=== PATIENT | female | born 1950 | race Caucasian/White ===

== ENCOUNTER 2020-02-18 12:01 | Outpatient (REF) | payer MEDICARE, MEDICAID, SELFPAY | END 2020-02-18 12:02 | disposition home or self-care (01) | LOC: HO.LAB 12:01 | PROVIDERS: PCP Family Medicine; Visit Provider Internal Medicine | DX: Z20.828 Contact with and (suspected) exposure to other viral communicable diseases (principal) | CPT/HCPCS: C9803; U0003 ==

== ENCOUNTER 2020-09-09 12:08 | Outpatient (REF) | payer OTHER, MEDICARE, MEDICAID, SELFPAY ==
--- NOTE | ~2020-09-09 | MM_ITS ---
EXAMINATION: MM SCREENING DIGITAL BREAST TOMOSYNTHESIS, LEFT CLINICAL INFORMATION: Screening. Asymptomatic. Status post right mastectomy. COMPARISON: Mammography: September 06, 2019 and studies dating back to August 23, 2011 TECHNIQUE: Digital breast tomosynthesis is performed in both the craniocaudal and mediolateral oblique views along with computer-aided detection (CAD). Synthesized 2D images are generated from the tomosynthesis. FINDINGS: The breasts are heterogeneously dense, which may obscure small masses (ACR BI-RADS breast composition Category c). There are no significant masses, abnormal calcifications, or other abnormalities. MM/MM tomosynthesis screening LT IMPRESSION: There are no significant changes from prior study. ASSESSMENT: BI-RADS 1: Negative RECOMMENDATION: Routine annual mammography screening. This patient's information was entered into a reminder system with a target due date for their next mammogram.
== END 2020-09-09 12:09 | disposition home or self-care (01) ==
LOC: HO.MAMMO 12:08
PROVIDERS: PCP Family Medicine; Visit Provider Family Medicine
DX: Z12.31 Encounter for screening mammogram for malignant neoplasm of breast (principal)
CPT/HCPCS: 77063; 77067

== ENCOUNTER 2021-09-11 09:21 | Outpatient (REF) | payer OTHER, SELFPAY ==
--- NOTE | ~2021-09-11 | MM_ITS ---
EXAMINATION: MM SCREENING DIGITAL BREAST TOMOSYNTHESIS, LEFT CLINICAL INFORMATION: Screening. Asymptomatic. Right breast cancer status post mastectomy, 2013. COMPARISON: Mammography: 09/09/2020, 09/06/2019, 09/04/2019, 08/29/2018 TECHNIQUE: Digital breast tomosynthesis is performed in both the craniocaudal and mediolateral oblique views along with computer-aided detection (CAD). Synthesized 2D images are generated from the tomosynthesis. FINDINGS: There are scattered areas of fibroglandular density (ACR BI-RADS breast composition Category b). There are no significant masses, abnormal calcifications, or other abnormalities. Parenchymal pattern is similar to prior studies. There is no developing density or architectural abnormality. The axilla and skin contours are unremarkable. No significant changes. MM/MM tomosynthesis screening LT IMPRESSION: There are no significant changes from prior study. ASSESSMENT: BI-RADS 1: Negative RECOMMENDATION: Routine annual mammography screening. This patient's information was entered into a reminder system with a target due date for their next mammogram.
== END 2021-09-11 09:22 | disposition home or self-care (01) ==
LOC: HO.MAMMO 09:21
PROVIDERS: Visit Provider Family Medicine
DX: Z12.31 Encounter for screening mammogram for malignant neoplasm of breast (principal)
CPT/HCPCS: 77063; 77067

== ENCOUNTER → 2022-05-05 07:54 | Outpatient (BNVA) | payer OTHER, SELFPAY | PROVIDERS: PCP Family Medicine; Visit Provider Internal Medicine | DX: E04.2 Nontoxic multinodular goiter (principal) | CPT/HCPCS: 99202 ==

== ENCOUNTER 2022-05-05 09:14 | Outpatient (REF) | payer OTHER, SELFPAY ==
[2022-05-05 11:08] LABS: Free T4 (Free Thyroxine) 1.05 ng/dL (0.71-1.85); Thyroid Stimulating Hormone 1.68 uIU/mL (0.32-4.0)
== END 2022-05-05 09:15 | disposition home or self-care (01) ==
LOC: HO.10HDL 09:14
PROVIDERS: Visit Provider Internal Medicine
DX: E04.2 Nontoxic multinodular goiter (principal)
CPT/HCPCS: 36415; 84439; 84443

== ENCOUNTER 2022-09-17 14:38 | Outpatient (REF) | payer OTHER, SELFPAY ==
--- NOTE | ~2022-09-17 | MM_ITS ---
EXAMINATION: MM SCREENING DIGITAL BREAST TOMOSYNTHESIS, LEFT CLINICAL INFORMATION: Screening. Asymptomatic. The patient has a history of right mastectomy. COMPARISON: Mammography: This study is compared with prior exams dating back to 2019. TECHNIQUE: Digital breast tomosynthesis is performed in both the craniocaudal and mediolateral oblique views along with computer-aided detection (CAD). Synthesized 2D images are generated from the tomosynthesis. FINDINGS: There are scattered areas of fibroglandular density (ACR BI-RADS breast composition Category b). There are no significant masses, abnormal calcifications, or other abnormalities. MM/MM tomosynthesis screening LT IMPRESSION: No mammographic evidence of malignancy. ASSESSMENT: BI-RADS BI-RADS 1 - Negative RECOMMENDATION: Routine annual mammography screening. 1 year F/U This examination should not preclude the clinical evaluation of a suspicious palpable abnormality. This patient's information was entered into a reminder system with a target due date for their next mammogram.
== END 2022-09-17 14:39 | disposition home or self-care (01) ==
LOC: HO.MAMMO 14:38
PROVIDERS: PCP Family Medicine; Visit Provider Family Medicine
DX: Z12.31 Encounter for screening mammogram for malignant neoplasm of breast (principal)
CPT/HCPCS: 77063; 77067

== ENCOUNTER → 2022-09-17 14:45 | Outpatient (BNV) | payer OTHER, SELFPAY | PROVIDERS: PCP Family Medicine; Visit Provider Radiology Diagnostic Radiology | DX: Z12.31 Encounter for screening mammogram for malignant neoplasm of breast (principal) | CPT/HCPCS: 77063; 77067 ==

== ENCOUNTER 2022-09-23 10:46 | Outpatient (REF) | payer OTHER, SELFPAY ==
--- NOTE | 2022-09-23 11:07 | P.BOP_ITS ---
Brief Operative Note Date of Service: 09/23/22 Pre-op diagnosis: Multinodular Thyroid Procedure: EXAMINATION: US THYROID CLINICAL INFORMATION: Multinodular Thyroid COMPARISON: Prior TECHNIQUE: Linear transducer casiano-scale and color Doppler examination with attention to the region of the thyroid. FINDINGS: SIZE: Measurements of the thyroid lobes and nodules are given in sagittal, anteroposterior and transverse dimensions respectively. Right Thyroid Lobe: 2.1 x 4.7 x 2.4 cm, volume 12.1 mL. Parenchyma: The gland echotexture is heterogenous. Left Thyroid Lobe: 1.2 x 4.2 x 1.5 cm, volume 3.9 mL. Parenchyma: The gland echotexture is heterogenous. RIGHT THYROID LOBE: There no nodules, only pseudonodules. LEFT THYROID LOBE: There is 1 nodule. 1. There is a 0.7 x 0.9 x 0.7 cm predominantly solid hypoechoic nodule. There are no microcalcifications and smooth margins. NODES: No lymphadenopathy is seen in the tissue surrounding the thyroid gland. Surgeon: Whitney Samson, DO Was an [employer] used for this Procedure?: No Estimated blood loss (mL): 0
== END 2022-09-23 10:47 | disposition home or self-care (01) ==
LOC: HO.US 10:46
PROVIDERS: PCP Family Medicine; Visit Provider Internal Medicine
DX: E04.2 Nontoxic multinodular goiter (principal)
CPT/HCPCS: 76536

== ENCOUNTER → 2022-09-23 10:46 | Outpatient (BNV) | payer OTHER, SELFPAY | PROVIDERS: PCP Family Medicine; Visit Provider Internal Medicine | DX: E04.2 Nontoxic multinodular goiter (principal) | CPT/HCPCS: 76536 ==

== ENCOUNTER 2022-10-07 13:13 | Outpatient (AMB) | payer MEDICARE, MEDICAID, SELFPAY ==
--- NOTE | 2022-10-07 14:16 | MHC.OFFVIS ---
Intake Intake Visit Reasons: FNA results/needs 40 mins. Allergies acetaminophen [From PERCOCET] Allergy (Unknown, Verified 10/07/22 14:16) N/V atorvastatin [From LIPITOR] Allergy (Unknown, Verified 10/07/22 14:16) MUSCLE WEAKNESS lovastatin Allergy (Unknown, Verified 10/07/22 14:16) Unknown oxycodone [From PERCOCET] Allergy (Unknown, Verified 10/07/22 14:16) N/V CATARINA Inhibitors [CATARINA INHIBITORS] Adverse Reaction (Intermediate, Verified 10/07/22 14:16) COUGH Medication List - Last Reconciled 10/07/22 by Whitney Samson, DO acetaminophen 325 mg PO QID PRN albuterol sulfate 90 mcg/actuation 2 puffs inhalation Q6H PRN cholecalciferol (vitamin D3) 50 mcg PO DAILY losartan 25 mg PO DAILY melatonin 3 mg PO BEDTIME PRN metoprolol succinate ER 25 mg PO ONCE omeprazole 20 mg PO DAILY rosuvastatin 20 mg PO DAILY warfarin 5 mg PO DAILY HPI HPI Comments History of Present Illness Details 71 YO Female with a complex medical history including hypercoagulability (Factor V Leiden and Lupus Anticoagulant) with prior PE on lifelong AC with Coumadin who is seen in consultation at the request of her PCP for a multindoular thyroid. She had a CT of the chest in 2021 which revealed a multinodular thyroid. This was completed at the [facility]. She subsequently had an US of the thyroid which revealed a 2.1 cm RLP thyroid nodule and she was referred to Endocrinology. I repeated her US myself 09/23/2022 and she was found to have a 0.9 cm nodule, not meeting indication for FNA biopsy. She denies any compressive symptoms currently. She reports fatigue, weight gain and hair loss. She reports TSH has always been WNL. She denies any personal history of head or neck irradiation. She does have a history of breast cancer, but did not receive radiotherapy for this. She is a and spent time in both [place] and [place] and reports having significant pesticide exposure as well as agent orange. She denies any family history of thyroid cancer. She does have a history of breast cancer and underwent a mastectomy. She reports being treated for 3 years with letrozole. She was on Fosamax for Osteoporosis but stopped this of her own accord. She is not interested in evaluation or treatment of her Osteoporosis at this time. Labs: Laboratory Tests 05/05/22 09:21 TSH 1.68 Free T4 1.05 PFSH Medical History CKD (chronic kidney disease) Factor V Leiden History of breast cancer History of venous thromboembolism Lupus anticoagulant disorder Multinodular thyroid Surgical History Hx of right mastectomy Family History Father Heart failure Mother No problems noted. Social History Alcohol intake: former Patient Tobacco Use Status: Current everyday Tobacco user Tobacco use type: Cigarette Cigarettes Per Day: 2 service: Yes ([employer] [id number]) Assessment & Plan Assessment & Plan (1) Multinodular thyroid: Code(s): E04.2 - Nontoxic multinodular goiter Plan: Patient with a solitary thyroid nodule. This did not meet indication for FNA biopsy on her last US due to size, subcentimeter. Plan for now is for her to continue following with her PCP for further management. I do recommend her PCP repeat a thyroid US yearly to assess for any concerning growth or changes in this nodule. If concerning growth or changes are noted, or the nodule grows to over 1 cm in size, she can be referred back to Endocrinology at that time. All questions answered. She is in agreement with this plan of care. I spent 20 minutes in reviewing the record, seeing the patient and documenting in the medical record, including 5 minutes on the phone with the Patient. Telehealth Telehealth Location of provider rendering services: practice address Location of patient: address on file Patient Identification confirmed using: Name, : Yes Telehealth method: voice only Patient verbally consented to treatment: Yes Patient verbally consented to billing insurance company: Yes Patient informed of any privacy concerns related to visit: Yes Coding Level of Care Code Tele Est Pt Level 2 (11405) Diagnoses Multinodular thyroid E04.2
== END 2022-10-07 14:48 | disposition home or self-care (01) ==
PROVIDERS: PCP Family Medicine; Visit Provider Internal Medicine
DX: E04.2 Nontoxic multinodular goiter (principal)
CPT/HCPCS: 99212

== ENCOUNTER → 2022-10-07 13:13 | Outpatient (BNVA) | payer OTHER, SELFPAY | PROVIDERS: Visit Provider Internal Medicine ==

== ENCOUNTER 2023-09-26 10:31 | Outpatient (REF) | payer OTHER, SELFPAY ==
--- NOTE | ~2023-09-26 | MM_ITS ---
EXAMINATION: MM SCREENING DIGITAL BREAST TOMOSYNTHESIS, LEFT CLINICAL INFORMATION: Screening. Asymptomatic. Status post right mastectomy. COMPARISON: Mammography: This study is compared with prior exams dating back to TECHNIQUE: Digital breast tomosynthesis is performed in both the craniocaudal and mediolateral oblique views along with computer-aided detection (CAD). Synthesized 2D images are generated from the tomosynthesis. FINDINGS: There are scattered areas of fibroglandular density (ACR BI-RADS breast composition Category b). There are no significant masses, abnormal calcifications, or other abnormalities. MM/MM tomosynthesis screening LT IMPRESSION: No mammographic evidence of malignancy. ASSESSMENT: BI-RADS BI-RADS 1 - Negative RECOMMENDATION: Routine annual mammography screening. 1 year F/U This examination should not preclude the clinical evaluation of a suspicious palpable abnormality. This patient's information was entered into a reminder system with a target due date for their next mammogram.
== END 2023-09-26 10:32 | disposition home or self-care (01) ==
LOC: HO.MAMMO 10:31
PROVIDERS: PCP Internal Medicine; Referring Provider Internal Medicine; Visit Provider Internal Medicine
DX: Z12.31 Encounter for screening mammogram for malignant neoplasm of breast (principal)
CPT/HCPCS: 77063; 77067

== ENCOUNTER → 2023-09-26 10:45 | Outpatient (BNV) | payer OTHER, SELFPAY | PROVIDERS: PCP Internal Medicine; Visit Provider Radiology Diagnostic Radiology | DX: Z12.31 Encounter for screening mammogram for malignant neoplasm of breast (principal) | CPT/HCPCS: 77063; 77067 ==

== ENCOUNTER 2023-10-07 18:47 | Inpatient (IN) | payer OTHER, SELFPAY ==
[2023-10-07] VITALS (7 sets, daily range): BP systolic 101–149; BP diastolic 42–71; PULSE 79–86; RESP 14–24; TEMP 36.3–37.2; O2SAT 92–100; BMI 34.3
--- NOTE | 2023-10-07 | ECG_ITS ---
Test Reason : chest pain Blood Pressure : / mmHG Vent. Rate : 085 BPM Atrial Rate : 085 BPM P-R Int : 142 ms QRS Dur : 090 ms QT Int : 426 ms P-R-T Axes : 022 028 223 degrees QTc Int : 506 ms Normal sinus rhythm Marked ST abnormality, possible inferior subendocardial injury Marked ST abnormality, possible anterolateral subendocardial injury Prolonged QT Abnormal ECG When compared with ECG of 07-OCT-2023 18:57, ST now depressed in Inferior leads ST more depressed Anterolateral leads T wave inversion now evident in Inferior leads T wave inversion now evident in Anterior leads Referred By: Kanchan Barrow Electronically Signed By:Ta Ray
--- NOTE | 2023-10-07 | ECG_ITS ---
Test Reason : CHEST PAIN Blood Pressure : / mmHG Vent. Rate : 081 BPM Atrial Rate : 081 BPM P-R Int : 144 ms QRS Dur : 088 ms QT Int : 414 ms P-R-T Axes : 026 031 016 degrees QTc Int : 480 ms Normal sinus rhythm Left ventricular hypertrophy Lateral ST depressions-consider ischemia Abnormal ECG When compared with ECG of 20-AUG-2016 14:39, ST now depressed in Lateral leads T wave inversion now evident in Lateral leads Referred By: Generic ED Physician Electronically Signed By:Ta Ray
--- NOTE | ~2023-10-07 | XR_ITS ---
EXAMINATION: XR CHEST CLINICAL INFORMATION: Chest pain. COMPARISON: Chest radiographs dated 07/20/2010. TECHNIQUE: Frontal view of the chest was obtained. FINDINGS: The heart, great vessels, pulmonary vasculature and mediastinum are normal. There is moderate elevation of the right hemidiaphragm. No infiltrate, effusion or pneumothorax is seen. There is no acute osseous abnormality. Multiple monitor leads overlap the chest. XR/XR chest 1V IMPRESSION: 1. No focal infiltrate or congestive heart failure is seen. 2. There is moderate elevation of the right hemidiaphragm.
--- NOTE | ~2023-10-07 | CT_ITS ---
EXAMINATION: CT ABDOMEN AND PELVIS WITH CONTRAST GI BLEED CLINICAL INFORMATION: GI bleed COMPARISON: None TECHNIQUE: Initial noncontrast imaging of the abdomen/pelvis. Multidetector volumetric images were obtained from the superior aspect of the liver through the pubic symphysis following administration 80 mL of Omnipaque 350 intravenous contrast in arterial and delayed phases. Sagittal and coronal reformatted images were obtained on the technologist's workstation. This CT examination was performed using dose optimization techniques as appropriate, variously including the following: *Automated exposure control *Adjustment of mA and/or kV according to patient size (this includes techniques or standardized protocols for targeted exams where dose is matched to indication/reason for exam; i.e. extremities or head) *Use of iterative reconstruction technique DLP: 2037 mGy-cm FINDINGS: LUNG BASES: Included lung bases are well-aerated. Coronary artery calcifications are present. Aortic valve calcifications are present, a finding which may indicate aortic stenosis. LIVER, GALLBLADDER, AND BILIARY TREE: The liver is normal in size, shape, and attenuation. No focal hepatic lesion or biliary ductal dilatation is present. The gallbladder is unremarkable with no evidence of radiopaque gallstones, gallbladder wall thickening, or obvious pericholecystic inflammatory changes. PANCREAS: Unremarkable. SPLEEN: Unremarkable. ADRENAL GLANDS: Unremarkable. KIDNEYS AND URETERS: No hydronephrosis or obstructing calculus bilaterally. Postcontrast nephrograms are symmetric. A few small hypoattenuating bilateral renal foci favor cysts; no follow-up recommended. BLADDER: Unremarkable. GASTROINTESTINAL TRACT: On arterial phase postcontrast imaging there is a small focus of hyperattenuation within the small bowel of the left abdomen on image 141/[id number] which was not definitely present on precontrast imaging, raising concern for a small focus of active gastrointestinal hemorrhage. This is not clearly seen on delayed postcontrast imaging. Colonic diverticulosis is noted. No evidence of bowel obstruction or significant wall thickening. The appendix is unremarkable. No free fluid or free air is seen. ABDOMINAL WALL: No significant hernia is appreciated. LYMPH NODES: Normal. VASCULAR: There is atherosclerotic calcification along the aorta. No evidence of aortic aneurysm. There appear to be separate origins of the common hepatic, left gastric, and splenic arteries off the aorta. The superior and inferior mesenteric arteries appear patent. Bilateral renal arteries are patent with proximal calcifications likely resulting in moderate stenosis on the left and at least mild stenosis on the right. PELVIC VISCERA: Unremarkable. OSSEOUS STRUCTURES: Unremarkable. CT/CT gi bleed abd pel wo/w IVcon IMPRESSION: 1. Small focus of hyperattenuation within the small bowel of the left abdomen on arterial phase imaging, not definitely present on precontrast imaging, raising concern for a small focus of active gastrointestinal hemorrhage. 2. Colonic diverticulosis. 3. Aortic valve calcifications, a finding which may indicate aortic stenosis. 4. Coronary artery calcifications. Correlation with cardiac risk factors is recommended. This critical result was discussed with Dr. Ponce on 10/08/2023 1:04 AM, and it was ascertained that the content and urgency of the report was understood at the time of direct communication.
--- NOTE | 2023-10-07 19:26 | ED_ITS ---
HPI - Chest Pain General Chief Complaint: Chest Pain Stated Complaint: chest pain, weakness, hx PE, 324mg aspirin given Time Seen by Provider: 10/07/23 19:11 Source: patient and family ( grandson) Mode of arrival: ambulatory Limitations: no limitations History of Present Illness ED Provider: Dr. Sonja Ponce HPI narrative: patient comes to the emergency room complaining of ongoing chest pain for 27 hours. Patient states that for the last 27 hours, she has had some GERD like sensation and chest pain across the chest. Patient states that she has history of aortic stenosis. However, over the last 24 hours, she has noticed that she has significant shortness of breath with minimal exertion which is new for her. The pain is constant, nonradiating. Patient denies any recent illnesses. Patient states that today her grandson visited her, noticed that she was a bit pale and given her symptoms, They called 911 and brought her to emergency room. Patient received aspirin 324 mg prior to arrival. Patient states that she takes Coumadin for factor 5 Leiden deficiency and history of pulmonary embolism in 2010. Related Data Home Medications ?Medication ?Instructions ?Recorded ?Confirmed acetaminophen 325 mg capsule 325 mg PO QID PRN Pain 04/28/22 10/07/23 albuterol sulfate 90 mcg/actuation 2 puff inhalation Q6H PRN 04/28/22 10/07/23 aerosol inhaler SOB/Wheezing losartan 25 mg tablet 25 mg PO DAILY 04/28/22 10/07/23 melatonin 3 mg capsule 3 mg PO BEDTIME PRN Sleep 04/28/22 10/07/23 metoprolol succinate 25 mg 25 mg PO ONCE 04/28/22 10/07/23 tablet,extended release 24 hr omeprazole 20 mg capsule,delayed 20 mg PO DAILY 04/28/22 10/07/23 release rosuvastatin 20 mg tablet 20 mg PO DAILY 04/28/22 10/07/23 warfarin 5 mg tablet 5 mg PO DAILY 04/28/22 10/07/23 cholecalciferol (vitamin D3) 50 50 mcg PO DAILY 05/05/22 10/07/23 mcg (2,000 unit) capsule azithromycin 250 mg tablet 250 mg PO DIRECTED 10/07/23 10/07/23 Allergies Allergy/AdvReac Type Severity Reaction Status Date / Time acetaminophen [From PERCOCET] Allergy Unknown N/V Verified 10/07/23 19:08 atorvastatin [From LIPITOR] Allergy Unknown MUSCLE Verified 10/07/23 19:08 WEAKNESS lovastatin Allergy Unknown Unknown Verified 10/07/23 19:08 oxycodone [From PERCOCET] Allergy Unknown N/V Verified 10/07/23 19:08 CATARINA Inhibitors AdvReac Intermediate COUGH Verified 10/07/23 19:08 [CATARINA INHIBITORS] Review of Systems 2 Review of Systems: Constitutional : No Weight loss, No Fever, No Chills, No Night Sweats, Complaining of fatigue and generalized malaise ENT/Mouth : No Hearing loss, No Ear Pain, No Nasal Congestion, No Sinus Pain, No Hoarseness, No sore throat, No Rhinorrhea, No Swallowing Difficulty Eyes: No Eye Pain, No Swelling, No Redness, No Foreign Body, No Discharge, No Vision Changes Cardiovascular : complaining of ongoing chest pain and GERDfor approx 27 hours Respiratory : No Cough, No Sputum, No Wheezing, No Smoke Exposure, No Dyspnea Gastrointestinal : No Nausea, No Vomiting, No Diarrhea, No Constipation, No abdominal Pain, No Hematochezia, No Melena Genitourinary : no irregular bleeding, No Dysuria, No Urinary Frequency, No Hematuria, No Urinary Incontinence, No Urgency, No Flank Pain, No Urinary Flow Changes, No Hesitancy Musculoskeletal : No joint pain, No Myalgias, No Joint Swelling Skin : No Skin Lesions, No rash Neuro : No Weakness, No Numbness, No Paresthesias, No Loss of Consciousness, No Dizziness, No Headache Psych : No Anxiety/Panic, No Depression, No SI/HI/AH/VH, No Social Issues, Heme/Lymph: No Bruising, No Bleeding,No Lymphadenopathy Endocrine : No Polyuria, No Polydipsia, No Temperature Intolerance [facility] Past Medical History Medical History CKD (chronic kidney disease) History of breast cancer History of venous thromboembolism Lupus anticoagulant disorder Factor V Leiden Multinodular thyroid Surgical History Hx of right mastectomy Family History Family History Father Heart failure Mother No problems noted. Social History Social History Alcohol intake: former Patient Tobacco Use Status: Current everyday Tobacco user Tobacco use type: Cigarette Cigarettes Per Day: 2 Smoked in Last 30 Days: Yes Use of substances other than those prescribed or required for medical reasons: No Advance Directives: No Advance Directives Information Provided: No Do you have a plan to hurt others: No Plan service: Yes ([employer] [id number]) Physical Exam 2 Vital Signs: Vital Signs: Last Vital Signs Temp 97.4 F 10/07/23 21:53 Pulse 85 10/07/23 21:53 Resp 14 10/07/23 21:53 BP 119/48 L 10/07/23 21:53 Pulse Ox 100 10/07/23 21:53 O2 Del Method Room Air 10/07/23 20:00 BMI result Body Mass Index 34.3 Const: Other: Appearance: Alert. Oriented X3. No acute distress. Eyes: Pupils equal, round and reactive to light. ENT: Pharynx normal. Neck: Normal inspection. Neck supple. No lymph nodes noted. No crepitus CVS: S1-S2, +3 systolic murmur in left sternal border Respiratory: No respiratory distress. Breath sounds normal. No Wheezing. No rales Abdomen: Soft and nontender. No rigidity. No distention. Skin: Skin warm and dry. patient's seems pale Extremities: No lower extremity edema. No Lacerations. No Rash Neuro: Oriented X 3. No motor deficit. No sensory deficit. Moving all extremities. No slurred speech. CN 2 through 12 grossly intact Psych: calm, cooperative, normal affect Medications Administered Discontinued Medications Generic Name Dose Route Start Last Admin Trade Name Jjq PRN Reason Stop Dose Admin Iohexol 80 ml 10/07/23 21:35 10/07/23 21:38 Iohexol 350 Mg/Ml 100 Ml Infus..Btl IV 10/07/23 21:36 80 ml ONCE ONE Administration Medical Decision Making Medical Decision Making MDM Narrative: - my interpretation of EKG: Normal sinus rhythm, heart rate 81, ST segment depression in lead 1 lead 2 AVF V4 V5 V6 approximately 2 mm depression. - comparing patient's EKG to 2017 which is the last EKG that we have on file, these are all new changes - Given patient's new symptoms of ongoing chest pain for 27 hours, exertion intolerance with shortness of breath new onset since yesterday, GERD like sensation, patient likely having an NSTEMI. - All of patient's labs pending - at 19:35, lab called to inform us that the patient's hemoglobin is 6.1, hematocrit 17.2 - this is likely the source of patient's EKG changes. - patient admits that over the last 2 days she has been having black stool. Patient is on Coumadin for factor 5 Leiden deficiency and history of PE - I discussed with the patient that I recommend a blood transfusion given her symptoms and labs. Patient agreeable. I discussed with the patient the risks versus benefits of a blood transfusion, patient agreeable to proceed with the transfusion. - My interpretation of labs: White blood cell count 12.2, likely reactive leukocytosis, hemoglobin 6.1, hematocrit 17.2, platelets 253. INR 4.9, elevated. Stool occult blood positive, BNP 348 - my interpretation of chest x-ray, no pulmonary edema. Cardiomegaly. - I discussed with the patient that she likely has new onset CHF. Patient will likely need a cardiology consult and echocardiogram in the morning. - Also, patient is anemic, likely secondary to slow GI bleed from Coumadin. - CT scan of the abdomen pending. At this time, active GI bleed not suspected. Patient has dark / black stool, no fresh red blood per rectum. Vitals stable. - Patient receiving blood. Tolerating well the transfusion, starting to feel better. - Patient will receive Lasix in between transfusions - I discussed the patient with Dr. Barrow, patient being admitted - CT scan to rule out pulmonary embolism was considered. However patient is not tachycardic, no oxygen desaturation. Patient is hyper therapeutic on Coumadin - CT scan for GI bleed of the abdomen and pelvis pending, hospitalist team will follow results - Patient has already been admitted - while patient still boarding in the ED, patient's nurse informed me at 03/26/2052 that the patient was complaining of worsening chest pain, patient had diaphoresis. - A stat EKG was ordered, shows worsening diffuse ST segment depressions in all leads. Patient was giving IV morphine, patient's blood pressure 119/48, heart rate 85, oxygen saturation 99% on room air. - I discussed the 1st and 2nd EKGs with Dr. Ray: this ST changes ischemic secondary to anemia. Patient needs that blood which is ready to be transfused. - At this time, no need for transfusion. Patient needs blood. - patient's prophylactically placed on pads, crash cart at bedside PRN - Differential Diagnosis Differential Diagnoses: The differential diagnosis associated with the presentation includes ( PE, CHF, ACS, NSTEMI, anemia, GI bleed) Admission/Observation Consideration of admission/observation: Escalation of care including admission/observation considered Consult Healthcare Provider Management of the patient was discussed with: Hospitalist Lab Data MDM Lab Attestation statement: I reviewed the patient's lab results. 10/07/23 19:25 10/07/23 19:25 Labs: Lab Results 10/07/23 10/07/23 10/07/23 Range/Units 19:25 19:43 20:10 WBC 12.5 H (4.8-10.8) X10*3/uL RBC 1.75 L (4.20-5.50) X10*6/uL Hgb 6.1 L* (12.0-16.0) g/dl Hct 17.2 L* (37.0-47.0) % MCV 98.3 H (80.0-98.0) fL MCH 34.9 H (27.0-33.0) pg MCHC 35.5 H (31.0-35.0) g/dl RDW 13.0 (11.0-16.0) % Plt Count 253 (160-400) X10*3/uL MPV 9.6 (9.4-12.3) fL Immature Gran % (Auto) 1.0 H (0.0-0.4) % Neut % (Auto) 53.6 (45-73) % Lymph % (Auto) 34.0 (20-40) % Henderson % (Auto) 7.8 (2-11) % Eos % (Auto) 2.6 (0-4) % Baso % (Auto) 1.0 (0-2) % Lymph # (Auto) 4.2 (1.2-4.9) X10*3/uL Henderson # (Auto) 1.0 (0.1-1.2) X10*3/uL Eos # (Auto) 0.3 (0.0-0.4) X10*3/uL Baso # (Auto) 0.1 (0.0-0.2) X10*3/uL Abs Immat Gran (auto) 0.13 H (0.00-0.03) X10*3/uL Absolute Neuts (auto) 6.7 (2.0-8.3) x10*3/uL Absolute Nucleated RBC 0.060 H (0.0-0.012) X10*3/uL Nucleated RBC % (auto) 0.5 H (0.0-0.2) /100WBC PT 60.0 H (11.1-13.3) SEC INR 4.9 H (0.9-1.1) Sodium 140 (135-145) mmol/L Potassium 4.1 (3.3-5.1) mmol/L Chloride 109 H (96-108) mmol/L Carbon Dioxide 22 (22-29) mmol/L Anion Gap 13 (12-20) BUN 48 H (9-16) mg/dL Creatinine 1.07 (0.5-1.4) mg/dL Estim Creat Clear Calc 52.5 Estimated GFR 51 Random Glucose 131 H (60-115) mg/dL Calcium 8.5 (8.4-10.2) mg/dL Total Bilirubin 0.2 (0.0-1.0) mg/dL Direct Bilirubin < 0.2 (0.0-0.5) mg/dL AST 13 (5-31) U/L ALT 10 (0-31) U/L Alkaline Phosphatase 34 L (39-117) U/L Troponin I High Sens 7.7 (<3.5-17.0) ng/L B-Natriuretic Peptide 348 H (<100) pg/mL Total Protein 5.5 L (6.5-8.0) g/dL Albumin 3.3 L (3.5-5.0) g/dL Stool Occult Blood POSITIVE (NEGATIVE) COVID-19 (JAMIE) Negative (Negative) COVID-19 Clin Com See Note Blood Type A Positive Antibody Screen NEGATIVE Crossmatch See Detail Independent Interpretation I performed an independent interpretation of an: EKG and Plain X-Ray Radiology Impression Discussion of test interpretation with radiology: I have reviewed the radiologist's reading. Radiologist Impression: The heart, great vessels, pulmonary vasculature and mediastinum are normal. There is moderate elevation of the right hemidiaphragm. No infiltrate, effusion or pneumothorax is seen. There is no acute osseous abnormality. Multiple monitor leads overlap the chest. XR/XR chest 1V IMPRESSION: 1. No focal infiltrate or congestive heart failure is seen. 2. There is moderate elevation of the right hemidiaphragm. Critical Care Time Critical Care Time Critical Care Time: Yes Total Critical Care Time: 75 Attestation: I have personally provided critical care time. Time includes review of lab data, radiology results, discussion with consultants, and monitoring for potential decompensation. Intervention performed as documented. Discharge Plan Discharge Clinical Impression: Anemia, GI bleed, Supratherapeutic INR, Acute electrocardiogram changes Patient Disposition: Admitted As Inpatient
[2023-10-07 19:31] LABS: Basophils Absolute Auto 0.1 X10*3/uL (0.0-0.2); Eosinophils Absolute Auto 0.3 X10*3/uL (0.0-0.4); Eosinophils Percent Auto 2.6 % (0-4); Imm Gran Abs Auto 0.13 X10*3/uL (0.00-0.03); Lymphocytes Absolute Auto 4.2 X10*3/uL (1.2-4.9); MANUAL DIFF FLAG NO; Mean Corpuscular HGB Conc 35.5 g/dl (31.0-35.0); Mean Corpuscular Hemoglobin 34.9 pg (27.0-33.0); Mean Corpuscular Volume 98.3 fL (80.0-98.0); Mean Platelet Volume 9.6 fL (9.4-12.3); Monocytes Percent Auto 7.8 % (2-11); NRBC Pct Auto 0.5 /100WBC (0.0-0.2); Neutrophils Absolute Auto 6.7 x10*3/uL (2.0-8.3); Neutrophils Percent Auto 53.6 % (45-73); Platelet Count 253 X10*3/uL (160-400); Red Blood Count 1.75 X10*6/uL (4.20-5.50); White Blood Count 12.5 X10*3/uL (4.8-10.8)
[2023-10-07 19:36] LABS: Hematocrit 17.2 % (37.0-47.0); Hemoglobin 6.1 g/dl (12.0-16.0)
[2023-10-07 19:46] LABS: Alanine Aminotransferase 10 U/L (0-31); Albumin Level 3.3 g/dL (3.5-5.0); Alkaline Phosphatase 34 U/L (39-117); Anion Gap 13 (12-20); Aspartate Amino Transferase 13 U/L (5-31); Bilirubin Direct < 0.2 mg/dL (0.0-0.5); Bilirubin Total 0.2 mg/dL (0.0-1.0); Blood Urea Nitrogen 48 mg/dL (9-16); Calcium 8.5 mg/dL (8.4-10.2); Carbon Dioxide 22 mmol/L (22-29); Chloride 109 mmol/L (96-108); Creatinine Clr Calc Pharmacy 52.5; Estimated Glomerular Filt Rate 51; Glucose Random 131 mg/dL (60-115); Potassium 4.1 mmol/L (3.3-5.1); Sodium 140 mmol/L (135-145); Total Protein 5.5 g/dL (6.5-8.0)
[2023-10-07 19:49] LABS: INTERNATIONAL NORM RATIO 4.9 (0.9-1.1)
[2023-10-07 19:52] LABS: B Type Natriuretic Peptide 348 pg/mL (<100)
[2023-10-07 19:52] LABS: OBS Int Ctl Valid YES; OBS1 POSITIVE (NEGATIVE)
[2023-10-07 19:53] LABS: Troponin-I High Sensitivity 7.7 ng/L (<3.5-17.0)
[2023-10-07 20:32] LABS: COVID-19 Test Negative (Negative); IDNOW Serial# 58CA691E
--- NOTE | 2023-10-07 20:44 | PM.IMHP ---
History of Present Illness Date of Service: 10/07/23 Attending physician on admission: Cassie Barrow Chief Complaint: Chest pain, weakness Pt is a 73-year-old female with a PMH significant for?hx of PE, factor 5 leiden on Coumadin, lupus anticoagulant syndrome, HTN, HLD, aortic stenosis, CKD3, hx of breast cancer s/p right mastectomy 2013, COPD, and GERD who presents to the ED with?shortness a breath, weakness, and chest pain x4 days. Patient has chronic shortness of breath, though significantly worsened during the past 4 days especially with going upstairs. Patient also has been experiencing severe heartburn symptoms of substernal burning and knawing sensation. Patient states she has long had GERD, but has been ?really bad? the past 3-4 days. Also has been experiencing chest tightness and squeezing that begins on the left side and radiates like a band across her chest. Also reports experiencing lightheaded and dizziness, and also noticed dark black stools both 2 days ago and again today. Denies NSAID use. States INR has been steady and therapeutic for the past year. Currently still smokes a few cigarettes a day but is trying to quit. Denies fever, chills. No nausea, vomiting, abdominal pain. Denies diarrhea. In the ED pt was tachypneic up to 24, with soft BP as low as 121/44. Labs were significant for leukocytosis of 12.5, H&H 6.1/17.2, Pt 60.0, INR 4.9, alk-phos 34, BNP 348, protein 5.5, albumin 3.3. CXR showed no focal infiltrate or congestive heart failure, but showed moderate elevation of right hemidiaphragm. EKG demonstrated normal sinus rhythm with minor ST depressions in lateral leads. Pt was transfused 2 units PRBCs in the ED. Pt will be admitted to the hospital for treatment and further evaluation of symptomatic acute blood loss anemia likely secondary to UGIB. Review of Systems Review of Systems: Shortness a breath, VILLARREAL Severe heartburn Left-sided chest tightness/squeezing Melena Lightheadedness, dizziness, fatigue No fever, chills, nausea, vomiting, abdominal pain PMFSH Medical History CKD (chronic kidney disease) History of breast cancer History of venous thromboembolism Lupus anticoagulant disorder Factor V Leiden Multinodular thyroid Family History Father Heart failure Mother No problems noted. Surgical History Hx of right mastectomy Social History Alcohol intake: former Patient Tobacco Use Status: Current everyday Tobacco user Tobacco use type: Cigarette Cigarettes Per Day: 2 Smoked in Last 30 Days: Yes Use of substances other than those prescribed or required for medical reasons: No Advance Directives: No Advance Directives Information Provided: No Do you have a plan to hurt others: No Plan service: Yes ([employer] [id number]) Meds Allergies Allergy/AdvReac Type Severity Reaction Status Date / Time acetaminophen [From PERCOCET] Allergy Unknown N/V Verified 10/07/23 19:08 atorvastatin [From LIPITOR] Allergy Unknown MUSCLE Verified 10/07/23 19:08 WEAKNESS lovastatin Allergy Unknown Unknown Verified 10/07/23 19:08 oxycodone [From PERCOCET] Allergy Unknown N/V Verified 10/07/23 19:08 CATARINA Inhibitors AdvReac Intermediate COUGH Verified 10/07/23 19:08 [CATARINA INHIBITORS] Active Medications: Current Medications Acetaminophen (Acetaminophen 325 Mg Tablet) 650 mg PO Q6H PRN PRN Reason: Pain, Mild (Pain Scale 1-3), fever or headache Calcium Carbonate (Calcium Carbonate 750 Mg Tab.Chew) 750 mg PO Q4H PRN PRN Reason: Heartburn Magnesium Hydroxide (Milk Of Magnesia 30 Ml Oral.Susp) 30 ml PO DAILY PRN PRN Reason: Constipation Melatonin (Melatonin 3 Mg Tablet) 6 mg PO BEDTIME PRN PRN Reason: Insomnia Ondansetron HCl (Ondansetron Hcl 4 Mg/2 Ml Vial) 4 mg IVPUSH Q8H PRN PRN Reason: Nausea and Vomiting Pantoprazole Sodium (Pantoprazole Sodium 40 Mg/10 Ml Vial) 40 mg IVPUSH BID@0630,1630 [facility] Sodium Chloride (0.9 % Sodium Chloride Flush 3 Ml Syringe) 3 ml IVFLUSH QSHIFT [facility] Home Medications ?Medication ?Instructions ?Recorded ?Confirmed ?Last Taken ?Type acetaminophen 325 mg capsule 325 mg PO QID PRN Pain 04/28/22 10/07/23 Unknown History albuterol sulfate 90 mcg/actuation 2 puff inhalation Q6H PRN 04/28/22 10/07/23 Unknown History aerosol inhaler SOB/Wheezing losartan 25 mg tablet 25 mg PO DAILY 04/28/22 10/07/23 10/06/23 History melatonin 3 mg capsule 3 mg PO BEDTIME PRN Sleep 04/28/22 10/07/23 Unknown History metoprolol succinate 25 mg 25 mg PO ONCE 04/28/22 10/07/23 10/06/23 History tablet,extended release 24 hr omeprazole 20 mg capsule,delayed 20 mg PO DAILY 04/28/22 10/07/23 10/06/23 History release rosuvastatin 20 mg tablet 20 mg PO DAILY 04/28/22 10/07/23 10/06/23 History warfarin 5 mg tablet 5 mg PO DAILY 04/28/22 10/07/23 10/06/23 History cholecalciferol (vitamin D3) 50 50 mcg PO DAILY 05/05/22 10/07/23 10/06/23 History mcg (2,000 unit) capsule azithromycin 250 mg tablet 250 mg PO DIRECTED 10/07/23 10/07/23 10/06/23 History Physical Exam Vital Signs and Narrative: Vital Signs: Last Vital Signs Temp 99.0 F 10/07/23 20:00 Pulse 79 10/07/23 20:00 Resp 24 H 10/07/23 20:00 BP 121/44 L 10/07/23 20:00 Pulse Ox 97 10/07/23 20:00 O2 Del Method Room Air 10/07/23 20:00 BMI result Body Mass Index 34.3 Constitutional: Alert, in no acute distress. Mental Status: Oriented to person, place and time. Eyes: Pupils are equal, round, and reactive to light. Ear, Nose, and Throat: Oropharynx clear, mucous membranes moist. Ears and nose without deformities. Trachea midline. Respiratory: Clear to auscultation bilaterally. No wheezing, rales, or rhonchi. Cardiovascular: S1, S2 regular. 3/6 systolic heart murmur best heard at right sternal border. Gastrointestinal: Abdomen soft, non-tender, non-distended. Normal bowel sounds. Neurologic: Cranial nerves II-XII are grossly intact bilaterally. No focal neurological deficits. Moves all extremities spontaneously. Skin: Warm, dry. Extremities: No edema. Psychiatric: Normal mood and affect. Results Labs 10/07/23 19:25 10/07/23 19:25 Labs: Laboratory Results - last 24 hr 10/07/23 10/07/23 10/07/23 19:25 19:43 20:10 MCV 98.3 H MCH 34.9 H MCHC 35.5 H RDW 13.0 Plt Count 253 MPV 9.6 Immature Gran % (Auto) 1.0 H Neut % (Auto) 53.6 Lymph % (Auto) 34.0 [place] % (Auto) 7.8 Eos % (Auto) 2.6 Baso % (Auto) 1.0 Lymph # (Auto) 4.2 [place] # (Auto) 1.0 Eos # (Auto) 0.3 Baso # (Auto) 0.1 Abs Immat Gran (auto) 0.13 H Absolute Neuts (auto) 6.7 Absolute Nucleated RBC 0.060 H Nucleated RBC % (auto) 0.5 H PT 60.0 H INR 4.9 H Anion Gap 13 Estim Creat Clear Calc 52.5 Estimated GFR 51 Random Glucose 131 H Calcium 8.5 Total Bilirubin 0.2 Direct Bilirubin < 0.2 AST 13 ALT 10 Alkaline Phosphatase 34 L Troponin I High Sens 7.7 B-Natriuretic Peptide 348 H Total Protein 5.5 L Albumin 3.3 L Stool Occult Blood POSITIVE COVID-19 (JAMIE) Negative COVID-19 Clin Com See Note Crossmatch See Detail Assessment and Plan (1) Supratherapeutic INR: Status: Acute (2) Acute blood loss anemia: Status: Acute Plan Pt is a 73-year-old female with a PMH significant for?hx of PE, factor 5 leiden on Coumadin, lupus anticoagulant syndrome, HTN, HLD, aortic stenosis, CKD3, hx of breast cancer s/p right mastectomy 2013, COPD, and GERD who presents to the ED with?shortness a breath, weakness, and chest pain x4 days. Pt will be admitted to the hospital for treatment and further evaluation of symptomatic acute blood loss anemia likely secondary to UGIB. Symptomatic acute blood loss anemia Pt with lightheadedness, dizziness, SOB, chest pain, black stools, fatigue H&H 6.1/17.2, stool positive for occult blood Pt on Coumadin with supratherapeutic INR of 4.9 Vincent NSAID use Patient transfused 2 units of PRBCs in the ED Protonix IV b.i.d. NPO after midnight in anticipation of possible EGD in the morning GI consult Check GI bleed CT Follow CBC Chest pain Patient with 2 types of chest pain: Substernal burning and gnawing; and left-sided tightness and squeezing Likely secondary to acute blood loss anemia Initial troponin 7.7 Will trend troponins Monitor on telemetry Leukocytosis WBC 12.2, likely from hemoconcentration No indication of active infection at this time or use of antibiotics Does not meet SIRS criteria Supratherapeutic INR INR 4.9 at time of presentation Patient reports stable therapeutic INR for at least the past year Hold warfarin Repeat INR COPD Not in acute exacerbation Continue home inhalers HTN BP soft Hold antihypertensives for now Resume as warranted HLD Continue statin Full Code Attending:?Dr. Barrow DVT Prophylaxis: SCDs due to acute blood loss anemia Med Rec Pending Pt will require a hospitalization of at least two nights for treatment further evaluation of?symptomatic acute blood loss anemia likely secondary to upper GI bleed. Patient will require hospitalization for blood transfusion, close monitoring of H&H with additional transfusions as necessary, and specialist consultation with GI with likely EGD. Quality Stroke Does the patient have a stroke diagnosis?: No VTE Prior VTE?: No VTE Risk Level:: Medical - moderate - high VTE Device Contraindication: N/A - Device Ordered VTE Drug Contraindication: Treatment Not Indicated
--- NOTE | 2023-10-07 21:13 | PC.NURSE ---
unable to get 2nd IV line, consent for blood signed and on chart
--- NOTE | 2023-10-07 21:17 | PC.NURSE ---
per Melody DO, ok for pt to drink, until midnight
[2023-10-07] MEDS: iohexoL 350 MG/ML 100 ML INFUS..BTL 80 ML IV (21:38)
--- NOTE | 2023-10-07 21:55 | PHA.MEDREC ---
Addendum entered by Shantanu Campos [facility] 10/07/23 22:02: med rec double checked by [facility] Original Note: Pharmacy Consult ? Medication Reconciliation Pharmacy has completed the medication reconciliation. Confirmed medications with patient and patients son at bedside. Patient son states that she started a Z-evan yesterday for 5 dsys and she did not take it today
[2023-10-07] MEDS: Morphine Sulfate 2 MG/ML CARTRIDGE IVPUSH (22:03)
[2023-10-07] MEDS: Pantoprazole Sodium 40 MG/10 ML VIAL IVPUSH (22:06)
--- NOTE | 2023-10-07 22:17 | PC.NURSE ---
1st unit of PRBC infusing at this time,, Pt medicated at for chest pain, pt is very pale and diaphotic,
[2023-10-07] MEDS: HYDROmorphone HCl 0.5 MG/0.5 ML SYRINGE IVPUSH (22:30)
[2023-10-07] MEDS: Prochlorperazine Edisylate 10 MG/2 ML VIAL IVPUSH (22:30)
[2023-10-07 22:51] LABS: Troponin-I High Sensitivity 9.5 ng/L (<3.5-17.0)
--- NOTE | 2023-10-07 23:44 | PC.NURSE ---
pt is looking better, and feela better at this time,
[2023-10-08] VITALS (16 sets, daily range): BP systolic 112–172; BP diastolic 46–87; PULSE 74–85; RESP 14–20; TEMP 36.1–37.1; O2SAT 96–100; BMI 34.3
--- NOTE | 2023-10-08 | ECG_ITS ---
Test Reason : reassess ECG changes Blood Pressure : / mmHG Vent. Rate : 079 BPM Atrial Rate : 079 BPM P-R Int : 144 ms QRS Dur : 084 ms QT Int : 426 ms P-R-T Axes : -06 016 001 degrees QTc Int : 488 ms Normal sinus rhythm Nonspecific ST and T wave abnormality Prolonged QT Abnormal ECG When compared to the previous EKG of Diffuse ST depressions improved Referred By: Ta Ray Electronically Signed By:Ta Ray
[2023-10-08] MEDS: Furosemide 20 MG/2 ML VIAL IVPUSH (01:09)
[2023-10-08] MEDS: 0.9 % Sodium Chloride Flush 3 ML SYRINGE IVFLUSH ×2 (01:10→16:01)
[2023-10-08] MEDS: Magnesium Hydrox/Alum Hydrox 30 ML ORAL.SUSP PO (02:06)
--- NOTE | 2023-10-08 06:07 | PC.NURSE ---
pt from home, with c/o of chest pain for several days, got worse in the last day. 20 in LAC, and pt is a hard stick, unable to obtain 2nd IV. Can't use right arm, R/T mastectomy in 2010. H&H was 6.1/17.2, pt received 2 units of PRBCs. PT/INR 60/14.9 pt is on coumadin. Pt had c/o of chest pain 10/10 around 2230, pt was very pale, diaphoretic. 2nd EKG and trop was done, with small amount of changes, Pt was given 0.5mg dilaudid IV at this time, and the pain went away. 1st unit of PRBCs started at 2312, and pt started to feel better, and color came back. A&OX3, resp with ease, RA sat was 98-99, pt was placed on O2/2L/NC, during the episode, and untl blood was infused. Pt is NPO, she should be having an EGD, this am. Stool was positive for blood. VSS. Resp with ease.
[2023-10-08] MEDS: Pantoprazole Sodium 40 MG/10 ML VIAL IVPUSH ×2 (06:40→16:00)
--- NOTE | 2023-10-08 07:40 | HO.PM.IMPN ---
Subjective Subjective Date of Service: 10/08/23 Interval History: Seen in follow-up for upper GI bleed, symptomatic anemia Interval history: Transfuse 2 units in the ED last night, appropriate rise in H/H but still remains borderline. Reports chest tightness but no retrosternal chest pressure. No dyspnea, palpitations, lightheadedness. No further bowel movements to did vomit x1 without any blood Review of Systems Review of Systems: Yes all other systems are reviewed and are negative Physical Exam Vital Signs: Vital Signs: Last Vital Signs Temp 98.0 F 10/08/23 05:51 Pulse 81 10/08/23 07:25 Resp 17 10/08/23 07:25 BP 140/58 H 10/08/23 07:25 Pulse Ox 97 10/08/23 07:25 O2 Del Method Room Air 10/08/23 07:25 O2 Flow Rate 2 10/08/23 05:51 BMI result Body Mass Index 34.3 Constitutional - Awake and Alert, No apparent distress Eyes - PERRLA, EOMI Cardiovascular - S1S2, RRR, IV/ systolic ejection murmur, No edema Respiratory - Normal lung expansion, Normal respiratory effort, No respiratory distress, CTA bilaterally Gastrointestinal - NT / ND; +BS; No rebound or guarding Extremities - no calf tenderness bilaterally, no swelling Skin - Warm/Dry Neurological - Alert & oriented x3 Psychological - Appropriate affect Objective Data Active Medications Acetaminophen (Acetaminophen 325 Mg Tablet) 650 mg PO Q6H PRN PRN Reason: Pain, Mild (Pain Scale 1-3), fever or headache Albuterol Sulfate (Albuterol Sulfate 90 Mcg 8 Gm Inhaler) 2 puff INHALE Q6H PRN PRN Reason: SOB/Wheezing Calcium Carbonate (Calcium Carbonate 750 Mg Tab.Chew) 750 mg PO Q4H PRN PRN Reason: Heartburn Magnesium Hydroxide (Milk Of Magnesia 30 Ml Oral.Susp) 30 ml PO DAILY PRN PRN Reason: Constipation Melatonin (Melatonin 3 Mg Tablet) 6 mg PO BEDTIME PRN PRN Reason: Insomnia Ondansetron HCl (Ondansetron Hcl 4 Mg/2 Ml Vial) 4 mg IVPUSH Q8H PRN PRN Reason: Nausea and Vomiting Pantoprazole Sodium (Pantoprazole Sodium 40 Mg/10 Ml Vial) 40 mg IVPUSH BID@0630,1630 [facility] Last Admin: 10/08/23 06:40 Dose: 40 mg Documented By: ANNA Sodium Chloride (0.9 % Sodium Chloride Flush 3 Ml Syringe) 3 ml IVFLUSH QSHIFT [facility] Last Admin: 10/08/23 01:10 Dose: 3 ml Documented By: ANNA Vitamin D (Cholecalciferol (Vitamin D3) 25 Mcg Tablet) 50 mcg PO DAILY [facility] Labs 10/08/23 08:17 10/08/23 08:17 Labs: Laboratory Results - last 24 hr 10/07/23 10/07/23 10/07/23 19:25 19:43 20:10 MCV 98.3 H MCH 34.9 H MCHC 35.5 H RDW 13.0 Plt Count 253 MPV 9.6 Immature Gran % (Auto) 1.0 H Neut % (Auto) 53.6 Lymph % (Auto) 34.0 [place] % (Auto) 7.8 Eos % (Auto) 2.6 Baso % (Auto) 1.0 Lymph # (Auto) 4.2 [place] # (Auto) 1.0 Eos # (Auto) 0.3 Baso # (Auto) 0.1 Abs Immat Gran (auto) 0.13 H Absolute Neuts (auto) 6.7 Absolute Nucleated RBC 0.060 H Nucleated RBC % (auto) 0.5 H Hold Purple Top PT 60.0 H INR 4.9 H Hold Blue Top Anion Gap 13 Estim Creat Clear Calc 52.5 Estimated GFR 51 Random Glucose 131 H Calcium 8.5 Total Bilirubin 0.2 Direct Bilirubin < 0.2 AST 13 ALT 10 Alkaline Phosphatase 34 L Troponin I High Sens 7.7 B-Natriuretic Peptide 348 H Total Protein 5.5 L Albumin 3.3 L Hold Yellow Top Stool Occult Blood POSITIVE COVID-19 (JAMIE) Negative COVID-19 Clin Com See Note Blood Type A Positive Antibody Screen NEGATIVE Crossmatch See Detail 10/07/23 22:23 MCV MCH MCHC RDW Plt Count MPV Immature Gran % (Auto) Neut % (Auto) Lymph % (Auto) [place] % (Auto) Eos % (Auto) Baso % (Auto) Lymph # (Auto) [place] # (Auto) Eos # (Auto) Baso # (Auto) Abs Immat Gran (auto) Absolute Neuts (auto) Absolute Nucleated RBC Nucleated RBC % (auto) Hold Purple Top SEE NOTE PT INR Hold Blue Top SEE NOTE Anion Gap Estim Creat Clear Calc Estimated GFR Random Glucose Calcium Total Bilirubin Direct Bilirubin AST ALT Alkaline Phosphatase Troponin I High Sens 9.5 B-Natriuretic Peptide Total Protein Albumin Hold Yellow Top See Note Stool Occult Blood COVID-19 (JAMIE) COVID-19 Clin Com Blood Type Antibody Screen Crossmatch Assessment and Plan (1) Acute blood loss anemia: Status: Acute (2) NSTEMI (non-ST elevated myocardial infarction): Status: Acute (3) Supratherapeutic INR: Status: Acute (4) GI bleed: Status: Acute Plan Pt is a 73-year-old female with a PMH significant for?hx of PE, factor 5 leiden on Coumadin, lupus anticoagulant syndrome, HTN, HLD, aortic stenosis, CKD3, hx of breast cancer s/p right mastectomy 2013, COPD, and GERD who presents to the ED with?shortness a breath, weakness, and chest pain x4 days. Pt will be admitted to the hospital for treatment and further evaluation of symptomatic acute blood loss anemia likely secondary to UGIB. Symptomatic acute blood loss anemia Pt with lightheadedness, dizziness, SOB, chest pain, black stools, fatigue CT abdomen/pelvis with contrast shows small focus of hypoattenuation within the small bowel of the left abdomen on arterial phase imaging raising concern for small focus of active GI hemorrhage. There are also aortic valve calcifications, coronary artery calcifications, colonic diverticulosis H&H 6.1/17.2. Tranfused 2 units 8/2. H/H this am 7.9/22.7%. Transfuse addl 1 unit per GI stool positive for occult blood INR 4.9 --> 4.4. Reverse with 10mg vitamin K per GI Protonix IV b.i.d. GI input appreciated Check GI bleed CT Repeat H/HF 17:00. Follow CBC Chest pain Likely secondary to acute blood loss anemia Trop --> 9.5 --> 472.8. Trend until peak INitial EKG with diffuse ST depressions. Chest pain improved, repeat EKG now Echo ordered (also has loud systolic ejection murmur) Cardiology consult Monitor on telemetry Leukocytosis WBC 12.2, likely from hemoconcentration/reactive No indication of active infection at this time or use of antibiotics Does not meet SIRS criteria Supratherapeutic INR INR 4.9--> 4.4 10mg vit k as above Hold warfarin follow inr Factor V Leiden Hold coumadin in setting of acute gi bleed COPD Not in acute exacerbation Continue home inhalers HTN BP soft Hold antihypertensives for now Resume as warranted HLD Continue statin Full Code DVT Prophylaxis: SCDs due to acute blood loss anemia Ongoing inpt stay due to acute active GI bleed requiring serial monitoring of blood counts, transfusion, expert consulation, and EGD pending cardiology evaluation given demand ischemia which will require ongoing cardiac monitoring Quality Stroke Does the patient have a stroke diagnosis?: No VTE Prior VTE?: No VTE Risk Level:: Medical - moderate - high VTE Device Contraindication: N/A - Device Ordered VTE Drug Contraindication: Treatment Not Indicated
[2023-10-08 08:29] LABS: MANUAL DIFF FLAG NO
[2023-10-08 08:33] LABS: Basophils Absolute Auto 0.1 X10*3/uL (0.0-0.2); Basophils Percent Auto 0.9 % (0-2); Eosinophils Absolute Auto 0.2 X10*3/uL (0.0-0.4); Eosinophils Percent Auto 1.7 % (0-4); Hematocrit 22.7 % (37.0-47.0); Hemoglobin 7.9 g/dl (12.0-16.0); Imm Gran Abs Auto 0.14 X10*3/uL (0.00-0.03); Imm Gran Pct Auto 1.2 % (0.0-0.4); Lymphocytes Absolute Auto 3.8 X10*3/uL (1.2-4.9); Lymphocytes Percent Auto 31.7 % (20-40); Mean Corpuscular HGB Conc 34.8 g/dl (31.0-35.0); Mean Corpuscular Hemoglobin 32.6 pg (27.0-33.0); Mean Corpuscular Volume 93.8 fL (80.0-98.0); Mean Platelet Volume 8.9 fL (9.4-12.3); Monocytes Absolute Auto 1.1 X10*3/uL (0.1-1.2); Monocytes Percent Auto 9.3 % (2-11); NRBC Pct Auto 0.4 /100WBC (0.0-0.2); Neutrophils Absolute Auto 6.5 x10*3/uL (2.0-8.3); Neutrophils Percent Auto 55.2 % (45-73); Platelet Count 198 X10*3/uL (160-400); Red Blood Count 2.42 X10*6/uL (4.20-5.50); Red Cell Distribution Width 14.8 % (11.0-16.0); White Blood Count 11.8 X10*3/uL (4.8-10.8)
[2023-10-08 08:39] LABS: INTERNATIONAL NORM RATIO 4.4 (0.9-1.1); Prothrombin Time 53.2 SEC (11.1-13.3)
[2023-10-08 08:47] LABS: Anion Gap 12 (12-20); Blood Urea Nitrogen 43 mg/dL (9-16); Calcium 8.2 mg/dL (8.4-10.2); Carbon Dioxide 23 mmol/L (22-29); Chloride 109 mmol/L (96-108); Creatinine Clr Calc Pharmacy 59.2; Estimated Glomerular Filt Rate 58; Glucose Random 109 mg/dL (60-115); Potassium 3.9 mmol/L (3.3-5.1); Sodium 140 mmol/L (135-145)
[2023-10-08 09:00] LABS: Troponin-I High Sensitivity 472.8 ng/L (<3.5-17.0)
--- NOTE | 2023-10-08 09:06 | PC.NURSE ---
HI Kaur notified of critical Troponin of 472.8.
[2023-10-08] MEDS: Cholecalciferol (Vitamin D3) 25 MCG TABLET 50 MCG PO (09:58)
[2023-10-08] MEDS: Phytonadione (Vit K1) Oral 10 MG/ML AMPUL PO (09:58)
--- NOTE | 2023-10-08 10:00 | PM.EVENT ---
Event Note Date of Service: 10/08/23 Event Note: GI consult dictated GI blood loss, likely upper due to elevated inr CT suggestive of SB source. Rec: reverse coumadin with vit k, (can use iv heparin or lovenox if necessary) transfuse to appropriate level given cardiac issues. cardiology evaluation plan for egd, in next 24-48 hours if ok with cardiology and inr is acceptable. Time Spent With Patient Time: Total time managing care of this patient today ____ minutes.
--- NOTE | 2023-10-08 11:00 | PM.CNCAR ---
History of Present Illness History of Present Illness Date of Service: 10/08/23 Chief complaint: Chest pain, anemia Narrative: 73-year-old female presenting with left-sided chest discomfort and black tarry stool. She was noticed to be significantly anemic with hemoglobin of 6. ECG showed diffuse ST depressions pointing to her diffuse ischemia. She was noticed to have hemoglobin of 6 and was transfused. She ruled in for mild NSTEMI. She has known history of aortic stenosis and was following at [facility] and was told that she has severe but apparently was not symptomatic before. Discussing with the patient and her grandson she has been getting some fatigue, shortness of breath and left-sided pressure-like feeling off and on for some time. Difficult to say that these symptoms are due to valve or anemia as she is noticed to be significantly anemic on admission. She has been transfused and hemoglobin is 7.9 and ECG changes have significantly improved at this point. She is still getting mild pressure-like feeling on the left side. Denying any other symptoms currently. Did not have any recent syncopal episodes. [facility] Past Medical History Medical History CKD (chronic kidney disease) History of breast cancer History of venous thromboembolism Lupus anticoagulant disorder Factor V Leiden Multinodular thyroid Family History Family History Father Heart failure Mother No problems noted. Surgical History Surgical History Hx of right mastectomy Social History Social History Alcohol intake: former Patient Tobacco Use Status: Current everyday Tobacco user Tobacco use type: Cigarette Cigarettes Per Day: 2 service: Yes ([employer] [id number]) Meds Allergies Allergy/AdvReac Type Severity Reaction Status Date / Time acetaminophen [From PERCOCET] Allergy Unknown N/V Verified 10/07/23 19:08 atorvastatin [From LIPITOR] Allergy Unknown MUSCLE Verified 10/07/23 19:08 WEAKNESS lovastatin Allergy Unknown Unknown Verified 10/07/23 19:08 oxycodone [From PERCOCET] Allergy Unknown N/V Verified 10/07/23 19:08 CATARINA Inhibitors AdvReac Intermediate COUGH Verified 08/02/24 19:08 [CTAARINA INHIBITORS] Active Medications: Current Medications Acetaminophen (Acetaminophen 325 Mg Tablet) 650 mg PO Q6H PRN PRN Reason: Pain, Mild (Pain Scale 1-3), fever or headache Albuterol Sulfate (Albuterol Sulfate 90 Mcg 8 Gm Inhaler) 2 puff INHALE Q6H PRN PRN Reason: SOB/Wheezing Calcium Carbonate (Calcium Carbonate 750 Mg Tab.Chew) 750 mg PO Q4H PRN PRN Reason: Heartburn Magnesium Hydroxide (Milk Of Magnesia 30 Ml Oral.Susp) 30 ml PO DAILY PRN PRN Reason: Constipation Melatonin (Melatonin 3 Mg Tablet) 6 mg PO BEDTIME PRN PRN Reason: Insomnia Metoprolol Succinate (Metoprolol Succinate Er 25 Mg Tab.Er.24h) 25 mg PO ONCE [facility]; Protocol Ondansetron HCl (Ondansetron Hcl 4 Mg/2 Ml Vial) 4 mg IVPUSH Q8H PRN PRN Reason: Nausea and Vomiting Pantoprazole Sodium (Pantoprazole Sodium 40 Mg/10 Ml Vial) 40 mg IVPUSH BID@0630,1630 [facility] Last Admin: 10/08/23 06:40 Dose: 40 mg Sodium Chloride (0.9 % Sodium Chloride Flush 3 Ml Syringe) 3 ml IVFLUSH QSHIFT [facility] Last Admin: 10/08/23 08:29 Dose: Not Given Vitamin D (Cholecalciferol (Vitamin D3) 25 Mcg Tablet) 50 mcg PO DAILY [facility] Last Admin: 10/08/23 09:58 Dose: 50 mcg Home Medications ?Medication ?Instructions ?Recorded ?Confirmed ?Last Taken ?Type acetaminophen 325 mg capsule 325 mg PO QID PRN Pain 04/28/22 10/07/23 Unknown History albuterol sulfate 90 mcg/actuation 2 puff inhalation Q6H PRN 04/28/22 10/07/23 Unknown History aerosol inhaler SOB/Wheezing losartan 25 mg tablet 25 mg PO DAILY 04/28/22 10/07/23 10/06/23 History melatonin 3 mg capsule 3 mg PO BEDTIME PRN Sleep 04/28/22 10/07/23 Unknown History metoprolol succinate 25 mg 25 mg PO ONCE 04/28/22 10/07/23 10/06/23 History tablet,extended release 24 hr omeprazole 20 mg capsule,delayed 20 mg PO DAILY 04/28/22 10/07/23 10/06/23 History release rosuvastatin 20 mg tablet 20 mg PO DAILY 04/28/22 10/07/23 10/06/23 History warfarin 5 mg tablet 5 mg PO DAILY 04/28/22 10/07/23 10/06/23 History cholecalciferol (vitamin D3) 50 50 mcg PO DAILY 05/05/22 10/07/23 10/06/23 History mcg (2,000 unit) capsule azithromycin 250 mg tablet 250 mg PO DIRECTED 10/07/23 10/07/23 10/06/23 History Physical Exam Vital Signs: Vital Signs: Last Vital Signs Temp 97.4 F 10/08/23 10:19 Pulse 78 10/08/23 10:19 Resp 18 10/08/23 10:19 BP 131/60 10/08/23 10:19 Pulse Ox 98 10/08/23 10:19 O2 Del Method Room Air 10/08/23 10:19 O2 Flow Rate 2 10/08/23 05:51 BMI result Body Mass Index 34.3 GENERAL APPEARANCE: in no acute distress, pleasant. NECK: no carotid bruit, no jugular venous distention. SKIN: no suspicious lesions, warm and dry. HEART: Ejection systolic murmur aortic area with absent 2nd heart sound, regular rate and rhythm. LUNGS: Left basilar crackles. ABDOMEN: soft, nontender. EXTREMITIES: no edema. PERIPHERAL PULSES: equal. NEUROLOGIC: No gross deficits, AAO X 3 Objective Labs and Meds 10/08/23 08:17 10/08/23 08:17 Lab results: Laboratory Results - last 24 hr 10/07/23 10/07/23 10/07/23 19:25 19:43 20:10 WBC 12.5 H RBC 1.75 L Hgb 6.1 L* Hct 17.2 L* MCV 98.3 H MCH 34.9 H MCHC 35.5 H RDW 13.0 Plt Count 253 MPV 9.6 Immature Gran % (Auto) 1.0 H Neut % (Auto) 53.6 Lymph % (Auto) 34.0 Hamilton % (Auto) 7.8 Eos % (Auto) 2.6 Baso % (Auto) 1.0 Lymph # (Auto) 4.2 Hamilton # (Auto) 1.0 Eos # (Auto) 0.3 Baso # (Auto) 0.1 Abs Immat Gran (auto) 0.13 H Absolute Neuts (auto) 6.7 Absolute Nucleated RBC 0.060 H Nucleated RBC % (auto) 0.5 H Hold Purple Top PT 60.0 H INR 4.9 H Hold Blue Top Sodium 140 Potassium 4.1 Chloride 109 H Carbon Dioxide 22 Anion Gap 13 BUN 48 H Creatinine 1.07 Estim Creat Clear Calc 52.5 Estimated GFR 51 Random Glucose 131 H Calcium 8.5 Total Bilirubin 0.2 Direct Bilirubin < 0.2 AST 13 ALT 10 Alkaline Phosphatase 34 L Troponin I High Sens 7.7 B-Natriuretic Peptide 348 H Total Protein 5.5 L Albumin 3.3 L Hold Yellow Top Stool Occult Blood POSITIVE COVID-19 (JAMIE) Negative COVID-19 [employer] ([facility]) Com See Note Blood Type A Positive Antibody Screen NEGATIVE Crossmatch See Detail 10/07/23 10/08/23 22:23 08:17 WBC 11.8 H RBC 2.42 L D Hgb 7.9 L D Hct 22.7 L D MCV 93.8 MCH 32.6 MCHC 34.8 RDW 14.8 Plt Count 198 MPV 8.9 L Immature Gran % (Auto) 1.2 H Neut % (Auto) 55.2 Lymph % (Auto) 31.7 Hamilton % (Auto) 9.3 Eos % (Auto) 1.7 Baso % (Auto) 0.9 Lymph # (Auto) 3.8 Hamilton # (Auto) 1.1 Eos # (Auto) 0.2 Baso # (Auto) 0.1 Abs Immat Gran (auto) 0.14 H Absolute Neuts (auto) 6.5 Absolute Nucleated RBC 0.050 H Nucleated RBC % (auto) 0.4 H Hold Purple Top SEE NOTE PT 53.2 H INR 4.4 H Hold Blue Top SEE NOTE Sodium 140 Potassium 3.9 Chloride 109 H Carbon Dioxide 23 Anion Gap 12 BUN 43 H Creatinine 0.95 Estim Creat Clear Calc 59.2 Estimated GFR 58 Random Glucose 109 Calcium 8.2 L Total Bilirubin Direct Bilirubin AST ALT Alkaline Phosphatase Troponin I High Sens 9.5 472.8 H* D B-Natriuretic Peptide Total Protein Albumin Hold Yellow Top See Note Stool Occult Blood COVID-19 (JAMIE) COVID-19 [employer] ([facility]) Com Blood Type Antibody Screen Crossmatch Imaging Radiologist's impression: Impressions Chest X-Ray 10/07/23 19:40 IMPRESSION: 1. No focal infiltrate or congestive heart failure is seen. 2. There is moderate elevation of the right hemidiaphragm. Abdomen/Pelvis CT 10/07/23 22:02 IMPRESSION: 1. Small focus of hyperattenuation within the small bowel of the left abdomen on arterial phase imaging, not definitely present on precontrast imaging, raising concern for a small focus of active gastrointestinal hemorrhage. 2. Colonic diverticulosis. 3. Aortic valve calcifications, a finding which may indicate aortic stenosis. 4. Coronary artery calcifications. Correlation with cardiac risk factors is recommended. This critical result was discussed with Dr. Ponce on 10/08/2023 1:04 AM, and it was ascertained that the content and urgency of the report was understood at the time of direct communication. Assessment and Plan (1) NSTEMI (non-ST elevated myocardial infarction): Status: Acute (2) Acute blood loss anemia: Status: Acute (3) Acute electrocardiogram changes: Status: Acute (4) Supratherapeutic INR: Status: Acute (5) Aortic stenosis: Status: Acute Plan Very pleasant 73-year-old lady with factor 5 Leiden for which he has been on Coumadin who recently received antibiotics and had supratherapeutic INR coming in with black tarry stool and left-sided pressure-like feeling. She has been found to be significantly anemic due to blood loss. She has been transfused. She will get 1 more unit of blood. She should get at least 20 of Lasix with the unit of blood. Coumadin is on hold. She will need endoscopy. She has moderate to high-risk for any procedures currently but she will need endoscopy to have clarity about the situation because she has genetic predisposition for thromboembolism due to factor 5 Leiden mutation. Aortic stenosis sound severe by auscultation. Currently she is anemic so gradient maybe high due to that. She should be transfused then once hemoglobin is stable at 9 or higher then echocardiography should be performed. We will probably do it early next week. She will need further workup for aortic stenosis once more stable. Currently we need to stabilize her from blood loss and anemia and then reassess cardiovascular issues. Aortic stenosis also predisposes to bleeding issues by an acquired Von Willebrand's disease. Thank you for allowing me to participate in the care of your patient. Please feel free to contact me if you have any questions. Procedures Date of Service Date of Service: 10/08/23
--- NOTE | 2023-10-08 11:13 | CONS_ITS ---
DATE OF SERVICE: 10/08/2023 REFERRING PROVIDER: HI Jolly. REASON FOR CONSULTATION: GI bleeding. 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 She has a history of pulmonary embolism with factor 5 Leiden deficiency and is on chronic anticoagulation with Coumadin. Several days ago, she developed shortness of breath and was seen for bronchitis and given a Z-Cuong. Following this, she had a few black stools and her shortness of breath worsened. Her black stools were formed and nondiarrheal. She denies taking Pepto-Bismol or iron. She had no nausea or vomiting until she came to the ER where she vomited 1 time, non-bloody material. In the emergency room, she was evaluated with laboratory studies which documented a hematocrit of 17. INR was markedly supratherapeutic at 4.9 and EKG was obtained which showed changes, consistent with ischemia. Laboratory studies have also documented elevation of her serum troponin, which was initially 7.7 and is up to 472. She does have a history of coronary artery calcification, but reports cardiac echo was normal previously. She has not been taking NSAIDs and does not drink alcohol. She does still smoke. She has no prior history of peptic ulcer disease. She has had some reflux and at home had been on omeprazole, which she uses on a p.r.n. basis. She has no history of dysphagia, hematemesis, or melena prior to her recent black stools. PAST MEDICAL HISTORY: 1. Chronic kidney disease. 2. Breast cancer with right mastectomy. 3. Pulmonary embolism. 4. Factor 5 Leiden deficiency with history of lupus anticoagulant. 5. Multinodular thyroid. 6. Elevated cholesterol. 7. Osteoporosis. 8. Hypertension. 9. Solitary pulmonary nodule. CURRENT MEDICATIONS: Her current medication list is reviewed in the chart. ALLERGIES: MULTIPLE MEDICATION ALLERGIES ARE REVIEWED. FAMILY HISTORY: She reports this is negative for GI malignancy. SOCIAL HISTORY: There is no current substance abuse. She does use tobacco. REVIEW OF SYSTEMS: SKIN: No pruritus. HEENT: Negative. CARDIOPULMONARY: No shortness of breath or chest pain currently. GASTROINTESTINAL: As above. GENITOURINARY: Negative. NEUROPSYCHIATRIC: Negative. PHYSICAL EXAMINATION: GENERAL: Shows a pleasant female, lying comfortably in bed. VITAL SIGNS: Reviewed in electronic medical record and are stable. SKIN: Anicteric, but slightly pale. HEENT: Shows no scleral icterus. NECK: Without lymphadenopathy or thyromegaly. LUNGS: Clear. HEART: Shows a regular rate and rhythm with a systolic murmur approximately 2 to 3/6. ABDOMEN: Bowel sounds are present. No organomegaly is noted. EXTREMITIES: Without edema. LABORATORY DATA AND IMAGING STUDIES: Including her CT scan reviewed. IMPRESSION: Gastrointestinal blood loss. Her gastrointestinal blood loss appears to be from an upper source, likely due to over anticoagulation with her markedly elevated INR. I recommend this be corrected if necessary. She can be treated with IV heparin or Lovenox short-term while she is stabilized. Her CAT scan is suggestive of a possible small bowel source and this is another reason why she needs her INR reversed. I agree with transfusing her, given her recent cardiac symptoms and ST depressions. She should undergo an endoscopy when she is stable and has been seen from a cardiac standpoint for further evaluation and I discussed this with her, but I would recommend reversing her INR transfusing and obtaining Cardiology consultation. The endoscopy can be arranged in the next 24-48 hours. In the meantime, she can have a cardiac diet as she does not appear to have active ongoing GI bleeding as evidence by lack of any persistent melena. I would continue a proton pump inhibitor high dose for the time being. She is aware of risks and benefits of endoscopy and agrees to proceed. Thank you for asking me to see her. I will follow her in the hospital with you. MD MELINA Lin/HERO / [phone]
--- NOTE | 2023-10-08 16:24 | MHC.CM.PN ---
PT REPORTS SHE LIVES WITH HER GRANDSON AND IS INDEPENDENT WITH CARE SHE HAS NO DME AND NO SERVICES IN THE HOME SHE DOES NOT HAVE A HCP, BUT REPORTS SHE IS DOING ONE [facility] AL[facility] [place] IMM DELIVERED DCP: HOME NO SERVICES GRANDSON TO TRANSPORT
[2023-10-08 16:39] LABS: Hematocrit 24.4 % (37.0-47.0); Hemoglobin 8.6 g/dl (12.0-16.0)
[2023-10-08] MEDS: Acetaminophen 325 MG TABLET 650 MG PO (22:03)
[2023-10-08] MEDS: Melatonin 3 MG TABLET 6 MG PO (22:04)
[2023-10-09] VITALS (16 sets, daily range): BP systolic 111–152; BP diastolic 53–81; PULSE 75–112; RESP 16–20; TEMP 36–36.7; O2SAT 96–99
[2023-10-09] MEDS: Pantoprazole Sodium 40 MG/10 ML VIAL IVPUSH ×2 (06:12→15:41)
[2023-10-09 07:16] LABS: MANUAL DIFF FLAG NO
[2023-10-09 07:24] LABS: Basophils Absolute Auto 0.1 X10*3/uL (0.0-0.2); Basophils Percent Auto 1.1 % (0-2); Eosinophils Absolute Auto 0.2 X10*3/uL (0.0-0.4); Eosinophils Percent Auto 2.1 % (0-4); Hemoglobin 7.3 g/dl (12.0-16.0); Imm Gran Abs Auto 0.24 X10*3/uL (0.00-0.03); Imm Gran Pct Auto 2.4 % (0.0-0.4); Lymphocytes Absolute Auto 2.7 X10*3/uL (1.2-4.9); Lymphocytes Percent Auto 27.3 % (20-40); Mean Corpuscular HGB Conc 35.4 g/dl (31.0-35.0); Mean Corpuscular Hemoglobin 32.3 pg (27.0-33.0); Mean Corpuscular Volume 91.2 fL (80.0-98.0); Mean Platelet Volume 9.5 fL (9.4-12.3); Monocytes Percent Auto 10.2 % (2-11); NRBC Pct Auto 0.5 /100WBC (0.0-0.2); Neutrophils Absolute Auto 5.7 x10*3/uL (2.0-8.3); Neutrophils Percent Auto 56.9 % (45-73); Platelet Count 207 X10*3/uL (160-400); Red Blood Count 2.26 X10*6/uL (4.20-5.50); Red Cell Distribution Width 16.8 % (11.0-16.0)
--- NOTE | 2023-10-09 07:26 | P.PNIM_ITS ---
Subjective Subjective Date of Service: 10/09/23 Interval History: Seen in follow-up for upper GI bleed, symptomatic anemia Interval history: Reports episode of melena x1 yesterday, but no further episodes. Reporting positional lightheadedness and nausea. No palpitations or chest pain. H/H drop 8.6/24.4% post transfusion yesterday to 7.3/20.6% this am. Tolerating diet Review of Systems Review of Systems: Yes all other systems are reviewed and are negative Physical Exam 2 Vital Signs: Vital Signs: Last Vital Signs Temp 96.8 F 10/09/23 03:18 Pulse 93 10/09/23 03:18 Resp 18 10/09/23 03:18 BP 133/62 10/09/23 03:18 Pulse Ox 99 10/09/23 03:18 O2 Del Method Room Air 10/09/23 03:18 O2 Flow Rate 2 10/08/23 05:51 BMI result Body Mass Index 34.3 Constitutional - Awake and Alert, No apparent distress Eyes - PERRLA, EOMI Cardiovascular - S1S2, RRR, V/ systolic murmur, No edema Respiratory - Normal lung expansion, Normal respiratory effort, No respiratory distress, CTA bilaterally Gastrointestinal - NT / ND; +BS; No rebound or guarding s Extremities - no calf tenderness bilaterally, no swelling Skin - Warm/Dry Neurological - Alert & oriented x3 Psychological - Appropriate affect Objective Data Active Medications Acetaminophen (Acetaminophen 325 Mg Tablet) 650 mg PO Q6H PRN PRN Reason: Pain, Mild (Pain Scale 1-3), fever or headache Last Admin: 10/08/23 22:03 Dose: 650 mg Documented By: TERESA Albuterol Sulfate (Albuterol Sulfate 90 Mcg 8 Gm Inhaler) 2 puff INHALE Q6H PRN PRN Reason: SOB/Wheezing Calcium Carbonate (Calcium Carbonate 750 Mg Tab.Chew) 750 mg PO Q4H PRN PRN Reason: Heartburn Magnesium Hydroxide (Milk Of Magnesia 30 Ml Oral.Susp) 30 ml PO DAILY PRN PRN Reason: Constipation Melatonin (Melatonin 3 Mg Tablet) 6 mg PO BEDTIME PRN PRN Reason: Insomnia Last Admin: 10/08/23 22:04 Dose: 6 mg Documented By: TERESA Metoprolol Succinate (Metoprolol Succinate Er 25 Mg Tab.Er.24h) 25 mg PO ONCE [facility]; Protocol Ondansetron HCl (Ondansetron Hcl 4 Mg/2 Ml Vial) 4 mg IVPUSH Q8H PRN PRN Reason: Nausea and Vomiting Pantoprazole Sodium (Pantoprazole Sodium 40 Mg/10 Ml Vial) 40 mg IVPUSH BID@0630,1630 [facility] Last Admin: 10/09/23 06:12 Dose: 40 mg Documented By: TERESA Sodium Chloride (0.9 % Sodium Chloride Flush 3 Ml Syringe) 3 ml IVFLUSH QSHIFT [facility] Last Admin: 10/09/23 00:12 Dose: Not Given Documented By: TERESA Non-Admin Reason: Previously Administered Vitamin D (Cholecalciferol (Vitamin D3) 25 Mcg Tablet) 50 mcg PO DAILY [facility] Last Admin: 10/08/23 09:58 Dose: 50 mcg Documented By: AMENA Labs 10/09/23 06:54 10/09/23 06:54 Labs: Laboratory Results - last 24 hr 10/07/23 10/08/23 10/08/23 20:10 08:17 16:18 MCV 93.8 MCH 32.6 MCHC 34.8 RDW 14.8 Plt Count 198 MPV 8.9 L Immature Gran % (Auto) 1.2 H Neut % (Auto) 55.2 Lymph % (Auto) 31.7 Bowie % (Auto) 9.3 Eos % (Auto) 1.7 Baso % (Auto) 0.9 Lymph # (Auto) 3.8 [place]ie # (Auto) 1.1 Eos # (Auto) 0.2 Baso # (Auto) 0.1 Abs Immat Gran (auto) 0.14 H Absolute Neuts (auto) 6.5 Absolute Nucleated RBC 0.050 H Nucleated RBC % (auto) 0.4 H PT 53.2 H INR 4.4 H Anion Gap 12 Estim Creat Clear Calc 59.2 Estimated GFR 58 Random Glucose 109 Calcium 8.2 L Troponin I High Sens 472.8 H* D 439.0 H* Blood Type A Positive Antibody Screen NEGATIVE Crossmatch See Detail Assessment and Plan (1) Acute blood loss anemia: Status: Acute (2) NSTEMI (non-ST elevated myocardial infarction): Status: Acute (3) Supratherapeutic INR: Status: Acute (4) GI bleed: Status: Acute Plan Pt is a 73-year-old female with a PMH significant for?hx of PE, factor 5 leiden on Coumadin, lupus anticoagulant syndrome, HTN, HLD, aortic stenosis, CKD3, hx of breast cancer s/p right mastectomy 2013, COPD, and GERD who presents to the ED with?shortness a breath, weakness, and chest pain x4 days. Pt will be admitted to the hospital for treatment and further evaluation of symptomatic acute blood loss anemia likely secondary to UGIB. Symptomatic acute blood loss anemia Pt with lightheadedness, dizziness, SOB, chest pain, black stools, fatigue CT abdomen/pelvis with contrast shows small focus of hypoattenuation within the small bowel of the left abdomen on arterial phase imaging raising concern for small focus of active GI hemorrhage. There are also aortic valve calcifications, coronary artery calcifications, colonic diverticulosis stool positive for occult blood H&H 6.1/17.2 on arival. Tranfused 2 units /. Addl 1 unit 10/07 H/H improved to 8.6/24.4% yesterday evening. H/H this am 7.3/20.6% Transfuse 2 addl units 10/08. Keep hgb >9.0 per cardiology INR 4.9 --> 4.4. Reverse with 10mg vitamin K per GI. INR 1.3 10/08 Protonix IV b.i.d. GI input appreciated Plan for EGD 10/09. NPO after midnight Repeat H/H 20:00. Follow CBC Orthostatic hypotension due to anemia, GI bleed Tranfuse as above, repeat orthostatic VS am Chest pain Likely secondary to acute blood loss anemia Trop --> 9.5 --> 472.8--> [address] with diffuse ST depressions Echo ordered (also has loud systolic ejection murmur)- to be completed once h/h stable per cardiology Cardiology consult Monitor on telemetry Systolic ejection murmur likely severe . Reorder echo once Hgb stable >9.0 per cardiology Leukocytosis WBC 12.2, likely from hemoconcentration/reactive No indication of active infection at this time or use of antibiotics Does not meet SIRS criteria Supratherapeutic INR INR 4.9--> 4.4-->1.3 following 10mg vitamin K 8/3 Hold warfarin follow inr Factor V Leiden Hold coumadin in setting of acute gi bleed COPD Not in acute exacerbation Continue home inhalers HTN BP soft Hold antihypertensives for now Resume as warranted HLD Continue statin Full Code DVT Prophylaxis: SCDs due to acute blood loss anemia Ongoing inpt stay due to acute active GI bleed requiring serial monitoring of blood counts, transfusions, expert consulation, and EGD pending cardiology evaluation given demand ischemia which will require ongoing cardiac monitoring Quality Stroke Does the patient have a stroke diagnosis?: No VTE Prior VTE?: No VTE Risk Level:: Medical - moderate - high VTE Device Contraindication: N/A - Device Ordered VTE Drug Contraindication: Treatment Not Indicated
[2023-10-09 07:27] LABS: INTERNATIONAL NORM RATIO 1.3 (0.9-1.1); Prothrombin Time 16.1 SEC (11.1-13.3)
[2023-10-09 07:35] LABS: Anion Gap 10 (12-20); Blood Urea Nitrogen 43 mg/dL (9-16); Calcium 8.3 mg/dL (8.4-10.2); Carbon Dioxide 22 mmol/L (22-29); Chloride 110 mmol/L (96-108); Creatinine Clr Calc Pharmacy 56.3; Estimated Glomerular Filt Rate 55; Glucose Random 106 mg/dL (60-115); Potassium 3.6 mmol/L (3.3-5.1); Sodium 138 mmol/L (135-145)
[2023-10-09] MEDS: Cholecalciferol (Vitamin D3) 25 MCG TABLET 50 MCG PO (07:58)
[2023-10-09] MEDS: 0.9 % Sodium Chloride Flush 3 ML SYRINGE IVFLUSH ×2 (07:58→14:35)
[2023-10-09 08:06] LABS: Hematocrit 20.6 % (37.0-47.0)
[2023-10-09] MEDS: Furosemide 20 MG/2 ML VIAL IVPUSH (10:05)
--- NOTE | 2023-10-09 11:53 | P.PNGI_ITS ---
Subjective Subjective Date of Service: 10/09/23 Interval History: no bleeding overnight tolerating diet Critical Care Time (minutes): 0 Physical Exam 2 Vital Signs: Vital Signs: Last Vital Signs Temp 98.0 F 10/09/23 10:14 Pulse 112 H 10/09/23 10:26 Resp 16 10/09/23 10:14 BP 130/70 10/09/23 10:26 Pulse Ox 99 10/09/23 07:40 O2 Del Method Room Air 10/09/23 07:40 O2 Flow Rate 2 10/08/23 05:51 BMI result Body Mass Index 34.3 GI: Other: abdomen is soft and nontender Objective Data Labs 10/09/23 06:54 10/09/23 06:54 Labs: Procedures Date of Service Date of Service: 10/09/23 Progress Note: A&P Assessment and plan (1) Acute blood loss anemia: Status: Acute Assessment and Plan: anemia being corrected with transfusion, on PRBC #4, to get hgb ~ 9 as recommended by cardiology. INR better after vit K. EGD 10/09; she understands risks and benefits and agrees to proceed. continue ppi Time Spent With Patient Time: Total time managing care of this patient today ____ minutes. Quality Stroke Does the patient have a stroke diagnosis?: No VTE Prior VTE?: No VTE Risk Level:: Medical - moderate - high VTE Device Contraindication: N/A - Device Ordered VTE Drug Contraindication: Treatment Not Indicated
--- NOTE | 2023-10-09 12:14 | PM.PNCARD ---
Subjective Subjective Date of Service: 10/09/23 Interval history: Seen examined at bedside. Complaining of feeling tired. Repeat hemoglobin today was 7.3. She is getting 2 units of blood. Physical Exam Vital Signs: Last Vital Signs Temp 97.0 F 10/09/23 12:07 Pulse 90 10/09/23 12:07 Resp 20 10/09/23 12:07 BP 135/63 10/09/23 12:07 Pulse Ox 98 10/09/23 11:54 O2 Del Method Room Air 10/09/23 11:54 O2 Flow Rate 2 10/08/23 05:51 BMI result Body Mass Index 34.3 GENERAL APPEARANCE: in no acute distress, pleasant. NECK: no carotid bruit, no jugular venous distention. SKIN: no suspicious lesions, warm and dry. HEART: Ejection systolic murmur aortic area with absent 2nd heart sound, regular rate and rhythm. LUNGS: Clear to auscultation. ABDOMEN: soft, nontender. EXTREMITIES: no edema. PERIPHERAL PULSES: equal. NEUROLOGIC: No gross deficits, AAO X 3 Objective Labs and Meds 10/09/23 06:54 10/09/23 06:54 Lab results: Laboratory Results - last 24 hr 10/07/23 10/08/23 10/09/23 20:10 16:18 06:54 WBC 10.0 RBC 2.26 L Hgb 8.6 L 7.3 L Hct 24.4 L 20.6 L* MCV 91.2 MCH 32.3 MCHC 35.4 H RDW 16.8 H Plt Count 207 MPV 9.5 Immature Gran % (Auto) 2.4 H Neut % (Auto) 56.9 Lymph % (Auto) 27.3 [place] % (Auto) 10.2 Eos % (Auto) 2.1 Baso % (Auto) 1.1 Lymph # (Auto) 2.7 [place] # (Auto) 1.0 Eos # (Auto) 0.2 Baso # (Auto) 0.1 Abs Immat Gran (auto) 0.24 H Absolute Neuts (auto) 5.7 Absolute Nucleated RBC 0.050 H Nucleated RBC % (auto) 0.5 H PT 16.1 H D INR 1.3 H D Sodium 138 Potassium 3.6 Chloride 110 H Carbon Dioxide 22 Anion Gap 10 L BUN 43 H Creatinine 1.00 Estim Creat Clear Calc 56.3 Estimated GFR 55 Random Glucose 106 Calcium 8.3 L Troponin I High Sens 439.0 H* Blood Type A Positive Antibody Screen NEGATIVE Crossmatch See Detail Progress Note: A&P Assessment and plan (1) Aortic stenosis: Status: Acute (2) NSTEMI (non-ST elevated myocardial infarction): Status: Acute (3) Acute blood loss anemia: Status: Acute Plan Pleasant 73 year female presenting with left-sided pressure-like feeling and dynamic EKG changes in the setting of significant anemia with hemoglobin of 6. She was transfused 2 units of blood with appropriate rise but again dropped hemoglobin to 7.3 today. She had 1 black stool yesterday. Was slightly tachycardic today which is improving after blood transfusion. No fresh blood or active bleeding noticed so far. Resume her home dose of metoprolol succinate 25 mg daily. Transfuse to a hemoglobin of 9. She is intermediate to high-risk for perioperative complications but will require endoscopy because she has factor 5 Leiden mutation and we need to have clarity about anticoagulation use. By exam she has severe aortic valve stenosis. We will get echocardiography done on her in the next day or 2 as he stabilizes from anemia viewpoint. Further workup for will be done as outpatient as she stabilizes. Thank you for allowing me to participate in the care of your patient. Please feel free to contact me if you have any questions. Time Spent With Patient Time: Total time managing care of this patient today ____ minutes. Progress Note: Quality Stroke Does the patient have a stroke diagnosis?: No Procedures Date of Service Date of Service: 10/09/23
[2023-10-09] MEDS: Metoprolol Succinate ER 25 MG TAB.ER.24H PO (13:01)
[2023-10-09 17:38] LABS: Hematocrit 27.4 % (37.0-47.0); Hemoglobin 9.7 g/dl (12.0-16.0); Mean Corpuscular HGB Conc 35.4 g/dl (31.0-35.0); Mean Corpuscular Hemoglobin 31.5 pg (27.0-33.0); Mean Platelet Volume 9.6 fL (9.4-12.3); NRBC Pct Auto 0.7 /100WBC (0.0-0.2); Platelet Count 201 X10*3/uL (160-400); Red Blood Count 3.08 X10*6/uL (4.20-5.50); Red Cell Distribution Width 15.6 % (11.0-16.0); White Blood Count 12.6 X10*3/uL (4.8-10.8)
[2023-10-09 20:24] LABS: Hematocrit 26.1 % (37.0-47.0); Hemoglobin 9.6 g/dl (12.0-16.0)
[2023-10-09] MEDS: Melatonin 3 MG TABLET 6 MG PO (21:59)
[2023-10-09] MEDS: Acetaminophen 325 MG TABLET 650 MG PO (21:59)
[2023-10-10] VITALS (13 sets, daily range): BP systolic 114–151; BP diastolic 53–77; PULSE 72–80; RESP 16–20; TEMP 36–36.9; O2SAT 94–99
[2023-10-10] MEDS: Pantoprazole Sodium 40 MG/10 ML VIAL IVPUSH ×2 (06:17→18:11)
[2023-10-10 06:43] LABS: Prothrombin Time 12.4 SEC (11.1-13.3)
[2023-10-10 06:55] LABS: Basophils Absolute Auto 0.1 X10*3/uL (0.0-0.2); Basophils Percent Auto 1.1 % (0-2); Eosinophils Absolute Auto 0.2 X10*3/uL (0.0-0.4); Eosinophils Percent Auto 2.4 % (0-4); Hematocrit 26.5 % (37.0-47.0); Hemoglobin 9.6 g/dl (12.0-16.0); Imm Gran Abs Auto 0.16 X10*3/uL (0.00-0.03); Imm Gran Pct Auto 1.8 % (0.0-0.4); Lymphocytes Absolute Auto 2.4 X10*3/uL (1.2-4.9); Lymphocytes Percent Auto 27.2 % (20-40); MANUAL DIFF FLAG NO; Mean Corpuscular HGB Conc 36.2 g/dl (31.0-35.0); Mean Corpuscular Volume 88.3 fL (80.0-98.0); Mean Platelet Volume 9.1 fL (9.4-12.3); Monocytes Absolute Auto 0.9 X10*3/uL (0.1-1.2); Monocytes Percent Auto 9.9 % (2-11); NRBC Pct Auto 0.6 /100WBC (0.0-0.2); Neutrophils Percent Auto 57.6 % (45-73); Platelet Count 211 X10*3/uL (160-400); Red Cell Distribution Width 16.2 % (11.0-16.0); White Blood Count 8.7 X10*3/uL (4.8-10.8)
--- NOTE | 2023-10-10 07:00 | CA_ITS ---
Transthoracic Echocardiogram Patient (Last, First, Middle): Chelsie Wang T Gender: Female Date of : 1950 Age: 73 Procedure Date: 10/10/2023 Procedure Type: Transthoracic Echocardiogram Location: [facility] [place] Height: 162.56 cm Weight: 90.27 kg BSA: 1.95 m2 Heart Rate: 78 bpm BP: 133 / 63 mmHg Tenant Relations Coordinator: SB Referring MD: Prerna DO Digital Librarian: Pavel Freeman MD Symptoms: Aortic stenosis, elevated trops Study Quality: Adequate w contrast ECG Rhythm: Sinus Conclusions: - 1. Severe aortic stenosis with mean gradient of 49 mm Hg 2. Hyperdynamic LV EF with mild LVH with grade 2 diastolic dysfunction 3. Moderately dilated left atrium 4. Mild mitral regurgitation 5. Normal RV systolic pressure 6. No gross pericardial effusion Findings Procedure Information Contrast agent, definity, is being given per protocol without apparent complications. Left Ventricle Normal left ventricular cavity size. There is mildly increased left ventricular wall thickness. The left ventricular systolic function is hyperdynamic. The visually estimated ejection fraction is >70%. Spectral Doppler is indicative of a pseudonormal filling pattern. E/E prime ratio is >15, consistent with elevated filling pressures. Evidence suggests grade II (moderate) diastolic dysfunction. Right Ventricle Normal right ventricular cavity size and systolic function. Atria The left atrium is moderately dilated. There is no evidence of interatrial shunt. The right atrium is likely dilated. Aortic Valve There is moderate calcification of the aortic valve. There is severe aortic valve stenosis. The peak aortic gradient is 98 mmHg.The mean gradient is 59 mmHg. The aortic valve area is 0.80 cm2. There is mild aortic valve regurgitation. Mitral Valve There is moderate anterior and posterior mitral leaflet thickening. There is mild mitral annular calcification. There is mild mitral valve regurgitation. There is no mitral valve stenosis. Pulmonic Valve The pulmonic valve is likely normal. There is trace to mild pulmonic valve regurgitation. Tricuspid Valve Normal tricuspid valve structure. There is mild tricuspid valve regurgitation. The right ventricular systolic pressure is normal. The right ventricular systolic pressure is 32 mmHg. Normal right atrial pressure. There is no evidence of pulmonary hypertension. Great Vessels All visible segments of the aorta are normal in size. The pulmonary artery was not well visualized. Venous The inferior vena cava is normal in size and collapses greater than 50% with inspiration. Pericardium/Pleural There is no evidence of pericardial effusion. Measurements 2D Linear Measurements IVSd: 1.39 0.6-0.9/0.6-1.0 cm LVIDd: 4.31 3.9-5.3/4.2-5.9 cm LVIDd Index: 2.21 2.4-3.2/2.2-3.1 cm/m2 LVIDs: 2.52 2.0-3.6 cm LVPWd: 1.23 0.7-1.1 cm LA Diam: 4.70 2.7-3.8/3.0-4.0 cm LAIDs Index: 2.41 1.5-2.3 cm/m2 LV Mass: 262.86 67-162/88-224 g LV Mass Index: 134.80 43-95/49-115 g/m2 LVOT Diam: 2.10 3.0+(-)1.3 cm Mitral Valve MV VTI: 0.39 MV Pk [place]: 1.94 MV Mn [place]: 1.00 MV Pk Grad: 15.00 MV Mn Grad: 5.00 MV Pk E: 1.51 MV PK A: 0.85 MV Decel Time: 151.00 E/A: 1.80 E'Lateral: 6.53 E'Medial: 4.46 E/E' Med: 33.90 E/E' Lat: 23.10 PHT: 44.00 MVA PHT: 5.00 MVA Continuity: 2.40 Decel [place]: 10.02 Aortic Valve AoV Pk [place]: 4.95 AoV Mn [place]: 3.63 AoV VTI: 1.17 AoV Pk Grad: 98.00 Aov Mn Grad: 59.00 SMITA Cont.VTI: 0.80 AI Pk [place]: 3.93 AI VTI: 1.29 AI [place]: 3.24 LVOT LVOT Pk [place]: 1.14 LVOT Mn [place]: 0.85 LVOT VTI: 0.27 LVOT Pk Grad: 5.00 LVOT Mn Grad: 3.00 LVOT Diam: 2.10 LVOT Area: 3.46 Diastolic Function MV Pk E: 1.51 MV Pk A: 0.85 E/A: 1.80 E'Medial: 4.46 E/E' Med: 33.90 E' Laterial: 6.53 E/E' Lat: 23.10 Right Ventricle TAPSE (mm): 23.50 TVS' [place]: 10.90 Tricuspid Valve TR Pk [place]: 2.67 TR Pk Grad: 29.00 RA Press: 3.00 RVSP: 32.00 Great Vessels Aorta Sinus of Valsalva: 3.00 2.0-3.5 cm Ao Asc: 3.20 2.1-3.4 cm Pulmonary Valve PV Pk [place]: 0.96 Peak PV Grad: 4.00 Updated in Other Vendor System with Status of Final Pavel Freeman MD electronically signed on 10/10/2023 11:02:22 AM with status of Final
[2023-10-10 07:09] LABS: Anion Gap 8 (12-20); Blood Urea Nitrogen 32 mg/dL (9-16); Calcium 8.2 mg/dL (8.4-10.2); Carbon Dioxide 26 mmol/L (22-29); Chloride 109 mmol/L (96-108); Creatinine Clr Calc Pharmacy 61.1; Estimated Glomerular Filt Rate > 60; Glucose Random 102 mg/dL (60-115); Potassium 3.1 mmol/L (3.3-5.1); Sodium 140 mmol/L (135-145)
--- NOTE | 2023-10-10 07:36 | P.PNIM_ITS ---
Subjective Subjective Date of Service: 10/10/23 Physical Exam 2 Vital Signs: Vital Signs: Last Vital Signs Temp 97.0 F 10/10/23 07:30 Pulse 76 10/10/23 07:30 Resp 18 10/10/23 07:30 BP 133/63 10/10/23 07:30 Pulse Ox 97 10/10/23 07:30 O2 Del Method Room Air 10/10/23 07:30 O2 Flow Rate 2 10/08/23 05:51 BMI result Body Mass Index 34.3 Objective Data Active Medications Acetaminophen (Acetaminophen 325 Mg Tablet) 650 mg PO Q6H PRN PRN Reason: Pain, Mild (Pain Scale 1-3), fever or headache Last Admin: 10/09/23 21:59 Dose: 650 mg Documented By: SYLVESTER Albuterol Sulfate (Albuterol Sulfate 90 Mcg 8 Gm Inhaler) 2 puff INHALE Q6H PRN PRN Reason: SOB/Wheezing Calcium Carbonate (Calcium Carbonate 750 Mg Tab.Chew) 750 mg PO Q4H PRN PRN Reason: Heartburn Magnesium Hydroxide (Milk Of Magnesia 30 Ml Oral.Susp) 30 ml PO DAILY PRN PRN Reason: Constipation Melatonin (Melatonin 3 Mg Tablet) 6 mg PO BEDTIME PRN PRN Reason: Insomnia Last Admin: 10/09/23 21:59 Dose: 6 mg Documented By: SYLVESTER Metoprolol Succinate (Metoprolol Succinate Er 25 Mg Tab.Er.24h) 25 mg PO ONCE [facility]; Protocol Metoprolol Succinate (Metoprolol Succinate Er 25 Mg Tab.Er.24h) 25 mg PO DAILY [facility]; Protocol Last Admin: 10/09/23 13:01 Dose: 25 mg Documented By: ENEDINA Ondansetron HCl (Ondansetron Hcl 4 Mg/2 Ml Vial) 4 mg IVPUSH Q8H PRN PRN Reason: Nausea and Vomiting Pantoprazole Sodium (Pantoprazole Sodium 40 Mg/10 Ml Vial) 40 mg IVPUSH BID@0630,1630 [facility] Last Admin: 10/10/23 06:17 Dose: 40 mg Documented By: SYLVESTER Sodium Chloride (0.9 % Sodium Chloride Flush 3 Ml Syringe) 3 ml IVFLUSH QSHIFT [facility] Last Admin: 10/10/23 00:00 Dose: Not Given Documented By: SYLVESTER Non-Admin Reason: Patient Asleep Vitamin D (Cholecalciferol (Vitamin D3) 25 Mcg Tablet) 50 mcg PO DAILY VAL Last Admin: 10/09/23 07:58 Dose: 50 mcg Documented By: ENEDINA Labs 10/10/23 06:18 10/10/23 06:18 Labs: Laboratory Results - last 24 hr 10/07/23 10/09/23 10/09/23 20:10 06:54 16:56 MCV 91.2 89.0 MCH 32.3 31.5 MCHC 35.4 H 35.4 H RDW 16.8 H 15.6 Plt Count 207 201 MPV 9.5 9.6 Immature Gran % (Auto) 2.4 H Neut % (Auto) 56.9 Lymph % (Auto) 27.3 [place] % (Auto) 10.2 Eos % (Auto) 2.1 Baso % (Auto) 1.1 Lymph # (Auto) 2.7 [place] # (Auto) 1.0 Eos # (Auto) 0.2 Baso # (Auto) 0.1 Abs Immat Gran (auto) 0.24 H Absolute Neuts (auto) 5.7 Absolute Nucleated RBC 0.050 H 0.090 H Nucleated RBC % (auto) 0.5 H 0.7 H PT INR Anion Gap Estim Creat Clear Calc Estimated GFR Random Glucose Calcium Blood Type A Positive Antibody Screen NEGATIVE Crossmatch See Detail 10/10/23 10/10/23 10/10/23 06:18 06:18 06:18 MCV Cancelled 88.3 MCH Cancelled 32.0 MCHC Cancelled RDW Plt Count MPV Immature Gran % (Auto) Neut % (Auto) Lymph % (Auto) [place] % (Auto) Eos % (Auto) Baso % (Auto) Lymph # (Auto) [place] # (Auto) Eos # (Auto) Baso # (Auto) Abs Immat Gran (auto) Absolute Neuts (auto) Absolute Nucleated RBC Nucleated RBC % (auto) PT INR Anion Gap Estim Creat Clear Calc Estimated GFR Random Glucose Calcium Blood Type Antibody Screen Crossmatch 10/10/23 10/10/23 10/10/23 06:18 06:18 06:18 MCV MCH MCHC 36.2 H RDW Cancelled 16.2 H Plt Count Cancelled 211 MPV Cancelled Immature Gran % (Auto) Neut % (Auto) Lymph % (Auto) [place] % (Auto) Eos % (Auto) Baso % (Auto) Lymph # (Auto) [place] # (Auto) Eos # (Auto) Baso # (Auto) Abs Immat Gran (auto) Absolute Neuts (auto) Absolute Nucleated RBC Nucleated RBC % (auto) PT INR Anion Gap Estim Creat Clear Calc Estimated GFR Random Glucose Calcium Blood Type Antibody Screen Crossmatch 10/10/23 10/10/23 10/10/23 06:18 06:18 06:18 MCV MCH MCHC RDW Plt Count MPV 9.1 L Immature Gran % (Auto) 1.8 H Neut % (Auto) 57.6 Lymph % (Auto) 27.2 [place] % (Auto) 9.9 Eos % (Auto) 2.4 Baso % (Auto) 1.1 Lymph # (Auto) 2.4 [place] # (Auto) 0.9 Eos # (Auto) 0.2 Baso # (Auto) 0.1 Abs Immat Gran (auto) 0.16 H Absolute Neuts (auto) 5.0 Absolute Nucleated RBC Cancelled 0.050 H Nucleated RBC % (auto) Cancelled 0.6 H PT 12.4 D INR 1.0 Anion Gap 8 L Estim Creat Clear Calc 61.1 Estimated GFR > 60 Random Glucose 102 Calcium 8.2 L Blood Type Antibody Screen Crossmatch Assessment and Plan (1) Acute blood loss anemia: Status: Acute (2) NSTEMI (non-ST elevated myocardial infarction): Status: Acute (3) Supratherapeutic INR: Status: Acute (4) GI bleed: Status: Acute Plan Pt is a 73-year-old female with a PMH significant for?hx of PE, factor 5 leiden on Coumadin, lupus anticoagulant syndrome, HTN, HLD, aortic stenosis, CKD3, hx of breast cancer s/p right mastectomy 2013, COPD, and GERD who presents to the ED with?shortness a breath, weakness, and chest pain x4 days. Pt will be admitted to the hospital for treatment and further evaluation of symptomatic acute blood loss anemia likely secondary to UGIB. Symptomatic acute blood loss anemia Pt with lightheadedness, dizziness, SOB, chest pain, black stools, fatigue CT abdomen/pelvis with contrast shows small focus of hypoattenuation within the small bowel of the left abdomen on arterial phase imaging raising concern for small focus of active GI hemorrhage. There are also aortic valve calcifications, coronary artery calcifications, colonic diverticulosis stool positive for occult blood H&H 6.1/17.2 on arival. Tranfused 2 units 10/06. Addl 1 unit 10/07 H/H improved to 8.6/24.4% yesterday evening. H/H this am 7.3/20.6%, transfused addl 2 units 10/08. H/H 10/09 9.6/26.5% Keep hgb >9.0 per cardiology INR 4.9 --> 4.4. Reverse with 10mg vitamin K per GI. INR 1.0 10/09 Protonix IV b.i.d. GI input appreciated Plan for EGD 10/09. NPO, advance diet per gi Follow cbc Orthostatic hypotension due to anemia, GI bleed Tranfuse as above, repeat orthostatic VS now Chest pain Likely secondary to acute blood loss anemia Trop --> 9.5 --> 472.8--> 439 [address] with diffuse ST depressions Echo ordered (also has loud systolic ejection murmur)- to be completed once h/h stable per cardiology Cardiology consult Monitor on telemetry Severe aortic stenosis mean gradient 49mmHg Cardiology following, once HD/bleeding stopped will need evaluation for transcatheter aortic valve replacement and myocardial ischemic evaluation by cardiac catheterization Cardiology input appreciated Leukocytosis WBC 12.2, likely from hemoconcentration/reactive No indication of active infection at this time or use of antibiotics Does not meet SIRS criteria Supratherapeutic INR INR 4.9--> 4.4-->1.3--> 1.0 following 10mg vitamin K 10/07 Hold warfarin follow inr Factor V Leiden Hold coumadin in setting of acute gi bleed Will need to be resumed on ac once bleeding stabilized, defer start to GI #HFpEF -no acute exacerbation -echo with hyperdynamic LV systolic function with EF greater than 70% and grade 2 diastolic dysfunction COPD Not in acute exacerbation Continue home inhalers HTN BP soft Hold antihypertensives for now Resume as warranted HLD Continue statin Full Code DVT Prophylaxis: SCDs due to acute blood loss anemia Ongoing inpt stay due to acute active GI bleed requiring serial monitoring of blood counts, transfusions, expert consulation, and EGD pending cardiology evaluation given demand ischemia which will require ongoing cardiac monitoring Quality Stroke Does the patient have a stroke diagnosis?: No VTE Prior VTE?: No VTE Risk Level:: Medical - moderate - high VTE Device Contraindication: N/A - Device Ordered VTE Drug Contraindication: Treatment Not Indicated
[2023-10-10] MEDS: Cholecalciferol (Vitamin D3) 25 MCG TABLET 50 MCG PO (08:37)
[2023-10-10] MEDS: 0.9 % Sodium Chloride Flush 3 ML SYRINGE IVFLUSH ×3 (08:38→21:17)
[2023-10-10] MEDS: Metoprolol Succinate ER 25 MG TAB.ER.24H PO (08:38)
--- NOTE | 2023-10-10 10:43 | PM.PNCARD ---
Subjective Subjective Date of Service: 10/10/23 Principal diagnosis: Near-syncope, GI bleed, aortic stenosis Interval history: Patient present with severe GI bleed with elevated INR with significantly reduced hemoglobin hematocrit improved with blood transfusion. Symptoms have improved. Hemodynamically stable. Clinical findings consistent with severe aortic stenosis. On discussing with patient patient says she has been having for the last many years exertional chest pain and shortness of breath which has got worse recently which has minimized her activity level and she does not exercise much. She is known to have a murmur for many years and had an echocardiogram done at outside facility although she is not severe as to the result but thought that she was told that she might have severe problems but she is not sure. 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 Her troponins elevated consistent with myocardial injury. She is currently not having any chest pain at rest. EKG shows nonspecific ST T wave changes Review of Systems Constitutional: Reports no additional constitutional complaints Cardiovascular: Reports chest pain with activity, Denies leg edema, Reports lightheadedness, Denies Loss of Consciousness, Denies palpitations and Reports dyspnea on exertion Respiratory: Denies cough, Reports dyspnea on exertion and Denies wheezing Gastrointestinal: Reports no additional gastrointestinal complaints Musculoskeletal: Reports no additional musculoskeletal complaints Skin/Breast: Reports system reviewed and no additional complaints, except as docu Reports system reviewed and no additional complaints, except as documented Endocrine: Denies palpitations Allergic/Immunologic: Denies wheezing Physical Exam Vital Signs: Last Vital Signs Temp 97.0 F 10/10/23 07:30 Pulse 76 10/10/23 07:30 Resp 18 10/10/23 07:30 BP 133/63 10/10/23 07:30 Pulse Ox 97 10/10/23 07:30 O2 Del Method Room Air 10/10/23 07:30 O2 Flow Rate 2 10/08/23 05:51 BMI result Body Mass Index 34.3 Const General: cooperative, comfortable, no acute distress, alert and awake Nutritional Appearance: obese Orientation/consciousness: patient oriented x3 HEENT Head: Yes normocephalic and Yes atraumatic Neck Neck: Yes trachea midline, Yes supple and Yes no JVD Carotids: delayed carotid upstroke Resp Effort & Inspection: normal respiratory effort Auscultation: clear to auscultation bilaterally Cardio Jugular venous distension: no JVD Palpation: normal PMI and heave Rate: regular rate Rhythm: regular rhythm Heart sounds: S1 normal heart sound present, no click, no gallops and Murmur heart sound present systolic late, decrescendo, crescendo, harsh and at the right sternal border GI Auscultation: normal bowel sounds Skin General skin exam: no rashes or lesions noted Neuro General: patient oriented x3 and no focal motor deficits Extrem General: Yes no clubbing, cyanosis or edema Psych Appearance: grossly normal Objective Labs and Meds 10/10/23 06:18 10/10/23 06:18 Lab results: Laboratory Results - last 24 hr 10/07/23 10/07/23 10/09/23 19:25 20:10 16:56 WBC 12.6 H RBC 3.08 L D Hgb 9.7 L D Hct 27.4 L D MCV 89.0 MCH 31.5 MCHC 35.4 H RDW 15.6 Plt Count 201 MPV 9.6 Immature Gran % (Auto) Neut % (Auto) Lymph % (Auto) [place] % (Auto) Eos % (Auto) Baso % (Auto) Lymph # (Auto) [place] # (Auto) Eos # (Auto) Baso # (Auto) Abs Immat Gran (auto) Absolute Neuts (auto) Absolute Nucleated RBC 0.090 H Nucleated RBC % (auto) 0.7 H Smear Path Review SEE NOTE PT INR Sodium Potassium Chloride Carbon Dioxide Anion Gap BUN Creatinine Estim Creat Clear Calc Estimated GFR Random Glucose Calcium Blood Type A Positive Antibody Screen NEGATIVE Crossmatch See Detail 10/09/23 10/10/23 10/10/23 20:17 06:18 06:18 WBC Cancelled 8.7 RBC Cancelled Hgb 9.6 L Hct 26.1 L MCV MCH MCHC RDW Plt Count MPV Immature Gran % (Auto) Neut % (Auto) Lymph % (Auto) [place] % (Auto) Eos % (Auto) Baso % (Auto) Lymph # (Auto) [place] # (Auto) Eos # (Auto) Baso # (Auto) Abs Immat Gran (auto) Absolute Neuts (auto) Absolute Nucleated RBC Nucleated RBC % (auto) Smear Path Review PT INR Sodium Potassium Chloride Carbon Dioxide Anion Gap BUN Creatinine Estim Creat Clear Calc Estimated GFR Random Glucose Calcium Blood Type Antibody Screen Crossmatch 10/10/23 10/10/23 10/10/23 06:18 06:18 06:18 WBC RBC 3.00 L Hgb Cancelled 9.6 L Hct Cancelled 26.5 L MCV Cancelled MCH MCHC RDW Plt Count MPV Immature Gran % (Auto) Neut % (Auto) Lymph % (Auto) [place] % (Auto) Eos % (Auto) Baso % (Auto) Lymph # (Auto) [place] # (Auto) Eos # (Auto) Baso # (Auto) Abs Immat Gran (auto) Absolute Neuts (auto) Absolute Nucleated RBC Nucleated RBC % (auto) Smear Path Review PT INR Sodium Potassium Chloride Carbon Dioxide Anion Gap BUN Creatinine Estim Creat Clear Calc Estimated GFR Random Glucose Calcium Blood Type Antibody Screen Crossmatch 10/10/23 10/10/23 10/10/23 06:18 06:18 06:18 WBC RBC Hgb Hct MCV 88.3 MCH Cancelled 32.0 MCHC Cancelled 36.2 H RDW Cancelled Plt Count MPV Immature Gran % (Auto) Neut % (Auto) Lymph % (Auto) [place] % (Auto) Eos % (Auto) Baso % (Auto) Lymph # (Auto) [place] # (Auto) Eos # (Auto) Baso # (Auto) Abs Immat Gran (auto) Absolute Neuts (auto) Absolute Nucleated RBC Nucleated RBC % (auto) Smear Path Review PT INR Sodium Potassium Chloride Carbon Dioxide Anion Gap BUN Creatinine Estim Creat Clear Calc Estimated GFR Random Glucose Calcium Blood Type Antibody Screen Crossmatch 10/10/23 10/10/23 10/10/23 06:18 06:18 06:18 WBC RBC Hgb Hct MCV MCH MCHC RDW 16.2 H Plt Count Cancelled 211 MPV Cancelled 9.1 L Immature Gran % (Auto) 1.8 H Neut % (Auto) 57.6 Lymph % (Auto) 27.2 [place] % (Auto) 9.9 Eos % (Auto) 2.4 Baso % (Auto) 1.1 Lymph # (Auto) 2.4 [place] # (Auto) 0.9 Eos # (Auto) 0.2 Baso # (Auto) 0.1 Abs Immat Gran (auto) 0.16 H Absolute Neuts (auto) 5.0 Absolute Nucleated RBC Cancelled Nucleated RBC % (auto) Smear Path Review PT INR Sodium Potassium Chloride Carbon Dioxide Anion Gap BUN Creatinine Estim Creat Clear Calc Estimated GFR Random Glucose Calcium Blood Type Antibody Screen Crossmatch 10/10/23 10/10/23 06:18 06:18 WBC RBC Hgb Hct MCV MCH MCHC RDW Plt Count MPV Immature Gran % (Auto) Neut % (Auto) Lymph % (Auto) [place] % (Auto) Eos % (Auto) Baso % (Auto) Lymph # (Auto) [place] # (Auto) Eos # (Auto) Baso # (Auto) Abs Immat Gran (auto) Absolute Neuts (auto) Absolute Nucleated RBC 0.050 H Nucleated RBC % (auto) Cancelled 0.6 H Smear Path Review PT 12.4 D INR 1.0 Sodium 140 Potassium 3.1 L Chloride 109 H Carbon Dioxide 26 Anion Gap 8 L BUN 32 H Creatinine 0.92 Estim Creat Clear Calc 61.1 Estimated GFR > 60 Random Glucose 102 Calcium 8.2 L Blood Type Antibody Screen Crossmatch Progress Note: A&P Assessment and plan (1) Aortic stenosis: Status: Acute Assessment and Plan: Patient with severe aortic stenosis by echocardiogram and clinical exam with symptoms prior to presentation with near-syncope related to significant GI bleed. Therefore patient has high risk for perioperative cardiovascular morbidity mortality although procedure she has to undergo his upper endoscopy is overall low risk procedure. She was troponin elevation related to myocardial strain related to severe anemia in the setting of severe aortic stenosis and diastolic dysfunction. Cause for GI bleed is important to determine given her need for oral anticoagulation warfarin given her prior history of pulmonary embolism, cancer as well as factor 5 Leiden mutation. Her INR supratherapeutic on presentation. This is a difficult clinical situation, consider cardioprotective anesthesia to avoid significant hypotension during the procedure. Once his GI system is stabilized and she is no longer bleeding she would require evaluation for transcatheter aortic valve replacement and myocardial ischemic evaluation by cardiac catheterization. Discuss the care with anesthesia team. Time Spent With Patient Time: Total time managing care of this patient today ____ minutes. Progress Note: Quality Stroke Does the patient have a stroke diagnosis?: No Procedures Date of Service Date of Service: 10/10/23
--- NOTE | 2023-10-10 10:46 | MHC.CM.PN ---
Per ROUNDS discussion, Patient is not yet medically cleared for dc (ECHO today, EGD tomorrow and ? of transfer to [facility] for Valve Replacement); home is the goal though and CM has initiated and will follow for dc planning.
[2023-10-10] MEDS: Lactated Ringers 1,000 ML 50 ML IVCONT (13:12)
--- NOTE | 2023-10-10 14:05 | P.CONAN_ITS ---
FORMERLY [facility], LATER [facility] Active Problems Active Problems: All Active Problems (Updated 10/08/23 @ 11:04 by Ta Ray MD) Aortic stenosis (Acute) NSTEMI (non-ST elevated myocardial infarction) (Acute) Acute blood loss anemia (Acute) Acute electrocardiogram changes (Acute) Supratherapeutic INR (Acute) GI bleed (Acute) Anemia (Acute) Multinodular thyroid (Acute) Past Medical History Medical History CKD (chronic kidney disease) History of breast cancer History of venous thromboembolism Lupus anticoagulant disorder Factor V Leiden Multinodular thyroid Family History Family History Father Heart failure Mother No problems noted. Family history of problems with anesthesia: No Surgical History Surgical History Hx of right mastectomy History of Problems with Anesthesia: No Social History Social History Alcohol intake: former Patient Tobacco Use Status: Current everyday Tobacco user Tobacco use type: Cigarette Cigarettes Per Day: 2 service: No () Meds Allergies Allergy/AdvReac Type Severity Reaction Status Date / Time acetaminophen [From PERCOCET] Allergy Unknown N/V Verified 10/07/23 19:08 atorvastatin [From LIPITOR] Allergy Unknown MUSCLE Verified 10/07/23 19:08 WEAKNESS lovastatin Allergy Unknown Unknown Verified 10/07/23 19:08 oxycodone [From PERCOCET] Allergy Unknown N/V Verified 10/07/23 19:08 CATARINA Inhibitors AdvReac Intermediate COUGH Verified 10/07/23 19:08 [CATARINA INHIBITORS] Active Medications: Current Medications Acetaminophen (Acetaminophen 325 Mg Tablet) 650 mg PO Q6H PRN PRN Reason: Pain, Mild (Pain Scale 1-3), fever or headache Last Admin: 10/09/23 21:59 Dose: 650 mg Albuterol Sulfate (Albuterol Sulfate 90 Mcg 8 Gm Inhaler) 2 puff INHALE Q6H PRN PRN Reason: SOB/Wheezing Calcium Carbonate (Calcium Carbonate 750 Mg Tab.Chew) 750 mg PO Q4H PRN PRN Reason: Heartburn Lactated Ringer's (Lr) 1,000 mls @ 50 mls/hr IVCONT .Q20H [facility] Last Admin: 10/10/23 13:12 Dose: 50 mls/hr Magnesium Hydroxide (Milk Of Magnesia 30 Ml Oral.Susp) 30 ml PO DAILY PRN PRN Reason: Constipation Melatonin (Melatonin 3 Mg Tablet) 6 mg PO BEDTIME PRN PRN Reason: Insomnia Last Admin: 10/09/23 21:59 Dose: 6 mg Metoprolol Succinate (Metoprolol Succinate Er 25 Mg Tab.Er.24h) 25 mg PO ONCE [facility]; Protocol Metoprolol Succinate (Metoprolol Succinate Er 25 Mg Tab.Er.24h) 25 mg PO DAILY [facility]; Protocol Last Admin: 10/10/23 08:38 Dose: 25 mg Ondansetron HCl (Ondansetron Hcl 4 Mg/2 Ml Vial) 4 mg IVPUSH Q8H PRN PRN Reason: Nausea and Vomiting Pantoprazole Sodium (Pantoprazole Sodium 40 Mg/10 Ml Vial) 40 mg IVPUSH BID@0630,1630 [facility] Last Admin: 10/10/23 06:17 Dose: 40 mg Sodium Chloride (0.9 % Sodium Chloride Flush 3 Ml Syringe) 3 ml IVFLUSH QSHIFT [facility] Last Admin: 10/10/23 08:38 Dose: 3 ml Vitamin D (Cholecalciferol (Vitamin D3) 25 Mcg Tablet) 50 mcg PO DAILY [facility] Last Admin: 10/10/23 08:37 Dose: 50 mcg Home Medications ?Medication ?Instructions ?Recorded ?Confirmed ?Last Taken ?Type acetaminophen 325 mg capsule 325 mg PO QID PRN Pain 04/28/22 10/07/23 Unknown History albuterol sulfate 90 mcg/actuation 2 puff inhalation Q6H PRN 04/28/22 10/07/23 Unknown History aerosol inhaler SOB/Wheezing losartan 25 mg tablet 25 mg PO DAILY 04/28/22 10/07/23 10/06/23 History melatonin 3 mg capsule 3 mg PO BEDTIME PRN Sleep 04/28/22 10/07/23 Unknown History metoprolol succinate 25 mg 25 mg PO ONCE 04/28/22 10/07/23 10/06/23 History tablet,extended release 24 hr omeprazole 20 mg capsule,delayed 20 mg PO DAILY 04/28/22 10/07/23 10/06/23 History release rosuvastatin 20 mg tablet 20 mg PO DAILY 04/28/22 10/07/23 10/06/23 History warfarin 5 mg tablet 5 mg PO DAILY 04/28/22 10/07/23 10/06/23 History cholecalciferol (vitamin D3) 50 50 mcg PO DAILY 05/05/22 10/07/23 10/06/23 History mcg (2,000 unit) capsule azithromycin 250 mg tablet 250 mg PO DIRECTED 10/07/23 10/07/23 10/06/23 History Exam Height,Weight and Vital Signs: Height 5 ft 4 in Weight 90.71 kg Last Vital Signs Temp 98.5 F 10/10/23 12:53 Pulse 75 10/10/23 12:53 Resp 18 10/10/23 12:53 BP 151/75 H 10/10/23 12:53 Pulse Ox 98 10/10/23 12:53 O2 Del Method Room Air 10/10/23 12:53 O2 Flow Rate 2 10/08/23 05:51 Pertinent Lab Results Pertinent Lab Results: Laboratory Tests 10/07/23 10/07/23 10/07/23 19:25 19:43 20:10 WBC 12.5 H RBC 1.75 L Hgb 6.1 L* Hct 17.2 L* MCV 98.3 H MCH 34.9 H MCHC 35.5 H RDW 13.0 Plt Count 253 MPV 9.6 Immature Gran % (Auto) 1.0 H Neut % (Auto) 53.6 Lymph % (Auto) 34.0 [place] % (Auto) 7.8 Eos % (Auto) 2.6 Baso % (Auto) 1.0 Lymph # (Auto) 4.2 [place] # (Auto) 1.0 Eos # (Auto) 0.3 Baso # (Auto) 0.1 Abs Immat Gran (auto) 0.13 H Absolute Neuts (auto) 6.7 Absolute Nucleated RBC 0.060 H Nucleated RBC % (auto) 0.5 H Smear Path Review SEE NOTE Hold Purple Top PT 60.0 H INR 4.9 H Hold Blue Top Sodium 140 Potassium 4.1 Chloride 109 H Carbon Dioxide 22 Anion Gap 13 BUN 48 H Creatinine 1.07 Estim Creat Clear Calc 52.5 Estimated GFR 51 Random Glucose 131 H Calcium 8.5 Total Bilirubin 0.2 Direct Bilirubin < 0.2 AST 13 ALT 10 Alkaline Phosphatase 34 L Troponin I High Sens 7.7 B-Natriuretic Peptide 348 H Total Protein 5.5 L Albumin 3.3 L Hold Yellow Top Stool Occult Blood POSITIVE COVID-19 (JAMIE) Negative COVID-19 Clin Com See Note Blood Type A Positive Antibody Screen NEGATIVE Crossmatch See Detail 10/07/23 10/08/23 10/08/23 22:23 08:17 16:18 WBC 11.8 H RBC 2.42 L D Hgb 7.9 L D 8.6 L Hct 22.7 L D 24.4 L MCV 93.8 MCH 32.6 MCHC 34.8 RDW 14.8 Plt Count 198 MPV 8.9 L Immature Gran % (Auto) 1.2 H Neut % (Auto) 55.2 Lymph % (Auto) 31.7 [place] % (Auto) 9.3 Eos % (Auto) 1.7 Baso % (Auto) 0.9 Lymph # (Auto) 3.8 [place] # (Auto) 1.1 Eos # (Auto) 0.2 Baso # (Auto) 0.1 Abs Immat Gran (auto) 0.14 H Absolute Neuts (auto) 6.5 Absolute Nucleated RBC 0.050 H Nucleated RBC % (auto) 0.4 H Smear Path Review Hold Purple Top SEE NOTE PT 53.2 H INR 4.4 H Hold Blue Top SEE NOTE Sodium 140 Potassium 3.9 Chloride 109 H Carbon Dioxide 23 Anion Gap 12 BUN 43 H Creatinine 0.95 Estim Creat Clear Calc 59.2 Estimated GFR 58 Random Glucose 109 Calcium 8.2 L Total Bilirubin Direct Bilirubin AST ALT Alkaline Phosphatase Troponin I High Sens 9.5 472.8 H* D 439.0 H* B-Natriuretic Peptide Total Protein Albumin Hold Yellow Top See Note Stool Occult Blood COVID-19 (JAMIE) COVID-19 Clin Com Blood Type Antibody Screen Crossmatch 10/09/23 10/09/23 10/09/23 06:54 16:56 20:17 WBC 10.0 12.6 H RBC 2.26 L 3.08 L D Hgb 7.3 L 9.7 L D 9.6 L Hct 20.6 L* 27.4 L D 26.1 L MCV 91.2 89.0 MCH 32.3 31.5 MCHC 35.4 H 35.4 H RDW 16.8 H 15.6 Plt Count 207 201 MPV 9.5 9.6 Immature Gran % (Auto) 2.4 H Neut % (Auto) 56.9 Lymph % (Auto) 27.3 [place] % (Auto) 10.2 Eos % (Auto) 2.1 Baso % (Auto) 1.1 Lymph # (Auto) 2.7 [place] # (Auto) 1.0 Eos # (Auto) 0.2 Baso # (Auto) 0.1 Abs Immat Gran (auto) 0.24 H Absolute Neuts (auto) 5.7 Absolute Nucleated RBC 0.050 H 0.090 H Nucleated RBC % (auto) 0.5 H 0.7 H Smear Path Review Hold Purple Top PT 16.1 H D INR 1.3 H D Hold Blue Top Sodium 138 Potassium 3.6 Chloride 110 H Carbon Dioxide 22 Anion Gap 10 L BUN 43 H Creatinine 1.00 Estim Creat Clear Calc 56.3 Estimated GFR 55 Random Glucose 106 Calcium 8.3 L Total Bilirubin Direct Bilirubin AST ALT Alkaline Phosphatase Troponin I High Sens B-Natriuretic Peptide Total Protein Albumin Hold Yellow Top Stool Occult Blood COVID-19 (JAMIE) COVIDAudios[employer] Blood Type Antibody Screen Crossmatch 10/10/23 10/10/23 10/10/23 06:18 06:18 06:18 WBC Cancelled 8.7 RBC Cancelled 3.00 L Hgb Cancelled Hct MCV MCH MCHC RDW Plt Count MPV Immature Gran % (Auto) Neut % (Auto) Lymph % (Auto) [place] % (Auto) Eos % (Auto) Baso % (Auto) Lymph # (Auto) [place] # (Auto) Eos # (Auto) Baso # (Auto) Abs Immat Gran (auto) Absolute Neuts (auto) Absolute Nucleated RBC Nucleated RBC % (auto) Smear Path Review Hold Purple Top PT INR Hold Blue Top Sodium Potassium Chloride Carbon Dioxide Anion Gap BUN Creatinine Estim Creat Clear Calc Estimated GFR Random Glucose Calcium Total Bilirubin Direct Bilirubin AST ALT Alkaline Phosphatase Troponin I High Sens B-Natriuretic Peptide Total Protein Albumin Hold Yellow Top Stool Occult Blood COVID-19 (JAMIE) COVIDAudios[employer] Blood Type Antibody Screen Crossmatch 10/10/23 10/10/23 10/10/23 06:18 06:18 06:18 WBC RBC Hgb 9.6 L Hct Cancelled 26.5 L MCV Cancelled 88.3 MCH Cancelled MCHC RDW Plt Count MPV Immature Gran % (Auto) Neut % (Auto) Lymph % (Auto) [place] % (Auto) Eos % (Auto) Baso % (Auto) Lymph # (Auto) [place] # (Auto) Eos # (Auto) Baso # (Auto) Abs Immat Gran (auto) Absolute Neuts (auto) Absolute Nucleated RBC Nucleated RBC % (auto) Smear Path Review Hold Purple Top PT INR Hold Blue Top Sodium Potassium Chloride Carbon Dioxide Anion Gap BUN Creatinine Estim Creat Clear Calc Estimated GFR Random Glucose Calcium Total Bilirubin Direct Bilirubin AST ALT Alkaline Phosphatase Troponin I High Sens B-Natriuretic Peptide Total Protein Albumin Hold Yellow Top Stool Occult Blood COVID-19 (JAMIE) [employer] Blood Type Antibody Screen Crossmatch 10/10/23 10/10/23 10/10/23 06:18 06:18 06:18 WBC RBC Hgb Hct MCV MCH 32.0 MCHC Cancelled 36.2 H RDW Cancelled 16.2 H Plt Count Cancelled MPV Immature Gran % (Auto) Neut % (Auto) Lymph % (Auto) Bremer % (Auto) Eos % (Auto) Baso % (Auto) Lymph # (Auto) Bre[place] # (Auto) Eos # (Auto) Baso # (Auto) Abs Immat Gran (auto) Absolute Neuts (auto) Absolute Nucleated RBC Nucleated RBC % (auto) Smear Path Review Hold Purple Top PT INR Hold Blue Top Sodium Potassium Chloride Carbon Dioxide Anion Gap BUN Creatinine Estim Creat Clear Calc Estimated GFR Random Glucose Calcium Total Bilirubin Direct Bilirubin AST ALT Alkaline Phosphatase Troponin I High Sens B-Natriuretic Peptide Total Protein Albumin Hold Yellow Top Stool Occult Blood COVID-19 (JAMIE) [employer] Blood Type Antibody Screen Crossmatch 10/10/23 10/10/23 10/10/23 06:18 06:18 06:18 WBC RBC Hgb Hct MCV MCH MCHC RDW Plt Count 211 MPV Cancelled 9.1 L Immature Gran % (Auto) 1.8 H Neut % (Auto) 57.6 Lymph % (Auto) 27.2 Bremer % (Auto) 9.9 Eos % (Auto) 2.4 Baso % (Auto) 1.1 Lymph # (Auto) 2.4 Bremer # (Auto) 0.9 Eos # (Auto) 0.2 Baso # (Auto) 0.1 Abs Immat Gran (auto) 0.16 H Absolute Neuts (auto) 5.0 Absolute Nucleated RBC Cancelled 0.050 H Nucleated RBC % (auto) Cancelled Smear Path Review Hold Purple Top PT INR Hold Blue Top Sodium Potassium Chloride Carbon Dioxide Anion Gap BUN Creatinine Estim Creat Clear Calc Estimated GFR Random Glucose Calcium Total Bilirubin Direct Bilirubin AST ALT Alkaline Phosphatase Troponin I High Sens B-Natriuretic Peptide Total Protein Albumin Hold Yellow Top Stool Occult Blood COVID-19 (JAMIE) [employer] Blood Type Antibody Screen Crossmatch 10/10/23 06:18 WBC RBC Hgb Hct MCV MCH MCHC RDW Plt Count MPV Immature Gran % (Auto) Neut % (Auto) Lymph % (Auto) Bremer % (Auto) Eos % (Auto) Baso % (Auto) Lymph # (Auto) Bremer # (Auto) Eos # (Auto) Baso # (Auto) Abs Immat Gran (auto) Absolute Neuts (auto) Absolute Nucleated RBC Nucleated RBC % (auto) 0.6 H Smear Path Review Hold Purple Top PT 12.4 D INR 1.0 Hold Blue Top Sodium 140 Potassium 3.1 L Chloride 109 H Carbon Dioxide 26 Anion Gap 8 L BUN 32 H Creatinine 0.92 Estim Creat Clear Calc 61.1 Estimated GFR > 60 Random Glucose 102 Calcium 8.2 L Total Bilirubin Direct Bilirubin AST ALT Alkaline Phosphatase Troponin I High Sens B-Natriuretic Peptide Total Protein Albumin Hold Yellow Top Stool Occult Blood COVID-19 (JAMIE) COVID-[employer] Blood Type Antibody Screen Crossmatch Airway Mallampati Class: III TM Dist: >3cm Neck ROM: Full Assessment and Plan Assessment Anesthesia Assessment: Anesthesia Plan Discussed and Chart Reviewed Final Anesthetic Review Family History of Problems with Anesthesia: No History of Problems with Anesthesia: No NPO: Yes ASA Class: IV and Emergency Final Preanesthetic Review: No Changes in Pt Med Stat, Meds/Allgs Chart Rev iewed, Consent Obtained/Reviewed and Anes Risks/Benef Reviewed Patient Risk: High Procedure Risk: Low Anesthetic Plan Anesthetic Plan: TIVA Disposition: Standard PACU
--- NOTE | 2023-10-10 14:17 | MHC.SHP ---
Pre-Procedural Eval Section A - 24 Hr Update-Section A only Date of Service: 10/10/23 The patient is an INPATIENT: Yes Changes since office visit: No Cold of Flu in the past 2 weeks, No New Medical Problems, No Changes in Medication and No Patient answered all questions The patient has been examined within 24 hours of the surgical procedure. The History & Physical has been completed within 30 days and I have reviewed it.: Yes Section B - Complete if H&P > 30 days Chief Complaint: Chest pain, anemia Allergies: Allergies Allergy/AdvReac Type Severity Reaction Status Date / Time acetaminophen [From PERCOCET] Allergy Unknown N/V Verified 10/07/23 19:08 atorvastatin [From LIPITOR] Allergy Unknown MUSCLE Verified 10/07/23 19:08 WEAKNESS lovastatin Allergy Unknown Unknown Verified 10/07/23 19:08 oxycodone [From PERCOCET] Allergy Unknown N/V Verified 10/07/23 19:08 CATARINA Inhibitors AdvReac Intermediate COUGH Verified 10/07/23 19:08 [CATARINA INHIBITORS] Plan I have reviewed the history and physical and performed a pertinent physical examination on my patient. No changes have occurred unless specified. Time Spent With Patient Time: Total time managing care of this patient today ____ minutes.
--- NOTE | 2023-10-10 14:38 | PM.OP ---
Brief Operative Note Date of Service: 10/10/23 Pre-op diagnosis: gi bleed Post-op diagnosis: same Procedure: egd Surgeon: Milton Issa MD Was an Fabric Awning Repairer used for this Procedure?: No Estimated blood loss (mL): 2 Pathology: other Condition: stable Disposition: PACU
--- NOTE | 2023-10-10 14:47 | PM.EVENT ---
Event Note Date of Service: 10/10/23 Event Note: EGD note dicatated basically normal, no bleeding, small hiatal hernia ok to restart anticoagulation. avoid supratherapeutic inr. Time Spent With Patient Time: Total time managing care of this patient today ____ minutes.
[2023-10-10] MEDS: Potassium Chloride Packet 20 MEQ PACKET 40 MEQ PO (18:10)
[2023-10-10] MEDS: Acetaminophen 325 MG TABLET 650 MG PO (21:14)
[2023-10-10] MEDS: Melatonin 3 MG TABLET 6 MG PO (21:15)
[2023-10-10] MEDS: Apixaban 5 MG TABLET PO (21:15)
--- NOTE | 2023-10-11 01:23 | OP_ITS ---
DATE OF SERVICE: 10/10/2023 SURGEON: Milton Issa MD INDICATIONS: Upper GI bleeding. PREOPERATIVE DIAGNOSIS: POSTOPERATIVE DIAGNOSIS: PROCEDURE PERFORMED: Upper endoscopy with biopsy. ESTIMATED BLOOD LOSS: COMPLICATIONS: ANESTHESIA: Monitored anesthesia care. ASSISTANTS: SPECIMENS: DESCRIPTION OF PROCEDURE: A history and physical was performed. The risks and benefits of the procedure were explained to the patient. Informed consent was obtained. The patient was placed in the left lateral decubitus position. The Olympus video gastroscope was introduced into the esophagus, stomach, and duodenum. Examination was performed. The scope was removed. She tolerated the procedure well and was returned to the recovery area in stable condition. FINDINGS: Esophagus: The esophagus was normal. There was no esophagitis. There was a small sliding hiatal hernia. Stomach: The stomach showed no evidence of masses, ulcers, or polyps. There was no bleeding. Antral biopsies were obtained to evaluate for H pylori. Duodenum: The bulb and 2nd portion were normal. IMPRESSION: Normal upper endoscopy, hiatal hernia. RECOMMENDATION: 1. Follow up the biopsy results. 2. Anticoagulation may be restarted as necessary. MD MELINA Lin/HERO / [id number]
[2023-10-11 03:01] VITALS: BP 117/57; PULSE 75; RESP 18; TEMP 36; O2SAT 96
[2023-10-11 06:28] LABS: MANUAL DIFF FLAG NO
[2023-10-11 06:40] LABS: INTERNATIONAL NORM RATIO 1.2 (0.9-1.1); Prothrombin Time 14.1 SEC (11.1-13.3)
[2023-10-11 06:48] LABS: Basophils Absolute Auto 0.1 X10*3/uL (0.0-0.2); Basophils Percent Auto 1.2 % (0-2); Eosinophils Absolute Auto 0.3 X10*3/uL (0.0-0.4); Eosinophils Percent Auto 2.9 % (0-4); Hematocrit 27.7 % (37.0-47.0); Hemoglobin 9.8 g/dl (12.0-16.0); Imm Gran Abs Auto 0.11 X10*3/uL (0.00-0.03); Imm Gran Pct Auto 1.2 % (0.0-0.4); Lymphocytes Absolute Auto 2.8 X10*3/uL (1.2-4.9); Lymphocytes Percent Auto 29.9 % (20-40); Mean Corpuscular HGB Conc 35.4 g/dl (31.0-35.0); Mean Corpuscular Hemoglobin 32.1 pg (27.0-33.0); Mean Corpuscular Volume 90.8 fL (80.0-98.0); Mean Platelet Volume 9.2 fL (9.4-12.3); Monocytes Percent Auto 10.8 % (2-11); NRBC Pct Auto 0.2 /100WBC (0.0-0.2); Neutrophils Absolute Auto 5.1 x10*3/uL (2.0-8.3); Platelet Count 242 X10*3/uL (160-400); Red Blood Count 3.05 X10*6/uL (4.20-5.50); Red Cell Distribution Width 16.4 % (11.0-16.0); White Blood Count 9.4 X10*3/uL (4.8-10.8)
[2023-10-11 07:31] VITALS: BP 120/59; PULSE 76; RESP 20; TEMP 36.6; O2SAT 95
--- NOTE | 2023-10-11 09:49 | HO.POSTANES ---
Post Anesthesia Evaluation Post Anesthesia Evaluation Date of Service: 10/11/23 Vital Signs: Vital Signs Temp Pulse Resp BP Pulse Ox O2 Del Method 10/11/23 07:31 97.8 F 76 20 120/59 L 95 Room Air 10/11/23 03:01 96.8 F 75 18 117/57 L 96 Room Air 10/10/23 23:05 97.8 F 80 18 114/54 L 95 Room Air Anesthesia: Monitored Mental Status: Awake Pain Control: Satisfactory Nausea/Vomiting: None Hydration: Adequate Anesthesia-Related Issues: No Anes. Related Issues
[2023-10-11 09:53] LABS: Potassium 3.8 mmol/L (3.3-5.1)
[2023-10-11] MEDS: 0.9 % Sodium Chloride Flush 3 ML SYRINGE IVFLUSH (10:25)
[2023-10-11 10:26] VITALS: BP 120/59; PULSE 76
[2023-10-11] MEDS: Cholecalciferol (Vitamin D3) 25 MCG TABLET 50 MCG PO (10:26)
[2023-10-11] MEDS: Ascorbic Acid 250 MG TABLET PO (10:26)
[2023-10-11] MEDS: Apixaban 5 MG TABLET PO (10:26)
[2023-10-11] MEDS: Metoprolol Succinate ER 25 MG TAB.ER.24H PO (10:26)
[2023-10-11] MEDS: Ferrous Sulfate 324 MG TABLET.DR 325 MG PO (10:26)
[2023-10-11] MEDS: Acetaminophen 325 MG TABLET 650 MG PO (10:28)
[2023-10-11 11:14] VITALS: BP 109/59; PULSE 76; RESP 20; TEMP 36.7; O2SAT 94
--- NOTE | 2023-10-11 15:14 | MHC.CM.PN ---
Per MD, Patient is medically cleared for dc to home today, self care.
--- NOTE | 2023-10-11 15:18 | P.DS_ITS ---
DS: Providers Provider Date of Service: 10/11/23 Date of admission: 10/07/23 20:25 Date of discharge: 10/11/23 Primary care physician: Paulino Posey MD Consults: 10/07/23 20:24 Consult to Gastroenterology Routine Consulting Provider: Milton Issa Reason for consultation: GI bleed 10/08/23 09:46 Consult to Cardiology Routine Consulting Provider: [facility] Reason for consultation: demand ischemia, UGIB plan for egd tuesday, cards clearance Attending physician on discharge: Tania Miranda Discharging clinician: Tania Miranda DS: Diagnosis Discharge Diagnosis (1) Acute blood loss anemia: Status: Acute (2) NSTEMI (non-ST elevated myocardial infarction): Status: Acute (3) Supratherapeutic INR: Status: Acute (4) GI bleed: Status: Acute DS: Summary Hospital Course Hospital Course: Hospital course: Patient was admitted for symptomatic acute blood loss anemia, with H&H of 6.1, supratherapeutic INR, further workup with CT abdomen shows small focus of hypoattenuation within the small bowel of the left abdomen on arterial phase imaging raising concern for small focus of active GI hemorrhage. Stool positive for occult blood. Patient received total 3 units PRBC, also received vitamin K, ppi, GI consulted and subsequently patient also got EGD done: EGD seems normal, H&H stable around 9.8 range, discussed with the GI possibly bleeding related to supratherapeutic INR and possible AVM considering CT abdomen finding. GI recommended to resume anticoagulation: Patient is started on Eliquis(Hematology, given factor 5 laden, okay to change Coumadin to Eliquis 5 mg twice daily ). follow Gi biopsy results outpatient. Initially had orthostatic hypotension also possibly secondary to GI bleed which is improved with transfusions. Chest pain and elevated troponin likely due to acute blood loss anemia secondary to GI bleed: Seen by Cardiology: EF is 70% has severe aortic stenosis. cardiology recomended transcatheter aortic valve replacement and myocardial ischemic evaluation outpatient. plan: moniter cbc in 1 week. follow up with Gi biopsy outpatient(Antral biopsies were obtained to evaluate for H pylori. ) Follow-up with GI and Cardiology outpatient. Above management discussed with the patient detail length she understand and in agreement with the above plan, time spent 40 minute. Time Attestation Total time managing care of this patient today: 40 mintues. Discharge Coordination Time (in mins): 40 min Quality: Safe Use of Opioids Does Pt have an Active Cancer Diagnosis on the Problem List?: No Quality: Stroke Does the patient have a stroke diagnosis?: No Physical Exam Vital Signs: Vital Signs: Last Vital Signs Temp 98.1 F 10/11/23 11:14 Pulse 76 10/11/23 11:14 Resp 20 10/11/23 11:14 BP 109/59 L 10/11/23 11:14 Pulse Ox 94 10/11/23 11:14 O2 Del Method Room Air 10/11/23 11:14 O2 Flow Rate 2 10/08/23 05:51 BMI result Body Mass Index 34.3 Appearance: Alert.? Oriented X3.? cvs: rrr, [id number] , systolic murmur. res: clear to auscultation ,no rhonchii or wheezing abd: no rebound or guarding ,nt, bs present. ext pulses present , no cyanosis . neuro: axo3 , nonfocal. DS: Data Data Completed and Pending Pending studies at discharge: Pending at discharge 10/10/23 14:28 Surgical [PTH] Routine Labs on day of discharge: Laboratory Results - last 24 hr 10/11/23 10/11/23 06:10 09:25 WBC 9.4 RBC 3.05 L Hgb 9.8 L Hct 27.7 L MCV 90.8 MCH 32.1 MCHC 35.4 H RDW 16.4 H Plt Count 242 MPV 9.2 L Immature Gran % (Auto) 1.2 H Neut % (Auto) 54.0 Lymph % (Auto) 29.9 [place] % (Auto) 10.8 Eos % (Auto) 2.9 Baso % (Auto) 1.2 Lymph # (Auto) 2.8 [place] # (Auto) 1.0 Eos # (Auto) 0.3 Baso # (Auto) 0.1 Abs Immat Gran (auto) 0.11 H Absolute Neuts (auto) 5.1 Absolute Nucleated RBC 0.020 H Nucleated RBC % (auto) 0.2 PT 14.1 H INR 1.2 H Potassium 3.8 D Imaging Chest x-ray: Radiologist's impression: ITS Impressions Chest X-Ray 10/07/23 19:40 IMPRESSION: 1. No focal infiltrate or congestive heart failure is seen. 2. There is moderate elevation of the right hemidiaphragm. Abdomen/Pelvis CT 10/07/23 22:02 IMPRESSION: 1. Small focus of hyperattenuation within the small bowel of the left abdomen on arterial phase imaging, not definitely present on precontrast imaging, raising concern for a small focus of active gastrointestinal hemorrhage. 2. Colonic diverticulosis. 3. Aortic valve calcifications, a finding which may indicate aortic stenosis. 4. Coronary artery calcifications. Correlation with cardiac risk factors is recommended. This critical result was discussed with Dr. Ponce on 10/08/2023 1:04 AM, and it was ascertained that the content and urgency of the report was understood at the time of direct communication. echo: Conclusions: - 1. Severe aortic stenosis with mean gradient of 49 mm Hg 2. Hyperdynamic LV EF with mild LVH with grade 2 diastolic dysfunction 3. Moderately dilated left atrium 4. Mild mitral regurgitation 5. Normal RV systolic pressure 6. No gross pericardial effusion Discharge Plan Discharge Anticipated Discharge Date/Time: 10/11/23 14:53 Patient Disposition: Home, Self-Care Discharge Diagnosis: Symptomatic acute blood loss anemia, orthostatic hypotension secondary to GI bleed improved, severe ,Factor V Leiden Referrals: Paulino Posey MD [Primary Care Provider] - 1 Week Milton Issa MD [Physician] - 1 Week Discharge Medications: New Eliquis 5 mg Tablet 5 mg PO BID Qty: 60 0RF ferrous sulfate 324 mg (65 mg iron) Tablet,Delayed Release (Dr/Ec) 325 mg PO DAILY Qty: 60 0RF Continued losartan 25 mg tablet 25 mg PO DAILY albuterol sulfate 90 mcg/actuation HFA aerosol inhaler 2 puff inhalation Q6H PRN (Reason: SOB/Wheezing) metoprolol succinate 25 mg tablet extended release 24 hr 25 mg PO ONCE rosuvastatin 20 mg tablet 20 mg PO DAILY acetaminophen 325 mg capsule 325 mg PO QID PRN (Reason: Pain) melatonin 3 mg capsule 3 mg PO BEDTIME PRN (Reason: Sleep) cholecalciferol (vitamin D3) 50 mcg (2,000 unit) capsule 50 mcg PO DAILY Changed omeprazole 20 mg capsule,delayed release(DR/EC) 20 mg PO BID Qty: 120 0RF Discontinued azithromycin 250 mg tablet 250 mg PO DIRECTED warfarin 5 mg tablet 5 mg PO DAILY Discharge Orders: Discharge Order (Routine); Ordered 10/11/23 Ordered By: Tania Miranda Diet: Advance to usual diet Activity on Discharge: As tolerated Stand Alone Forms: Patient Portal Discharge page Print Language: Uzbek Other Ambulatory Orders: Complete Blood Count no Diff (Routine) Timeframe: 1 Week Facility: [facility] - Location: Laboratory Ordered By: Tnaia Miranda Care Plan Goals: Patient was admitted for symptomatic acute blood loss anemia, with H&H of 6.1, supratherapeutic INR, further workup with CT abdomen shows small focus of hypoattenuation within the small bowel of the left abdomen on arterial phase imaging raising concern for small focus of active GI hemorrhage. Stool positive for occult blood. Patient received total 3 units PRBC, also received vitamin K, ppi, GI consulted and subsequently patient also got EGD done: EGD seems normal, H&H stable around 9.8 range, discussed with the GI possibly bleeding related to supratherapeutic INR and possible AVM considering CT abdomen finding. GI recommended to resume anticoagulation: Patient is started on Eliquis(Hematology, given factor 5 laden, okay to change Coumadin to Eliquis 5 mg twice daily ). follow Gi biopsy results outpatient. Initially had orthostatic hypotension also possibly secondary to GI bleed which is improved with transfusions. Chest pain and elevated troponin likely due to acute blood loss anemia secondary to GI bleed: Seen by Cardiology: EF is 70% has severe aortic stenosis. cardiology recomended transcatheter aortic valve replacement and myocardial ischemic evaluation outpatient. Health Concerns: moniter cbc in 1 week. follow up with Gi biopsy outpatient. Follow-up with GI and Cardiology outpatient. Plan of Treatment: As above. Assessment: As above.
--- NOTE | 2023-10-11 16:50 | P.PNGI_ITS ---
Subjective Subjective Date of Service: 10/11/23 Interval History: feels well tolerating diet no bleeding Critical Care Time (minutes): 0 Physical Exam 2 Vital Signs: Vital Signs: Last Vital Signs Temp 98.1 F 10/11/23 11:14 Pulse 76 10/11/23 11:14 Resp 20 10/11/23 11:14 BP 109/59 L 10/11/23 11:14 Pulse Ox 94 10/11/23 11:14 O2 Del Method Room Air 10/11/23 11:14 O2 Flow Rate 2 10/08/23 05:51 BMI result Body Mass Index 34.3 Const: General: comfortable GI: Other: abdomen is soft and nontender Objective Data Labs 10/11/23 06:10 10/11/23 09:25 Procedures Date of Service Date of Service: 10/11/23 Progress Note: A&P Assessment and plan (1) GI bleed: Status: Acute Assessment and Plan: stable regarding gi bleed continue present management, cardiac evaluation underway Time Spent With Patient Time: Total time managing care of this patient today ____ minutes. Quality Stroke Does the patient have a stroke diagnosis?: No VTE Prior VTE?: No VTE Risk Level:: Medical - moderate - high VTE Device Contraindication: N/A - Device Ordered VTE Drug Contraindication: Treatment Not Indicated
== END 2023-10-11 16:06 | disposition home or self-care (01) | DRG 377 ==
LOC: HO.ED 21:29 → HO.EDOVER 21:58 → HO.IMC 10-08 08:53
PROVIDERS: Internal Medicine Gastroenterology; Physician Assistant; Admitting Provider Student in an Organized Health Care Education/Training Program; Emergency Provider Emergency Medicine; PCP Internal Medicine; Visit Provider Internal Medicine
PROC: 0DB78ZX Excision of Stomach, Pylorus, Via Natural or Artificial Opening Endoscopic, Diagnostic (ICD-10-PCS; principal; 2023-10-10 14:00)
DX: K57.31 Diverticulosis of large intestine without perforation or abscess with bleeding (principal); I21.4 Non-ST elevation (NSTEMI) myocardial infarction; D68.51 Activated protein C resistance; D68.32 Hemorrhagic disorder due to extrinsic circulating anticoagulants; D62 Acute posthemorrhagic anemia; K55.21 Angiodysplasia of colon with hemorrhage; J44.9 Chronic obstructive pulmonary disease, unspecified; I34.0 Nonrheumatic mitral (valve) insufficiency; I95.1 Orthostatic hypotension; K44.9 Diaphragmatic hernia without obstruction or gangrene; I12.9 Hypertensive chronic kidney disease with stage 1 through stage 4 chronic kidney disease, or unspecified chronic kidney disease; I35.0 Nonrheumatic aortic (valve) stenosis; E04.2 Nontoxic multinodular goiter; E78.5 Hyperlipidemia, unspecified; F17.210 Nicotine dependence, cigarettes, uncomplicated; Z71.6 Tobacco abuse counseling; Z20.822 Contact with and (suspected) exposure to COVID-19; Z85.3 Personal history of malignant neoplasm of breast; Z90.11 Acquired absence of right breast and nipple; Z86.711 Personal history of pulmonary embolism; Z79.01 Long term (current) use of anticoagulants; Z79.899 Other long term (current) drug therapy
CPT/HCPCS: 36415; 71045; 74178; 80048; 80076; 82272; 83880; 84132; 84484; 85014; 85018; 85025; 85027; 85610; 86850; 86900; 86901; 86923; 87635; 88305; 88342; 93005; 93306; 99285; J0171; J0737; J1170; J1940; J2250; J2270; J2405; J2470; J3010; J7120; P9016; Q9957; Q9967

== ENCOUNTER 2023-10-07 20:25 | Outpatient (BNV) | payer OTHER, SELFPAY | END 2023-10-10 07:00 | PROVIDERS: Admitting Provider Student in an Organized Health Care Education/Training Program; Emergency Provider Emergency Medicine; Visit Provider Internal Medicine Cardiovascular Disease | DX: I35.2 Nonrheumatic aortic (valve) stenosis with insufficiency (principal); I34.0 Nonrheumatic mitral (valve) insufficiency; I36.1 Nonrheumatic tricuspid (valve) insufficiency | CPT/HCPCS: 93306 ==

== ENCOUNTER 2023-10-07 20:25 | Outpatient (BNV) | payer OTHER, SELFPAY | END 2023-10-08 10:33 | PROVIDERS: Admitting Provider Student in an Organized Health Care Education/Training Program; Emergency Provider Emergency Medicine; Visit Provider Internal Medicine Cardiovascular Disease | DX: R94.31 Abnormal electrocardiogram [ECG] [EKG] (principal) | CPT/HCPCS: 93010 ==

== ENCOUNTER → 2023-10-07 20:25 | Outpatient (BNV) | payer OTHER, SELFPAY | PROVIDERS: Admitting Provider Student in an Organized Health Care Education/Training Program; Emergency Provider Emergency Medicine; Visit Provider Student in an Organized Health Care Education/Training Program | DX: D62 Acute posthemorrhagic anemia (principal); I21.4 Non-ST elevation (NSTEMI) myocardial infarction; R79.1 Abnormal coagulation profile; K92.2 Gastrointestinal hemorrhage, unspecified | CPT/HCPCS: 99223; 99232; 99239 ==

== ENCOUNTER → 2023-10-07 20:25 | Outpatient (BNV) | payer OTHER, SELFPAY | PROVIDERS: Admitting Provider Student in an Organized Health Care Education/Training Program; Emergency Provider Emergency Medicine; Visit Provider Internal Medicine Cardiovascular Disease | DX: I35.0 Nonrheumatic aortic (valve) stenosis (principal) | CPT/HCPCS: 93010; 99223; 99233 ==

== ENCOUNTER 2023-10-13 09:59 | Outpatient (REF) | payer OTHER, SELFPAY ==
[2023-10-13 11:14] LABS: Hematocrit 28.9 % (37.0-47.0); Hemoglobin 9.8 g/dl (12.0-16.0); Mean Corpuscular HGB Conc 33.9 g/dl (31.0-35.0); Mean Corpuscular Hemoglobin 32.5 pg (27.0-33.0); Mean Corpuscular Volume 95.7 fL (80.0-98.0); Platelet Count 303 X10*3/uL (160-400); Red Blood Count 3.02 X10*6/uL (4.20-5.50); Red Cell Distribution Width 17.5 % (11.0-16.0); White Blood Count 7.3 X10*3/uL (4.8-10.8)
== END 2023-10-13 10:00 | disposition home or self-care (01) ==
LOC: HO.LAB 09:59
PROVIDERS: Visit Provider Internal Medicine
DX: D64.9 Anemia, unspecified (principal); K92.9 Disease of digestive system, unspecified; I35.0 Nonrheumatic aortic (valve) stenosis
CPT/HCPCS: 36415; 85027

== ENCOUNTER 2023-10-17 13:17 | Outpatient (AMB) | payer OTHER, SELFPAY ==
--- NOTE | 2023-10-17 13:49 | MHC.OFFVIS ---
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 Accompanied by: Son Allergies acetaminophen [From PERCOCET] Allergy (Unknown, Verified 10/07/23 19:08) N/V atorvastatin [From LIPITOR] Allergy (Unknown, Verified 10/07/23 19:08) MUSCLE WEAKNESS lovastatin Allergy (Unknown, Verified 10/07/23 19:08) Unknown oxycodone [From PERCOCET] Allergy (Unknown, Verified 10/07/23 19:08) N/V CATARINA Inhibitors [CATARINA INHIBITORS] Adverse Reaction (Intermediate, Verified 10/07/23 19:08) COUGH Medication List - Last Reconciled 10/17/23 by Ta Ray MD acetaminophen 325 mg PO QID PRN albuterol sulfate 90 mcg/actuation 2 puffs inhalation Q6H PRN apixaban (Eliquis) 5 mg PO BID cholecalciferol (vitamin D3) 50 mcg PO DAILY ferrous sulfate 325 mg (1.0031 x 324 mg (65 mg iron)) PO DAILY melatonin 3 mg PO BEDTIME PRN omeprazole 20 mg PO BID HPI Comments Details: Very pleasant 73-year-old female who is here for follow-up. She was seen in the hospital recently when she presented with chest discomfort and dynamic ECG changes. She was significantly anemic at that time and it was felt that the ECG changes are due to anemia but was also found to have murmur of aortic valve stenosis and echocardiography confirmed severe aortic valve stenosis. She underwent upper endoscopy which showed esophagitis but no obvious cause for bleeding was noted. Her Coumadin was stopped and she was started on Eliquis 5 mg twice a day. 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 She has done well since discharge. Denying any shortness of breath but has been fatigued. She also has a left-sided pressure-like feeling which she says is present all day and does not get worse with activity. I think this is likely related to esophagitis. She is here to discuss further about aortic valve replacement for severe aortic valve stenosis. She has not had any syncope. Her shortness of breath is stable and chronic. She is saying going upstairs she gets tired. [facility] Medical History (Updated 10/17/23 @ 14:33 by Ta Ray MD) CKD (chronic kidney disease) History of breast cancer History of venous thromboembolism Lupus anticoagulant disorder Factor V Leiden Multinodular thyroid Surgical History Hx of right mastectomy Family History Father Heart failure Mother No problems noted. Social History Alcohol intake: former Patient Tobacco Use Status: Current everyday Tobacco user Tobacco use type: Cigarette Cigarettes Per Day: 2 service: No () Review of Systems Const Denies chills, Denies fatigue, Denies fever(s), Denies frequent falls, Denies weakness, Denies weight gain and Denies weight loss ENT Denies dizziness Card Denies chest pain, Denies leg edema, Denies lightheadedness, Denies palpitations, Denies dyspnea and Denies dyspnea on exertion Resp Denies cough, Denies dyspnea and Denies dyspnea on exertion GI Denies hematochezia Musc Denies abnormal gait, Denies muscle weakness, Denies numbness, Denies radiating pain into limb and Denies tingling Neuro Denies abnormal gait, Denies dizziness, Denies frequent falls, Denies numbness, Denies tingling and Denies weakness Endo Denies fatigue and Denies palpitations Physical Exam Vital Signs: Last Vital Signs Pulse 94 10/17/23 13:50 BP 130/62 10/17/23 13:50 BMI result Body Mass Index 36.4 GENERAL APPEARANCE: in no acute distress, pleasant. NECK: no carotid bruit, no jugular venous distention. SKIN: no suspicious lesions, warm and dry. HEART: Ejection systolic murmur aortic area with absent 2nd heart sound, regular rate and rhythm. LUNGS: Clear to auscultation. ABDOMEN: soft, nontender. EXTREMITIES: no edema. PERIPHERAL PULSES: equal. NEUROLOGIC: No gross deficits, AAO X 3 Assessment & Plan Assessment & Plan (1) Factor V Leiden: Code(s): D68.51 - Activated protein C resistance Category: Medical (2) Acute blood loss anemia: Code(s): D62 - Acute posthemorrhagic anemia Category: Medical (3) NSTEMI (non-ST elevated myocardial infarction): Code(s): I21.4 - Non-ST elevation (NSTEMI) myocardial infarction Category: Medical (4) Aortic stenosis: Code(s): I35.0 - Nonrheumatic aortic (valve) stenosis Category: Medical Plan Very pleasant 73 year female who is here for follow-up. She recently had GI blood loss and anemia the chest pain, shortness of breath and significant ECG changes which were felt to be due to severe anemia as well as underlying aortic valve stenosis. She has severe aortic valve stenosis by echocardiography. She continues to have some fatigue and dyspnea. She was somewhat atypical sounding left-sided pressure-like feeling which is present all the time and I think this is likely due to esophagitis. Clinically she is euvolemic. She was previously on metoprolol 25 mg twice a day. I have advised her to resume the metoprolol. I have advised her to keep holding the losartan for now. Stable from anemia point of view so far. She has factor 5 Leiden mutation and previous PE. Her last PE was in 2010 and she has been on chronic Coumadin therapy. Unfortunately she was given antibiotics recently which interaction with Coumadin leading to supratherapeutic INR and bleeding. I have referred her to Hematology/Oncology to see if there is a possibility that her dose can be decreased to 2.5 mg twice a day rather than 5 mg twice a day. That definitely will help her bleeding profile. Will arrange diagnostic cardiac cath as part of TAVR work up. Thank you for allowing me to participate in the care of your patient. Please feel free to contact me if you have any questions. Orders: Orders Complete Blood Count no Diff Today I35.0 - Nonrheumatic aortic (valve) stenosis Cardiac Cath OLGA LIDIA Diagnostic Today I35.0 - Nonrheumatic aortic (valve) stenosis Basic Metabolic Panel Today I35.0 - Nonrheumatic aortic (valve) stenosis Prothrombin Time INR Today I35.0 - Nonrheumatic aortic (valve) stenosis Referrals Hematology & Oncology Referral D68.51 - Activated protein C resistance Medications: New metoprolol tartrate 25 mg PO BID 100 tabs 4RF Coding Level of Care Code Est Pt Level 5 (80451) Diagnoses Factor V Leiden D68.51 Acute blood loss anemia D62 NSTEMI (non-ST elevated myocardial infarction) I21.4 Aortic stenosis I35.0
[2023-10-17 13:50] VITALS: BP 130/62; PULSE 94; BMI 36.4
== END 2023-10-17 14:42 | disposition home or self-care (01) ==
PROVIDERS: PCP Internal Medicine; Visit Provider Internal Medicine Cardiovascular Disease
DX: I21.4 Non-ST elevation (NSTEMI) myocardial infarction (principal); D68.51 Activated protein C resistance; D62 Acute posthemorrhagic anemia; I35.0 Nonrheumatic aortic (valve) stenosis
CPT/HCPCS: 99215

== ENCOUNTER → 2023-10-17 13:17 | Outpatient (BNVA) | payer OTHER, SELFPAY | PROVIDERS: PCP Internal Medicine; Visit Provider Internal Medicine Cardiovascular Disease | DX: D68.51 Activated protein C resistance (principal); D62 Acute posthemorrhagic anemia; I35.0 Nonrheumatic aortic (valve) stenosis; I25.2 Old myocardial infarction | CPT/HCPCS: 99212 ==

== ENCOUNTER 2023-10-24 11:16 | Outpatient (REF) | payer OTHER, SELFPAY ==
[2023-10-24 12:00] LABS: Hematocrit 33.7 % (37.0-47.0); Hemoglobin 11.1 g/dl (12.0-16.0); Mean Corpuscular HGB Conc 32.9 g/dl (31.0-35.0); Mean Corpuscular Hemoglobin 32.7 pg (27.0-33.0); Mean Corpuscular Volume 99.4 fL (80.0-98.0); Mean Platelet Volume 9.1 fL (9.4-12.3); Platelet Count 316 X10*3/uL (160-400); Red Blood Count 3.39 X10*6/uL (4.20-5.50); Red Cell Distribution Width 17.3 % (11.0-16.0); White Blood Count 6.2 X10*3/uL (4.8-10.8)
[2023-10-24 12:08] LABS: INTERNATIONAL NORM RATIO 1.2 (0.9-1.1); Prothrombin Time 14.4 SEC (11.1-13.3)
[2023-10-24 12:24] LABS: Anion Gap 12 (12-20); Blood Urea Nitrogen 16 mg/dL (9-16); Calcium 9.5 mg/dL (8.4-10.2); Carbon Dioxide 23 mmol/L (22-29); Chloride 110 mmol/L (96-108); Estimated Glomerular Filt Rate 46; Glucose Random 118 mg/dL (60-115); Potassium 4.3 mmol/L (3.3-5.1); Sodium 141 mmol/L (135-145)
== END 2023-10-24 11:17 | disposition home or self-care (01) ==
LOC: HO.LAB 11:16
PROVIDERS: PCP Internal Medicine; Visit Provider Internal Medicine Cardiovascular Disease
DX: I35.0 Nonrheumatic aortic (valve) stenosis (principal)
CPT/HCPCS: 36415; 80048; 85027; 85610

== ENCOUNTER → 2023-11-01 23:59 | Outpatient (BNV) | payer OTHER, SELFPAY | PROVIDERS: PCP Internal Medicine; Visit Provider Internal Medicine Cardiovascular Disease | DX: I35.9 Nonrheumatic aortic valve disorder, unspecified (principal); I50.30 Unspecified diastolic (congestive) heart failure | CPT/HCPCS: 93458; 99152 ==

== ENCOUNTER 2023-11-14 09:20 | Outpatient (AMB) | payer OTHER, SELFPAY ==
[2023-11-14 09:30] VITALS: BP 118/62; PULSE 68; BMI 36.2
--- NOTE | 2023-11-14 09:30 | A.OFFVIS_ITS ---
Vital Signs 11/14/23 09:30 Height 5 ft 4 in Weight 211 lb 3.245 oz BMI 36.2 BP 118/62 Blood Pressure Location Lt brachial Position Sitting Pulse 68 Pulse Source Pulse Oximeter Intake Visit Reasons: Follow up post cardiac cath Rn Field Required: No Writer Editor: Writer Editor Present Allergies acetaminophen [From PERCOCET] Allergy (Unknown, Verified 11/14/23 09:32) N/V atorvastatin [From LIPITOR] Allergy (Unknown, Verified 11/14/23 09:32) MUSCLE WEAKNESS lovastatin Allergy (Unknown, Verified 11/14/23 09:32) Unknown oxycodone [From PERCOCET] Allergy (Unknown, Verified 11/14/23 09:32) N/V CATARINA Inhibitors [CATARINA INHIBITORS] Adverse Reaction (Intermediate, Verified 11/14/23 09:32) COUGH Medication List - Last Reconciled 11/14/23 by Mckayla Funez, [employer] LEAD TEACHER-C acetaminophen 325 mg PO QID PRN albuterol sulfate 90 mcg/actuation 2 puffs inhalation Q6H PRN apixaban (Eliquis) 5 mg PO BID cholecalciferol (vitamin D3) 50 mcg PO DAILY ferrous sulfate 325 mg (1.0031 x 324 mg (65 mg iron)) PO DAILY melatonin 5 mg PO BEDTIME PRN metoprolol tartrate 12.5 mg PO BID omeprazole 20 mg PO BID HPI HPI Follow up post cardiac cath: Details: Chelsie is a 73-year-old female with past medical history of factor 5 Leiden, DVT/PE 2010, on chronic anticoagulation, recent GI bleed with esophagitis, anemia, changed over from Coumadin to Eliquis, severe aortic stenosis who recently underwent cardiac catheterization and now presents for follow-up. Today she reports that she has shortness of breath with physical activity. She feels this symptom is worse over the last few years. She does have COPD and states she quit smoking 1 month ago. If she over exerts she will feel a tightn ess in her chest. She has no chest discomfort at rest. No palpitations, lightheadedness, presyncope, syncope, falls. Taking meds as directed. No bleeding issues reported. Sister is present. [facility] Medical History CKD (chronic kidney disease) History of breast cancer History of venous thromboembolism Lupus anticoagulant disorder Factor V Leiden Multinodular thyroid Surgical History History of cardiac cath Hx of right mastectomy Family History Father Heart failure Mother No problems noted. Social History Alcohol intake: former Patient Tobacco Use Status: Current everyday Tobacco user Tobacco use type: Cigarette Cigarettes Per Day: 2 service: No () Review of Systems Const All systems reviewed & are unremarkable except as noted in HPI and below Reports fatigue ENT Denies dizziness Card Denies chest pain, Denies chest pain at rest, Denies chest pain with activity, Denies rapid heart rate, Denies pedal edema, Denies edema, Denies leg edema, Denies lightheadedness, Denies palpitations, Reports dyspnea, Reports dyspnea on exertion and Denies orthopnea Resp Denies cough, Reports dyspnea and Reports dyspnea on exertion GI Denies hematochezia and Denies change in stool character Musc Denies abnormal gait, Reports limited range of motion, Reports muscle cramps, Denies muscle weakness, Denies numbness, Denies radiating pain into limb, Denies stiffness and Denies tingling Neuro Denies abnormal gait, Denies dizziness, Denies numbness and Denies tingling Endo Reports fatigue and Denies palpitations Physical Exam Vital Signs: Last Vital Signs Pulse 68 11/14/23 09:30 BP 118/62 11/14/23 09:30 BMI result Body Mass Index 36.2 Const General: cooperative, healthy appearing, comfortable and no acute distress Orientation/consciousness: patient oriented x3 Neck Neck: Yes normal visual inspection and Yes no JVD Resp Effort & Inspection: normal respiratory effort Auscultation: clear to auscultation bilaterally, no rales, no rhonchi and no wheezes Cardio Other: loud systolic murmur of Jugular venous distension: no JVD Rate: regular rate Rhythm: regular rhythm Heart sounds: S1 normal heart sound present, S2 normal heart sound present and no rubs Neuro General: patient oriented x3 Extrem Other: Right radial catheterization site healing well. Easily palpable radial pulse, right hand assessment normal General: Yes normal to inspection and No no pedal edema Psych Appearance: grossly normal Mental Status: mental status grossly normal Speech and movement: Normal speech and movement present Assessment & Plan Assessment & Plan (1) Aortic stenosis: Code(s): I35.0 - Nonrheumatic aortic (valve) stenosis Category: Medical Plan: History of aortic stenosis. Echocardiogram done 10/10/2023 showed severe aortic stenosis with mean gradient 49 mmHg, aortic valve area 0.8 centimeter squared, moderately dilated left atrium, mild MR. She had symptoms of shortness of breath with activity chest tightness with exertion. She denies presyncope, syncope. Cardiac catheterization done as part of TAVR evaluation. Catheterizat ion done 11/01/2023 showing only mid LAD 50% stenosis. Right radial catheterization site well healed. She has an appointment already scheduled with Dr. Garay to discuss TAVR procedure. Spent time reviewing catheterization report in details and diagnosis of severe aortic stenosis, need for TAVR. She states a good understanding of this process and is eager to proceed. Cardinal signs of severe reviewed. Emergency care if ever needed for increasing symptoms. Cardiology follow-up already scheduled for 02/01/2024. Will keep that appointment and anticipated to be post TAVR. (2) S/P cardiac cath: Comment: 11/01/2023, mid LAD 50% stenosis Code(s): Z98.890 - Other specified postprocedural states Category: Surgical Plan: Right radial catheterization site well healed (3) Acute blood loss anemia: Code(s): D62 - Acute posthemorrhagic anemia Category: Medical Plan: Recent [facility] admission for acute anemia requiring transfusion. She was evaluated by GI. Endoscopy showed esophagitis. Her Coumadin was changed over to Eliquis. Labs done 10/24/2023 showed hemoglobin 11.1, hematocrit 33.7. She continues on Eliquis with no signs of active bleeding. She continues on omeprazole 20 mg b.i.d.. (4) Factor V Leiden: Code(s): D68.51 - Activated protein C resistance Category: Medical Plan: On anticoagulation, Eliquis. She does follow with hematology. Further refills for Eliquis should be done by hematology. Plan Time spent on chart review, documentation, interview and assessment Medications: Changed From metoprolol tartrate 25 mg PO BID 100 tabs 4RF To metoprolol tartrate 12.5 mg PO BID Ta Cory, MD Refilled apixaban (Eliquis) 5 mg PO BID 60 tabs 5RF Mckayla Funez, [employer] TEACHER-C Coding Level of Care Code Est Pt Level 4 (89312) Diagnoses Aortic stenosis I35.0 S/P cardiac cath Z98.890 Acute blood loss anemia D62 Factor V Leiden D68.51 Time Spent (min) 30
== END 2023-11-14 10:08 | disposition home or self-care (01) ==
PROVIDERS: PCP Internal Medicine; Visit Provider Nurse Practitioner Family
DX: I35.0 Nonrheumatic aortic (valve) stenosis (principal); Z98.890 Other specified postprocedural states; D62 Acute posthemorrhagic anemia; D68.51 Activated protein C resistance
CPT/HCPCS: 99214

== ENCOUNTER → 2023-11-14 09:20 | Outpatient (BNVA) | payer OTHER, SELFPAY | PROVIDERS: PCP Internal Medicine; Visit Provider Nurse Practitioner Family | DX: I35.0 Nonrheumatic aortic (valve) stenosis (principal); D62 Acute posthemorrhagic anemia; D68.51 Activated protein C resistance; Z98.890 Other specified postprocedural states | CPT/HCPCS: 99212 ==

== ENCOUNTER → 2023-11-18 11:10 | Outpatient (BNV) | payer OTHER, SELFPAY | PROVIDERS: PCP Internal Medicine; Visit Provider Internal Medicine Medical Oncology | DX: D68.51 Activated protein C resistance (principal); Z79.01 Long term (current) use of anticoagulants | CPT/HCPCS: 99204; 99213 ==

== ENCOUNTER 2023-11-21 10:45 | Outpatient (AMB) | payer OTHER, MEDICARE, SELFPAY ==
[2023-11-21 10:50] VITALS: BP 122/58; PULSE 68; BMI 36.4
--- NOTE | 2023-11-21 10:50 | A.OFFVIS_ITS ---
Vital Signs 3 11/21/23 10:50 Height 5 ft 4 in Weight 212 lb 4.882 oz BMI 36.4 BP 122/58 L Blood Pressure Location Lt brachial Position Sitting Pulse 68 Pulse Source Pulse Oximeter Intake Visit Reasons: Nontoxic multinoduar goiter/LVM Intake Note: Patient present today for nontoxic multinodular goiter follow up visit. 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: No Accompanied by: Self / Same As Patient Allergies acetaminophen [From PERCOCET] Allergy (Unknown, Verified 11/21/23 10:54) N/V atorvastatin [From LIPITOR] Allergy (Unknown, Verified 11/21/23 10:54) MUSCLE WEAKNESS lovastatin Allergy (Unknown, Verified 11/21/23 10:54) Unknown oxycodone [From PERCOCET] Allergy (Unknown, Verified 11/21/23 10:54) N/V CATARINA Inhibitors [CATARINA INHIBITORS] Adverse Reaction (Intermediate, Verified 11/21/23 10:54) COUGH HPI Comments Details: 73 YO Female with a complex medical history including hypercoagulability (Factor V Leiden and Lupus Anticoagulant) with prior PE on lifelong AC with Elequis, aortic stenosis pending surgical evaluation, COPD who is follow up of multindoular thyroid. She was previously seeing Dr. Boyce , last visit 2022. HPI from prior visit She had a CT of the chest in 2021 which revealed a multinodular thyroid. This was completed at the [facility]. She subsequently had an US of the thyroid ( also not in our system) which revealed a 2.1 cm RLP thyroid nodule and she was referred to Endocrinology. Dr. Boyce repeated US herself 09/23/2022 and she was found to have a 0.9 cm nodule (left side? per images) , not meeting indication for FNA biopsy. Most recently she was undergoing evaluation for aortic stenosis during which CT scan showed right-sided exophytic 1.5 cm thyroid nodule, hence she is back in our office. She denies any compressive symptoms currently. Weight is stable. bowel movements are regular. No palpitations. No tremors. No heat or cold intolerance. Always tired. She reports TSH has always been WNL. TSH most recently 2022 normal She denies any personal history of head or neck irradiation. She does have a history of breast cancer, but did not receive radiotherapy for this. She is a and spent time in both [facility] and [facility] and reports having significant pesticide exposure as well as agent orange. She denies any family history of thyroid cancer. She does have a history of breast cancer and underwent a mastectomy. She reports being treated for 3 years with letrozole. She was on Fosamax for Osteoporosis but stopped this of her own accord. She is not interested in evaluation or treatment of her Osteoporosis at this time. Again states this today 11/21/23. No fractures. Review of systems Constitutional: no fevers, chills or weight loss HEENT: no changes in vision Cardiac: No chest pain, discomfort or palpitations. Pulmonary: Does have dyspnea on exertion GI:No abdominal pain, no nausea or vomiting, no anorexia, no blood in stool : no burning micturition, dysuria or increase in urinary frequency Neurologic: No dizziness, no weakness in extremities MSK: no back pain or joint stiffness Physical exam General: sitting comfortably in no acute distress HEENT: normocephalic/atraumatic,, moist oral mucosa Neck: supple, symmetrical, no thyromegaly , no dorsocervical or supraclavicular fat pads Cardiac: Grade 3 systolic murmur Pulm: normal breath sounds B/L, no added breath sounds Abd: not distended, no tenderness Extremities: no edema, no signs of myxedema PFSH Medical History CKD (chronic kidney disease) History of breast cancer History of venous thromboembolism Lupus anticoagulant disorder Factor V Leiden Multinodular thyroid Surgical History History of cardiac cath Hx of right mastectomy Family History Father Heart failure Mother Pancreatic cancer Social History Household Members: Family Alcohol intake: former Patient Tobacco Use Status: Current everyday Tobacco user Tobacco use type: Cigarette service: No () Current occupational status: retired Physical Exam Vital Signs: Last Vital Signs Pulse 68 11/21/23 10:50 BP 122/58 L 11/21/23 10:50 BMI result Body Mass Index 36.4 Results Reviewed Results Reviewed: Laboratory Tests 05/05/22 09:21 TSH 1.68 Free T4 1.05 Assessment & Plan Assessment & Plan (1) Thyroid nodule: Code(s): E04.1 - Nontoxic single thyroid nodule Category: Medical Plan: Patient with no family history of thyroid cancer, with no personal history of head or neck radiation, who is here follow up multinodular goiter. Diagnosed back in [address] chest in a subsequent ultrasound thyroid showed right lower pole 2 cm nodule. Subsequently she was evaluated by Dr. Boyce who and perform the ultrasound herself, only found day subcentimeter 0.9 cm nodule. I reviewed the images of her ultrasound, and likely this was seen on the left side. She recently was undergoing evaluation for aortic stenosis, which again showed a right side exophytic 1.5 cm thyroid nodule. I do not have any dedicated thyroid imaging with detailed ultrasound images to evaluate I will order repeat thyroid ultrasound. She does not have any compressive symptoms. TSH normal from 2022. We will repeat this. She is likely going to have TAVR in the near future, I discussed with her that it is okay for her to delay her ultrasound evaluation with us if she undergoes surgery depending on her recovery from thyroid. Patient was appreciated with this plan. I explained that it is common to have thyroid nodules. About 95% of the time these nodules are benign. However if the nodule is > 1 cm in size or suspicious on ultrasound then a fine need aspiration biopsy is recommended. Plan: -ordered thyroid ultrasound -ordered TSH, free T4. Plan I spent 30 minutes in reviewing the record, seeing the patient and documenting in the medical record. Orders: Orders 2 Thyroid Stimulating Hormone Today E04.1 - Nontoxic single thyroid nodule US thyroid Today E04.1 - Nontoxic single thyroid nodule Free T4 (Free Thyroxine) Today E04.1 - Nontoxic single thyroid nodule Patient Instructions: Do blood work Get ultrasound of your thyroid done I will see you back in 10 weeks to discuss the results If your TAVR is scheduled sometime soon, feel free to reschedule with us as per your health recovery Coding Level of Care Code Est Pt Level 4 (50848) Diagnoses Thyroid nodule E04.1 Time Spent (min) 30
== END 2023-11-21 11:29 | disposition home or self-care (01) ==
PROVIDERS: PCP Internal Medicine; Visit Provider Student in an Organized Health Care Education/Training Program
DX: E04.1 Nontoxic single thyroid nodule (principal)
CPT/HCPCS: 99214

== ENCOUNTER → 2023-11-21 10:45 | Outpatient (BNVA) | payer OTHER, MEDICARE, SELFPAY | PROVIDERS: PCP Internal Medicine; Visit Provider Student in an Organized Health Care Education/Training Program | DX: E04.1 Nontoxic single thyroid nodule (principal) | CPT/HCPCS: 99212 ==

== ENCOUNTER 2024-02-01 13:50 | Outpatient (AMB) | payer OTHER, SELFPAY ==
[2024-02-01 14:13] VITALS: BP 110/62; PULSE 73; BMI 36.2
--- NOTE | 2024-02-01 14:13 | MHC.OFFVIS ---
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: No Accompanied by: Son Allergies acetaminophen [From PERCOCET] Allergy (Unknown, Verified 12/02/23 09:56) N/V atorvastatin [From LIPITOR] Allergy (Unknown, Verified 12/02/23 09:56) MUSCLE WEAKNESS lovastatin Allergy (Unknown, Verified 12/02/23 09:56) Unknown oxycodone [From PERCOCET] Allergy (Unknown, Verified 12/02/23 09:56) N/V CATARINA Inhibitors [CATARINA INHIBITORS] Adverse Reaction (Intermediate, Verified 12/02/23 09:56) COUGH Medication List - Last Reconciled 02/01/24 by Ta Ray MD acetaminophen 325 mg PO QID PRN albuterol sulfate 90 mcg/actuation 2 puffs inhalation Q6H PRN apixaban (Eliquis) 2.5 mg PO BID cholecalciferol (vitamin D3) 50 mcg PO DAILY ferrous sulfate 325 mg (1.0031 x 324 mg (65 mg iron)) PO DAILY melatonin 5 mg PO BEDTIME PRN metoprolol tartrate 12.5 mg PO BID omeprazole 20 mg PO BID rosuvastatin 10 mg PO DAILY tiotropium bromide 1.25 mcg/actuation (Spiriva Respimat) 2 puffs inhalation DAILY HPI Comments Details: Very pleasant 73-year-old female who is here for follow-up. She was seen in the hospital recently when she presented with chest discomfort and dynamic ECG changes. She was significantly anemic at that time and it was felt that the ECG changes are due to anemia but was also found to have murmur of aortic valve stenosis and echocardiography confirmed severe aortic valve stenosis. She underwent upper endoscopy which showed esophagitis but no obvious cause for bleeding was noted. Her Coumadin was stopped and she was started on Eliquis 5 mg twice a day. 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 She has done well since discharge. Denying any shortness of breath but has been fatigued. She also has a left-sided pressure-like feeling which she says is present all day and does not get worse with activity. I think this is likely related to esophagitis. She is here to discuss further about aortic valve replacement for severe aortic valve stenosis. She has not had any syncope. Her shortness of breath is stable and chronic. She is saying going upstairs she gets tired. 02/01/2024: She is here follow-up. [facility] Medical History CKD (chronic kidney disease) History of breast cancer History of venous thromboembolism Lupus anticoagulant disorder Factor V Leiden Multinodular thyroid Surgical History History of cardiac cath Hx of right mastectomy Family History Father Heart failure Mother Pancreatic cancer Social History Household Members: Family Alcohol intake: former Patient Tobacco Use Status: Current everyday Tobacco user Tobacco use type: Cigarette service: No () Current occupational status: retired Review of Systems Const Denies chills, Denies fatigue, Denies fever(s), Denies frequent falls, Denies weakness, Denies weight gain and Denies weight loss ENT Denies dizziness Card Denies chest pain, Denies leg edema, Denies lightheadedness, Denies palpitations, Denies dyspnea and Denies dyspnea on exertion Resp Denies cough, Denies dyspnea and Denies dyspnea on exertion GI Denies hematochezia Musc Denies abnormal gait, Denies muscle weakness, Denies numbness, Denies radiating pain into limb and Denies tingling Neuro Denies abnormal gait, Denies dizziness, Denies frequent falls, Denies numbness, Denies tingling and Denies weakness Endo Denies fatigue and Denies palpitations Physical Exam GENERAL APPEARANCE: in no acute distress, pleasant. NECK: no carotid bruit, no jugular venous distention. SKIN: no suspicious lesions, warm and dry. HEART: Ejection systolic murmur aortic area with absent 2nd heart sound, regular rate and rhythm. LUNGS: Clear to auscultation. ABDOMEN: soft, nontender. EXTREMITIES: no edema. PERIPHERAL PULSES: equal. NEUROLOGIC: No gross deficits, AAO X 3 Assessment & Plan Assessment & Plan (1) Aortic stenosis: Code(s): I35.0 - Nonrheumatic aortic (valve) stenosis Category: Medical (2) Factor V Leiden: Code(s): D68.51 - Activated protein C resistance Category: Medical (3) DVT (deep venous thrombosis): Code(s): I82.409 - Acute embolism and thrombosis of unspecified deep veins of unspecified lower extremity Category: Medical Plan [age] female with known history of factor 5 Leiden and previous DVT on Eliquis 2.5 mg twice a day. She has severe aortic valve stenosis. We had heart team discussion for her and plan was initially to send her to operating room but when she came for surgery and underwent anesthesia there were some concern about dynamic LVOT obstruction. These images were reviewed later on the heart team meeting 2. It was felt that there is no dynamic LVOT obstruction but the surgery was already canceled. After discussion the patient was offered transcatheter aortic valve replacement as an alternative option and she is agreeable for that. She is in fact going for transcatheter aortic valve replacement next . She will hold Eliquis for 48 hours before procedure. Clinically stable currently. Not in heart failure. No anginal symptoms. She will see us back in few months. Thank you for allowing me to participate in the care of your patient. Please feel free to contact me if you have any questions. Coding Level of Care Code Est Pt Level 4 (46410) Diagnoses Aortic stenosis I35.0 Factor V Leiden D68.51 DVT (deep venous thrombosis) I82.409
== END 2024-02-01 14:40 | disposition home or self-care (01) ==
PROVIDERS: PCP Internal Medicine; Visit Provider Internal Medicine Cardiovascular Disease
DX: I35.0 Nonrheumatic aortic (valve) stenosis (principal); D68.51 Activated protein C resistance; I82.409 Acute embolism and thrombosis of unspecified deep veins of unspecified lower extremity
CPT/HCPCS: 99214

== ENCOUNTER → 2024-02-01 13:50 | Outpatient (BNVA) | payer OTHER, SELFPAY | PROVIDERS: PCP Internal Medicine; Visit Provider Internal Medicine Cardiovascular Disease | DX: I35.0 Nonrheumatic aortic (valve) stenosis (principal); I82.409 Acute embolism and thrombosis of unspecified deep veins of unspecified lower extremity; D68.51 Activated protein C resistance | CPT/HCPCS: 99212 ==

== ENCOUNTER 2024-03-15 12:03 | Outpatient (REF) | payer OTHER, SELFPAY ==
--- NOTE | ~2024-03-15 | US_ITS ---
EXAMINATION: US THYROID CLINICAL INFORMATION: Nontoxic solitary thyroid nodule. COMPARISON: 09/23/2022. TECHNIQUE: Linear transducer grayscale and color Doppler examination with attention to the region of the thyroid. FINDINGS: SIZE: Measurements of the thyroid lobes and nodules are given in sagittal, anteroposterior and transverse dimensions respectively. Right Thyroid Lobe: 4.2 x 1.8 x 1.5 cm, volume 5.8 mL. (Previously volume = 12.1 mL). Parenchyma: The gland echotexture is homogeneous. Thyroid vascularity is normal. Left Thyroid Lobe: 3.6 x 1.2 x 1.3 cm, volume 3.1 mL. (Previously volume = 3.9 mL). Parenchyma: The gland echotexture is homogeneous. Thyroid vascularity is normal. Isthmus: 0.4 cm in maximum AP dimension. Estimated total number of nodules greater than or equal to 1 cm: 0. Supervisor Sample Preparation nodules are described as follows: 1. Location: Right upper pole. Size: 0.6 x 0.4 x 0.5 cm, volume 0.06 mL. (Previously not measured) Nodule characteristics: Composition: Solid (2). Echogenicity: Hypoechoic (2). Shape: Not taller than wide (0). Margins: Smooth (0). Echogenic Foci: None (0). ACR TI-RADS total points: 4 ACR TI-RADS category: 4 2. Location: Left upper pole. Size: 0.8 0.6 x 0.6 cm, volume 0.16 mL. (Previously 0.9 x 0.7 x 0.7 cm, volume = 0.23 mL). Nodule characteristics: Composition: Solid (2). Echogenicity: Hypoechoic (2). Shape: Not taller than wide (0). Margins: Smooth (0). Echogenic Foci: None (0). ACR TI-RADS total points: 4 ACR TI-RADS category: 4 NODES: No lymphadenopathy is seen in the tissue surrounding the thyroid gland. US/US thyroid IMPRESSION: 1. There is a TR category 4 nodule measuring 0.6 cm maximally in the right upper pole. This appears to have a spongiform appearance. No follow-up recommended. 2. There is a TR category 4 nodule measuring 0.8 cm in the left upper pole, stable. This also appears to have a spongiform appearance. No follow-up recommended. 3. The remainder of the thyroid gland is normal. ACR TI-RADS RECOMMENDATION REFERENCE: Ultrasound-guided fine-needle aspiration, followup ultrasound, no further follow up. * TR1 (0 point) and TR2 (2 points): No FNA or follow up. * TR3 (3 points): FNA if more than or equal to 2.5 cm in maximum dimension, followup ultrasound in 1, 3 and 5 years if 1.5 to 2.4 cm in maximum dimension. * TR4 (4-6 points): FNA if more than or equal to 1.5 cm in maximum dimension, followup ultrasound in 1, 2, 3 and 5 years if 1 to 1.4 cm in maximum dimension. * TR5 (more than or equal to 7 points): FNA if more than or equal to 1 cm in maximum dimension, followup ultrasound every year for 5 years if 0.5 to 0.9 cm in maximum dimension. * TR3, TR4 or TR5 nodules that are below the size threshold for followup receive no follow up. Electronically signed by: Jake Demarco MD 03/20/2024 09:08 AM TOM
== END 2024-03-15 12:04 | disposition home or self-care (01) ==
LOC: HO.US 12:03
PROVIDERS: Visit Provider Student in an Organized Health Care Education/Training Program
DX: E04.1 Nontoxic single thyroid nodule (principal)
CPT/HCPCS: 76536

== ENCOUNTER → 2024-03-15 12:04 | Outpatient (BNV) | payer OTHER, SELFPAY | PROVIDERS: Visit Provider Radiology Diagnostic Radiology | DX: E04.1 Nontoxic single thyroid nodule (principal) | CPT/HCPCS: 76536 ==

== ENCOUNTER 2024-03-27 10:50 | Outpatient (REF) | payer OTHER, SELFPAY ==
[2024-03-27 13:22] LABS: Free T4 (Free Thyroxine) 1.02 ng/dL (0.71-1.85)
--- OUTSIDE RECORDS SUMMARY | 2024-03-27 13:29 | XMS_ITS ---
Author Name [facility] [place] [facility] [place] [facility] [place] Address [address] [place] [address] Care Team Providers Care Counter Server Name Role Phone HERI DHILLON Primary Care Provider Unavailabl e Insurance Providers: All historical and current Section Date Range: From patient's date of to the date document was created. This section includes the names of all active insurance providers for the patient. Insurance Provider Type of Coverage Plan Name Start of Policy Coverage End of Policy Coverage Group Number Member ID Insurance Provider's Telephone Number Policy Steve's Name Patient's Relationship to Policy Steve MEDICARE (WNR) MEDICARE (M) PART A July 05, 2017 PART A [id number] [place] PATIENT MEDICARE (WNR) MEDICARE (M) PART B July 05, 2017 PART B [id number] [place] PATIENT MEDICARE (WNR) MEDICARE (M) PART A July 05, 2017 PART A [id number] [place] PATIENT MEDICARE (WNR) MEDICARE (M) PART B July 05, 2017 PART B [id number] [phone] [place] PATIENT MEDICARE (WNR) MEDICARE (M) PART A July 05, 2017 PART A [id number] [place] PATIENT MEDICARE (WNR) MEDICARE (M) PART B July 05, 2017 PART B [id number] [phone] [place] PATIENT Selected Encounter This section includes the information on record at [place] for the Encounter. Date/Time Encounter Type Encounter Description Reason Pro vider Source Mar 06, 2024 07:52 AM Outpatient Encounter COMMUNITY CARE CONSULT IHE Encounter Template Text not used by [place] Plan of Treatment: Future Appointments (+ 6 months) and Future Tests (+/- 45 days) The Plan of Treatment section includes future care activities for the patient from all [place] treatmentfacilities. This section includes future appointments and future orders which are active, pending or scheduled. Future Appointments This section includes appointments that were scheduled to occur 6 months from the date of the Encounter, up to a maximum of 20 appointments. The data comes from all [place] treatment facilities. Appointment Date/Time Appointment Type Appointme nt Facility Name Aug 08, 2024 10:30 AM AMBULATORY - MEDICINE [facility] Active, Pending, and Scheduled Orders This section includes a listing of several types of active, pending, and scheduled orders, including clinic medications orders, diagnostic test orders, procedure orders and consult orders; where the start date of the order is 45 days before the date of the Encounter or 45 days after the date of theEncounter. The data comes from all [place] treatment facilities. Test Date/Time Test Type Test Details Facility Name Feb 06, 2024 02:57 PM Consult Order COMMUNITY CARE-HEMATOLOGY Cons Welfare Worker's Choice [facility] [place] [facility] Mar 06, 2024 09:13 AM Consult Order COMMUNITY CARE-CARDIAC REHAB Cons Welfare Worker's Choice [place] [facility] [place] [facility] Mar 12, 2024 12:00 AM Laboratory - Chemi stry Order BASIC METABOLIC PANEL (fasting) [facility]LO[facility] [place] [facility] Mar 12, 2024 12:00 AM Laboratory - Chemi stry Order LIPID PANEL FASTING BLOOD (SST[facility]SERUM) [facility] [place] [facility] Mar 12, 2024 12:00 AM Laboratory - Chemi stry Order TSH BLOOD (SST-SERUM) [facility] [place] [facility] Social History: Smoking Status (Most current) and Tobacco Use (All prior to encounter date) This section includes the most current, and the historical, smoking and tobacco- related health factors from the [place] facility where the Encounter took place. Current Smoking Status This section includes the most current smoking, or tobacco-related health factor, from the [place] facility where the Encounter took place. Date/Time Current Smoking Status Comment Facil it Sep 07, 2023 03:00 PM VA-TOBACCO USER EVERY DAY [place] [facility] Tobacco Use History This section includes a history of the smoking, or tobacco-related health factors, that were collected on or before the date of the Encounter. The data comes from the [place] facility where the Encounter took place. 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 [place] [facility] Sep 07, 2023 03:00 PM VA-TOBACCO USE MED NOTIFY PROVIDER utilizes patches, has cut down on amt of ciggarettes a day [place] [facility] [place] [facility] Sep 07, 2023 03:00 PM VA-TOBACCO USE [place] 30 MIN OF WAKEUP [place] [facility] [place] [facility] Sep 07, 2023 03:00 PM VA-TOBACCO USER EVERY DAY [place] [facility] [place] [facility] July 27, 2022 02:30 PM VA-TOBACCO DOESNT USE WI 30 MIN WAKEUP [place] [facility] [place] [facility] July 27, 2022 02:30 PM VA-TOBACCO USE 30 YEARS OR MORE [facility] [place] [facility] July 27, 2022 02:30 PM VA-TOBACCO USE ADVICE [place] [facility] [place] [facility] July 27, 2022 02:30 PM VA-TOBACCO USE 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 [place] [facility] [place] [facility] July 27, 2022 02:30 PM VA-TOBACCO USE MED NO [place] [facility] [place] [facility] July 27, 2022 02:30 PM VA-TOBACCO USER EVERY DAY [place] [facility] [place] [facility] July 29, 2021 11:30 AM VA-TOBACCO DOESNT USE WI 30 MIN WAKEUP [facility] [place] [facility] July 29, 2021 11:30 AM VA-TOBACCO USE 30 YEARS OR MORE [facility] [place] [facility] July 29, 2021 11:30 AM VA-TOBACCO USE ADVICE [facility] [place] [facility] July 29, 2021 11:30 AM VA-TOBACCO USE FRONT END SOFTWARE ENGINEER YES [facility] [place] [facility] July 29, 2021 11:30 AM VA-TOBACCO USE MED NOTIFY PROVIDER [facility] [place] [facility] July 29, 2021 11:30 AM VA-TOBACCO USER EVERY DAY [facility] [place] [facility] Jan 23, 2020 10:30 AM VA-TOBACCO USE 30 YEARS OR MORE [facility] [place] [facility] Jan 23, 2020 10:30 AM VA-TOBACCO USE ADVICE [facility] [place] [facility] Jan 23, 2020 10:30 AM VA-TOBACCO USE 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 [facility] [place] [facility] Jan 23, 2020 10:30 AM VA-TOBACCO USE MED NO [facility] [place] [facility] Jan 23, 2020 10:30 AM VA-TOBACCO USE [place] 30 MIN OF WAKEUP [place] [facility] [place] [facility] Jan 23, 2020 10:30 AM VA-TOBACCO USER EVERY DAY [facility] [place] [facility] July 10, 2018 11:18 AM VA-TOBACCO USE > 15 LESS THAN 30 YEARS [facility] [place] [facility] July 10, 2018 11:18 AM VA-TOBACCO USE ADVICE [facility] [place] [facility] July 10, 2018 11:18 AM VA-TOBACCO USE 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 [facility] [place] [facility] July 10, 2018 11:18 AM VA-TOBACCO USE MED NO [facility] [place] [facility] July 10, 2018 11:18 AM VA-TOBACCO USE [place] 30 MIN OF WAKEUP [facility] [place] [facility] July 10, 2018 11:18 AM VA-TOBACCO USER EVERY DAY [facility] [place] [facility] Aug 23, 2017 10:34 AM CURRENT SMOKER [facility] [place] [facility] Aug 23, 2017 10:34 AM V1-PT DECLINES REF TO TOBACCO CESS PRGM [facility] [place] [facility] Aug 23, 2017 10:34 AM V1-PT DECLINES TOBACCO CESSATION MEDS [facility] [place] [facility] Aug 23, 2017 10:34 AM V1-PT THINKING ABOUT QUIT TOBACCO USE [facility] [place] [facility] Jan 18, 2017 10:30 AM CURRENT SMOKER [facility] [place] [facility] Jan 18, 2017 10:30 AM V1-PT NOT INTERESTED IN QUIT TOBACCO USE [facility] [place] [facility] Jan 18, 2017 10:23 AM CURRENT SMOKER [facility] [place] [facility] Jun 05, 2016 09:44 AM CURRENT SMOKER [facility] [place] [facility] Jun 05, 2016 09:44 AM V1-PT NOT INTERESTED IN QUIT [facility]ACCO [facility] [place] [facility] Apr 17, 2015 08:21 AM CURRENT SMOKER socially [facility] [place] [facility] Apr 17, 2015 08:21 AM V1-PT DECLINES REF TO TOBACCO CESS PRGM [facility] [place] [facility] Apr 17, 2015 08:21 AM V1-PT DECLINES TOBACCO CESSATION MEDS [facility] Apr 17, 2015 08:21 AM V1-PT THINKING ABOUT QUIT TOBACCO USE [facility] [place] [facility] Jan 21, 2014 10:25 AM CURRENT SMOKER a pack a day [facility] [place] [facility] Jan 21, 2014 10:25 AM V1-PT DECLINES REF TO TOBACCO CESS PRGM [facility] [place] [facility] Jan 21, 2014 10:25 AM V1-PT THINKING ABOUT QUIT TOBACCO USE [facility] [place] [facility] Jan 21, 2014 10:25 AM V1-TOBACCO CESS MEDS NOT PRESCRIBED nicotine lozenges ordered [facility] [place] [facility] Jan 26, 2013 02:34 PM CURRENT SMOKER one pack a day [facility] [place] [facility] Jan 26, 2013 02:34 PM V1-PT DECLINES REF TO TOBACCO CESS PRGM [facility] [place] [facility] Jan 26, 2013 02:34 PM V1-PT DECLINES TOBACCO CESSATION MEDS [facility] [place] [facility] Jan 26, 2013 02:34 PM V1-PT THINKING ABOUT QUIT TOBACCO USE [facility] [place] [facility] Jun 08, 2012 08:59 AM V1-PT DECLINES REF TO TOBACCO CESS PRGM [facility] Jun 08, 2012 08:59 AM V1-PT DECLINES TOBACCO CESSATION MEDS [facility] [place] [facility] Jun 08, 2012 08:59 AM V1-PT NOT INTERESTED IN QUIT TOBACCO USE [facility] [place] [facility] Dec 08, 2011 09:32 AM CURRENT SMOKER half to whole pack a day [facility] Dec 08, 2011 09:32 AM V1-PT DECLINES REF TO TOBACCO CESS PRGM [facility] Dec 08, 2011 09:32 AM V1-PT DECLINES TOBACCO CESSATION MEDS [facility] Dec 08, 2011 09:32 AM V1-PT NOT INTERESTED IN QUIT TOBACCO USE [facility] Mar 23, 2011 09:26 AM V1-PT DECLINES REF TO TOBACCO CESS PRGM [facility] Mar 23, 2011 09:26 AM V1-PT DECLINES TOBACCO CESSATION MEDS [facility] Mar 23, 2011 09:26 AM V1-PT THINKING ABOUT QUIT TOBACCO USE [facility] [place] [facility] July 29, 2010 07:59 AM CURRENT SMOKER 6 PPD [facility] [place] [facility] July 29, 2010 07:59 AM V1-PT DECLINES REF TO TOBACCO CESS PRGM [facility] [place] [facility] July 29, 2010 07:59 AM V1-PT DECLINES TOBACCO CESSATION MEDS [facility] [place] [facility] July 29, 2010 07:59 AM V1-PT THINKING ABOUT QUIT TOBACCO USE [facility] [place] [facility] Dec 03, 2009 09:31 AM V1-PT DECLINES REF TO TOBACCO CESS PRGM [facility] Dec 03, 2009 09:31 AM V1-PT DECLINES TOBACCO CESSATION MEDS [facility] [place] [facility] Dec 03, 2009 09:31 AM V1-PT THINKING ABOUT QUIT TOBACCO USE [facility] [place] [facility] Jun 24, 2009 02:16 PM CURRENT SMOKER 1/2 ppd [facility] [place] [facility] Jun 24, 2009 02:16 PM V1-PT DECLINES REF TO TOBACCO CESS PRGM [facility] [place] [facility] Jun 24, 2009 02:16 PM V1-PT DECLINES TOBACCO CESSATION MEDS [facility] [place] [facility] Jun 24, 2009 02:16 PM V1-PT READY TO QUIT TOBACCO USE [facility] [place] [facility] May 14, 2008 09:58 AM CURRENT SMOKER 1/2 ppd [facility] [place] [facility] May 14, 2008 09:58 AM V1-PT DECLINES REF TO TOBACCO CESS PRGM [facility] [place] [facility] May 14, 2008 09:58 AM V1-PT DECLINES TOBACCO CESSATION MEDS [facility] [place] [facility] May 14, 2008 09:58 AM V1-PT THINKING ABOUT QUIT TOBACCO USE [facility] [place] [facility] Nov 07, 2007 12:03 PM V1-PT DECLINES REF TO TOBACCO CESS PRGM [facility] [place] [facility] Nov 07, 2007 12:03 PM V1-PT DECLINES TOBACCO CESSATION MEDS [facility] [place] [facility] Nov 07, 2007 12:03 PM V1-PT THINKING ABOUT QUIT TOBACCO USE [facility] [place] [facility] Feb 09, 2007 10:37 AM CURRENT SMOKER 1 ppd [facility] [place] [facility] Feb 09, 2007 10:37 AM V1-PT DECLINES REF TO TOBACCO CESS PRGM [facility] [place] [facility] Feb 09, 2007 10:37 AM V1-PT READY TO QUIT TOBACCO USE [facility] [place] [facility] May 31, 2006 10:07 AM V1-PT DECLINES REF TO TOBACCO CESS PRGM [facility] [place] [facility] May 31, 2006 10:07 AM V1-PT READY TO QUIT TOBACCO USE [facility] [place] [facility] July 13, 2005 08:13 AM CURRENT SMOKER 1/2 ppd [facility] Encounter Notes: All associated encounter notes This section contains the clinical notes associated to the Encounter. Date/Time Encounter Note(s) Provider Source Mar 06, 2024 07:52 AM ADMINISTRATIVE NOTE: LOCAL TITLE: ADMINISTRATIVE NOTE STANDARD TITLE: ADMINISTRATIVE NOTE DATE OF NOTE: MAR 06, 2024@07:52 ENTRY DATE: MAR 06, 2024@07:52:31 AUTHOR: TANNER GUAJARDO COSIGNER: URGENCY: STATUS: COMPLETED ADMINISTRATIVE NOTE Has ADDENDA atilio that runs cardiac rehab is looking for a referral for cardiac rehab. Atilio states [place] has a cardiac rehab appointment today 03-06-0800 following a TAVR procedure done on 02-09-24 Please enter a cardiac rehab consult for this . This is for 36 sessions. If in agreement please enter a new cardiology cardiac rehab consult /ade/ TANNER GUAJARDO Signed: 03/06/2024 07:58 Receipt Acknowledged By: 03/06/2024 11:10 /es/ HERI DHILLON D.O. PHYSICIAN 03/08/2024 11:04 /es/ ELIZABETH SUMMERS [facility] ELLEN RN TALIB 03/06/2024 08:29 /ade/ VERONICA MERCADO, MSN, RN, CNL PRIMARY CARE TEAM NURSE 03/06/2024 ADDENDUM STATUS: COMPLETED A new [facility] Cardiac Rehab consult placed and held for provider signature /ade/ VERONICA MERCADO, MSN, RN, CNL PRIMARY CARE TEAM NURSE Signed: 03/06/2024 08:29 [facility]ARDO [facility]
--- OUTSIDE RECORDS SUMMARY | 2024-03-27 13:29 | XMS_ITS ---
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 Name Role Phone ELIZABETH NICHOLSON Primary Care Provider Unavailabl e Insurance Providers: [...] Policy Steve MEDICARE (WNR) MEDICARE (M) PART B July 05, 2017 PART B [id number] [place] WILDER PATIENT MEDICARE (WNR) MEDICARE (M) PART A July 05, 2017 PART A [id number] [phone] [place] WLIDER PATIENT MEDICARE (WNR) MEDICARE (M) PART A July 05, 2017 PART A [id number] [phone] [place] WILDER PATIENT MEDICARE (WNR) MEDICARE (M) PART B July 05, 2017 PART B [id number] [place] W[place] PATIENT MEDICARE (WNR) MEDICARE (M) PART A July 05, 2017 PART A [id number] [phone] [place] W[place] PATIENT MEDICARE (WNR) MEDICARE (M) PART B July 05, 2017 PART B [id number] [place] W[place] PATIENT Selected Encounter This section includes the information on record at [place] for the Encounter. Date/Time Encounter Type Encounter Description Reason Pro vider Source July 29, 2023 12:47 PM Outpatient Encounter PRIMARY CARE/MEDICINE IHE Encounter Template Text not used by [facility] Plan of Treatment: Future Appointments (+ 6 months) and Future Tests (+/- 45 days) The Plan of Treatment section includes future care activities for the patient from all [place] treatmentfacilities. This section includes future appointments and future orders which are active, pending or scheduled. Future Appointments This section includes appointments that were scheduled to occur 6 months from the date of the Encounter, up to a maximum of 20 appointments. The data comes from all [place] treatment facilities. Appointment Date/Time Appointment Type Appointme nt Facility Name Sep 07, 2023 03:00 PM AMBULATORY - MEDICINE [place] [facility] [place] [facility] Sep 22, 2023 11:00 AM AMBULATORY - NONE [facility] [place] [facility] Sep 27, 2023 10:45 AM AMBULATORY - MEDICINE [place] [facility] [place] [facility] Sep 28, 2023 11:00 AM AMBULATORY - NONE [facility] [place] [facility] Oct 17, 2023 01:45 PM AMBULATORY - MEDICINE [place] [facility] [place] [facility] Nov 18, 2023 07:00 AM AMBULATORY - MEDICINE [place] [facility] [place] [facility] Nov 21, 2023 11:00 AM AMBULATORY - MEDICINE [place] [facility] [place] [facility] Nov 23, 2023 12:45 PM AMBULATORY - MEDICINE [place] [facility] [place] [facility] Jan 10, 2024 01:00 PM AMBULATORY - REHAB MEDICIN E [facility] [place] [facility] Lab Results: +/- 30 days of the encounter This section includes the Chemistry and Hematology Lab Results on record with [place] for the patient. Radiology Reports and Pathology Reports are provided separately, in subsequent sections. Lab Results This section contains the Chemistry/Hematology Results that were resulted 30 days before or 30 daysafter the date of the Encounter. Date/Time Source Result Type Result - Unit Interpretation Reference Range Comment July 25, 2023 09:57 AM [facility] PT & INR (COUMADIN) Specimen Type: PLASMA No comment entered. Ordering Provider: ELE ROBLES Report Released Date/Time: Jun 13, 2023 01:37 PM Reporting Lab: [address] [address] Performing Lab: [facility] [address] INR 2.2 PROTIME 24.4 s H 10.0-13.1 July 25, 2023 09:57 AM [facility] TSH Specimen Type: SERUM No comment entered. Ordering Provider: ELIZABETH NICHOLSON Report Released Date/Time: Feb 07, 2023 11:58 AM Reporting Lab: [address] [address] Performing Lab: [facility] [address] TSH 2.02 u[IU]/mL 0.35-5.00 July 25, 2023 09:57 AM [facility] LIPID PANEL FASTING Specimen Type: SERUM No comment entered. Ordering Provider: ELIZABETH NICHOLSON Report Released Date/Time: Feb 07, 2023 11:58 AM Reporting Lab: [address] [address] Performing Lab: [facility] [address] CHOLESTEROL 209 mg/dL H TRIGLYCERIDE 175 mg/dL H 0-150 LDL calculated 130 mg/dL H 0-129 CHOL/HDL 4.8 HDL CHOLESTEROL 44 mg/dL 40-60 July 25, 2023 09:57 AM [facility] BASIC METABOLIC PANEL (fasting) Specimen Type: SERUM No comment entered. Ordering Provider: ELIZABETH NICHOLSON Report Released Date/Time: Feb 07, 2023 11:58 AM Reporting Lab: [facility] [address] [facility] [address] Performing Lab: [facility] [address] [facility] [address] UREA NITROGEN 22 mg/dL 7-25 GLUCOSE 134 mg/dL H 65-100 SODIUM 137 mmol/L 135-145 POTASSIUM 4.2 mmol/L 3.5-5.0 CHLORIDE 107 mmol/L 100-110 CO2 21 meq/L 20-30 CREATININE, Serum 1.23 mg/dL 0.50-1.40 eGFR(CKD-EPI 2020) 47 mL/min L >60 Social History: Smoking Status (Most current) and Tobacco Use (All prior to encounter date) This section includes the most current, and the historical, smoking and tobacco- related health factors from the [place] facility where the Encounter took place. Current Smoking Status This section includes the most current smoking, or tobacco-related health factor, from the [place] facility where the Encounter took place. Date/Time Current Smoking Status Comment [facility] it July 27, 2022 02:30 PM VA-TOBACCO USER EVERY DAY [facility] Tobacco Use History This section includes a history of the smoking, or tobacco-related health factors, that were collected on or before the date of the Encounter. The data comes from the [place] facility where the Encounter took place. 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 [facility] July 27, 2022 02:30 PM VA-TOBACCO USE MED NO [facility] July 27, 2022 02:30 PM VA-TOBACCO USER EVERY DAY [facility] July 29, 2021 11:30 AM VA-TOBACCO DOESNT USE WI 30 MIN WAKEUP [facility] July 29, 2021 11:30 AM VA-TOBACCO USE 30 YEARS OR MORE [facility] July 29, 2021 11:30 AM VA-TOBACCO USE ADVICE [facility] [place] [facility] July 29, 2021 11:30 AM VA-TOBACCO USE ASSOCIATE LOAN OFFICER YES [facility] [place] [facility] July 29, 2021 11:30 AM VA-TOBACCO USE MED NOTIFY PROVIDER [facility] [place] [facility] July 29, 2021 11:30 AM VA-TOBACCO USER EVERY DAY [facility] [place] [facility] Jan 23, 2020 10:30 AM VA-TOBACCO USE 30 YEARS OR MORE [facility] [place] [facility] Jan 23, 2020 10:30 AM VA-TOBACCO USE ADVICE [facility] [place] [facility] Jan 23, 2020 10:30 AM 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 [facility] [place] [facility] Jan 23, 2020 10:30 AM VA-TOBACCO USE MED NO [facility] [place] [facility] Jan 23, 2020 10:30 AM VA-TOBACCO USE [place] 30 MIN OF WAKEUP [facility] [place] [facility] Jan 23, 2020 10:30 AM VA-TOBACCO USER EVERY DAY [facility] [place] [facility] July 10, 2018 11:18 AM VA-TOBACCO USE > 15 LESS THAN 30 YEARS [facility] [place] [facility] July 10, 2018 11:18 AM VA-TOBACCO USE ADVICE [facility] [place] [facility] July 10, 2018 11:18 AM 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 [facility] [place] [facility] July 10, 2018 11:18 AM VA-TOBACCO USE MED NO [facility] [place] [facility] July 10, 2018 11:18 AM VA-TOBACCO USE [place] 30 MIN OF WAKEUP [facility] [place] [facility] July 10, 2018 11:18 AM VA-TOBACCO USER EVERY DAY [facility] [place] [facility] Aug 23, 2017 10:34 AM CURRENT SMOKER [facility] [place] [facility] Aug 23, 2017 10:34 AM V1-PT DECLINES REF TO TOBACCO CESS PRGM [facility] [place] [facility] Aug 23, 2017 10:34 AM V1-PT DECLINES TOBACCO CESSATION MEDS [facility] [place] [facility] Aug 23, 2017 10:34 AM V1-PT THINKING ABOUT QUIT TOBACCO USE [facility] [place] [facility] Jan 18, 2017 10:30 AM CURRENT SMOKER [facility] [place] [facility] Jan 18, 2017 10:30 AM V1-PT NOT INTERESTED IN QUIT TOBACCO USE [facility] [place] [facility] Jan 18, 2017 10:23 AM CURRENT SMOKER [facility] [place] [facility] Jun 05, 2016 09:44 AM CURRENT SMOKER [facility] [place] [facility] Jun 05, 2016 09:44 AM V1-PT NOT INTERESTED IN QUIT TOBACCO USE [facility] [place] [facility] Apr 17, 2015 08:21 AM CURRENT SMOKER socially [facility] Apr 17, 2015 08:21 AM V1-PT DECLINES REF TO TOBACCO CESS [facility] Apr 17, 2015 08:21 AM V1-PT DECLINES TOBACCO CESSATION MEDS [facility] Apr 17, 2015 08:21 AM V1-PT THINKING ABOUT QUIT TOBACCO USE [facility] Jan 21, 2014 10:25 AM CURRENT SMOKER a pack a day [facility] Jan 21, 2014 10:25 AM V1-PT DECLINES REF TO TOBACCO CESS PRGM [facility] Jan 21, 2014 10:25 AM V1-PT THINKING ABOUT QUIT TOBACCO USE [facility] [place] [facility] Jan 21, 2014 10:25 AM V1-TOBACCO CESS MEDS NOT PRESCRIBED nicotine lozenges ordered [facility] [place] [facility] Jan 26, 2013 02:34 PM CURRENT SMOKER one pack a day [facility] [place] [facility] Jan 26, 2013 02:34 PM V1-PT DECLINES REF TO TOBACCO CESS PRGM [facility] [place] [facility] Jan 26, 2013 02:34 PM V1-PT DECLINES TOBACCO CESSATION MEDS [facility] Jan 26, 2013 02:34 PM V1-PT THINKING ABOUT QUIT TOBACCO USE [facility] [place] [facility] Jun 08, 2012 08:59 AM V1-PT DECLINES REF TO TOBACCO CESS PRGM [facility] [place] [facility] Jun 08, 2012 08:59 AM V1-PT DECLINES TOBACCO CESSATION MEDS [facility] [place] [facility] Jun 08, 2012 08:59 AM V1-PT NOT INTERESTED IN QUIT TOBACCO USE [facility] [place] [facility] Dec 08, 2011 09:32 AM CURRENT SMOKER half to whole pack a day [facility] [place] [facility] Dec 08, 2011 09:32 AM V1-PT DECLINES REF TO TOBACCO CESS PRGM [facility] [place] [facility] Dec 08, 2011 09:32 AM V1-PT DECLINES TOBACCO CESSATION MEDS [facility] [place] [facility] Dec 08, 2011 09:32 AM V1-PT NOT INTERESTED IN QUIT TOBACCO USE [facility] [place] [facility] Mar 23, 2011 09:26 AM V1-PT DECLINES REF TO TOBACCO CESS PRGM [facility] [place] [facility] Mar 23, 2011 09:26 AM V1-PT DECLINES TOBACCO CESSATION MEDS [facility] [place] [facility] Mar 23, 2011 09:26 AM V1-PT THINKING ABOUT QUIT TOBACCO USE [facility] [place] [facility] July 29, 2010 07:59 AM CURRENT SMOKER 6 PPD [facility] [place] [facility] July 29, 2010 07:59 AM V1-PT DECLINES REF TO TOBACCO CESS PRGM [facility] [place] [facility] July 29, 2010 07:59 AM V1-PT DECLINES TOBACCO CESSATION MEDS [facility] [place] [facility] July 29, 2010 07:59 AM V1-PT THINKING ABOUT QUIT TOBACCO USE [facility] [place] [facility] Dec 03, 2009 09:31 AM V1-PT DECLINES REF TO TOBACCO CESS PRGM [facility] [place] [facility] Dec 03, 2009 09:31 AM V1-PT DECLINES TOBACCO CESSATION MEDS [facility] [place] [facility] Dec 03, 2009 09:31 AM V1-PT THINKING ABOUT QUIT TOBACCO USE [facility] [place] [facility] Jun 24, 2009 02:16 PM CURRENT SMOKER 1/2 ppd [facility] [place] [facility] Jun 24, 2009 02:16 PM V1-PT DECLINES REF TO TOBACCO CESS PRGM [facility] [place] [facility] Jun 24, 2009 02:16 PM V1-PT DECLINES TOBACCO CESSATION MEDS [facility] [place] [facility] Jun 24, 2009 02:16 PM V1-PT READY TO QUIT TOBACCO USE [facility] [place] [facility] May 14, 2008 09:58 AM CURRENT SMOKER 1/2 ppd [facility] [place] [facility] May 14, 2008 09:58 AM V1-PT DECLINES REF TO TOBACCO CESS PRGM [facility] [place] [facility] May 14, 2008 09:58 AM V1-PT DECLINES TOBACCO CESSATION MEDS [facility] [place] [facility] May 14, 2008 09:58 AM V1-PT THINKING ABOUT QUIT TOBACCO USE [facility] [place] [facility] Nov 07, 2007 12:03 PM V1-PT DECLINES REF TO TOBACCO CESS PRGM [facility] [place] [facility] Nov 07, 2007 12:03 PM V1-PT DECLINES TOBACCO CESSATION MEDS [facility] [place] [facility] Nov 07, 2007 12:03 PM V1-PT THINKING ABOUT QUIT TOBACCO USE [facility] [place] [facility] Feb 09, 2007 10:37 AM CURRENT SMOKER 1 ppd [facility] [place] [facility] Feb 09, 2007 10:37 AM V1-PT DECLINES REF TO TOBACCO CESS PRGM [facility] [place] [facility] Feb 09, 2007 10:37 AM V1-PT READY TO QUIT TOBACCO USE [facility] [place] [facility] May 31, 2006 10:07 AM V1-PT DECLINES REF TO TOBACCO CESS PRGM [facility] [place] [facility] May 31, 2006 10:07 AM V1-PT READY TO QUIT TOBACCO USE [facility] [place] [facility] July 13, 2005 08:13 AM CURRENT SMOKER 1/2 ppd [facility] [place] [facility] Encounter Notes: All associated encounter notes This section contains the clinical notes associated to the Encounter. Date/Time Encounter Note(s) Provider Source July 29, 2023 12:47 PM LETTERS: LOCAL TITLE: PATIENT LETTER (T) STANDARD TITLE: LETTERS DATE OF NOTE: JULY 29, 2023@12:47 ENTRY DATE: JULY 29, 2023@12:47:21 AUTHOR: ELIZABETH NICHOLSON EXP COSIGNER: URGENCY: STATUS: COMPLETED [facility] Toll Free Number Primary Care Telephone Assistance can be reached at extension [phone] [facility] scheduling can be reached at extension [phone] [facility] scheduling can be reached at ext [phone] [address] [place], [place], [address] [place], Your recent test results are as follows: slightly reduced kidney function slightly elevated cholesterol levels normal blood sugar and electrolytes normal thryoid function Dr. Elizabeth Nicholson Primary Care, PACT 8 Team [facility] LAB CHEMISTRY & HEMATOLOGY Collection DT Specimen Test Name Result Units Ref Range 07/25/2023 09:57 PLASMA PROTIME 24.4 H sec 10.0 - 13.1 INR 2.2 07/25/2023 09:57 SERUM TSH 2.02 uIU/mL 0.35 - 5.00 CREATININE, Serum 1.23 mg/dL 0.50 - 1.40 eGFR(CKD-EPI 2020 47 L mL/min Ref: >=60 SODIUM 137 mmol/L 135 - 145 POTASSIUM 4.2 mmol/L 3.5 - 5.0 CHLORIDE 107 mmol/L 100 - 110 CO2 21 mEq/L 20 - 30 UREA NITROGEN 22 mg/dL 7 - 25 GLUCOSE 134 H mg/dL 65 - 100 CHOLESTEROL 209 H mg/dL <7 - 199 TRIGLYCERIDE 175 H mg/dL 0 - 150 LDL calculated 130 H mg/dL 0 - 129 CHOL/HDL 4.8 HDL CHOLESTEROL 44 mg/dL 40 - 60 Please call if you have any questions or concerns. Upcoming Appointments: 02/08/2024 10:00 CWM/NO/PACT EIGHT Sincerely, Your Primary Care Team [facility] [address] [address] [place] [address] [phone] [facility] [address] [place] [address] [place], [place] [phone] [facility] [address] [facility] [place] [address] [place] [address] ELIZABETH NICHOLSON [facility]
--- OUTSIDE RECORDS SUMMARY | 2024-03-27 13:29 | XMS_ITS | Encounter Summary ---
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 Name Role Phone HERI NICHOLSON Primary Care Provider Unavailabl e Insurance [...] PART A July 05, 2017 PART A [id number] [place] PATIENT MEDICARE (WNR) MEDICARE (M) PART B July 05, 2017 PART B [id number] [place] PATIENT MEDICARE (WNR) MEDICARE (M) PART A July 05, 2017 PART A [id number] [phone] [place] PATIENT MEDICARE (WNR) MEDICARE (M) PART B July 05, 2017 PART B [id number] [place] PATIENT MEDICARE (WNR) MEDICARE (M) PART A July 05, 2017 PART A [id number] [phone] [place] PATIENT MEDICARE (WNR) MEDICARE (M) PART B July 05, 2017 PART B [id number] [phone] [place] PATIENT Selected Encounter This section includes the information on record at [place] for the Encounter. Date/Time Encounter Type Encounter Description Reason Provider Source Jan 10, 2024 01:00 PM OT EVAL LOW COMPLEX 30 MIN OCCUPATIONAL THERAPY ICD-10-CM I35.0 Nonrheumatic aortic (valve) stenosis GREG HINES [place] Encounter Template Text not used by [place] Assessments - Encounter Diagnoses This section includes the primary and secondary diagnoses documented for the Encounter. Date/Time Primary/Secondary Diagnosis Diagnosis Name Provider Source Jan 10, 2024 01:39 PM PRIMARY Nonrheumatic aortic (valve) stenosis GREG HINES [facility] Plan of Treatment: Future Appointments (+ 6 months) and Future Tests (+/- 45 days) The Plan of Treatment section includes future care activities for the patient from all [place] [facility] This section includes future appointments and future orders which are active, pending or scheduled. Future Appointments This section includes appointments that were scheduled to occur 6 months from the date of the Encounter, up to a maximum of 20 appointments. The data comes from all [place] treatment facilities. Appointment Date/Time Appointment Type Appointme nt Facility Name Feb 08, 2024 10:00 AM AMBULATORY - [facility]IC[facility] Mar 06, 2024 08:00 AM [facility]ULATORY [facility] Active, Pending, and Scheduled Orders This section includes a listing of several types of active, pending, and scheduled orders, including clinic medications orders, diagnostic test orders, procedure orders and consult orders; where the start date of the order is 45 days before the date of the Encounter or 45 days after the date of theEncounter. The data comes from all [place] treatment facilities. Test Date/Time Test Type Test Details Facility Name Feb 06, 2024 02:57 PM Consult Order COMM[facility]ITY CARE-HEMATOLOGY Cons Athletic Coach's Choice [facility] Lab Results: +/- 30 days of the encounter This section includes the Chemistry and Hematology Lab Results on record with [place] for the patient. Radiology Reports and Pathology Reports are provided separately, in subsequent sections. Lab Results This section contains the Chemistry/Hematology Results that were resulted 30 days before or 30 daysafter the date of the Encounter. Date/Time Source Result Type Result - Unit Interpretation Reference Range Comment Jan 30, 2024 09:30 AM [facility] TSH Specimen Type: SERUM No comment entered. Ordering Provider: HERI NICHOLSON Report Released Date/Time: Jan 25, 2024 01:14 PM Reporting Lab: [facility] [address] [facility] [address] Performing Lab: [address] [id number] TSH 1.48 u[IU]/mL 0.35-5.00 Jan 30, 2024 09:30 AM [facility] LIPID PANEL FASTING Specimen Type: SERUM No comment entered. Ordering Provider: HERI NICHOLSON Report Released Date/Time: Jan 25, 2024 01:14 PM Reporting Lab: [facility] [address] [facility] [address] Performing Lab: [facility] [address] [facility] [address] CHOLESTEROL 225 mg/dL H TRIGLYCERIDE 190 mg/dL H 0-150 LDL calculated 141 mg/dL H 0-129 CHOL/HDL 4.9 HDL CHOLESTEROL 46 mg/dL 40-60 Jan 30, 2024 09:30 AM [facility] BASIC METABOLIC PANEL (fasting) Specimen Type: SERUM No comment entered. Ordering Provider: HERI NICHOLSON Report Released Date/Time: Jan 25, 2024 01:14 PM Reporting Lab: [facility] [address] [facility] [address] Performing Lab: [address] [address] UREA NITROGEN 19 mg/dL 7-25 GLUCOSE 98 mg/dL 65-100 SODIUM 140 mmol/L 135-145 POTASSIUM 4.4 mmol/L 3.5-5.0 CHLORIDE 111 mmol/L H 100-110 CO2 20 meq/L 20-30 CREATININE, Serum 1.16 mg/dL 0.50-1.40 eGFR(CKD-EPI 2020) 50 mL/min L >60 Social History: Smoking Status (Most current) and Tobacco Use (All prior to encounter date) This section includes the most current, and the historical, smoking and tobacco- related health factors from the [place] facility where the Encounter took place. Current Smoking Status This section includes the most current smoking, or tobacco-related health factor, from the [place] facility where the Encounter took place. Date/Time Current Smoking Status Comment Facil it Sep 07, 2023 03:00 PM VA-TOBACCO USER EVERY DAY [place] [facility] [place] [facility] Tobacco Use History This section includes a history of the smoking, or tobacco-related health factors, that were collected on or before the date of the Encounter. The data comes from the [place] facility where the Encounter took place. 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 [place] [facility] [place] [facility] Sep 07, 2023 03:00 PM VA-TOBACCO USE MED NOTIFY PROVIDER utilizes patches, has cut down on amt of ciggarettes a day [place] [facility] [place] [facility] Sep 07, 2023 03:00 PM VA-TOBACCO USE [place] 30 MIN OF WAKEUP [place] [facility] [place] [facility] Sep 07, 2023 03:00 PM VA-TOBACCO USER EVERY DAY [facility] [place] [facility] July 27, 2022 02:30 PM VA-TOBACCO DOESNT USE WI 30 MIN WAKEUP [facility] [place] [facility] July 27, 2022 02:30 PM VA-TOBACCO USE 30 YEARS OR MORE [facility] [place] [facility] July 27, 2022 02:30 PM VA-TOBACCO USE ADVICE [place] [facility] [place] [facility] July 27, 2022 02:30 PM 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 [facility] [place] [facility] July 27, 2022 02:30 PM VA-TOBACCO USE MED NO [place] [facility] [place] [facility] July 27, 2022 02:30 PM VA-TOBACCO USER EVERY DAY [facility] [place] [facility] July 29, 2021 11:30 AM VA-TOBACCO DOESNT USE WI 30 MIN WAKEUP [facility] [place] [facility] July 29, 2021 11:30 AM VA-TOBACCO USE 30 YEARS OR MORE [facility] [place] [facility] July 29, 2021 11:30 AM VA-TOBACCO USE ADVICE [facility] [place] [facility] July 29, 2021 11:30 AM VA-TOBACCO USE 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 YES [facility] [place] [facility] July 29, 2021 11:30 AM VA-TOBACCO USE MED NOTIFY PROVIDER [facility] [place] [facility] July 29, 2021 11:30 AM VA-TOBACCO USER EVERY DAY [facility] [place] [facility] Jan 23, 2020 10:30 AM VA-TOBACCO USE 30 YEARS OR MORE [facility] [place] [facility] Jan 23, 2020 10:30 AM VA-TOBACCO USE ADVICE [facility] [place] [facility] Jan 23, 2020 10:30 AM 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 [facility] [place] [facility] Jan 23, 2020 10:30 AM VA-TOBACCO USE MED NO [facility] [place] [facility] Jan 23, 2020 10:30 AM VA-TOBACCO USE [place] 30 MIN OF WAKEUP [place] [facility] [place] [facility] Jan 23, 2020 10:30 AM VA-TOBACCO USER EVERY DAY [facility] [place] [facility] July 10, 2018 11:18 AM VA-TOBACCO USE > 15 LESS THAN 30 YEARS [facility] [place] [facility] July 10, 2018 11:18 AM VA-TOBACCO USE ADVICE [facility] [place] [facility] July 10, 2018 11:18 AM 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 [facility] [place] [facility] July 10, 2018 11:18 AM VA-TOBACCO USE MED NO [facility] [place] [facility] July 10, 2018 11:18 AM VA-TOBACCO USE [place] 30 MIN OF WAKEUP [facility] [place] [facility] July 10, 2018 11:18 AM VA-TOBACCO USER EVERY DAY [facility] [place] [facility] Aug 23, 2017 10:34 AM CURRENT SMOKER [facility] [place] [facility] Aug 23, 2017 10:34 AM V1-PT DECLINES REF TO TOBACCO CESS PRGM [facility] [place] [facility] Aug 23, 2017 10:34 AM V1-PT DECLINES TOBACCO CESSATION MEDS [facility] [place] [facility] Aug 23, 2017 10:34 AM V1-PT THINKING ABOUT QUIT TOBACCO USE [facility] [place] [facility] Jan 18, 2017 10:30 AM CURRENT SMOKER [facility] [place] [facility] Jan 18, 2017 10:30 AM V1-PT NOT INTERESTED IN QUIT TOBACCO USE [facility] [place] [facility] Jan 18, 2017 10:23 AM CURRENT SMOKER [facility] [place] [facility] Jun 05, 2016 09:44 AM CURRENT SMOKER [facility] [place] [facility] Jun 05, 2016 09:44 AM V1-PT NOT INTERESTED IN QUIT TOBACCO USE [facility] [place] [facility] Apr 17, 2015 08:21 AM CURRENT SMOKER socially [facility] [place] [facility] Apr 17, 2015 08:21 AM V1-PT DECLINES REF TO TOBACCO CESS PRGM [facility] [place] [facility] Apr 17, 2015 08:21 AM V1-PT DECLINES TOBACCO CESSATION MEDS [facility] [place] [facility] Apr 17, 2015 08:21 AM V1-PT THINKING ABOUT QUIT TOBACCO USE [facility] [place] [facility] Jan 21, 2014 10:25 AM CURRENT SMOKER a pack a day [facility] [place] [facility] Jan 21, 2014 10:25 AM V1-PT DECLINES REF TO TOBACCO CESS PRGM [facility] [place] [facility] Jan 21, 2014 10:25 AM V1-PT THINKING ABOUT QUIT TOBACCO USE [facility] [place] [facility] Jan 21, 2014 10:25 AM V1-TOBACCO CESS MEDS NOT PRESCRIBED nicotine lozenges ordered [facility] [place] [facility] Jan 26, 2013 02:34 PM CURRENT SMOKER one pack a day [facility] [place] [facility] Jan 26, 2013 02:34 PM V1-PT DECLINES REF TO TOBACCO CESS PRGM [facility] [place] [facility] Jan 26, 2013 02:34 PM V1-PT DECLINES TOBACCO CESSATION MEDS [facility] [place] [facility] Jan 26, 2013 02:34 PM V1-PT THINKING ABOUT QUIT TOBACCO USE [facility] [place] [facility] Jun 08, 2012 08:59 AM V1-PT DECLINES REF TO TOBACCO CESS PRGM [facility] [place] [facility] Jun 08, 2012 08:59 AM V1-PT DECLINES TOBACCO CESSATION MEDS [facility] [place] [facility] Jun 08, 2012 08:59 AM V1-PT NOT INTERESTED IN QUIT TOBACCO USE [facility] [place] [facility] Dec 08, 2011 09:32 AM CURRENT SMOKER half to whole pack a day [facility] [place] [facility] Dec 08, 2011 09:32 AM V1-PT DECLINES REF TO TOBACCO CESS PRGM [facility] [place] [facility] Dec 08, 2011 09:32 AM V1-PT DECLINES TOBACCO CESSATION MEDS [facility] [place] [facility] Dec 08, 2011 09:32 AM V1-PT NOT INTERESTED IN QUIT TOBACCO USE [facility] [place] [facility] Mar 23, 2011 09:26 AM V1-PT DECLINES REF TO TOBACCO CESS PRGM [facility] [place] [facility] Mar 23, 2011 09:26 AM V1-PT DECLINES TOBACCO CESSATION MEDS [facility] [place] [facility] Mar 23, 2011 09:26 AM V1-PT THINKING ABOUT QUIT TOBACCO USE [facility] [place] [facility] July 29, 2010 07:59 AM CURRENT SMOKER 6 PPD [facility] [place] [facility] July 29, 2010 07:59 AM V1-PT DECLINES REF TO TOBACCO CESS PRGM [facility] [place] [facility] July 29, 2010 07:59 AM V1-PT DECLINES TOBACCO CESSATION MEDS [facility] [place] [facility] July 29, 2010 07:59 AM V1-PT THINKING ABOUT QUIT TOBACCO USE [facility] [place] [facility] Dec 03, 2009 09:31 AM V1-PT DECLINES REF TO TOBACCO CESS PRGM [facility] [place] [facility] Dec 03, 2009 09:31 AM V1-PT DECLINES TOBACCO CESSATION MEDS [facility] [place] [facility] Dec 03, 2009 09:31 AM V1-PT THINKING ABOUT QUIT TOBACCO USE [facility] [place] [facility] Jun 24, 2009 02:16 PM CURRENT SMOKER 1/2 ppd [facility] [place] [facility] Jun 24, 2009 02:16 PM V1-PT DECLINES REF TO TOBACCO CESS PRGM [facility] [place] [facility] Jun 24, 2009 02:16 PM V1-PT DECLINES TOBACCO CESSATION MEDS [facility] [place] [facility] Jun 24, 2009 02:16 PM V1-PT READY TO QUIT TOBACCO USE [facility] [place] [facility] May 14, 2008 09:58 AM CURRENT SMOKER 1/2 ppd [facility] [place] [facility] May 14, 2008 09:58 AM V1-PT DECLINES REF TO TOBACCO CESS PRGM [facility] [place] [facility] May 14, 2008 09:58 AM V1-PT DECLINES TOBACCO CESSATION MEDS [facility] [place] [facility] May 14, 2008 09:58 AM V1-PT THINKING ABOUT QUIT TOBACCO USE [facility] [place] [facility] Nov 07, 2007 12:03 PM V1-PT DECLINES REF TO TOBACCO CESS PRGM [facility] Nov 07, 2007 12:03 PM V1-PT DECLINES TOBACCO CESSATION MEDS [facility] [place] [facility] Nov 07, 2007 12:03 PM V1-PT THINKING ABOUT QUIT TOBACCO USE [facility] [place] [facility] Feb 09, 2007 10:37 AM CURRENT SMOKER 1 ppd [facility] [place] [facility] Feb 09, 2007 10:37 AM V1-PT DECLINES REF TO TOBACCO CESS PRGM [facility] [place] [facility] Feb 09, 2007 10:37 AM V1-PT READY TO QUIT TOBACCO USE [facility] [place] [facility] May 31, 2006 10:07 AM V1-PT DECLINES REF TO TOBACCO CESS PRGM [facility] [place] [facility] May 31, 2006 10:07 AM V1-PT READY TO QUIT TOBACCO USE [facility] July 13, 2005 08:13 AM CURRENT SMOKER 1/2 ppd [facility] Encounter Notes: All associated encounter notes This section contains the clinical notes associated to the Encounter. Date/Time Encounter Note(s) Provider Source Jan 10, 2024 01:00 PM OCCUPATIONAL MEDIC INE CONSULT: LOCAL TITLE: CONSULT REPORT/OCCUPATIONAL THERAPY STANDARD TITLE: OCCUPATIONAL MEDICINE CONSULT DATE OF NOTE: JAN 10, 2024@13:00 ENTRY DATE: JAN 10, 2024@13:13:45 AUTHOR: GREG HINES COSIGNER: HERI NICHOLSON URGENCY: STATUS: COMPLETED Initial Evaluation date: Jan Treatment Time: Diagnosis: Nonrheumatic Aortic (Valve) Stenosis(ICD-10-CM I35.0) Provider: ABILIO Nicholson OT Treatment Precautions: [place] Patient identified by full name and date of Subjective/Objective: presents to OT in need of hospital bed for temporary, post hospitalization Aortic valve replacement. Pain: offered no formal complaints, more of feeling anxious pre surgery. Focus 1 chart review 2 Living Situation: with grandson, rental Triplex: housing unit, driveway parrellel to house, garage attached tohouse Primary Entry: Front 12 steps railing: to enter 1st floor, through garage Secondary Entry: Back 2 steps 1 railing: enter kitchen requires: walking around building to access front Assessment: [place] lives in a Triplex Housing unit with driveway parallel to garage,enter by doorway into living space, 12 stair access to living space. Back entry is not functional for easy access, due to the need to walk around the build without sidewalk to access back entry from garage. Scheduled for surgery 01/19/24. Initial plan is for family to drive over grassy patch to back entry although with snow, this access with be unable. Home is 2 level living space once entering via 12 stair entry with addition of 12 additional stairs to access 2nd floor (bathroom and bedrooms on essentially the third (triplex) level. 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 Commode ordered. Dressing aids: sock aid, mail room clerk,long handle shoe horn 3 Contact: Jesu Wilder [phone] Discharge once all goals met /ade/ HERBERT DILL/Naima OCCUPATIONAL THERAPIST Signed: 01/10/2024 13:39 /ade/ HERI NICHOLSON D.O. PHYSICIAN Cosigned: 01/10/2024 14:17 G[facility] HINES [facility]
--- OUTSIDE RECORDS SUMMARY | 2024-03-27 13:29 | XMS_ITS | Encounter Summary ---
Author Name [facility] [place] Address [address] [place] [address] Care Team Providers Care Drug And Alcohol Counselor Name Role Phone HERI DHILLON Primary Care [...] PART A July 05, 2017 PART A [id number] [place] W[place] PATIENT MEDICARE (WNR) MEDICARE (M) PART B July 05, 2017 PART B [id number] 31A [place] PATIENT MEDICARE (WNR) MEDICARE (M) PART A July 05, 2017 PART A [id number] 31A [place] W[place] PATIENT MEDICARE (WNR) MEDICARE (M) PART B July 05, 2017 PART B [id number] 31A [place] W[place] PATIENT MEDICARE (WNR) MEDICARE (M) PART A July 05, 2017 PART A [id number] [phone] [place] W[place] PATIENT MEDICARE (WNR) MEDICARE (M) PART B July 05, 2017 PART B [id number] [place] W[place] PATIENT Selected Encounter This section includes the information on record at [place] for the Encounter. Date/Time Encounter Type Encounter Description Reason Provider Source Mar 05, 2024 01:45 PM Outpatient Encounter PRIMARY CARE/MEDICINE PAULINO SHORT Encounter Template Text not used by [place] Plan of Treatment: Future Appointments (+ 6 months) and Future Tests (+/- 45 days) The Plan of Treatment section includes future care activities for the patient [facility] [place] [facility] This section includes future appointments and future orders which are active, pending or scheduled. Future Appointments This section includes appointments that were scheduled to occur 6 months from the date of the Encounter, up to a maximum of 20 appointments. The data comes from all [facility]. Appointment Date/Time Appointment Type Appointme nt Facility Name Mar 06, 2024 08:00 AM [facility] Aug 08, 2024 10:30 AM AMBULATORY - MEDICINE [facility] Active, Pending, and Scheduled Orders This section includes a listing of several types of active, pending, and scheduled orders, including clinic medications orders, diagnostic test orders, procedure orders and consult orders; where the start date of the order is 45 days before the date of the Encounter or 45 days after the date of theEncounter. The data comes from all [facility]. Test Date/Time Test Type Test Details Facility Name Feb 06, 2024 02:57 PM Consult Order COMMUNITY CARE-HEMATOLOGY Cons Retail Agent's Choice [facility] Mar 06, 2024 09:13 AM Consult Order COMMUNITY CARE-CARDIAC REHAB Cons Retail Agent's Choice [facility] Mar 12, 2024 12:00 AM Laboratory - Chemi stry Order BASIC METABOLIC PANEL (fasting) BLOOD (SST[facility]SERUM) [facility] Mar 12, 2024 12:00 AM Laboratory - Chemi stry Order LIPID PANEL FASTING BLOOD (SST-SERUM) [facility] [place] [place] [facility] Mar 12, 2024 12:00 AM Laboratory - Chemi stry Order TSH BLOOD (SST-SERUM) SP [place] [facility] Social History: Smoking Status (Most current) and Tobacco Use (All prior to encounter date) This section includes the most current, and the historical, smoking and tobacco- related health factors from the [place] facility where the Encounter took place. Current Smoking Status This section includes the most current smoking, or tobacco-related health factor, from the [place] facility where the Encounter took place. Date/Time Current Smoking Status Comment Facil it Sep 07, 2023 03:00 PM VA-TOBACCO USE [place] 30 MIN [facility]KEUP [facility] Tobacco Use History This section includes a history of the smoking, or tobacco-related health factors, that were collected on or before the date of the Encounter. The data comes from the [place] facility where the Encounter took place. Date/Time Smoking Status/Tobac co Use Comment Facility Sep 07, 2023 03:00 PM VA-TOBACCO USE ADVICE [place] [facility] [facility] Sep 07, 2023 03:00 PM VA-TOBACCO USE TELEVISION NEWS REPORTER NO [place] [facility] Sep 07, 2023 03:00 PM VA-TOBACCO USE MED NOTIFY PROVIDER utilizes patches, has cut down on amt of ciggarettes a day [place] [facility] [place] [place] [facility] Sep 07, 2023 03:00 PM VA-TOBACCO USE [place] 30 MIN OF WAKEUP [place] [facility] [place] [facility] Sep 07, 2023 03:00 PM VA-TOBACCO USER EVERY DAY [place] [facility] [place] [facility] July 27, 2022 02:30 PM VA-TOBACCO DOESNT USE [place] 30 MIN WAKEUP [place] [facility] [place] [facility] July 27, 2022 02:30 PM VA-TOBACCO USE 30 YEARS OR MORE [place] [facility] [facility] July 27, 2022 02:30 PM VA-TOBACCO USE ADVICE [place] [facility] [facility] July 27, 2022 02:30 PM VA-TOBACCO USE 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 NEWS 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 [place] [facility] July 27, 2022 02:30 PM VA-TOBACCO USE MED NO [facility] [place] [facility] July 27, 2022 02:30 PM VA-TOBACCO USER EVERY DAY [facility] [place] [facility] July 29, 2021 11:30 AM VA-TOBACCO DOESNT USE [place] 30 MIN WAKEUP [facility] [place] [facility] July 29, 2021 11:30 AM VA-TOBACCO USE 30 YEARS OR MORE [facility] [place] [facility] July 29, 2021 11:30 AM VA-TOBACCO USE ADVICE [facility] [place] [facility] July 29, 2021 11:30 AM VA-TOBACCO USE TELEVISION NEWS REPORTER YES [facility] [place] [facility] July 29, 2021 11:30 AM VA-TOBACCO USE MED NOTIFY PROVIDER [facility] [place] [facility] July 29, 2021 11:30 AM VA-TOBACCO USER EVERY DAY [facility] [place] [facility] Jan 23, 2020 10:30 AM VA-TOBACCO USE 30 YEARS OR MORE [facility] [place] [facility] Jan 23, 2020 10:30 AM VA-TOBACCO USE ADVICE [facility] [place] [facility] Jan 23, 2020 10:30 AM VA-TOBACCO USE TELEVISION NEWS 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 [facility] [place] [facility] Jan 23, 2020 10:30 AM VA-TOBACCO USE MED NO [facility] [place] [facility] Jan 23, 2020 10:30 AM VA-TOBACCO USE [place] 30 MIN OF WAKEUP [place] [facility] [place] [facility] Jan 23, 2020 10:30 AM VA-TOBACCO USER EVERY DAY [facility] [place] [facility] July 10, 2018 11:18 AM VA-TOBACCO USE > 15 LESS THAN 30 YEARS [facility] [place] [facility] July 10, 2018 11:18 AM VA-TOBACCO USE ADVICE [facility] [place] [facility] July 10, 2018 11:18 AM VA-TOBACCO USE TELEVISION NEWS 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 NO [facility] [place] [facility] July 10, 2018 11:18 AM VA-TOBACCO USE MED NO [facility] [place] [facility] July 10, 2018 11:18 AM VA-TOBACCO USE [place] 30 MIN OF WAKEUP [facility] [place] [facility] July 10, 2018 11:18 AM VA-TOBACCO USER EVERY DAY [facility] [place] [facility] Aug 23, 2017 10:34 AM CURRENT SMOKER [facility] [place] [facility] Aug 23, 2017 10:34 AM V1-PT DECLINES REF TO TOBACCO CESS PRGM [facility] [place] [facility] Aug 23, 2017 10:34 AM V1-PT DECLINES TOBACCO CESSATION MEDS [facility] [place] [facility] Aug 23, 2017 10:34 AM V1-PT THINKING ABOUT QUIT TOBACCO USE [facility] [place] [facility] Jan 18, 2017 10:30 AM CURRENT SMOKER [facility] [place] [facility] Jan 18, 2017 10:30 AM V1-PT NOT INTERESTED IN QUIT TOBACCO USE [facility] [place] [facility] Jan 18, 2017 10:23 AM CURRENT SMOKER [facility] [place] [facility] Jun 05, 2016 09:44 AM CURRENT SMOKER [facility] [place] [facility] Jun 05, 2016 09:44 AM V1-PT NOT INTERESTED IN QUIT TOBACCO USE [facility] [place] [facility] Apr 17, 2015 08:21 AM CURRENT SMOKER socially [facility] Apr 17, 2015 08:21 AM V1-PT DECLINES REF TO TOBACCO CESS PRGM [facility] [place] [facility] Apr 17, 2015 08:21 AM V1-PT DECLINES TOBACCO CESSATION MEDS [facility] [place] [facility] Apr 17, 2015 08:21 AM V1-PT THINKING ABOUT QUIT TOBACCO USE [facility] [place] [facility] Jan 21, 2014 10:25 AM CURRENT SMOKER a pack a day [facility] [place] [facility] Jan 21, 2014 10:25 AM V1-PT DECLINES REF TO TOBACCO CESS PRGM [facility] [place] [facility] Jan 21, 2014 10:25 AM V1-PT THINKING ABOUT QUIT TOBACCO USE [facility] [place] [facility] Jan 21, 2014 10:25 AM V1-TOBACCO CESS MEDS NOT PRESCRIBED nicotine lozenges ordered [facility] [place] [facility] Jan 26, 2013 02:34 PM CURRENT SMOKER one pack a day [facility] [place] [facility] Jan 26, 2013 02:34 PM V1-PT DECLINES REF TO TOBACCO CESS PRGM [facility] [place] [facility] Jan 26, 2013 02:34 PM V1-PT DECLINES TOBACCO CESSATION MEDS [facility] [place] [facility] Jan 26, 2013 02:34 PM V1-PT THINKING ABOUT QUIT TOBACCO USE [facility] [place] [facility] Jun 08, 2012 08:59 AM V1-PT DECLINES REF TO TOBACCO CESS PRGM [facility] [place] [facility] Jun 08, 2012 08:59 AM V1-PT DECLINES TOBACCO CESSATION MEDS [facility] [place] [facility] Jun 08, 2012 08:59 AM V1-PT NOT INTERESTED IN QUIT TOBACCO USE [facility] [place] [facility] Dec 08, 2011 09:32 AM CURRENT SMOKER half to whole pack a day [facility] [place] [facility] Dec 08, 2011 09:32 AM V1-PT DECLINES REF TO TOBACCO CESS PRGM [facility] [place] [facility] Dec 08, 2011 09:32 AM V1-PT DECLINES TOBACCO CESSATION MEDS [facility] [place] [facility] Dec 08, 2011 09:32 AM V1-PT NOT INTERESTED IN QUIT TOBACCO USE [facility] [place] [facility] Mar 23, 2011 09:26 AM V1-PT DECLINES REF TO TOBACCO CESS PRGM [facility] [place] [facility] Mar 23, 2011 09:26 AM V1-PT DECLINES TOBACCO CESSATION MEDS [facility] [place] [facility] Mar 23, 2011 09:26 AM V1-PT THINKING ABOUT QUIT TOBACCO USE [facility] [place] [facility] July 29, 2010 07:59 AM CURRENT SMOKER 6 PPD [facility] [place] [facility] July 29, 2010 07:59 AM V1-PT DECLINES REF TO TOBACCO CESS PRGM [facility] [place] [facility] July 29, 2010 07:59 AM V1-PT DECLINES TOBACCO CESSATION MEDS [facility] [place] [facility] July 29, 2010 07:59 AM V1-PT THINKING ABOUT QUIT TOBACCO USE [facility] [place] [facility] Dec 03, 2009 09:31 AM V1-PT DECLINES REF TO TOBACCO CESS PRGM [facility] [place] [facility] Dec 03, 2009 09:31 AM V1-PT DECLINES TOBACCO CESSATION MEDS [facility] [place] [facility] Dec 03, 2009 09:31 AM V1-PT THINKING ABOUT QUIT TOBACCO USE [facility] [place] [facility] Jun 24, 2009 02:16 PM CURRENT SMOKER 1/2 ppd [facility] [place] [facility] Jun 24, 2009 02:16 PM V1-PT DECLINES REF TO TOBACCO CESS PRGM [facility] [place] [facility] Jun 24, 2009 02:16 PM V1-PT DECLINES TOBACCO CESSATION MEDS [facility] [place] [facility] Jun 24, 2009 02:16 PM V1-PT READY TO QUIT TOBACCO USE [facility] [place] [facility] May 14, 2008 09:58 AM CURRENT SMOKER 1/2 ppd [facility] [place] [facility] May 14, 2008 09:58 AM V1-PT DECLINES REF TO TOBACCO CESS PRGM [facility] [place] [facility] May 14, 2008 09:58 AM V1-PT DECLINES TOBACCO CESSATION MEDS [facility] [place] [facility] May 14, 2008 09:58 AM V1-PT THINKING ABOUT QUIT TOBACCO USE [facility] [place] [facility] Nov 07, 2007 12:03 PM V1-PT DECLINES REF TO TOBACCO CESS PRGM [facility] [place] [facility] Nov 07, 2007 12:03 PM V1-PT DECLINES TOBACCO CESSATION MEDS [facility] [place] [facility] Nov 07, 2007 12:03 PM V1-PT THINKING ABOUT QUIT TOBACCO USE [facility] [place] [facility] Feb 09, 2007 10:37 AM CURRENT SMOKER 1 ppd [facility] [place] [facility] Feb 09, 2007 10:37 AM V1-PT DECLINES REF TO TOBACCO CESS PRGM [facility] [place] [facility] Feb 09, 2007 10:37 AM V1-PT READY TO QUIT TOBACCO USE [facility] [place] [facility] May 31, 2006 10:07 AM V1-PT DECLINES REF TO TOBACCO CESS PRGM [facility] May 31, 2006 10:07 AM V1-PT READY TO QUIT TOBACCO [facility] July 13, 2005 08:13 AM CURRENT SMOKER 1/2 ppd [facility] Encounter Notes: All associated encounter notes This section contains the clinical notes associated to the Encounter. Date/Time Encounter Note(s) Provider Source Mar 05, 2024 01:45 PM PRIMARY CARE SECUR E MESSAGING: LOCAL TITLE: PRIMARY CARE SECURE MESSAGING STANDARD TITLE: PRIMARY CARE SECURE MESSAGING DATE OF NOTE: MAR 05, 2024@13:45 ENTRY DATE: MAR 05, 2024@13:45:02 AUTHOR: PAULINO SHORT EXP COSIGNER: URGENCY: STATUS: COMPLETED ------Original Message ------ Sent: 03/05/2024 10:51 AM ET From: CHELSIE WILDER To: Lele DHILLON _ PRIMARY CARE_[facility] Subject: General:Renew consult for [facility] Hematology at [facility] has been reaching out for approval. I have a appt today. Thanks Chelsie Wilder ------Original Message ------ Sent: 03/05/2024 01:44 PM ET From: PAULINO SHORT To: CHELSIE WILDER Subject: General:[facility] The consult was placed on February 05, I just reached out to [facility] to fax it over to the office. here is a copy Current PC Provider: HERI DHILLON Current PC Team: NO PACT 8 *WH* Current Pat. Status: Outpatient UCID: [id number] Primary Eligibility: [place] LESS THAN 50%(VERIFIED) Patient Type: [place] OEF/OIF: NO Service Connection/Rated Disabilities [place] Percent: 40% Rated Disabilities: BREAST, SURGERY OF (40%) SUPERFICIAL SCARS (10%) 2ND DEGREE DANGELO (0%) Order Information To Service: [facility]-HEMATOLOGY Attention: HERI DHILLON From Service: CWM/NO/PACT EIGHT Requesting Provider: HERI DHILLON Service is to be rendered on an OUTPATIENT basis Place: Retail Agent's choice Urgency: Routine Clinically Ind. Date: Feb 06, 2024 DST ID: Orderable Item: COMMUNITY CARE-HEMATOLOGY Consult: Consult Request Provisional Diagnosis: Personal History of Pulmonary Embolism(ICD-10-CM Z86.711) Reason For Request: Justification for Non [place] Care: Service Not Available Type of Service: Evaluation and Treatment Chief Complaint: She has known history of DVT/PE. Received a referral request from [facility] oncology/hematology tessa, quentin seen by Dr. Omega Foote on 11/18/23 and 12/02/23 for diagnosis: Hx of PE. with follow up schedule apt on 03/05/24. Clinically Indicated Date: Feb Number of Authorized Visits for Care: 12 Patient History / Clinical Findings / Diagnosis (Co-Morbidities): same as above Third Republican Liability: No [place] Provider Requesting Service: Dr. Heri Dhillon Provider team phone number : [phone] (Community Provider requires a direct line to reach the Provider team to discuss results.) Preferred community Provider for the is service: Provider name if not listed and requested: [facility] Oncology/Hematology [address] [place] [id number] Omega Foote Inter-facility Information This is not an inter-facility consult request. Status: ACTIVE Last Action: ADDED COMMENT Facility Activity Date/Time/Zone Responsible Person Entered By ---- CPRS RELEASED ORDER 02/06/24 14:57 HERI DHILLON AGNIESZKA RECEIVED 02/07/24 09:32 [facility] ADDED COMMENT 02/07/24 09:47 [facility] CCE-CC Eligibility Status: NO ELIGIBILITY FOUND RNO-Referral Number: [id number] RCT-Referral Coordination Drug And Alcohol Counselor [facility] User Role: BALDO COM-Additional Comments: VM left for Provider's Office with request for return call. Specifically, the request made by Author in the VM was for a return call clarifying whether or not [facility] was covered by her PHI for her [address] Foote this past November, and to confirm that the [facility] does still have an appointment scheduled with Dr. Foote for 03/05/24. COM ADDED COMMENT 03/05/24 13:43 PAULINO SHORT AGNIESZKA veteran with scheduled apt today, please fax the consult. Note: TIME ZONE is local if not indicated No local MANOJ results or Medicine results available for this consult END Happy New Year [facility] /es/ PAULINO SHORT LPN License Practical Nurse Signed: 03/05/2024 13:45 PAULINO SHORT [place] [facility]
--- OUTSIDE RECORDS SUMMARY | 2024-03-27 13:29 | XMS_ITS | Encounter Summary ---
Author Name [facility] [place] Address [address] [place] [address] Care Team Providers Care Tube Coater Name Role Phone HERI DHILLON Primary Care [...] PART B July 05, 2017 PART B [id number] [phone] [place] WILDER PATIENT MEDICARE (WNR) MEDICARE (M) PART A July 05, 2017 PART A [id number] [place] W[place] PATIENT MEDICARE (WNR) MEDICARE (M) PART A July 05, 2017 PART A [id number] [phone] [place] WILDER PATIENT MEDICARE (WNR) MEDICARE (M) PART B July 05, 2017 PART B [id number] [place] W[place] PATIENT MEDICARE (WNR) MEDICARE (M) PART A July 05, 2017 PART A [id number] [phone] [place] WILDER PATIENT MEDICARE (WNR) MEDICARE (M) PART B July 05, 2017 PART B [id number] [place] WILDER PATIENT Selected Encounter This section includes the information on record at [place] for the Encounter. Date/Time Encounter Type Encounter Description Reason Provider Source Feb 08, 2024 10:00 AM OFFICE O/P EST HI 40 MIN PRIMARY CARE/MEDICINE ICD-10-CM Z77.29 Contact with and exposure to other hazardous substances FURCOLO,HERI IHE Encounter Template Text not used by [place] Assessments - Encounter Diagnoses This section includes the primary and secondary diagnoses documented for the Encounter. Date/Time Primary/Secondary Diagnosis Diagnosis Name Provider Source Feb 08, 2024 01:46 PM PRIMARY Contact with and exposure to other hazardous substances FURCOLO,HERI [facility] [place] [facility] Feb 08, 2024 01:46 PM SECONDARY Age-related osteoporosis w/o current pathological fracture FURCOLO,HERI [facility] [place] [facility] Feb 08, 2024 01:46 PM SECONDARY Benign neoplasm of colon, unspecified FURCOLO,HERI [facility] [place] [facility] Feb 08, 2024 01:46 PM SECONDARY Chronic kidney disease, stage 3 unspecified FURCOLO,HERI [facility] [place] [facility] Feb 08, 2024 01:46 PM SECONDARY Chronic obstructive pulmonary disease, unspecified FURCOLO,HERI [facility] [place] [facility] Feb 08, 2024 01:46 PM SECONDARY Coagulation defect, unspecified FURCOLO,HERI [facility] [place] [facility] Feb 08, 2024 01:46 PM SECONDARY Essential (primary) hypertension FURCOLO,HERI [facility] [place] [facility] Feb 08, 2024 01:46 PM SECONDARY Hyperlipidemia, unspecified FURCOLO,HERI [facility] [place] [facility] Feb 08, 2024 01:46 PM SECONDARY Impaired fasting glucose FURCOLO,HERI [facility] [place] [facility] Feb 08, 2024 01:46 PM SECONDARY USP (current) use of anticoagulants FURCOLO,HERI [facility] [place] [facility] Feb 08, 2024 01:46 PM SECONDARY Nonrheumatic aortic (valve) stenosis HERI DHILLON [facility] [place] [facility] Feb 08, 2024 01:46 PM SECONDARY Other obesity due to excess calories HERI DHILLON [facility] [place] [facility] Feb 08, 2024 01:46 PM SECONDARY Personal history of malignant neoplasm of breast AGUSTINWVLOHERI [facility] [place] [facility] Feb 08, 2024 01:46 PM SECONDARY Personal history of nicotine dependence AGUSTINWVHERI PISANO [facility] [place] [facility] Feb 08, 2024 01:46 PM SECONDARY Personal history of pulmonary embolism HERI DHILLON [facility] [place] [facility] Feb 08, 2024 01:46 PM SECONDARY Solitary pulmonary nodule AGUSTINWVHERI PISANO [facility] [place] [facility] Plan of Treatment: Future Appointments (+ 6 months) and Future Tests (+/- 45 days) The Plan of Treatment section includes future care activities for the patient from all [facility]. This section includes future appointments and future orders which are active, pending or scheduled. Future Appointments This section includes appointments that were scheduled to occur 6 months from the date of the Encounter, up to a maximum of 20 appointments. The data comes from all [facility]. Appointment Date/Time Appointment Type Appointme nt Facility Name Mar 06, 2024 08:00 AM [place]ULATORY [place] [facility] [place] [facility] Aug 08, 2024 10:30 AM [facility] [place] [facility] Active, Pending, and Scheduled Orders This section includes a listing of several types of active, pending, and scheduled orders, including clinic medications orders, diagnostic test orders, procedure orders and consult orders; where the start date of the order is 45 days before the date of the Encounter or 45 days after the date of theEncounter. The data comes from all [facility]. Test Date/Time Test Type Test Details Facility Name Feb 06, 2024 02:57 PM Consult Order [facility]MATOLOGY Cons [facility] [place] [facility] Mar 06, 2024 09:13 AM Consult Order [facility] Cons [facility] Choice [facility] Mar 12, 2024 12:00 AM Laboratory - Chemi stry Order BASIC METABOLIC PANEL (fasting) BLOOD (SST-SERUM) [facility] Mar 12, 2024 12:00 AM Laboratory - Chemi stry Order LIPID PANEL FASTING BLOOD (SST-SERUM) [facility] Mar 12, 2024 12:00 AM Laboratory - Chemi stry Order TSH BLOOD (SST-SERUM) [facility] Lab Results: +/- 30 days of the encounter This section includes the Chemistry and Hematology Lab Results on record with [place] for the patient. Radiology Reports and Pathology Reports are provided separately, in subsequent sections. Lab Results This section contains the Chemistry/Hematology Results that were resulted 30 days before or 30 daysafter the date of the Encounter. Date/Time Source Result Type Result - Unit Interpretation Reference Range Comment Jan 30, 2024 09:30 AM [facility] TSH Specimen Type: SERUM No comment entered. Ordering Provider: HERI DHILLON Report Released Date/Time: Jan 25, 2024 01:14 PM Reporting Lab: [address] [address] Performing Lab: [address] [address] TSH 1.48 u[IU]/mL 0.35-5.00 Jan 30, 2024 09:30 AM [facility] LIPID PANEL FASTING Specimen Type: SERUM No comment entered. Ordering Provider: HERI DHILLON Report Released Date/Time: Jan 25, 2024 01:14 PM Reporting Lab: [facility] [address] [facility] [address] Performing Lab: [address] [address] CHOLESTEROL 225 mg/dL H TRIGLYCERIDE 190 mg/dL H 0-150 LDL calculated 141 mg/dL H 0-129 CHOL/HDL 4.9 HDL CHOLESTEROL 46 mg/dL 40-60 Jan 30, 2024 09:30 AM [facility] BASIC METABOLIC PANEL (fasting) Specimen Type: SERUM No comment entered. Ordering Provider: HERI DHILLON Report Released Date/Time: Jan 25, 2024 01:14 PM Reporting Lab: [facility] [address] [facility] [facility] [address] Performing Lab: [facility] [address] [facility] [address] UREA NITROGEN 19 mg/dL 7-25 GLUCOSE 98 mg/dL 65-100 SODIUM 140 mmol/L 135-145 POTASSIUM 4.4 mmol/L 3.5-5.0 CHLORIDE 111 mmol/L H 100-110 CO2 20 meq/L 20-30 CREATININE, Serum 1.16 mg/dL 0.50-1.40 eGFR(CKD-EPI 2020) 50 mL/min L >60 Vital Signs: All taken on the encounter date This section contains inpatient and outpatient Vital Signs collected on the date of the Encounter. Date/Time Temperature Pulse Blood Pressure Respiratory Rate SP02 Pain Height Weight Body Mass Index Source Feb 08, 2024 09:50 AM 97.3 74 138/79 20 98 4 64 215 37 [facility] Social History: Smoking Status (Most current) and Tobacco Use (All prior to encounter date) This section includes the most current, and the historical, smoking and tobacco- related health factors from the [place] facility where the Encounter took place. Current Smoking Status This section includes the most current smoking, or tobacco-related health factor, from the [place] facility where the Encounter took place. Date/Time Current Smoking Status Comment [facility] Sep 07, 2023 03:00 PM VA-TOBACCO USER EVERY DAY [facility] Tobacco Use History This section includes a history of the smoking, or tobacco-related health factors, that were collected on or before the date of the Encounter. The data comes from the [place] facility where the Encounter took place. 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 [facility] Sep 07, 2023 03:00 PM VA-TOBACCO USE MED NOTIFY PROVIDER utilizes patches, has cut down on amt of ciggarettes a day [facility] [place] [facility] Sep 07, 2023 03:00 PM VA-TOBACCO USE WI 30 MIN OF WAKEUP [facility] [place] [facility] Sep 07, 2023 03:00 PM VA-TOBACCO USER EVERY DAY [facility] [place] [facility] July 27, 2022 02:30 PM VA-TOBACCO DOESNT USE WI 30 MIN WAKEUP [facility] [place] [facility] July 27, 2022 02:30 PM VA-TOBACCO USE 30 YEARS OR MORE [facility] [place] [facility] July 27, 2022 02:30 PM VA-TOBACCO USE ADVICE [facility] [place] [facility] July 27, 2022 02:30 PM 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 [facility] [place] [facility] July 27, 2022 02:30 PM VA-TOBACCO USE MED NO [place] [facility] [place] [facility] July 27, 2022 02:30 PM VA-TOBACCO USER EVERY DAY [facility] [place] [facility] July 29, 2021 11:30 AM VA-TOBACCO DOESNT USE [place] 30 MIN WAKEUP [place] [facility] [place] [facility] July 29, 2021 11:30 AM VA-TOBACCO USE 30 YEARS OR MORE [facility] [place] [facility] July 29, 2021 11:30 AM VA-TOBACCO USE ADVICE [facility] [place] [facility] July 29, 2021 11:30 AM 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 USE 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 [facility] [place] [facility] July 29, 2021 11:30 AM VA-TOBACCO USE MED NOTIFY PROVIDER [facility] [place] [facility] July 29, 2021 11:30 AM VA-TOBACCO USER EVERY DAY [facility] [place] [facility] Jan 23, 2020 10:30 AM VA-TOBACCO USE 30 YEARS OR MORE [facility] [place] [facility] Jan 23, 2020 10:30 AM VA-TOBACCO USE ADVICE [facility] [place] [facility] Jan 23, 2020 10:30 AM 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 [facility] [place] [facility] Jan 23, 2020 10:30 AM VA-TOBACCO USE MED NO [facility] [place] [facility] Jan 23, 2020 10:30 AM VA-TOBACCO USE WI 30 MIN OF WAKEUP [facility] [place] [facility] Jan 23, 2020 10:30 AM VA-TOBACCO USER EVERY DAY [place] [facility] [place] [facility] July 10, 2018 11:18 AM VA-TOBACCO USE > 15 LESS THAN 30 YEARS [facility] [place] [facility] July 10, 2018 11:18 AM VA-TOBACCO USE ADVICE [facility] [place] [facility] July 10, 2018 11:18 AM 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 [facility] [place] [facility] July 10, 2018 11:18 AM VA-TOBACCO USE MED NO [facility] [place] [facility] July 10, 2018 11:18 AM VA-TOBACCO USE [place] 30 MIN OF WAKEUP [place] [facility] [place] [facility] July 10, 2018 11:18 AM VA-TOBACCO USER EVERY DAY [place] [facility] [place] [facility] Aug 23, 2017 10:34 AM CURRENT SMOKER [facility] [place] [facility] Aug 23, 2017 10:34 AM V1-PT DECLINES REF TO TOBACCO CESS PRGM [facility] [place] [facility] Aug 23, 2017 10:34 AM V1-PT DECLINES TOBACCO CESSATION MEDS [facility] [place] [facility] Aug 23, 2017 10:34 AM V1-PT THINKING ABOUT QUIT TOBACCO USE [facility] [place] [facility] Jan 18, 2017 10:30 AM CURRENT SMOKER [facility] [place] [facility] Jan 18, 2017 10:30 AM V1-PT NOT INTERESTED IN QUIT TOBACCO USE [facility] [place] [facility] Jan 18, 2017 10:23 AM CURRENT SMOKER [facility] [place] [facility] Jun 05, 2016 09:44 AM CURRENT SMOKER [facility] [place] [facility] Jun 05, 2016 09:44 AM V1-PT NOT INTERESTED IN QUIT TOBACCO USE [facility] [place] [facility] Apr 17, 2015 08:21 AM CURRENT SMOKER socially [facility] [place] [place] [facility] Apr 17, 2015 08:21 AM V1-PT DECLINES REF TO TOBACCO CESS PRGM [facility] [place] [place] [facility] Apr 17, 2015 08:21 AM V1-PT DECLINES TOBACCO CESSATION MEDS [facility] [place] [facility] Apr 17, 2015 08:21 AM V1-PT THINKING ABOUT QUIT TOBACCO USE [facility] [place] [place] [facility] Jan 21, 2014 10:25 AM CURRENT SMOKER a pack a day [facility] [place] [place] [facility] Jan 21, 2014 10:25 AM V1-PT DECLINES REF TO TOBACCO CESS PRGM [facility] Jan 21, 2014 10:25 AM V1-PT THINKING ABOUT QUIT TOBACCO USE [facility] [place] [place] [facility] Jan 21, 2014 10:25 AM V1-TOBACCO CESS MEDS NOT PRESCRIBED nicotine lozenges ordered [facility] [place] [facility] Jan 26, 2013 02:34 PM CURRENT SMOKER one pack a day [facility] [place] [facility] Jan 26, 2013 02:34 PM V1-PT DECLINES REF TO TOBACCO CESS PRGM [facility] Jan 26, 2013 02:34 PM V1-PT DECLINES TOBACCO CESSATION MEDS [facility] [place] [facility] Jan 26, 2013 02:34 PM V1-PT THINKING ABOUT QUIT TOBACCO USE [facility] [place] [facility] Jun 08, 2012 08:59 AM V1-PT DECLINES REF TO TOBACCO CESS PRGM [facility] [place] [facility] Jun 08, 2012 08:59 AM V1-PT DECLINES TOBACCO CESSATION MEDS [facility] [place] [facility] Jun 08, 2012 08:59 AM V1-PT NOT INTERESTED IN QUIT TOBACCO USE [facility] [place] [facility] Dec 08, 2011 09:32 AM CURRENT SMOKER half to whole pack a day [facility] [place] [facility] Dec 08, 2011 09:32 AM V1-PT DECLINES REF TO TOBACCO CESS PR[facility] Dec 08, 2011 09:32 AM V1-PT DECLINES TOBACCO CESSATION MEDS [facility] [place] [facility] Dec 08, 2011 09:32 AM V1-PT NOT INTERESTED IN QUIT TOBACCO USE [facility] [place] [facility] Mar 23, 2011 09:26 AM V1-PT DECLINES REF TO TOBACCO CESS PRGM [facility] [place] [facility] Mar 23, 2011 09:26 AM V1-PT DECLINES TOBACCO CESSATION MEDS [facility] [place] [facility] Mar 23, 2011 09:26 AM V1-PT THINKING ABOUT QUIT TOBACCO USE [facility] [place] [facility] July 29, 2010 07:59 AM CURRENT SMOKER 6 PPD [facility] [place] [facility] July 29, 2010 07:59 AM V1-PT DECLINES REF TO TOBACCO CESS PRGM [facility] [place] [facility] July 29, 2010 07:59 AM V1-PT DECLINES TOBACCO CESSATION MEDS [facility] [place] [facility] July 29, 2010 07:59 AM V1-PT THINKING ABOUT QUIT TOBACCO USE [facility] [place] [facility] Dec 03, 2009 09:31 AM V1-PT DECLINES REF TO TOBACCO CESS PRGM [facility] [place] [facility] Dec 03, 2009 09:31 AM V1-PT DECLINES TOBACCO CESSATION MEDS [facility] [place] [facility] Dec 03, 2009 09:31 AM V1-PT THINKING ABOUT QUIT TOBACCO USE [facility] [place] [facility] Jun 24, 2009 02:16 PM CURRENT SMOKER 1/2 ppd [facility] [place] [facility] Jun 24, 2009 02:16 PM V1-PT DECLINES REF TO TOBACCO CESS PRGM [facility] [place] [facility] Jun 24, 2009 02:16 PM V1-PT DECLINES TOBACCO CESSATION MEDS [facility] [place] [facility] Jun 24, 2009 02:16 PM V1-PT READY TO QUIT TOBACCO USE [facility] [place] [facility] May 14, 2008 09:58 AM CURRENT SMOKER 1/2 ppd [facility] [place] [facility] May 14, 2008 09:58 AM V1-PT DECLINES REF TO TOBACCO CESS PRGM [facility] [place] [facility] May 14, 2008 09:58 AM V1-PT DECLINES TOBACCO CESSATION MEDS [facility] May 14, 2008 09:58 AM V1-PT THINKING ABOUT QUIT [facility]ACCO [facility] Nov 07, 2007 12:03 PM V1-PT DECLINES REF TO TOBACCO CESS PR[facility] Nov 07, 2007 12:03 PM V1-PT DECLINES TOBACCO CESSATION MEDS [facility] Nov 07, 2007 12:03 PM V1-PT THINKING ABOUT QUIT TOBACCO USE [facility] Feb 09, 2007 10:37 AM CURRENT SMOKER 1 ppd [facility] Feb 09, 2007 10:37 AM V1-PT DECLINES REF TO TOBACCO CESS PR[facility] Feb 09, 2007 10:37 AM V1-PT READY TO QUIT TOBACCO USE [facility] May 31, 2006 10:07 AM V1-PT DECLINES REF TO TOBACCO CESS PRGM [facility] May 31, 2006 10:07 AM V1-PT READY TO QUIT TOBACCO USE [facility] July 13, 2005 08:13 AM CURRENT SMOKER 1/2 ppd [facility] Encounter Notes: All associated encounter notes This section contains the clinical notes associated to the Encounter. Date/Time Encounter Note(s) Provider Source Feb 08, 2024 10:27 AM PHYSICIAN NOTE: LOCAL TITLE: MD NOTE STANDARD TITLE: PHYSICIAN NOTE DATE OF NOTE: FEB 08, 2024@10:27 ENTRY DATE: FEB 08, 2024@10:27:23 AUTHOR: HERI DHILLON EXP COSIGNER: URGENCY: STATUS: COMPLETED JOSE WILDER is a 72 year old WHITE FEMALE who is being seen today in primary care for routine follow-up. plans for TAVR tomorrow- here with her son today. = CARE TEAM = Community Primary Care Provider: [facility]: gets all her care through the [facility]: previously saw [place] [facility] cardiology- Dr. Harris [facility] cardiology- Dr. Garay, TAVR specialist GI- Dr. Issa hematology- Dr. 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 repeat echo showed cirtical , plan for surgery. had cath and ESTHELA to eval for open heart vs. TAVR. plan is for TAVR- scheudled for tomorrow. had transitioned off coumadin after the GI bleed. has been holding for past 3 days for procedure. will be at [facility]. quit smoking this summer- no further nicotine patches either = RELEVANT PAST MEDICAL HISTORY = Active problems - Computerized Problem List is the source for the followin. Exposure to potentially hazardous substance Original MARINA Screening performed 02/02/22 2. Aortic Stenosis, Non-Rheumatic (SCT 412866915) echo 04/07/22- Ef 65%, moderate diastolic dysfcn, mild-mod Aortic stenosis, mild TR, no pulm htn plan for TAVR at [facility] 02/09/24- Dr. Garay 3. Solitary nodule of lung stable LDCT scans- every September, last 09/2023 4. Chronic kidney disease stage 3 5. Obesity 6. Impaired fasting glucose 7. Osteoporosis 8. 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 Adenomatous polyp of colon (SNOMED CT 337323831) tubular adenoma--repeat August 2016 10. Generalized Anxiety Disorder * 11. Hypercoagulability state (SNOMED CT 17317720) + factor V Leiden, + lupus anticoagulant 07/[address] Foote at [facility], currently on apixaban 12. Long-term current use of anticoagulant (SNOMED CT 139041481) GI bleed on coumadin- changed to apixaban 13. Pulmonary embolism (SNOMED CT 80950150) 07/2010 14. Gastroesophageal Reflux Disorder * 15. Chronic obstructive lung disease (SNOMED CT 89468076) quit smoking 09/2023 16. Hyperlipidemia (SNOMED CT 20431266) 17. Hypertension (SNOMED CT 46869462) 18. Former smoker quit 09/2023 = PAST SURGICAL HISTORY = plan for TAVR - 02/09/24 at [facility] Dr. Garay Right breast masectomy Hysteroscopy & D&C- due to ?cervical mass seen on PET scan (for lung nodule)- at [place]- was just a mucus plug = FAMILY HISTORY = Mother: pancreatic CA- 79 Father: CHF- 65 Siblings: 4 brothers oldest brother- leukemia, heart another brother HIV/AIDs = SOCIAL HISTORY = Background: born and raised in [place], [place]. and moved out here Sexual Orientation: heterosexual Marital Status: . 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 = ALLERGIES = LOVASTATIN TABLET 20MG, PRAVASTATIN, ATORVASTATIN = MEDICATIONS = Active and Recently Outpatient Medications (excluding Supplies): Active Outpatient Medications Status 1) ALBUTEROL 90MCG (CFC-F) 200D ORAL INHL INHALE 1 PUFF ACTIVE BY MOUTH FOUR TIMES DAILY NEEDED FOR EXERCISE-INDUCED BRONCHOSPASM 2) METOPROLOL TARTRATE 25MG TAB TAKE ONE-HALF TABLET BY ACTIVE MOUTH TWICE DAILY FOR BLOOD PRESSURE/HEART 3) OMEPRAZOLE 20MG EC CAP TAKE ONE CAPSULE BY MOUTH ACTIVE EVERY MORNING 30 MINUTES BEFORE BREAKFAST FOR STOMACH ACID 4) ROSUVASTATIN CA 20MG TAB TAKE ONE-HALF TABLET BY ACTIVE MOUTH ONCE DAILY FOR CHOLESTEROL TO REPLACE PRAVASTATIN 5) TIOTROPIUM 2.5MCG/ACTUAT 60D ORAL INHL INHALE 2 PUFFS ACTIVE BY MOUTH ONCE DAILY Active Non-VA Medications Status 1) Non-VA ACETAMINOPHEN 325MG TAB 325MG BY MOUTH ACTIVE NEEDED 2) Non-VA APIXABAN 5MG TAB 5MG BY MOUTH EVERY 12 HOURS ACTIVE 3) Non-VA MELATONIN CAP/TAB 3MG EVERY DAY NEEDED ACTIVE 8 Total Medications = REVIEW OF SYMPTOMS = POSITIVE FOR: none NEGATIVE FOR: CONSTITUTION: no weight loss/gain, fatigue, fevers, night sweats HEENT: no vision problems, hearing loss,swallowing difficulties, sinus pain CV: no chest pain, palpitations, dyspnea on exertion, orthopnea RESP: no cough, shortness of breath, wheezing BREAST: no breast pain, nipple discharge GI: no abdominal pain, N/V/D, constipation, blood in stool, normal appetite : no urinary frequency, nocturia, hematuria, vaginal discharge or bleeding MUSC: no joint pain, joint swelling, muscle aches NEURO: no headaches, dizziness, memory loss, tremor, weakness PSYCH: no depression, anxiety, suicidal or homicidal thoughts SKIN: no rash, new skin lesions = PHYSICAL EXAM = Vitals: - - - - - - - B/P: 138/79 (02/08/2024 09:50) pulse: 74 (02/08/2024 09:50) resp: 20 (02/08/2024 09:50) temp: 97.3 F [36.3 C] (02/08/2024 09:50) Ht: 64 in [162.6 cm] (02/08/2024 09:50) Wgt: 215 lb [97.52 kg] (02/08/2024 09:50) BMI: BMI: 37.0 Exam: - - - - - - - CHON LCTA bilat no LE edema = RECENT LABS = Collection DT Specimen Test Name Result Units Ref Range 01/30/2024 09:30 SERUM TSH 1.48 uIU/mL 0.35 - 5.00 01/30/2024 09:30 SERUM CREATININE, Serum 1.16 mg/dL 0.50 - 1.40 eGFR(CKD-EPI 2020 50 L mL/min Ref: >=60 SODIUM 140 mmol/L 135 - 145 POTASSIUM 4.4 mmol/L 3.5 - 5.0 CHLORIDE 111 H mmol/L 100 - 110 CO2 20 mEq/L 20 - 30 UREA NITROGEN 19 mg/dL 7 - 25 GLUCOSE 98 mg/dL 65 - 100 CHOLESTEROL 225 H mg/dL <7 - 199 TRIGLYCERIDE 190 H mg/dL 0 - 150 LDL calculated 141 H mg/dL 0 - 129 CHOL/HDL 4.9 HDL CHOLESTEROL 46 mg/dL 40 - 60 = ASSESSMENT AND PLAN = 1. HTN- good blood pressure control 2. Aortic stenosis- plan for TAVR with Dr. Garay on 02/09/24 3. COPD- uses spiriva and proair. quit smoking 09/2023 aftre demand ischemia with GI bleed. 4. RLL LUNG NODULE gets yearly LDCT scans in September, last 09/2023- stability 5. THYROID NODULE incidental thyroid nodule seen on Lung CT. at time of biopsy with u/s- it was a pseudonodule thought to be from underlying hashimotos. 6. former smoker- TOBACCO~ 45 pack year history. gets LDCT scans 7. BREAST CANCER- Stage 1A (T1c,N0,Mx) right invasive ductal carcinoma, ER positve, IN positive. s/p right simple mastectomy and sentinel lymph node biopsy (neg)08/16/13. Recurrence risk of 13% over 10 years if on tamoxifen for 5 years. No chemotherapy done and started letrozolole 10/24/13, stopped 06/2017 due to side effects. Seen by oncology 07/06/17 and risks vs. benefits of continued treatment with letrazole or tamoxifen discussed and she has decided to stay off of medication. Mammogram 09/06/19 BI-RADS 1, Density C at [facility] Last seen by oncology 07/25/2019 at [facility] and she elects to do no further treatment Most recent mammogram BI-RADS 1, Density B - repeat mammogram 09/26/2023 8. OSTEOPOROSIS on letrozole 10/2013-06/2016. DEXA 11/01/13 osteoperosis T score -3.2 at lumbar spine, declined Reclast and used alendronate intermitently [id number] DEXA 08/23/17 osteoporosis T score -3.3 at lumbar spine DEXA 10/08/19 osteporosis T-score of -3.0 in the lumbar spine and -2.7 at the hip. DEXA 12/09/21 osteporosis T-score of -3.0 in the lumbar spine and -2.7 at the hip. She declines use of bisphosphonate or IV treatment as she feels that she is doing better - Continue Vitamin D and alpha lipoic acid 9. CKD 3- printed trend of eGFR and creatinine for patient. decreased kidney function with breast ca treatments. 10. HYPERLIPIDEMIA Did not tolearate pravastatin at 40mg or lipitor or mevacor 02/20/21 TC247, TGs 139, HDL55, LDL 164 Now tolerating rosuvastatin. repeat lipids in 6 mo. 11. HYPERCOAGUABLE transitioned to apixaban 12. COLON TUBULAR ADENOMA - repeat colonosocpy five years (08/2021) given h/o tubular adenoma, recetn GI bleed at [facility] [place]- saw Dr. Issa = FOLLOW UP = 6 mo follow up visit type: a HIGH complexity visit where 60 minutes was spent in direct patient care, review of records and documentation. /ade/ HERI DHILLON D.O. PHYSICIAN Signed: 02/08/2024 13:47 ALEJOHERI [place] [facility] [place] [facility] Feb 06, 2024 02:43 PM ADMINISTRATIVE NOTE: LOCAL TITLE: FAX/MAIL RECEIVED STANDARD TITLE: ADMINISTRATIVE NOTE DATE OF NOTE: FEB 06, 2024@14:43 ENTRY DATE: FEB 06, 2024@14:43:18 AUTHOR: PAULINO SHORT EXP COSIGNER: URGENCY: STATUS: COMPLETED Document Received On: Feb Document Type: Office Visit Note Date of Service: Jan Facility and or Provider: [facility] [place] [facility] Contact Information: PCP of Record: AGUSTINDAVIDALIYAHERI Next visit with PCP: 02/08/2024 10:00 CWM/NO/PACT EIGHT Primary Care May keep copies of this document for up to 14 days and send the original for scanning. Details: Very pleasant 73-year-old female who is here for follow-up, She was seen in the hospital recently when she presented with chest discomfort and dynamic ECG changes. She was significantly anemic at that time and it was felt that the ECG changes are due to anemia but was also found to have murmur of aortic valve stenosis and echocardiography confirmed severe aortic valve stenosis, She underwent upper endoscopy which showed esophagitis but no obvious cause for bleeding was noted, Her Coumadin was stopped and she was started on Eliquis 5 mg twice a day. She has known history of factor 5 Leiden and had DVT/PE in 2010, She has done well since discharge. Denying any shortness of breath but has been fatigued. She also has a left-sided pressure-like feeling which she says is present all day and does not get worse with activity, I think this is likely related to esophagitis, She is here to discuss further about aortic valve replacement for severe aortic valve stenosis, She has not had any syncope. Her shortness of breath is stable and chronic. She is saying going upstairs she gets tired, 02/01/2024: She is here follow-up. Plan [age] female with known history of factor 5 Leiden and previous DVT on Eliquis 2.5 mg twice a day, She has severe aortic valve stenosis, We had heart team discussion for her and plan was initially to send her to operating room but when she came for surgery and underwent anesthesia there were some concern about dynamic LVOT obstruction, These images were reviewed later on the heart team meeting 2, It was felt that there is no dynamic LVOT obstruction but the surgery was already canceled. After discussion the patient was offered transcatheter aortic valve replacement as an alternative option and she is agreeable for that. She is in fact going for transcatheter aortic valve replacement next , She will hold Eliquis for 48 hours before procedure, Clinically stable currently, Not in heart failure, No angina I symptoms, She will see us back in few months. Thank you for allowing me to participate in the care of your patient, Please feel free to contact me if you have any questions. Diagnoses Aortic stenosis 135,0 Factor V Leiden D68, 51 DVT (deep venous thrombosis) 182,409 /ade/ PAULINO SHORT LPN License Practical Nurse Signed: 02/06/2024 14:45 Receipt Acknowledged By: 02/06/2024 14:56 /es/ HERI DHILLON D.O. PHYSICIAN [facility]
--- OUTSIDE RECORDS SUMMARY | 2024-03-27 13:30 | XMS_ITS | Continuity of Care Document ---
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 It does not include entries that were removed or entered in error. Problem Status Onset Date Problem Type Date of Resolution Comments Source Carcinoma of breast Active 014 Condition July 25, 2013 Entered By: VALERIE GUTIERREZ Comment: core biopsy 07/20/13 invasive ductal carcinoma R breastNov 2013 Entered By: VALERIE GUTIERREZ Comment: sentinal node negativeDec 2013 Entered By: VALERIE GUTIERREZ Comment: simple R mastectomy, adjuvant w letrozole [facility] [place] [facility] Adenomatous polyp of colon (SNOMED CT 175543864) Active 012 Condition Sep 02, 2011 Entered By: VALERIE GUTIERREZ Comment: tubular adenoma--repea t August 2016 [facility] [place] [facility] Abnormal findings on diagnostic imaging of lung Active Condition [facility] 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 Garay [facility] [place] [facility] Chronic kidney disease stage 3 Active Condition [facility] [place] [facility] Chronic obstructive lung disease (SNOMED CT 89808296) Active Condition Feb 08, 2024 Entered By: HERI DHILLON Comment: quit smoking 09/2023 [facility] [place] [facility] COPD Active Condition [facility] Exposure to potentially hazardous substance Active Condition Apr 21, 2023 Entered By: KRYSTYNA GAMA Comment: Original MARINA Screening performed 02/02/22 [facility] [place] [facility] Former smoker Active Condition Feb Entered By: HERI DHILLON Comment: quit 09/2023 [facility] [place] [facility] Gastroesophageal Reflux Disorder * (ICD-9-CM 530.81) Active Condition [facility] [place] [facility] Generalized Anxiety Disorder * (ICD-9-CM 300.02) Active Condition [facility] [place] [facility] History of pulmonary embolism on long-term anticoagulation therapy Active Condition [facility] Hypercoagulability state (SNOMED CT 19151028) Active Condition August 04, 2010 Entered By: VALERIE GUTIERREZ Comment: + factor V Leiden, + lupus anticoagulant 07/2010De2023 Entered By: HERI DHILLON Comment: sees Dr. Foote at [facility], currently on apixaban [facility] [place] [facility] Hyperlipidemia Active [facility] Hyperlipidemia (SNOMED CT 05201598) Active Condition [facility] [place] [facility] Hypertension Active Condition [facility] Hypertension (SNOMED CT 59555780) Active Condition [facility] [place] [facility] Impaired fasting glucose Active Condition [facility] [place] [facility] Long-term current use of anticoagulant (SNOMED CT 399899296) Active Condition Oct 17, 2023 Entered By: HERI DHILLON Comment: GI bleed on coumadin- changed to apixaban [facility] [place] [facility] Obesity Active Condition [facility] [place] [facility] Osteoporosis Active Condition [facility] Primary malignant neoplasm of female right breast (SNOMED CT 177794210672503) Active Condition [facility] Pulmonary embolism (SNOMED CT 43775548) Active Condition Oct 06, 2015 Entered By: JOHN SALGADO Comment: 07/2010 [facility] [place] [facility] Pulmonary embolism and infarction (ICD-9-CM 415.19) Active Condition [facility] Pulmonary Embolus Active Condition [facility] Solitary nodule of lung Active Condition Feb 08, 2024 Entered By: HERI DHILLON Comment: stable LDCT scans- every September, last 09/2023 [facility] Allergic rhinitis * (ICD-9-CM 477.9) Inactive Condition 02/07/2023 [facility] [place] [facility] H/O: anticoagulant therapy Inactive Condition 10/06/2015 [facility] [place] [facility] Impaired fasting glycaemia Inactive Condition 01/23/2018 [facility] [place] [facility] Microscopic Hematuria (ICD-9-CM 599.72) Inactive Condition 08/23/2017 [facility] [place] [facility] Obesity * (ICD-9-CM 278.00) Inactive Condition 12/03/2009 [facility] [place] [facility] Overweight * (ICD-9-CM 278.00) Inactive Condition 08/23/2017 [facility] Diagnosis: ICD-10-CM Z77.29 Contact with and exposure to other hazardous substances Active Diagnosis [facility] Diagnosis: ICD-10-CM I35.0 Nonrheumatic aortic (valve) stenosis Active Diagnosis [facility] Diagnosis: ICD-10-CM F17.218 Nicotine dependence, cigarettes, w oth disorders Active Diagnosis [facility] Diagnosis: ICD-10-CM Z12.2 Encntr screen for malignant neoplasm of respiratory organs Active Diagnosis [facility] Diagnosis: ICD-10-CM Z51.81 Encounter for therapeutic drug level monitoring Active Diagnosis [facility] Diagnosis: ICD-10-CM Z48.816 Encounter for surgical aftcr following surgery on the sys Active Diagnosis [facility] Diagnosis: ICD-10-CM Z98.890 Other specified postprocedural states Active Diagnosis [facility] Diagnosis: ICD-10-CM Z86.711 Personal history of pulmonary embolism Active Diagnosis [facility] Diagnosis: ICD-10-CM Z01.818 Encounter for other preprocedural examination Active Diagnosis [facility] Diagnosis: ICD-10-CM R93.89 Abnormal findings on dx imaging of oth body structures Active Diagnosis [facility] Diagnosis: ICD-10-CM G47.30 Sleep apnea, unspecified Active Diagnosis [facility] Diagnosis: ICD-10-CM Z13.6 Encounter for screening for cardiovascular disorders Active Diagnosis [facility] Diagnosis: ICD-10-CM C50.911 Malignant neoplasm of unsp site of right female breast Active Diagnosis [facility] Medications Combined list of outpatient medications from Department of Defense and Veterans Affairs facilities.Medications provided include 1) outpatient medications from the last 15 months, and 2) patient-reported medications. Medication Details Route Status Patient Instructions Prescription Expires Prescription Number Last Dispense Date Ordering Provider Order Date Order Qty Source ACETAMINOPH EN 325MG TAB TAKE ONE TABLET BY MOUTH NEEDED ORAL ACTIVE PRECIOUS MUNIZ O 2006 [facility] ALBUTEROL 90MCG/ACTUA T (CFC-F) INHL,ORAL,8 .5GM DOSE COUNTER INHALE 1 PUFF BY MOUTH FOUR TIMES DAILY NEEDED FOR EXERCISE -INDUCED BRONCHOS PASM RESPIR ATORY (INHAL ATION) ACTIVE 09/07/2024 [id number] FURCOLO,T TONIA 2023 1 [facility] APIXABAN 5MG TAB TAKE ONE TABLET BY MOUTH EVERY 12 HOURS ORAL ACTIVE Sreekanth ALFORD 2023 [facility] LOSARTAN 25MG TAB TAKE ONE TABLET BY MOUTH EVERY DAY FOR BLOOD PRESSURE /HEART ORAL DISCONT INUED BY PROVIDE R 02/08/2024 [id number] 4 FURCOLO,T TONIA 2022 90 [facility] LOSARTAN 25MG TAB TAKE ONE TABLET BY MOUTH EVERY DAY FOR BLOOD PRESSURE /HEART ORAL DISCONT INUED 05/13/2023 [id number] Kaitlyn SALGADO ICOLE 2022 90 [facility] MELATONIN CAP/TAB 3MG EVERY DAY NEEDED ACTIVE PRECIOUS MUNIZ O 2006 [facility] METOPROLOL TARTRATE 25MG TAB TAKE ONE-HALF TABLET BY MOUTH TWICE DAILY FOR BLOOD PRESSURE /HEART ORAL 02/22/2024 [id number] FURCOLO,T TONIA 2022 90 [facility] [place] [facility] NICOTINE 7MG/24HRS PATCH APPLY 1 PATCH TO SKIN ONCE DAILY (REMOVE OLD PATCH BEFORE APPLYING NEW PATCH) TRANSD ERMAL DISCONT INUED BY PROVIDE R 06/07/2024 [id number] FURCOLO,T TONIA 2023 28 [facility] NICOTINE 7MG/24HRS PATCH APPLY 1 PATCH TO SKIN ONCE DAILY (REMOVE OLD PATCH BEFORE APPLYING NEW PATCH) TRANSD ERMAL DISCONT INUED 07/28/2023 [id number] KIRCHEN,N ICOLE 2022 28 [facility] [place] [facility] OMEPRAZOLE 20MG CAP,EC TAKE ONE CAPSULE BY MOUTH EVERY MORNING 30 MINUTES BEFORE BREAKFAS T FOR STOMACH ACID ORAL ACTIVE 09/07/2024 [id number] 5 FURCOLO,T TONIA 2023 90 [facility] [place] [facility] OMEPRAZOLE 20MG CAP,EC TAKE ONE CAPSULE BY MOUTH EVERY MORNING 30 MINUTES BEFORE BREAKFAS T FOR STOMACH ACID ORAL DISCONT INUED 09/14/2023 [id number] 4 KIRCHEN,N ICOLE 2022 90 [facility] [place] [facility] ROSUVASTATI N CA 20MG TAB TAKE ONE-HALF TABLET BY MOUTH ONCE DAILY FOR CHOLESTE ROL TO REPLACE PRAVASTA TIN ORAL ACTIVE 09/07/2024 [id number] 4 FURCOLO,T TONIA 2023 45 [facility] [place] [facility] ROSUVASTATI N CA 20MG TAB TAKE ONE-HALF TABLET BY MOUTH ONCE DAILY FOR CHOLESTE ROL TO REPLACE PRAVASTA TIN ORAL DISCONT INUED 09/14/2023 [id number] 4 KIRCHEN,N ICOLE 2022 45 [facility] [place] [facility] TIOTROPIUM 2.5MCG/ACTU AT INHL,ORAL,6 0D,4GM INHALE 2 PUFFS BY MOUTH ONCE DAILY RESPIR ATORY (INHAL ATION) ACTIVE 09/07/2024 [id number] Lele DHILLON TONIA 2023 3 [facility] TIOTROPIUM 2.5MCG/ACTU AT INHL,ORAL,6 0D,4GM INHALE 2 PUFFS BY MOUTH ONCE DAILY RESPIR ATORY (INHAL ATION) DISCONT INUED 09/14/2023 [id number] Kaitlyn SALGADO ICOLE 2022 3 [facility] [place] [facility] WARFARIN NA ([place]) 5MG TAB TAKE DIRECTED BY MOUTH WITH DIRECTIO NS PROVIDED FROM YOUR DE PROVIDER TO PREVENT BLOOD CLOTS ([facility] -[phone] EXTENSIO N 2877) FOR THE PREVENTI ON OF BLOOD CLOTS ORAL DISCONT INUED BY PROVIDE R 10/23/2023 [id number] Sreekanth ALFORD 2023 65 [facility] WARFARIN NA ([place]) 5MG TAB TAKE DIRECTED BY MOUTH WITH DIRECTIO NS PROVIDED FROM YOUR DE PROVIDER ([facility] EXTENSIO N 2877) FOR THE PREVENTI ON OF BLOOD CLOTS ORAL DISCONT INUED BY PROVIDE R 06/22/2023 [id number] 4 Sreekanth ALFORD 2023 75 [facility] WARFARIN NA ([place]) 5MG TAB TAKE DIRECTED BY MOUTH WITH DIRECTIO NS PROVIDED FROM YOUR DE PROVIDER ([facility] EXTENSIO N 2877) FOR THE PREVENTI ON OF BLOOD CLOTS ORAL DISCONT INUED 03/20/2023 [id number] 3 SUSANA VILLALOBOS 2022 75 [facility] Allergies, Adverse Reactions, Alerts Combined list of allergies from Department of Defense and Veterans Affairs facilities. It does not include entries that were removed or entered in error. Substance Category Reaction Severity Reaction type Status Date Reported Comments Source ATORVASTATIN Propensity to adverse reactions to drug (finding) Muscle pain SEVERE active 3 [facility] [place] [facility] ATORVASTATIN Propensity to adverse reactions to drug (finding) active 4 [facility] LOVASTATIN Propensity to adverse reactions to drug (finding) active 4 [facility] LOVASTATIN TABLET 20MG Propensity to adverse reactions to drug (finding) active 3 [facility] [place] [facility] PERCOCET Propensity to adverse reactions to drug (finding) active 4 [facility] PRAVASTATIN Propensity to adverse reactions to drug (finding) Muscle pain active 1 [facility] PRAVASTATIN Propensity to adverse reactions to drug (finding) Nausea and vomiting active 1 [facility] PRAVASTATIN Propensity to adverse reactions to drug (finding) active 4 [facility] Immunizations Combined list of available immunizations from the Department of Defense and Veterans Affairs facilities. Immunization Series Date Given Administered By Site Reaction Lot Number CVX Code Drug Psychological Assistant Status Comments Source COVID-19 (MODERNA), MRNA, LNP-S, PF, 50 MCG/0.5 ML (AGES 12+ YEARS) 4 2022 NICOLASA WILLSON LEFT DELTO ID [id number] 312 complet ed [facility] [place] [facility] INFLUENZA, HIGH-DOSE, QUADRIVALENT 2022 NICOLASA WILLSON LEFT DELTO ID [id number] 197 complet ed [facility] [place] [facility] TD (ADULT), 2 LF TETANUS TOXOID, PRESERVATIVE FREE, ADSORBED 2021 VERONICA MERCADO L LEFT DELTO ID [id number] 09 complet ed [facility] [place] [facility] INFLUENZA, INJECTABLE, QUADRIVALENT, PRESERVATIVE FREE 2021 VERONICA MERCADO L LEFT DELTO ID [id number] 150 complet ed [facility] [place] [facility] COVID-19 (MODERNA), MRNA, LNP-S, PF, 100 MCG/0.5 ML DOSE 3 2020 207 complet ed MOD [id number] 01/17/21 @ 1915 [facility] [place] [facility] ZOSTER RECOMBINANT 2 2020 187 complet ed [facility] [place] COVID-19 (MODERNA), MRNA, LNP-S, PF, 100 MCG/0.5 ML DOSE 2 2020 207 complet ed MOD; [id number]; I[facility] COVID-19 (MODERNA), MRNA, LNP-S, PF, 100 MCG/0.5 ML DOSE 1 2020 207 complet ed MOD; [id number]; 1 [facility] INFLUENZA, INJECTABLE, QUADRIVALENT, PRESERVATIVE FREE 2019 150 complet ed [facility] [place] ZOSTER RECOMBINANT 1 2019 187 complet ed [facility] [place] PNEUMOCOCCAL POLYSACCHARID E PPV23 2018 33 complet ed [facility] [place] INFLUENZA, INJECTABLE, QUADRIVALENT 2017 158 complet ed Site: Right Deltoid [facility] [place] [facility] PNEUMOCOCCAL CONJUGATE PCV 13 2017 133 complet ed [facility] [place] INFLUENZA, SEASONAL, INJECTABLE 2016 141 complet ed Site: Right Deltoid [facility] [place] ZOSTER (SHINGLES) (HISTORICAL) 2013 121 complet ed Proximal Left Arm [facility] [place] PNEUMOCOCCAL, UNSPECIFIED FORMULATION 2012 109 complet ed [facility] [place] DTAP, UNSPECIFIED FORMULATION 2011 107 complet ed Site: Right Deltoid [facility] [place] FLU,3 YRS (HISTORICAL) 2005 88 complet ed Site: Right Deltoid [facility] [place] [facility] PNEUMOCOCCAL, UNSPECIFIED FORMULATION 2005 109 complet ed Site: Left Deltoid [facility] [place] [facility] Results Combined list of recent chemistry, hematology and other laboratory results from Department of Defense and Veterans Affairs, ranging from 15 months to all on record, depending upon the facility. Order Name Results Value Reference Range Date Interpretation Specimen Comments Source BASIC METABOLIC PANEL (fasting) UREA NITROGEN [MASS/VOLUM E] IN SERUM OR PLASMA 19 mg/dL 7 - 25 01/29 Specimen Type: SERUM No comment entered. Ordering Provider: AHMET DHILLON Report Released Date/Time: Jan 25, 2024 01:14 PM Reporting Lab[facility] [address] [facility] [address] Performing Lab: [facility] [address] [address] [facility] BASIC METABOLIC PANEL (fasting) GLUCOSE [MASS/VOLUM E] IN SERUM OR PLASMA 98 mg/dL 65 - 100 01/29 Specimen Type: SERUM No comment entered. Ordering Provider: AHMET DHILLON Report Released Date/Time: Jan 25, 2024 01:14 PM Reporting Lab: [facility] [address] [address] Performing Lab: [facility] [address] [address] [facility] BASIC METABOLIC PANEL (fasting) SODIUM [MOLES/VOLU ME] IN SERUM OR PLASMA 140 mmol/L 135 - 145 01/29 Specimen Type: SERUM No comment entered. Ordering Provider: AHMET DHILLON Report Released Date/Time: Jan 25, 2024 01:14 PM Reporting Lab: [facility] [address] [address] Performing Lab: [facility] [address] [address] [facility] BASIC METABOLIC PANEL (fasting) POTASSIUM [MOLES/VOLU ME] IN SERUM OR PLASMA 4.4 mmol/L 3.5 - 5.0 01/29 Specimen Type: SERUM No comment entered. Ordering Provider: AHMET DHILLON Report Released Date/Time: Jan 25, 2024 01:14 PM Reporting Lab: [facility] [address] [address] Performing Lab: [facility] [address] [address] [facility] BASIC METABOLIC PANEL (fasting) CHLORIDE [MOLES/VOLU ME] IN SERUM OR PLASMA 111 mmol/L 100 - 110 01/29 H Specimen Type: SERUM No comment entered. Ordering Provider: AHMET DHILLON Report Released Date/Time: Jan 25, 2024 01:14 PM Reporting Lab: [facility] [address] Performing Lab: [facility] [address] [facility] BASIC METABOLIC PANEL (fasting) CARBON DIOXIDE, TOTAL [MOLES/VOLU ME] IN SERUM OR PLASMA 20 meq/L 20 - 30 01/29 Specimen Type: SERUM No comment entered. Ordering Provider: AHMET DHILLON Report Released Date/Time: Jan 25, 2024 01:14 PM Reporting Lab: [facility] [address] Performing Lab: [facility] [address] [facility] BASIC METABOLIC PANEL (fasting) CREATININE [MASS/VOLUM E] IN SERUM OR PLASMA 1.16 mg/dL 0.50 - 1.40 01/29 Specimen Type: SERUM No comment entered. Ordering Provider: AHMET DHILLON Report Released Date/Time: Jan 25, 2024 01:14 PM Reporting Lab: [facility] [address] [address] Performing Lab: [facility] [address] [facility] BASIC METABOLIC PANEL (fasting) GLOMERULAR FILTRATION RATE/1.73 SQ M.PREDICTED [VOLUME RATE/AREA] IN SERUM, PLASMA OR BLOOD BY CREATININE- BASED FORMULA (CKD-EPI 2020) 50 mL/min 60 01/29 L Specimen Type: SERUM No comment entered. Ordering Provider: AHMET DHILLON Report Released Date/Time: Jan 25, 2024 01:14 PM Reporting Lab: [facility] [place] [facility] [address] [facility] [address] Performing Lab: [facility] [place] [facility] [address] [facility] [address] [facility] [place] [facility] LIPID PANEL FASTING CHOLESTEROL [MASS/VOLUM E] IN SERUM OR PLASMA 225 mg/dL 01/29 H Specimen Type: SERUM No comment entered. Ordering Provider: AHMET DHILLON Report Released Date/Time: Jan 25, 2024 01:14 PM Reporting Lab: [facility] [place] [facility] [address] [facility] [address] Performing Lab: [facility]N [facility]ENTER[facility]ETS [address] [address] [facility] LIPID PANEL FASTING TRIGLYCERID E [MASS/VOLUM E] IN SERUM OR PLASMA 190 mg/dL 0 - 150 01/29 H Specimen Type: SERUM No comment entered. Ordering Provider: AHMET DHILLON Report Released Date/Time: Jan 25, 2024 01:14 PM Reporting Lab: [facility] [place] [address] [address] Performing Lab: [facility] TRN [facility]ENTER[facility] [address] [facility]N [facility] LIPID PANEL FASTING CHOLESTEROL IN LDL [MASS/VOLUM E] IN SERUM OR PLASMA BY CALCULATION 141 mg/dL 0 - 129 01/29 H Specimen Type: SERUM No comment entered. Ordering Provider: AHMET DHILLON Report Released Date/Time: Jan 25, 2024 01:14 PM Reporting Lab: [facility] [place] [address] [address] Performing Lab: [facility] W[facility]N [facility]ENTER[facility]ETS [address] [address] [facility]RR[facility]ITALN [facility] LIPID PANEL FASTING CHOLESTEROL .TOTAL/CHOL ESTEROL IN HDL [MASS RATIO] IN SERUM OR PLASMA 4.9 01/29 Specimen Type: SERUM No comment entered. Ordering Provider: AHMET DHILLON Report Released Date/Time: Jan 25, 2024 01:14 PM Reporting Lab: [facility] [place] [facility] [address] [facility] [address] Performing Lab: [facility] [place] [facility] [address] [facility] [address] [facility] [place] [facility] LIPID PANEL FASTING CHOLESTEROL IN HDL [MASS/VOLUM E] IN SERUM OR PLASMA 46 mg/dL 40 - 60 01/29 Specimen Type: SERUM No comment entered. Ordering Provider: AHMET DHILLON Report Released Date/Time: Jan 25, 2024 01:14 PM Reporting Lab: [facility] [place] [address] [address] Performing Lab: [facility] [place] [address] [address] [facility] [place] [facility] TSH THYROTROPIN [UNITS/VOLU ME] IN SERUM OR PLASMA 1.48 u[IU]/ mL 0.35 - 5.00 01/29 Specimen Type: SERUM No comment entered. Ordering Provider: AHMET DHILLON Report Released Date/Time: Jan 25, 2024 01:14 PM Reporting Lab: [facility] [place] [address] [address] Performing Lab: [facility] [place] [address] [address] [facility] [place] [facility] PT & INR (COUMADIN ) INR IN PLATELET POOR PLASMA BY COAGULATION ASSAY 2.5 09/04 Specimen Type: PLASMA No comment entered. Ordering Provider: AAKASH ALFORD Report Released Date/Time: July 25, 2023 12:38 PM Reporting Lab: [facility] [place] [address] [address] Performing Lab: [facility] [place] [address] [address] [facility] [place] [facility] PT & INR (COUMADIN ) PROTHROMBIN TIME (PT) 27.3 s 10.0 - 13.1 09/04 H Specimen Type: PLASMA No comment entered. Ordering Provider: AAKASH ALFORD Report Released Date/Time: July 25, 2023 12:38 PM Reporting Lab: [facility] [place] [facility] [address] [facility] [address] Performing Lab: [facility] [place] [facility] [address] [facility] [address] [facility] [place] [facility] PT & INR (COUMADIN ) INR IN PLATELET POOR PLASMA BY COAGULATION ASSAY 2.2 07/24 Specimen Type: PLASMA No comment entered. Ordering Provider: EZEQUIEL ROBLES Report Released Date/Time: Jun 13, 2023 01:37 PM Reporting Lab: [facility] [place] [facility] [address] [facility] [address] Performing Lab: [facility] [place] [place] [facility] [address] [facility] [address] [facility] [facility] PT & INR (COUMADIN ) PROTHROMBIN TIME (PT) 24.4 s 10.0 - 13.1 07/24 H Specimen Type: PLASMA No comment entered. Ordering Provider: EZEQUIEL ROBLES Report Released Date/Time: Jun 13, 2023 01:37 PM Reporting Lab: [facility] [facility] [address] [facility] [address] Performing Lab: [facility] [place] [address] [address] [facility] BASIC METABOLIC PANEL (fasting) UREA NITROGEN [MASS/VOLUM E] IN SERUM OR PLASMA 22 mg/dL 7 - 25 07/24 Specimen Type: SERUM No comment entered. Ordering Provider: AHMET DHILLON Report Released Date/Time: Feb 07, 2023 11:58 AM Reporting Lab: [facility] [place] [facility] [address] [facility] [address] Performing Lab: [facility] [place] [address] [address] [facility] BASIC METABOLIC PANEL (fasting) GLUCOSE [MASS/VOLUM E] IN SERUM OR PLASMA 134 mg/dL 65 - 100 07/24 H Specimen Type: SERUM No comment entered. Ordering Provider: AHMET DHILLON Report Released Date/Time: Feb 07, 2023 11:58 AM Reporting Lab: [facility] [place] [facility] [address] [facility] [address] Performing Lab: [facility] [place] [facility] [address] [facility] [address] [facility] [place] [facility] BASIC METABOLIC PANEL (fasting) SODIUM [MOLES/VOLU ME] IN SERUM OR PLASMA 137 mmol/L 135 - 145 07/24 Specimen Type: SERUM No comment entered. Ordering Provider: AHMET DHILLON Report Released Date/Time: Feb 07, 2023 11:58 AM Reporting Lab: [facility] [place] [facility] [address] [facility] [address] Performing Lab: [facility] [place] [address] [address] [facility] [place] [facility] BASIC METABOLIC PANEL (fasting) POTASSIUM [MOLES/VOLU ME] IN SERUM OR PLASMA 4.2 mmol/L 3.5 - 5.0 07/24 Specimen Type: SERUM No comment entered. Ordering Provider: AHMET DHILLON Report Released Date/Time: Feb 07, 2023 11:58 AM Reporting Lab: [facility] [place] [facility] [address] [facility] [address] Performing Lab: [facility] [place] [facility] [address] [facility] [address] [facility] [place] [facility] BASIC METABOLIC PANEL (fasting) CHLORIDE [MOLES/VOLU ME] IN SERUM OR PLASMA 107 mmol/L 100 - 110 07/24 Specimen Type: SERUM No comment entered. Ordering Provider: AHMET DHILLON Report Released Date/Time: Feb 07, 2023 11:58 AM Reporting Lab: [facility] [place] [facility] [address] [facility] [address] Performing Lab: [facility] [place] [address] [address] [facility] [place] [facility] BASIC METABOLIC PANEL (fasting) CARBON DIOXIDE, TOTAL [MOLES/VOLU ME] IN SERUM OR PLASMA 21 meq/L 20 - 30 07/24 Specimen Type: SERUM No comment entered. Ordering Provider: AHMET DHILLON Report Released Date/Time: Feb 07, 2023 11:58 AM Reporting Lab: [facility] [address] [address] Performing Lab: [facility] [address] [address] [facility] BASIC METABOLIC PANEL (fasting) CREATININE [MASS/VOLUM E] IN SERUM OR PLASMA 1.23 mg/dL 0.50 - 1.40 07/24 Specimen Type: SERUM No comment entered. Ordering Provider: AHMET DHILLON Report Released Date/Time: Feb 07, 2023 11:58 AM Reporting Lab: [facility] [address] [address] Performing Lab: [facility] [address] [address] [facility] BASIC METABOLIC PANEL (fasting) GLOMERULAR FILTRATION RATE/1.73 SQ M.PREDICTED [VOLUME RATE/AREA] IN SERUM, PLASMA OR BLOOD BY CREATININE- BASED FORMULA (CKD-EPI 2020) 47 mL/min 60 07/24 L Specimen Type: SERUM No comment entered. Ordering Provider: AHMET DHILLON Report Released Date/Time: Feb 07, 2023 11:58 AM Reporting Lab: [facility] [address] Performing Lab: [facility] [address] [facility] LIPID PANEL FASTING CHOLESTEROL [MASS/VOLUM E] IN SERUM OR PLASMA 209 mg/dL 07/24 H Specimen Type: SERUM No comment entered. Ordering Provider: AHMET DHILLON Report Released Date/Time: Feb 07, 2023 11:58 AM Reporting Lab: [facility] [address] [address] Performing Lab: [facility] [place] [facility] [address] [facility] [address] [facility] LIPID PANEL FASTING TRIGLYCERID E [MASS/VOLUM E] IN SERUM OR PLASMA 175 mg/dL 0 - 150 07/24 H Specimen Type: SERUM No comment entered. Ordering Provider: AHMET DHILLON Report Released Date/Time: Feb 07, 2023 11:58 AM Reporting Lab: [facility] [place] [facility] [address] [facility] [address] Performing Lab: [facility]ENTER[facility]ETS [address] [address] [facility] LIPID PANEL FASTING CHOLESTEROL IN LDL [MASS/VOLUM E] IN SERUM OR PLASMA BY CALCULATION 130 mg/dL 0 - 129 07/24 H Specimen Type: SERUM No comment entered. Ordering Provider: AHMET DHILLON Report Released Date/Time: Feb 07, 2023 11:58 AM Reporting Lab: [facility] [place] [facility] [address] [facility] [address] Performing Lab: [facility]ETS [address] [address] [facility] TRN [facility] LIPID PANEL FASTING CHOLESTEROL .TOTAL/CHOL ESTEROL IN HDL [MASS RATIO] IN SERUM OR PLASMA 4.8 07/24 Specimen Type: SERUM No comment entered. Ordering Provider: AHMET DHILLON Report Released Date/Time: Feb 07, 2023 11:58 AM Reporting Lab: [facility] [place] [address] [address] Performing Lab: [facility] [address] [address] [facility] TRN [facility] LIPID PANEL FASTING CHOLESTEROL IN HDL [MASS/VOLUM E] IN SERUM OR PLASMA 44 mg/dL 40 - 60 07/24 Specimen Type: SERUM No comment entered. Ordering Provider: AHMET DHILLON Report Released Date/Time: Feb 07, 2023 11:58 AM Reporting Lab: [facility] [place] [place] [address] Performing Lab: [facility] [place] [facility] [address] [facility] [address] [facility] [place] [facility] TSH THYROTROPIN [UNITS/VOLU ME] IN SERUM OR PLASMA 2.02 u[IU]/ mL 0.35 - 5.00 07/24 Specimen Type: SERUM No comment entered. Ordering Provider: AHMET DHILLON Report Released Date/Time: Feb 07, 2023 11:58 AM Reporting Lab: [facility] [place] [facility] [address] [facility] [address] Performing Lab: [facility] [place] [address] [address] [facility] [place] [facility] PT & INR (COUMADIN ) INR IN PLATELET POOR PLASMA BY COAGULATION ASSAY 2.8 06/12 Specimen Type: PLASMA No comment entered. Ordering Provider: AUGUSTA WHITE Report Released Date/Time: May 02, 2023 03:01 PM Reporting Lab: [facility] [place] [facility] [address] [facility] [address] Performing Lab: [facility] [place] [address] [address] [facility] [place] [facility] PT & INR (COUMADIN ) PROTHROMBIN TIME (PT) 30.5 s 10.0 - 13.1 06/12 H Specimen Type: PLASMA No comment entered. Ordering Provider: AUGUSTA WHITE Report Released Date/Time: May 02, 2023 03:01 PM Reporting Lab: [facility] [place] [facility] [address] [facility] [address] Performing Lab: [facility] [place] [address] [address] [facility] [place] [facility] PT & INR (COUMADIN ) INR IN PLATELET POOR PLASMA BY COAGULATION ASSAY 2.4 05/02 Specimen Type: PLASMA No comment entered. Ordering Provider: AAKASH ALFORD Report Released Date/Time: Mar 24, 2023 01:44 PM Reporting Lab: [facility] [place] [facility] [address] [facility] [address] Performing Lab: [facility] [place] [facility] [address] [facility] [address] [facility] [place] [facility] PT & INR (COUMADIN ) PROTHROMBIN TIME (PT) 25.8 s 10.0 - 13.1 05/02 H Specimen Type: PLASMA No comment entered. Ordering Provider: AAKASH ALFORD Report Released Date/Time: Mar 24, 2023 01:44 PM Reporting Lab: [facility] [place] [facility] [address] [facility] [address] Performing Lab: [facility] [place] [facility] [address] [facility] [address] [facility] [place] [facility] Vital Signs Combined list of inpatient and outpatient Vital Signs from Department of Defense and Veterans Affairs, ranging from 12 months to all on record, depending upon the facility. Vital Sign Value Date Comments Source SYSTOLIC BLOOD PRESSURE 138 02/08/20 24 09:50:05 [facility] [place] [facility] DIASTOLIC BLOOD PRESSURE 79 024 09:50:05 [facility] [place] [facility] PULSE OXIMETRY 98 02/08/2024 09:50:05 [facility] [place] [facility] WEIGHT 215 02/08/2024 09:50:05 [facility] [place] [facility] BMI 37kg/m2 02/08/2024 09:50:05 [facility] [place] [facility] PAIN 4 02/08/2024 09:50:05 [facility] [place] [facility] HEIGHT 64 02/08/2024 09:50:05 [facility] [place] [facility] TEMPERATURE 97.3 02/08/2024 09:50:05 [facility] [place] [facility] PULSE 74 02/08/2024 09:50:05 [facility] [place] [facility] RESPIRATION 20 02/08/2024 09:50:05 [facility] [place] [facility] SYSTOLIC BLOOD PRESSURE 134 07/03/20 24 15:01:44 [facility] [place] [facility] DIASTOLIC BLOOD PRESSURE 79 024 15:01:44 [facility] [place] [facility] PULSE OXIMETRY 97 09/07/2023 15:01:44 [facility] [place] [facility] WEIGHT 215 09/07/2023 15:01:44 [facility] [place] [facility] BMI 37kg/m2 09/07/2023 15:01:44 [facility] [place] [facility] PAIN 2 09/07/2023 15:01:44 [facility] [place] [facility] TEMPERATURE 97.9 09/07/2023 15:01:44 [facility] [place] [facility] PULSE 69 09/07/2023 15:01:44 [facility] [place] [facility] RESPIRATION 16 09/07/2023 15:01:44 [facility] [place] [facility] Encounters Combined list of: 1) Encounters from Department of Veterans Affairs facilities going back up to thelast 18 months. 2) Encounters from the Department of Defense facilities going back up to 280 months. Location Location Details Encounter Type Encounter Number Reason For Visit Attending Provider ADM Date DC Date Status Disposition Source [facility] Outpatient Encounter [id number] Diagnos is: ICD-10- CM R93.89 Abnorma l finding s on dx imaging of oth body structu res<br/ > STARLA PÉREZ NP 10/05 [facility] [place] [facility] PRO PHONE CALL 5-10 MIN [id number] Diagnos is: ICD-10- CM Z51.81 Encount er for therape utic drug level monitor ing<br/ > Jerilyn ROBLES 10/15 [place] [facility] [place] [facility] Outpatient Encounter [id number] LUIS RAND MD 10/15 [facility] [place] [facility] Outpatient Encounter [id number] 10/18 [facility] [place] [facility] Outpatient Encounter [id number] 11/15 [facility] Outpatient Encounter [id number] 11/16 [facility] Outpatient Encounter [id number] Diagnos is: ICD-10- CM R93.89 Abnorma l finding s on dx imaging of oth body structu res<br/ > STARLA PÉREZ ALLIED HEALTH TEACHER 11/17 [facility] [place] [facility] Outpatient Encounter [id number] IRWIN CHILDRESS 11/18 [place] [facility] [place] [facility] OFFICE O/P NEW [place] 60-74 MIN [id number] Diagnos is: ICD-10- CM C50.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
STARLA PÉREZ ALLIED HEALTH TEACHER 11/22 [facility] [place] [facility] Outpatient Encounter [id number] 11/23 [facility] [place] [facility] Outpatient Encounter [id number] Diagnos is: ICD-10- CM Z01.818 Encount er for other preproc edural examina tion
Jerilyn DOBSON MD 11/23 [facility] [place] [facility] PRO PHONE CALL 5-10 MIN [id number] Diagnos is: ICD-10- CM Z51.81 Encount er for therape utic drug level monitor ing<br/ > Jerilyn ROBLES 11[facility]25 [facility] [place] [facility] ELECTROCAR DIOGRAM REPORT [id number] Diagnos is: ICD-10- CM Z13.6 Encount er for screeni ng for cardiov ascular disorde rs
CHIKIS EWING J 11/26 [facility] [place] [facility] ELECTROCAR DIOGRAM TRACING [id number] Diagnos is: ICD-10- CM Z01.818 Encount er for other preproc edural examina tion
LIUANNE ROSE 11/26 [facility] [place] [facility] Outpatient Encounter [id number] 11/29 [facility] Outpatient Encounter [id number] Diagnos is: ICD-10- CM Z01.818 Encount er for other preproc edural examina tion
YAQUELIN ONEAL 11/29 [facility] Outpatient Encounter [id number] 11/29 [facility] Outpatient Encounter [id number] Diagnos is: ICD-10- CM G47.30 Sleep apnea, unspeci fied
DARLENE TANNER MD 11/29 [facility] Outpatient Encounter [id number] 11/29 [facility] Outpatient Encounter [id number] 12/01 [facility] Outpatient Encounter [id number] Diagnos is: ICD-10- CM R93.89 Abnorma l finding s on dx imaging of oth body structu res<br/ > LUIS RAND MD 12/02 [facility] HYSTEROSCO PY REMOVE MYOMA [id number] WILNER BOCANEGRA 12/02 [facility] OFF/OP EST MAY X REQ PHY/QHP [id number] Diagnos is: ICD-10- CM Z01.818 Encount er for other preproc edural examina tion
DAVID MARRERO RN 12/02 [facility] Outpatient Encounter [id number] ROXANE CHRISTIANSON 12/02 [facility] Outpatient Encounter [id number] 12/02 [facility] POSTOP FOLLOW-UP VISIT [id number] Diagnos is: ICD-10- CM Z86.711 Persona l history of pulmona ry embolis m
Dylan OLIVER 12/02 [facility] PRO PHONE CALL 5-10 MIN [id number] Diagnos is: ICD-10- CM Z98.890 Other specifi ed postpro cedural states< br/> SAIGE RAE RN 12/03 [facility] Outpatient Encounter [id number] REAL BEAN 12/07 [facility] Outpatient Encounter [id number] 12/07 [facility] [place] [facility] PRO PHONE CALL 5-10 MIN [id number] Diagnos is: ICD-10- CM Z51.81 Encount er for therape utic drug level monitor ing<br/ > PRASANTH VILLALOBOS 12/20 [facility] [place] [place] [facility] Outpatient Encounter [id number] Diagnos is: ICD-10- CM Z48.816 Encount er for surgica l aftcr followi ng surgery on the sys<br/ > STARLA PÉREZ NP 12/24 [facility] [place] [facility] Outpatient Encounter [id number] 12/27 [facility] [place] [facility] PRO PHONE CALL 5-10 MIN [id number] Diagnos is: ICD-10- CM Z51.81 Encount er for therape utic drug level monitor ing<br/ > TANK ALFORD 01/17 [facility] [place] [place] [facility] Outpatient Encounter [id number] 01/18 [facility] [place] [facility] [place] [place] [facility] Outpatient Encounter [id number] 02/07 [facility] [place] [facility] [place] [facility] OFFICE O/P EST MOD 30-39 MIN [id number] Diagnos is: ICD-10- CM I35.0 Nonrheu matic aortic (valve) stenosi s
CHUYITA DHILLON NA 02/07 [facility] [place] [place] [facility] [place] [facility] Outpatient Encounter [id number] CHUYITA OLSON MOTHY E 02/12 [facility] [place] [place] [facility] [place] [facility] Outpatient Encounter [id number] 02/21 [facility] [place] [facility] [place] [facility] PRO PHONE CALL 5-10 MIN [id number] Diagnos is: ICD-10- CM Z51.81 Encount er for therape utic drug level monitor ing<br/ > PRASANTH VILLALOBOS 02/21 [facility] [place] [facility] [facility] MTMS BY PHARM EST 15 MIN [id number] Diagnos is: ICD-10- CM Z51.81 Encount er for therape utic drug level monitor ing<br/ > TANK ALFORD 03/24 [facility] [place] [facility] MTMS BY PHARM EST 15 MIN [id number] Diagnos is: ICD-10- CM Z51.81 Encount er for therape utic drug level monitor ing<br/ > WHITEDIANNE 05/02 [facility] [place] En[facility] [id number] MARCELO SHORT 05/17 [facility] [place] En[facility] [id number] MARCELO SHORT 06/06 [facility] [place] [place] [facility] MTMS BY PHARM EST 15 MIN [id number] Diagnos is: ICD-10- CM Z51.81 Encount er for therape utic drug level monitor ing<br/ > Jerilyn ROBLES 06/12 [facility] [place] [facility] MTMS BY PHARM EST 15 MIN [id number] Diagnos is: ICD-10- CM Z51.81 Encount er for therape utic drug level monitor ing<br/ > TANK ALFORD 07/24 [facility] [place] En[facility] [id number] Sreekanth GUTIERREZ 07/26 [facility] En[facility] [id number] 07/28 [facility] [place] [place] MTMS BY PHARM EST 15 MIN [id number] Diagnos is: ICD-10- CM Z51.81 Encount er for therape utic drug level monitor ing<br/ > PRASANTH VILLALOBOS 09/04 [facility] [place] En[facility] [id number] 09/06 [facility] [place] [place] [facility] OFFICE O/P EST MOD 30 MIN [id number] Diagnos is: ICD-10- CM I35.0 Nonrheu matic aortic (valve) stenosi s
FURCOLO,TI NA 09/06 [facility] QNHP OL DIG ASSMT&MGMT 21+ [id number] Diagnos is: ICD-10- CM Z12.2 Encntr screen for maligna nt neoplas m of respira tory organs< br/> PUCHALSKI, JODIE L 09/08 [facility] En[facility] [id number] 09/21 [facility] [place] QNHP OL DIG ASSMT&MGMT 11-20 [id number] Diagnos is: ICD-10- CM Z12.2 Encntr screen for maligna nt neoplas m of respira tory organs< br/> PUCHALSKI, JODIE L 09/21 [facility] En[facility] [id number] 09/21 [facility] En[facility] [id number] 09/25 [facility] [place] [place] PSYTX W PT 30 MINUTES [id number] Diagnos is: ICD-10- CM F17.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
MABEL DOWNS 10/05 [place] [facility] En[facility] [id number] 10/06 [facility] En[facility] [id number] 10/10 [facility] [place] En[facility] [id number] 10/11 [facility] En[facility] [id number] MARCELO SHORT 10/13 [facility] En[facility] [id number] 10/16 [facility] En[facility] [id number] Sreekanth GUTIERREZ 10/20 [facility] En[facility] [id number] 10/20 [facility] [place] En[facility] [id number] 10/30 [facility] En[facility] [id number] [facility] [place] En[facility] [id number] [facility] En[facility] [id number] [facility]counter [id number] 12/01 [facility]counter [id number] [facility] Out[facility] Encounter [id number] MARCELO SHORT 12/29 [facility] HC PRO PHONE CALL 11-20 MIN [id number] 1. Diagnos is: ICD-10- CM I35.0 Nonrheu matic aortic (valve) stenosi s
RICARDO,E VELYN MELODIE 01/02 [facility] OT EVAL LOW COMPLEX 30 MIN [id number] Diagnos is: ICD-10- CM I35.0 Nonrheu matic aortic (valve) stenosi s
TAYO HINES 01/09 [facility] Out[facility] Encounter [id number] LONA MERCADO L 01/19 [facility] [id number] 1.01/26 [facility] Out[facility]counter [id number] 01/31 [facility] OFFICE O/P EST HI 40 MIN [id number] 1. Diagnos is: ICD-10- CM Z77.29 Contact with and exposur e to other hazardo us substan marry<br/ > CHUYITA DHILLON NA 02/07 [facility] Outpatient Encounter [id number] 02/08 [facility]counter [id number] 02/09 [facility] Out[facility] Encounter [id number] MARCELO SHORT EN 03/05 [facility] Outpatient Encounter [id number] 03/06 [facility] Procedures Combined list of: 1) Procedures from [facility] of Veterans Affairs facilities going back up to thelast 18 months, not all VA non-surgical procedures are included; 2) All procedures from the Department of Defense facilities. Procedure Procedure Type Code Date Perfomer Comments Sourc e Hysteroscopy and D&C HYSTEROSCOPY REMOVE MYOMA [id number] 12/02/2022 IDANIA RAND MD [facility] Social History Combined list of available smoking, tobacco, and other social history from Department of Defense and Veterans Affairs facilities. Social History Type Response Date Comment Source Tobacco smoking status NHIS VA-TOBACCO USER EVERY DAY 09/07/2023 [facility] History of tobacco use VA-TOBACCO USE WI 30 MIN OF WAKEUP 09/07/2023 [facility] History of tobacco use NSG CURRENT SMOKER PAST 30 DAYS 12/02/2022 [facility] History of tobacco use VA-TOBACCO DOESNT USE WI 30 MIN WAKEUP 07/27/2022 [facility] History of tobacco use VA-TOBACCO USER EVERY DAY 07/29/2021 [facility] History of tobacco use VA-TOBACCO USER EVERY DAY 01/23/2020 [facility] History of tobacco use DE-TOBACCO USE IVF EMBRYOLOGIST NO 07/10/2018 [facility] History of tobacco use CURRENT SMOKER 08/23/2017 [facility] [place] [facility] History of tobacco use CURRENT SMOKER 01/18/2017 [facility] [place] [facility] History of tobacco use CURRENT SMOKER 01/18/2017 [facility] [place] [facility] History of tobacco use CURRENT SMOKER 06/05/2016 [facility] [place] [facility] History of tobacco use CURRENT SMOKER 04/17/2015 [facility] [place] [facility] History of tobacco use CURRENT SMOKER 01/21/2014 a pack a day [facility] [place] [facility] History of tobacco use CURRENT SMOKER 01/26/2013 one pack a day [facility] [place] [facility] History of tobacco use V1-PT DECLINES TOBACCO CESSATION MEDS 06/08/2012 [facility] [place] [facility] History of tobacco use CURRENT SMOKER 12/08/2011 half to whole pack a day [facility] [place] [facility] History of tobacco use V1-PT DECLINES TOBACCO CESSATION MEDS 03/23/2011 [facility] [place] [facility] History of tobacco use CURRENT SMOKER 07/29/2010 6 PPD [facility] [place] [facility] History of tobacco use V1-PT DECLINES TOBACCO CESSATION MEDS [facility] [place] [facility] History of tobacco use CURRENT SMOKER 06/24/2009 1/2 ppd [facility] History of tobacco use CURRENT SMOKER 05/14/2008 1/2 ppd [facility] History of tobacco use V1-PT DECLINES TOBACCO CESSATION MEDS 11/07/2007 [facility] [place] [facility] History of tobacco use CURRENT SMOKER 02/09/2007 1 ppd [facility] [place] [facility] History of tobacco use V1-PT READY TO QUIT TOBACCO USE 05/31/2006 [facility] of tobacco use CURRENT SMOKER 07/13/2005 1[facility] pp[facility] Plan of Care List of future care activities from Department of [facility] Affairs facilities. Additional future care activities may be listed in the Assessment and Plan section. Date/Time Care Activity Care Activity Detail Facili ty 08/08/2024 AMBULATORY - MEDIC[facility]/06/2024 Consult Order COMMUNITY CARE-HEMATOLOGY Cons Traditional [facility] Practitioner's Choice [facility] 03/06/2024 Consult Order COMMUNITY CARE-C ARDIAC REHAB Cons Traditional [facility] Practitioner's Choice [facility] [place] [facility] 03/12/2024 Laboratory - Toe Lining Closer ry Order BASIC METABOLIC PANEL (fasting) BLOOD (S[facility]SERUM) [facility] [place] [facility] 03/12/2024 Laboratory - Toe Lining Closer ry Order LIPID PANEL FASTING BLOOD (SST-SERUM) [facility] [place] [facility] 03/12/2024 Laboratory - Toe Lining Closer ry Order TSH BLOOD (SST-SERUM) [facility]
== END 2024-03-27 10:51 | disposition home or self-care (01) ==
LOC: HO.LAB 10:50
PROVIDERS: PCP Internal Medicine; Visit Provider Student in an Organized Health Care Education/Training Program
DX: E04.1 Nontoxic single thyroid nodule (principal); E04.2 Nontoxic multinodular goiter
CPT/HCPCS: 36415; 84439; 84443; 99212

== ENCOUNTER 2024-05-30 14:22 | Outpatient (AMB) | payer OTHER, SELFPAY ==
--- NOTE | 2024-05-30 14:28 | A.OFFVIS_ITS ---
Vital Signs 05/30/24 14:29 Height 5 ft 4 in Weight 221 lb 12.56 oz BMI 38.1 BP 110/64 Blood Pressure Location Lt brachial Position Sitting Pulse 76 Pulse Source Monitor Intake Visit Reasons: 3m follow up Intake Note: 3 mth f/up Experimental Display Builder Required: No Accompanied by: Son Allergies acetaminophen [From PERCOCET] Allergy (Unknown, Verified 03/27/24 10:55) N/V atorvastatin [From LIPITOR] Allergy (Unknown, Verified 03/27/24 10:55) MUSCLE WEAKNESS lovastatin Allergy (Unknown, Verified 03/27/24 10:55) Unknown oxycodone [From PERCOCET] Allergy (Unknown, Verified 03/27/24 10:55) N/V CATARINA Inhibitors [CATARINA INHIBITORS] Adverse Reaction (Intermediate, Verified 03/27/24 10:55) COUGH Medication List - Last Reconciled 05/30/24 by aT Ray MD acetaminophen 325 mg PO QID PRN albuterol sulfate 90 mcg/actuation 2 puffs inhalation Q6H PRN apixaban (Eliquis) 2.5 mg PO BID cholecalciferol (vitamin D3) 50 mcg PO DAILY ferrous sulfate 324 mg PO DAILY melatonin 5 mg PO BEDTIME PRN metoprolol tartrate 12.5 mg PO BID omeprazole 20 mg PO BID rosuvastatin 10 mg PO DAILY tiotropium bromide 1.25 mcg/actuation (Spiriva Respimat) 2 puffs inhalation DAILY HPI Comments Details: Very pleasant 73-year-old female who is here for follow-up. She was seen in the hospital recently when she presented with chest discomfort and dynamic ECG changes. She was significantly anemic at that time and it was felt that the ECG changes are due to anemia but was also found to have murmur of aortic valve stenosis and echocardiography confirmed severe aortic valve stenosis. She underwent upper endoscopy which showed esophagitis but no obvious cause for bleeding was noted. Her Coumadin was stopped and she was started on Eliquis 5 mg twice a day. 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 She has done well since discharge. Denying any shortness of breath but has been fatigued. She also has a left-sided pressure-like feeling which she says is present all day and does not get worse with activity. I think this is likely related to esophagitis. She is here to discuss further about aortic valve replacement for severe aortic valve stenosis. She has not had any syncope. Her shortness of breath is stable and chronic. She is saying going upstairs she gets tired. 02/01/2024: She is here follow-up. 05/30/2024: She is here for follow-up. She is now status post transcatheter aortic valve replacement. She has done significantly well since then and has no exertional symptoms. She has been cardiac rehabilitation. Tolerating low-dose Eliquis for factor 5 Leiden. [facility] Medical History CKD (chronic kidney disease) History of breast cancer History of venous thromboembolism Lupus anticoagulant disorder Factor V Leiden Multinodular thyroid Surgical History (Updated 05/30/24 @ 23:08 by Ta Ray MD) S/P TAVR (transcatheter aortic valve replacement) History of cardiac cath Hx of right mastectomy Family History Father Heart failure Mother Pancreatic cancer Social History Household Members: Family Alcohol intake: former Patient Tobacco Use Status: Current everyday Tobacco user Tobacco use type: Cigarette service: No () Current occupational status: retired Review of Systems Const Denies chills, Denies fatigue, Denies fever(s), Denies frequent falls, Denies weakness, Denies weight gain and Denies weight loss ENT Denies dizziness Card Denies chest pain, Denies leg edema, Denies lightheadedness, Denies palpitations, Denies dyspnea and Denies dyspnea on exertion Resp Denies cough, Denies dyspnea and Denies dyspnea on exertion GI Denies hematochezia Musc Denies abnormal gait, Denies muscle weakness, Denies numbness, Denies radiating pain into limb and Denies tingling Neuro Denies abnormal gait, Denies dizziness, Denies frequent falls, Denies numbness, Denies tingling and Denies weakness Endo Denies fatigue and Denies palpitations Physical Exam Vital Signs: Last Vital Signs Pulse 76 05/30/24 14:29 BP 110/64 05/30/24 14:29 BMI result Body Mass Index 38.1 GENERAL APPEARANCE: in no acute distress, pleasant. NECK: no carotid bruit, no jugular venous distention. SKIN: no suspicious lesions, warm and dry. HEART: No murmur, S1 plus S2. LUNGS: Clear to auscultation. ABDOMEN: soft, nontender. EXTREMITIES: no edema. PERIPHERAL PULSES: equal. NEUROLOGIC: No gross deficits, AAO X 3 Office Procedures EKG Details: Sinus rhythm 76 beats per minute, nonspecific ST changes, QTC 450 milliseconds. 69140-[id number], Complete Assessment & Plan Assessment & Plan (1) S/P TAVR (transcatheter aortic valve replacement): Code(s): Z95.2 - Presence of prosthetic heart valve Category: Medical (2) Factor V Leiden: Code(s): D68.51 - Activated protein C resistance Category: Medical Plan pleasant 73 year female who is here for follow-up. She has known history of severe aortic valve stenosis. Factor 5 Leiden. She is on low-dose Eliquis. She is status post transcatheter aortic valve replacement at this stage. She has done quite well after the valve replacement. No chest pain or shortness of breath. Blood pressure well controlled. She will continue same medications for now. She will follow-up with us in few months. Thank you for allowing me to participate in the care of your patient. Please feel free to contact me if you have any questions. Medications: Changed From metoprolol tartrate 25 mg PO BID 180 tabs 3RF To metoprolol tartrate 12.5 mg PO BID Coding Level of Care Code Est Pt Level 4 (99204) Complex EM visit Add On G2211 Diagnoses S/P TAVR (transcatheter aortic valve replacement) Z95.2 Factor V Leiden D68.51 CPT Codes EKG - CPT: 83999-[id number], Complete ([id number])
[2024-05-30 14:29] VITALS: BP 110/64; PULSE 76; BMI 38.1
== END 2024-05-30 14:56 | disposition home or self-care (01) ==
LOC: HO.HCS 14:23
PROVIDERS: PCP Internal Medicine; Visit Provider Internal Medicine Cardiovascular Disease
DX: Z95.2 Presence of prosthetic heart valve (principal); D68.51 Activated protein C resistance
CPT/HCPCS: 93010; 99214; G2211

== ENCOUNTER → 2024-05-30 14:22 | Outpatient (BNVA) | payer OTHER, SELFPAY | PROVIDERS: PCP Internal Medicine; Visit Provider Internal Medicine Cardiovascular Disease | DX: D68.51 Activated protein C resistance (principal); Z95.2 Presence of prosthetic heart valve; R94.31 Abnormal electrocardiogram [ECG] [EKG] | CPT/HCPCS: 93005; 99212 ==

== ENCOUNTER 2024-06-15 14:28 | Emergency (ER) | payer OTHER, SELFPAY ==
--- NOTE | ~2024-06-15 | US_ITS ---
EXAMINATION: US LOWER EXTREMITY VEINS LIMITED FOLLOW UP RIGHT HISTORY: calf pain, swelling, hx factor V COMPARISON: There are no prior studies for comparison. TECHNIQUE: Duplex and color Doppler sonographic examination of the deep venous system of the right lower extremity was performed. FINDINGS: The common femoral, superficial femoral, and popliteal veins are patent demonstrating normal compressibility, spontaneous flow, and augmentation. There is a normal color and spectral Doppler waveform appearance of the visualized deep venous system above the knee. The posterior tibial and peroneal veins are patent. US/US venous duplex LE RT IMPRESSION: No evidence of acute DVT in the right lower extremity. Electronically signed by: Juliano Mack MD 06/15/2024 03:57 PM EDT
[2024-06-15 14:44] VITALS: BP 149/66; PULSE 76; RESP 16; TEMP 36.9; O2SAT 97; BMI 38.1
--- NOTE | 2024-06-15 14:45 | ED.GENADULT ---
HPI - General Adult General Chief complaint: General Medical Stated complaint: quest blood clot r calf Time Seen by Provider: 06/15/24 16:17 Source: patient Mode of arrival: ambulatory Limitations: no limitations History of Present Illness ED Provider: pancho valles NP HPI narrative: Patient is a 73-year-old female who presents emergency department expressed concern for possible DVT to the right lower extremity. 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 Pain is localized to the medial proximal calf, worse with movement/ bending down. 2+ DP/PT pulse. TAVR 02/2024- ongoing little tightness in chest? not worsened since then. Currently in cardiac rehab. Related Data Home Medications ?Medication ?Instructions ?Recorded ?Confirmed acetaminophen 325 mg capsule 325 mg PO QID PRN Pain 04/28/22 05/30/24 albuterol sulfate 90 mcg/actuation 2 puff inhalation Q6H PRN 04/28/22 05/30/24 aerosol inhaler SOB/Wheezing cholecalciferol (vitamin D3) 50 50 mcg PO DAILY 05/05/22 05/30/24 mcg (2,000 unit) capsule melatonin 3 mg capsule 5 mg PO BEDTIME PRN Sleep 11/14/23 05/30/24 rosuvastatin 10 mg tablet 10 mg PO DAILY 11/18/23 05/30/24 tiotropium bromide 1.25 2 puff inhalation DAILY 02/01/24 05/30/24 mcg/actuation mist for inhalation (Spiriva Respimat) metoprolol tartrate 25 mg tablet 12.5 mg PO BID 05/30/24 05/30/24 Previous Rx's ?Medication ?Instructions ?Recorded omeprazole 20 mg capsule,delayed 20 mg PO BID #120 caps 10/11/23 release ferrous sulfate 324 mg (65 mg 324 mg PO DAILY #90 tabs 02/06/24 iron) tablet,delayed release apixaban 2.5 mg tablet (Eliquis) 2.5 mg PO BID #60 tabs 03/05/24 Allergies Allergy/AdvReac Type Severity Reaction Status Date / Time acetaminophen [From PERCOCET] Allergy Unknown N/V Verified 06/15/24 14:47 atorvastatin [From LIPITOR] Allergy Unknown MUSCLE Verified 06/15/24 14:47 WEAKNESS lovastatin Allergy Unknown Unknown Verified 06/15/24 14:47 oxycodone [From PERCOCET] Allergy Unknown N/V Verified 06/15/24 14:47 CATARINA Inhibitors AdvReac Intermediate COUGH Verified 06/15/24 14:47 [CATARINA INHIBITORS] Review of Systems Review of Systems: Yes all other systems are reviewed and are negative [facility] Past Medical History Attestation statement: The following information was validated with the patient. Source: old records reviewed Medical History CKD (chronic kidney disease) History of breast cancer History of venous thromboembolism Lupus anticoagulant disorder Factor V Leiden Multinodular thyroid Surgical History S/P TAVR (transcatheter aortic valve replacement) History of cardiac cath Hx of right mastectomy Family History Family History Father Heart failure Mother Pancreatic cancer Social History Social History Household Members: Family Alcohol intake: former Patient Tobacco Use Status: Current everyday Tobacco user Tobacco use type: Cigarette service: No () Current occupational status: retired Physical Exam ED Vital Signs: Vital Signs - 24 hr 06/15/24 14:44 06/15/24 16:14 Temperature 98.4 F 97.6 F Pulse Rate 76 85 Respiratory Rate 16 18 Blood Pressure 149/66 H 139/67 Pulse Oximetry 97 98 Oxygen Delivery Method Room Air Room Air BMI result Body Mass Index 38.1 Appearance: Alert.?Oriented to person, place and time. No acute distress.?Normal affect. CVS: Heart sounds normal. Normal heart rate and rhythm.? Pulses normal.?? Respiratory: No respiratory distress.? Lung sounds clear to auscultation bilaterally? Skin: Skin warm and dry.? Normal skin color.? Extremities: No lower extremity edema.? Mild localized tenderness upon palpation to the right medial proximal calf without overlying erythema warmth or obvious swelling. 2+ DP/PT pulse. Neuro: Moves all extremities spontaneously. Sensation intact bilaterally. Ambulates with normal steady gait. Medical Decision Making Medical Decision Making MDM Narrative: Patient is a 73-year-old female with past medical history of CKD, breast cancer, VTE, factor 5 Leiden, lupus who presents emergency department for evaluation of right proximal medial calf pain as per HPI with personal expressed concern for DVT. Has been compliant with her Eliquis. Onset of pain was day following cardiac rehab. Exacerbates with movement. Venous duplex ultrasound is without evidence of DVT. Extremities neurovascularly intact distally. Not consistent with arterial occlusion. Lower suspicion for Donahue cyst. The knee itself is not painful. Suspect a muscular strain possibly exacerbated after cardiac rehab. Advised conservative treatment, outpatient follow-up with PCP, worrisome signs and symptoms that would warrant re-evaluation in the emergency department. All questions answered. Differential Diagnosis Differential Diagnoses: The differential diagnosis associated with the presentation includes (See narrative above) Admission/Observation Consideration of admission/observation: Escalation of care including admission/observation considered Lab Data CBC is without leukocytosis, no significant anemia, no thrombocytopenia. No significant electrolyte derangement. No MAYRA. 06/15/24 14:55 06/15/24 14:55 Labs: Lab Results 06/15/24 Range/Units 14:55 WBC 7.9 (4.8-10.8) X10*3/uL RBC 3.79 L (4.20-5.50) X10*6/uL Hgb 13.0 (12.0-16.0) g/dl Hct 36.6 L (37.0-47.0) % MCV 96.6 (80.0-98.0) fL MCH 34.3 H (27.0-33.0) pg MCHC 35.5 H (31.0-35.0) g/dl RDW 13.3 (11.0-16.0) % Plt Count 232 (160-400) X10*3/uL MPV 9.3 L (9.4-12.3) fL Immature Gran % (Auto) 0.1 (0.0-0.4) % Neut % (Auto) 41.5 L (45-73) % Lymph % (Auto) 44.1 H (20-40) % [place] % (Auto) 8.8 (2-11) % Eos % (Auto) 3.7 (0-4) % Baso % (Auto) 1.8 (0-2) % Lymph # (Auto) 3.5 (1.2-4.9) X10*3/uL [place] # (Auto) 0.7 (0.1-1.2) X10*3/uL Eos # (Auto) 0.3 (0.0-0.4) X10*3/uL Baso # (Auto) 0.1 (0.0-0.2) X10*3/uL Abs Immat Gran (auto) 0.01 (0.00-0.03) X10*3/uL Absolute Neuts (auto) 3.3 (2.0-8.3) x10*3/uL Absolute Nucleated RBC 0.000 (0.0-0.012) X10*3/uL Nucleated RBC % (auto) 0.0 (0.0-0.2) /100WBC PT 12.4 (10.9-12.4) SEC INR 1.1 (0.9-1.1) Sodium 145 (135-145) mmol/L Potassium 4.7 (3.3-5.1) mmol/L Chloride 112 H (96-108) mmol/L Carbon Dioxide 24 (22-29) mmol/L Anion Gap 14 (12-20) BUN 24 H (9-16) mg/dL Creatinine 1.21 (0.5-1.4) mg/dL Estim Creat Clear Calc 49.1 Estimated GFR 44 Random Glucose 122 H (60-115) mg/dL Calcium 9.5 (8.4-10.2) mg/dL Total Bilirubin 0.2 (0.0-1.0) mg/dL AST 17 (5-31) U/L ALT 16 (0-31) U/L Alkaline Phosphatase 68 (39-117) U/L Total Protein 6.6 (6.5-8.0) g/dL Albumin 3.8 (3.5-5.0) g/dL Radiology Impression Discussion of test interpretation with radiology: I have reviewed the radiologist's reading. Radiologist Impression: US/US venous duplex LE RT IMPRESSION: No evidence of acute DVT in the right lower extremity. Prescription Management I considered prescription management with: Pain Medication Chronic Conditions Patient?s care impacted by: Other (see above) Discharge Plan Discharge Clinical Impression: Strain of right calf muscle Patient Disposition: Home, Self-Care Additional Instructions: as mentioned, ultrasound today did not show evidence of a blood clot in the leg which is very reassuring. Based on your history and examination I suspect that the pain is due to a strain of the muscle likely sustained from cardiac rehab the day prior to the onset of the pain. Rest over the next few days, continuing you applying ice/heat to the area for 10-15 minutes 4-6 times daily. You can take Tylenol 500 mg, 2 tablets (1,000mg) every 4-6 hours as needed for pain, but not to exceed 3 doses daily (3,000mg). Follow-up with primary care doctor? Prescriptions: No Action ferrous sulfate 324 mg (65 mg iron) tablet,delayed release (DR/EC) 324 mg PO DAILY Qty: 90 1RF omeprazole 20 mg capsule,delayed release(DR/EC) 20 mg PO BID Qty: 120 0RF rosuvastatin [Crestor] 10 mg Tablet 10 mg PO DAILY Eliquis 2.5 mg Tablet 2.5 mg PO BID Qty: 60 3RF albuterol sulfate 90 mcg/actuation HFA aerosol inhaler 2 puff inhalation Q6H PRN (Reason: SOB/Wheezing) acetaminophen 325 mg capsule 325 mg PO QID PRN (Reason: Pain) cholecalciferol (vitamin D3) 50 mcg (2,000 unit) capsule 50 mcg PO DAILY melatonin 3 mg capsule 5 mg PO BEDTIME PRN (Reason: Sleep) Spiriva Respimat 1.25 mcg/actuation mist 2 puff inhalation DAILY metoprolol tartrate 25 mg tablet 12.5 mg PO BID Referrals: Elizabeth Nicholson MD [Primary Care Provider] - Print Language: Citizen Of [place]
[2024-06-15 15:01] LABS: MANUAL DIFF FLAG NO
[2024-06-15 15:02] LABS: Basophils Absolute Auto 0.1 X10*3/uL (0.0-0.2); Basophils Percent Auto 1.8 % (0-2); Eosinophils Absolute Auto 0.3 X10*3/uL (0.0-0.4); Eosinophils Percent Auto 3.7 % (0-4); Hematocrit 36.6 % (37.0-47.0); Imm Gran Abs Auto 0.01 X10*3/uL (0.00-0.03); Imm Gran Pct Auto 0.1 % (0.0-0.4); Lymphocytes Absolute Auto 3.5 X10*3/uL (1.2-4.9); Lymphocytes Percent Auto 44.1 % (20-40); Mean Corpuscular HGB Conc 35.5 g/dl (31.0-35.0); Mean Corpuscular Hemoglobin 34.3 pg (27.0-33.0); Mean Corpuscular Volume 96.6 fL (80.0-98.0); Mean Platelet Volume 9.3 fL (9.4-12.3); Monocytes Absolute Auto 0.7 X10*3/uL (0.1-1.2); Monocytes Percent Auto 8.8 % (2-11); Neutrophils Absolute Auto 3.3 x10*3/uL (2.0-8.3); Neutrophils Percent Auto 41.5 % (45-73); Platelet Count 232 X10*3/uL (160-400); Red Blood Count 3.79 X10*6/uL (4.20-5.50); Red Cell Distribution Width 13.3 % (11.0-16.0); White Blood Count 7.9 X10*3/uL (4.8-10.8)
[2024-06-15 15:12] LABS: INTERNATIONAL NORM RATIO 1.1 (0.9-1.1); Prothrombin Time 12.4 SEC (10.9-12.4)
[2024-06-15 15:18] LABS: Alanine Aminotransferase 16 U/L (0-31); Albumin Level 3.8 g/dL (3.5-5.0); Anion Gap 14 (12-20); Aspartate Amino Transferase 17 U/L (5-31); Bilirubin Total 0.2 mg/dL (0.0-1.0); Blood Urea Nitrogen 24 mg/dL (9-16); Calcium 9.5 mg/dL (8.4-10.2); Carbon Dioxide 24 mmol/L (22-29); Chloride 112 mmol/L (96-108); Creatinine Clr Calc Pharmacy 49.1; Estimated Glomerular Filt Rate 44; Glucose Random 122 mg/dL (60-115); Potassium 4.7 mmol/L (3.3-5.1); Sodium 145 mmol/L (135-145); Total Protein 6.6 g/dL (6.5-8.0)
[2024-06-15 15:25] LABS: Alkaline Phosphatase 68 U/L (39-117)
[2024-06-15 16:14] VITALS: BP 139/67; PULSE 85; RESP 18; TEMP 36.4; O2SAT 98
[2024-06-15 16:20] VITALS: BP 139/67; PULSE 85; RESP 18; TEMP 36.4; O2SAT 98
== END 2024-06-15 16:21 | disposition home or self-care (01) ==
LOC: HO.ED 16:19
PROVIDERS: Nurse Practitioner Family; Emergency Provider Emergency Medicine Emergency Medical Services; PCP Internal Medicine
DX: R60.0 Localized edema (principal); M79.661 Pain in right lower leg; F17.210 Nicotine dependence, cigarettes, uncomplicated; Z79.01 Long term (current) use of anticoagulants; Z79.899 Other long term (current) drug therapy
CPT/HCPCS: 36415; 80053; 85025; 85610; 93971; 99282; 99284

== ENCOUNTER → 2024-06-15 14:47 | Outpatient (BNV) | payer OTHER, SELFPAY | PROVIDERS: PCP Internal Medicine; Visit Provider Radiology Diagnostic Radiology | DX: M79.661 Pain in right lower leg (principal); R22.41 Localized swelling, mass and lump, right lower limb | CPT/HCPCS: 93971 ==

== ENCOUNTER 2024-10-05 11:21 | Outpatient (REF) | payer OTHER, SELFPAY ==
--- OUTSIDE RECORDS SUMMARY | 2024-08-08 06:30 | XMS_ITS | Encounter Summary ---
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 Name Role Phone HERI DHILLON Primary Care [...] PART A July 05, 2017 PART A [id number] [place] WIL[place] PATIENT MEDICARE (WNR) MEDICARE (M) PART B July 05, 2017 PART B [id number] [place] WIL[place] PATIENT MEDICARE (WNR) MEDICARE (M) PART A July 05, 2017 PART A [id number] [place] WIL[place] PATIENT MEDICARE (WNR) MEDICARE (M) PART B July 05, 2017 PART B [id number] [place] W[place] PATIENT MEDICARE (WNR) MEDICARE (M) PART A July 05, 2017 PART A [id number] [place] WILDER PATIENT MEDICARE (WNR) MEDICARE (M) PART A July 05, 2017 PART A [id number] [phone] [place] WIL[place] PATIENT MEDICARE (WNR) MEDICARE (M) PART B July 05, 2017 PART B [id number] [place] WIL[place] PATIENT MEDICARE (WNR) MEDICARE (M) PART A July 05, 2017 PART A [id number] [place] WIL[place] PATIENT MEDICARE (WNR) MEDICARE (M) PART B July 05, 2017 PART B [id number] [phone] [place] WIL[place] PATIENT MEDICARE (WNR) MEDICARE (M) PART B July 05, 2017 PART B [id number] [phone] [place] WILDER PATIENT Selected Encounter This section includes the information on record at [place] for the Encounter. Date/Time Encounter Type Encounter Description Reason Provider Source Aug 08, 2024 10:30 AM OFFICE O/P EST HI 40 MIN PRIMARY CARE/MEDICINE ICD-10-CM K92.89 Other specified diseases of the digestive system HERI DHILLON IHSuki Encounter Template Text not used by [place] Assessments - Encounter Diagnoses This section includes the primary and secondary diagnoses documented for the Encounter. Date/Time Primary/Secondary Diagnosis Diagnosis Name Provider Source Aug 08, 2024 11:23 AM PRIMARY Other specified diseases of the digestive system FURCOLO,HERI [facility] [place] [facility] Aug 08, 2024 11:23 AM SECONDARY Age-related osteoporosis w/o current pathological fracture FURCOLO,HERI [facility] [place] [facility] Aug 08, 2024 11:23 AM SECONDARY Chronic kidney disease, stage 3 unspecified FURCOLO,HERI [facility] [place] [facility] Aug 08, 2024 11:23 AM SECONDARY Chronic obstructive pulmonary disease, unspecified FURCOLO,HERI [facility] [place] [facility] Aug 08, 2024 11:23 AM SECONDARY Coagulation defect, unspecified FURCOLO,HERI [facility] [place] [facility] Aug 08, 2024 11:23 AM SECONDARY Contact with and exposure to other hazardous substances AGUSTINCOHERI PISANO [facility] [place] [facility] Aug 08, 2024 11:23 AM SECONDARY Essential (primary) hypertension AHMET DHILLONA [facility] [place] [facility] Aug 08, 2024 11:23 AM SECONDARY Hyperlipidemia, unspecified AHMET DHILLONA [facility] [place] [facility] Aug 08, 2024 11:23 AM SECONDARY Impaired fasting glucose AGUSTINCOLOAHMETA [facility] [place] [facility] Aug 08, 2024 11:23 AM 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 AHMET DHILLONA [facility] [place] [facility] Aug 08, 2024 11:23 AM SECONDARY Nonrheumatic aortic (valve) stenosis AHMET DHILLONA [facility] [place] [facility] Aug 08, 2024 11:23 AM SECONDARY Other obesity due to excess calories AGUSTINCOLOHERI [facility] [place] [facility] Aug 08, 2024 11:23 AM SECONDARY Personal history of malignant neoplasm of breast AGUSTINCOLOAHMETA [facility] [place] [facility] Aug 08, 2024 11:23 AM SECONDARY Personal history of nicotine dependence AHMET DHILLONA [facility] [place] [facility] Aug 08, 2024 11:23 AM SECONDARY Personal history of pulmonary embolism HERI DHILLON [facility] [place] [facility] Aug 08, 2024 11:23 AM SECONDARY Solitary pulmonary nodule HERI DHILLON [facility] [place] [facility] Plan of Treatment: Future Appointments (+ 6 months) and Future Tests (+/- 45 days) The Plan of Treatment section includes future care activities for the patient from all [place] treatmentfacilities. This section includes future appointments and future orders which are active, pending or scheduled. Future Appointments This section includes appointments that were scheduled to occur 6 months from the date of the Encounter, up to a maximum of 20 appointments. The data comes from all [place] treatment facilities. Appointment Date/Time Appointment Type Appointme nt Facility Name Oct 05, 2024 11:30 AM AMBULATORY - MEDICINE [facility] [place] [facility] Oct 11, 2024 10:30 AM AMBULATORY - NONE [facility] [place] [facility] Nov 29, 2024 03:15 PM AMBULATORY - NONE [facility] [place] [facility] Dec 13, 2024 10:00 AM AMBULATORY - NONE [facility] [place] [facility] Feb 07, 2025 10:30 AM AMBULATORY - MEDICINE [facility] Active, Pending, and Scheduled Orders This section includes a listing of several types of active, pending, and scheduled orders, including clinic medications orders, diagnostic test orders, procedure orders and consult orders; where the start date of the order is 45 days before the date of the Encounter or 45 days after the date of theEncounter. The data comes from all [place] treatment facilities. Test Date/Time Test Type Test Details Facility Name July 23, 2024 07:38 AM Consult Order [facility]-MAMMOGRAPHY FEMALE SCREEN Cons Show Host/Hostess's Choice [facility] Aug 08, 2024 11:04 AM Consult Order [facility]COLONOSCOPY SURVEILLANCE Cons Show Host/Hostess's Choice [facility] Aug 31, 2024 04:21 PM Consult Order [facility]OPTOMETRY ROUTINE EYE EXAM Cons Show Host/Hostess's Choice [facility] Lab Results: +/- 30 days of the encounter This section includes the Chemistry and Hematology Lab Results on record with [facility] for the patient. Radiology Reports and Pathology Reports are provided separately, in subsequent sections. Lab Results This section contains the Chemistry/Hematology Results that were resulted 30 days before or 30 daysafter the date of the Encounter. Date/Time Source Result Type Result - Unit Interpretation Reference Range Specimen Type Comment July 31, 2024 10:[address] [facility] BASIC METABOLIC PANEL (non-fasting) SERUM Spe cimen Type: SERUM No comment entered. Ordering Provider: HERI DHILLON Report Released Date/Time: July 26, 2024 12:40 PM Reporting Lab: [facility] [address] [address] Performing Lab: [address] [address] UREA NITROGEN 20 mg/dL 10-20 GLUCOSE 86 mg/dL 65-100 SODIUM 143 mmol/L 136-145 POTASSIUM 4.9 mmol/L 3.5-5.1 CHLORIDE 109 mmol/L H 98-107 CO2 25 meq/L 23-31 CALCIUM 9.2 mg/dL 8.8-10 CREATININE, Serum 1.22 mg/dL H .57-1.11 eGFR(CKD-EPI 2020) 47 mL/min L >60 July 31, 2024 10:07 AM [facility] LIPID PANEL, NON FASTING SERUM Specimen Type: SERUM No comment entered. Ordering Provider: HERI DHILLON Report Released Date/Time: July 26, 2024 12:40 PM Reporting Lab: [facility] [address] [address] Performing Lab: [address] [address] CHOLESTEROL 185 mg/dL TRIGLYCERIDE 234 mg/dL H 0-150 LDL calculated 83 mg/dL 0-129 CHOL/HDL 3.4 HDL CHOLESTEROL 55 mg/dL >40 July 31, 2024 10:07 AM [facility] CBC BLOOD Specimen Type: BLOOD No comment entered. Ordering Provider: HERI DHILLON Report Released Date/Time: July 26, 2024 12:40 PM Reporting Lab: [facility] [address] [facility] [address] Performing Lab: [address] [address] WBC 8.29 10*3/uL 4.50-11.00 RBC 3.75 10*6/uL L 3.93-5.16 HGB 12.8 g/dL 12-15.2 HCT 37.6 36.6-45.6 MCV 100.3 fL H 82-99 MCHC 34.0 g/dL 30.8-35.1 PLT 250 10*3/uL 140-360 MPV 10.0 fL 9.2-12.4 RDW-CV 13.1 12.0-16.0 MCH 34.1 pg H 26.2-32.6 Vital Signs: All taken on the encounter date This section contains inpatient and outpatient Vital Signs collected on the date of the Encounter. Date/Time Temperature Pulse Blood Pressure Respiratory Rate SP02 Pain Height Weight Body Mass Index Source Aug 08, 2024 10:27 AM 97.4 F 67 /min 136/79 mm[Hg] 16 /min 97 % 2 226 lb 39 [facility] [facility] Social History: Smoking Status (Most current) and Tobacco Use (All prior to encounter date) This section includes the most current, and the historical, smoking and tobacco- related health factors from the [place] facility where the Encounter took place. Current Smoking Status This section includes the most current smoking, or tobacco-related health factor, from the [place] facility where the Encounter took place. Date/Time Current Smoking Status Comment [facility] Aug 08, 2024 10:30 AM VA-TOBACCO USE CALE E DAYS OTHER TYPE [place] [facility] [place] [facility] Tobacco Use History This section includes a history of the smoking, or tobacco-related health factors, that were collected on or before the date of the Encounter. The data comes from the [place] facility where the Encounter took place. Date/Time Smoking Status/Tobac co Use Comment Facility Aug 08, 2024 10:30 AM VA-TOBACCO USE EVERY DAY OTHER TYPE [facility] [place] [facility] Aug 08, 2024 10:30 AM VA-TOBACCO USE FORMER CIGARETTES [facility] [place] [facility] Aug 08, 2024 10:30 AM VA-TOBACCO USE SOME DAYS ENDS [facility] [place] [facility] Aug 08, 2024 10:30 AM VA-TOBACCO USE SOME DAYS OTHER TYPE [facility] [place] [facility] Sep 07, 2023 03:00 PM VA-TOBACCO USE 30 YEARS OR MORE [facility] [place] [facility] Sep 07, 2023 03:00 PM VA-TOBACCO USE ADVICE [facility] [place] [facility] Sep 07, 2023 03:00 PM VA-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 [facility] [place] [facility] Sep 07, 2023 03:00 PM VA-TOBACCO USE MED NOTIFY PROVIDER utilizes patches, has cut down on amt of ciggarettes a day [facility] [place] [facility] Sep 07, 2023 03:00 PM VA-TOBACCO USE WI 30 MIN OF WAKEUP [facility] [place] [facility] Sep 07, 2023 03:00 PM VA-TOBACCO USER EVERY DAY [facility] [place] [facility] July 27, 2022 02:30 PM VA-TOBACCO DOESNT USE WI 30 MIN WAKEUP [facility] [place] [facility] July 27, 2022 02:30 PM VA-TOBACCO USE 30 YEARS OR MORE [facility] [place] [facility] July 27, 2022 02:30 PM VA-TOBACCO USE ADVICE [facility] [place] [facility] July 27, 2022 02:30 PM VA-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 [facility] [place] [facility] July 27, 2022 02:30 PM VA-TOBACCO USE MED NO [facility] [place] [facility] July 27, 2022 02:30 PM VA-TOBACCO USER EVERY DAY [facility] [place] [facility] July 29, 2021 11:30 AM VA-TOBACCO DOESNT USE WI 30 MIN WAKEUP [place] [facility] [place] [place] [facility] July 29, 2021 11:30 AM VA-TOBACCO USE 30 YEARS OR MORE [facility] [place] [facility] July 29, 2021 11:30 AM VA-TOBACCO USE ADVICE [facility] [place] [facility] July 29, 2021 11:30 AM VA-TOBACCO USE AMER[employer] INDIAN POLICY SPECIALIST YES [facility] [place] [facility] July 29, 2021 11:30 AM VA-TOBACCO USE MED NOTIFY PROVIDER [place] [facility] [place] [facility] July 29, 2021 11:30 AM VA-TOBACCO USER EVERY DAY [facility] [place] [facility] Jan 23, 2020 10:30 AM VA-TOBACCO USE 30 YEARS OR MORE [facility] [place] [facility] Jan 23, 2020 10:30 AM VA-TOBACCO USE ADVICE [facility] [place] [facility] Jan 23, 2020 10:30 AM VA-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 [facility] [place] [facility] Jan 23, 2020 10:30 AM VA-TOBACCO USE MED NO [facility] [place] [facility] Jan 23, 2020 10:30 AM VA-TOBACCO USE WI 30 MIN OF WAKEUP [facility] [place] [facility] Jan 23, 2020 10:30 AM VA-TOBACCO USER EVERY DAY [facility] [place] [facility] July 10, 2018 11:18 AM VA-TOBACCO USE > 15 LESS THAN 30 YEARS [facility] [place] [facility] July 10, 2018 11:18 AM VA-TOBACCO USE ADVICE [facility] [place] [facility] July 10, 2018 11:18 AM VA-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 [facility] [place] [facility] July 10, 2018 11:18 AM VA-TOBACCO USE MED NO [facility] [place] [facility] July 10, 2018 11:18 AM VA-TOBACCO USE WI 30 MIN OF WAKEUP [place] [facility] [place] [facility] July 10, 2018 11:18 AM VA-TOBACCO USER EVERY DAY [facility] [place] [facility] Aug 23, 2017 10:34 AM CURRENT SMOKER [facility] [place] [facility] Aug 23, 2017 10:34 AM V1-PT DECLINES REF TO TOBACCO CESS PRGM [facility] [place] [facility] Aug 23, 2017 10:34 AM V1-PT DECLINES TOBACCO CESSATION MEDS [facility] [place] [facility] Aug 23, 2017 10:34 AM V1-PT THINKING ABOUT QUIT TOBACCO USE [facility] [place] [facility] Jan 18, 2017 10:30 AM CURRENT SMOKER [facility] [place] [facility] Jan 18, 2017 10:30 AM V1-PT NOT INTERESTED IN QUIT TOBACCO USE [facility] [place] [facility] Jan 18, 2017 10:23 AM CURRENT SMOKER [facility] [place] [facility] Jun 05, 2016 09:44 AM CURRENT SMOKER [facility] [place] [facility] Jun 05, 2016 09:44 AM V1-PT NOT INTERESTED IN QUIT TOBACCO USE [facility] [place] [facility] Apr 17, 2015 08:21 AM CURRENT SMOKER socially [facility] [place] [facility] Apr 17, 2015 08:21 AM V1-PT DECLINES REF TO TOBACCO CESS PRGM [facility] [place] [place] [facility] Apr 17, 2015 08:21 AM V1-PT DECLINES TOBACCO CESSATION MEDS [facility] [place] [facility] Apr 17, 2015 08:21 AM V1-PT THINKING ABOUT QUIT TOBACCO USE [facility] Jan 21, 2014 10:25 AM CURRENT SMOKER a pack a day [facility] [place] [facility] Jan 21, 2014 10:25 AM V1-PT DECLINES REF TO TOBACCO CESS PRGM [facility] Jan 21, 2014 10:25 AM V1-PT THINKING ABOUT QUIT TOBACCO USE [facility] [place] [place] [facility] Jan 21, 2014 10:25 AM V1-TOBACCO CESS MEDS NOT PRESCRIBED nicotine lozenges ordered [facility] Jan 26, 2013 02:34 PM CURRENT SMOKER one pack a day [facility] Jan 26, 2013 02:34 PM V1-PT DECLINES REF TO TOBACCO CESS PRGM [facility] Jan 26, 2013 02:34 PM V1-PT DECLINES TOBACCO CESSATION MEDS [facility] Jan 26, 2013 02:34 PM V1-PT THINKING ABOUT QUIT TOBACCO USE [facility] Jun 08, 2012 08:59 AM V1-PT DECLINES REF TO TOBACCO CESS PRGM [facility] Jun 08, 2012 08:59 AM V1-PT DECLINES TOBACCO CESSATION MEDS [facility] Jun 08, 2012 08:59 AM V1-PT NOT INTERESTED IN QUIT TOBACCO USE [facility] [place] [facility] Dec 08, 2011 09:32 AM CURRENT SMOKER half to whole pack a day [facility] [place] [facility] Dec 08, 2011 09:32 AM V1-PT DECLINES REF TO TOBACCO CESS PRGM [facility] Dec 08, 2011 09:32 AM V1-PT DECLINES TOBACCO CESSATION MEDS [facility] Dec 08, 2011 09:32 AM V1-PT NOT INTERESTED IN QUIT TOBACCO USE [facility] Mar 23, 2011 09:26 AM V1-PT DECLINES REF TO TOBACCO CESS PRGM [facility] [place] [facility] Mar 23, 2011 09:26 AM V1-PT DECLINES TOBACCO CESSATION MEDS [facility] [place] [facility] Mar 23, 2011 09:26 AM V1-PT THINKING ABOUT QUIT TOBACCO USE [facility] [place] [facility] July 29, 2010 07:59 AM CURRENT SMOKER 6 PPD [facility] [place] [facility] July 29, 2010 07:59 AM V1-PT DECLINES REF TO TOBACCO CESS PRGM [facility] [place] [place] [facility] July 29, 2010 07:59 AM V1-PT DECLINES TOBACCO CESSATION MEDS [facility] [place] [place] [facility] July 29, 2010 07:59 AM V1-PT THINKING ABOUT QUIT TOBACCO USE [facility] [place] [facility] Dec 03, 2009 09:31 AM V1-PT DECLINES REF TO TOBACCO CESS PRGM [facility] [place] [place] [facility] Dec 03, 2009 09:31 AM V1-PT DECLINES TOBACCO CESSATION MEDS [facility] [place] [facility] Dec 03, 2009 09:31 AM V1-PT THINKING ABOUT QUIT TOBACCO USE [facility] [place] [facility] Jun 24, 2009 02:16 PM CURRENT SMOKER 1/2 ppd [facility] [place] [facility] Jun 24, 2009 02:16 PM V1-PT DECLINES REF TO TOBACCO CESS PRGM [facility] [place] [facility] Jun 24, 2009 02:16 PM V1-PT DECLINES TOBACCO CESSATION MEDS [facility] [place] [facility] Jun 24, 2009 02:16 PM V1-PT READY TO QUIT TOBACCO USE [facility] [place] [facility] May 14, 2008 09:58 AM CURRENT SMOKER 1/2 ppd [facility] [place] [facility] May 14, 2008 09:58 AM V1-PT DECLINES REF TO TOBACCO CESS PRGM [facility] [place] [place] [facility] May 14, 2008 09:58 AM V1-PT DECLINES TOBACCO CESSATION MEDS [facility] [place] [facility] May 14, 2008 09:58 AM V1-PT THINKING ABOUT QUIT TOBACCO USE [facility] [place] [place] [facility] Nov 07, 2007 12:03 PM V1-PT DECLINES REF TO TOBACCO CESS PRGM [facility] Nov 07, 2007 12:03 PM V1-PT DECLINES TOBACCO CESSATION MEDS [facility] Nov 07, 2007 12:03 PM V1-PT THINKING ABOUT QUIT TOBACCO USE [facility] Feb 09, 2007 10:37 AM CURRENT SMOKER [address] [facility] Feb 09, 2007 10:37 AM V1-PT DECLINES REF TO TOBACCO CESS PRGM [facility] Feb 09, 2007 10:37 AM V1-PT READY TO QUIT [facility]BACCO [facility] May 31, 2006 10:07 AM V1-PT DECLINES REF TO TOBACCO CESS [facility] May 31, 2006 10:07 AM V1-PT READY TO QUIT TOBACCO USE [facility] July 13, 2005 08:13 AM CURRENT SMOKER 1/2 ppd [facility] Encounter Notes: All associated encounter notes This section contains the clinical notes associated to the Encounter. Date/Time Encounter Note(s) Provider Source Aug 08, 2024 11:48 AM ADMINISTRATIVE NOTE: LOCAL TITLE: FAX/MAIL RECEIVED STANDARD TITLE: ADMINISTRATIVE NOTE DATE OF NOTE: AUG 08, 2024@11:48 ENTRY DATE: AUG 08, 2024@11:48:07 AUTHOR: PAULINO SHORT EXP COSIGNER: URGENCY: STATUS: COMPLETED Document Received On: Aug Document Type: Other: THYROID ULTRASOUND Date of Service: Feb Facility and or Provider: [facility] Contact Information: PCP of Record: HERI DHILLON Next visit with PCP: 09/12/2024 10:00 [facility] CAT SCAN 02/07/2025 10:30 [facility] PACT EIGHT MD Primary Care May keep copies of this document for up to 14 days and send the original for scanning. BROUGHT IN TRHYROID ULTRASOUND RESULTS FROM THE OUTSIDE. COPIES SENT TO [facility] FOR SCANNING. /ade/ PAULINO SHORT LPN License Practical Nurse Signed: 08/08/2024 11:49 PAULINO SHORT [facility] Aug 08, 2024 10:24 AM PHYSICIAN NOTE: LOCAL TITLE: MD NOTE STANDARD TITLE: PHYSICIAN NOTE DATE OF NOTE: AUG 08, 2024@10:24 ENTRY DATE: AUG 08, 2024@10:24:20 AUTHOR: HERI DHILLONIGNER: URGENCY: STATUS: COMPLETED SOLARAME,JOSE MADRIGAL is a 72 year old WHITE FEMALE who is being seen today in primary care for routine follow-up. plans for TAVR tomorrow- here with her son today. = CARE TEAM = Community Primary Care Provider: none [place] Specialists: gets all her care through the [facility] Specialists: endocrinology- Dr. Megan Isbell, [place] cardiology- Dr. Harris [facility] cardiology- Dr. Garay, TAVR specialist GI- Dr. Issa hematology- Dr. 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 Exposure to potentially hazardous substance Original [place] Screening performed 02/02/22 2. Aortic Stenosis, Non-Rheumatic (SCT [id number]) echo 04/07/22- Ef 65%, moderate diastolic dysfcn, mild-mod Aortic stenosis, mild TR, no pulm htn plan for TAVR at [facility] 02/09/24- Dr. Garay 3. Solitary nodule of lung stable LDCT scans- every September, last 09/2023 4. Chronic kidney disease stage 3 5. Obesity 6. Impaired fasting glucose 7. Osteoporosis 8. 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 Generalized Anxiety Disorder * 10. Hypercoagulability state (SNOMED CT [id number]) + factor V Leiden, + lupus anticoagulant 07/[address] Foote [place] [facility] [place] apixaban 11. Long-term current use of anticoagulant (SNOMED CT [id number]) GI bleed on coumadin- changed to apixaban 12. Pulmonary embolism (SNOMED CT [id number]) 07/2010 13. Chronic obstructive lung disease (SNOMED CT 73072716) quit smoking 09/2023 14. Hyperlipidemia (SNOMED CT 58746508) 15. Hypertension (SNOMED CT 08674705) 16. Former smoker quit 09/2023 = PAST SURGICAL HISTORY = TAVR - 02/09/24 at [facility] Dr. Garay Right breast masectomy Hysteroscopy & D&C- due to ?cervical mass seen on PET scan (for lung nodule)- at [place]- was just a mucus plug = FAMILY HISTORY = Mother: pancreatic CA- 79 Father: CHF- 65 Siblings: 4 brothers oldest brother- leukemia, heart another brother HIV/AIDs = SOCIAL HISTORY = Background: born and raised in [place], [place]. and moved out here Sexual Orientation: heterosexual Marital Status: . 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 Tobacco Use: quit 10/04/23, 45 py smoker, currently vaping Drug Use: none Exercise: condo has stairs- [...] - - - - - - B/P: 136/79 (08/08/2024 10:27) pulse: 67 (08/08/2024 10:27) resp: 16 (08/08/2024 10:27) temp: 97.4 F [36.3 C] (08/08/2024 10:27) Ht: 64 in [162.6 cm] (02/08/2024 09:50) Wgt: 226 lb [102.51 kg] (08/08/2024 10:27) BMI: BMI: 38.9 Exam: - - - - - - - RRR S1 S2 LCTA bilat no LE edema = RECENT LABS = LAB CHEMISTRY & HEMATOLOGY Collection DT Specimen Test Name Result Units Ref Range 07/31/2024 10:07 BLOOD WBC 8.29 10*3/uL 4.50 - 11.00 RBC 3.75 L 10*6/uL 3.93 - 5.16 HGB 12.8 g/dL 12 - 15.2 HCT 37.6 % 36.6 - 45.6 MCV 100.3 H fl 82 - 99 MCH 34.1 H pg 26.2 - 32.6 MCHC 34.0 g/dL 30.8 - 35.1 RDW-CV 13.1 % 12.0 - 16.0 PLT 250 10*3/uL 140 - 360 MPV 10.0 fL 9.2 - 12.4 07/31/2024 10:07 SERUM CALCIUM 9.2 mg/dL 8.8 - 10 CREATININE, Serum 1.22 H mg/dL .57 - 1.11 eGFR(CKD-EPI 2020 47 L mL/min Ref: >=60 SODIUM 143 mmol/L 136 - 145 POTASSIUM 4.9 mmol/L 3.5 - 5.1 CHLORIDE 109 H mmol/L 98 - 107 CO2 25 mEq/L 23 - 31 UREA NITROGEN 20 mg/dL 10 - 20 GLUCOSE 86 mg/dL 65 - 100 CHOLESTEROL 185 mg/dL <7 - 199 TRIGLYCERIDE 234 H mg/dL 0 - 150 LDL calculated 83 mg/dL 0 - 129 CHOL/HDL 3.4 HDL CHOLESTEROL 55 mg/dL Ref: >=40 = ASSESSMENT AND PLAN = 1. HTN- good blood pressure control 2. Aortic stenosis- s/p TAVR with Dr. Garay on 02/09/24. needs dental prophylaxis 3. COPD- uses spiriva and proair. quit smoking 09/2023 after demand ischemia with GI bleed. 4. RLL LUNG NODULE gets yearly LDCT scans in September, last 09/2023- stability, due 09/2024 5. THYROID NODULE incidental thyroid nodule seen on Lung CT. at time of biopsy with u/s- it was a pseudonodule thought to be from underlying hashimotos. 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 former smoker- TOBACCO~ 45 pack year history. gets LDCT scans 7. BREAST CANCER- Stage 1A (T1c,N0,Mx) right invasive ductal carcinoma, ER positve, [place] positive. s/p right simple mastectomy and sentinel lymph node biopsy (neg)08/16/13. Recurrence risk of 13% over 10 years if on tamoxifen for 5 years. No chemotherapy done and started letrozolole 10/24/13, stopped 06/2017 due to side effects. repeat mammogram due 10/2024- already scheduled 8. OSTEOPOROSIS on letrozole 10/2013-06/2016. DEXA 11/01/13 osteoperosis T score -3.2 at lumbar spine, declined Reclast and used alendronate intermitently [id number] DEXA 08/23/17 osteoporosis T score -3.3 at [...] 139, HDL55, LDL 164 Now tolerating rosuvastatin. doing well 11. HYPERCOAGUABLE transitioned to apixaban 12. COLON TUBULAR ADENOMA - repeat colonosocpy five years (08/2021) given h/o tubular adenoma, recetn GI bleed at [facility]- needs repeat colo- still anemic, referred back for colonoscopy = HCM = Colonosocpy: will schedule Mammogram: scheduled for October Lung CA screenin09/2023 = FOLLOW UP = 6 mo follow up with labs visit type: a HIGH complexity visit where 60 minutes was spent in direct patient care, review of records and documentation. Follow Up Colonoscopy: Colonoscopy is due based on information available to this reminder. Colonoscopy consult has been ordered. See orders tab for details. Tobacco Use Screening: The patient is a former cigarette smoker. The patient uses other type(s) of tobacco every day. Other Tobacco Type(s) used: Electronic Nicotine Delivery System (ENDS) (e.g., e-cigarettes/vape pens) /ade/ HERI DHILLON D.O. PHYSICIAN Signed: 08/08/2024 11:24 HERI DHILLON [facility] Aug 08, 2024 10:23 AM PREVENTIVE MEDICINE NURSING NOTE: LOCAL TITLE: CLINICAL REMINDERS/NURSING STANDARD TITLE: PREVENTIVE MEDICINE NURSING NOTE DATE OF NOTE: AUG 08, 2024@10:23 ENTRY DATE: AUG 08, 2024@10:23:45 AUTHOR: PAULINO SHORT EXP COSIGNER: URGENCY: STATUS: COMPLETED Suicide Screen: C-SSRS Screening [place] Suicide Severity Rating Scale (C-SSRS) screener 1. Over the past month, have you wished you were or wished you could go to sleep and not wake up? No 2. Over the past month, have you had any actual thoughts of killing yourself? No 3. Over the past month, have you been thinking about how you might do this? Response not required due to responses to other questions. 4. Over the past month, have you had these thoughts and had some intention of acting on them? Response not required due to responses to other questions. 5. Over the past month, have you started to work out or worked out the details of how to kill yourself? Response not required due to responses to other questions. 6. If yes, at any time in the past month did you intend to carry out this plan? Response not required due to responses to other questions. 7. In your lifetime, have you ever done anything, started to do anything, or prepared to do anything to end your life (for example, collected pills, obtained a gun, gave away valuables, went to the roof but didn't jump)? No 8. If YES, was this within the past 3 months? Response not required due to responses to other questions. Depression Screening: Perform PHQ-2 A PHQ-2 screen was performed. The score was 0 which is a negative screen for depression. Over the past two weeks, how often have you been bothered by the following problems? 1. Little interest or pleasure in doing things Not at all 2. Feeling down, depressed, or hopeless Not at all Tobacco Use Screening: The patient is a former cigarette smoker. The patient uses other type(s) of tobacco some days. Other Tobacco Type(s) used: Electronic Nicotine Delivery System (ENDS) (e.g., e-cigarettes/vape pens) Alcohol Use Screen (AUDIT-C): Alcohol Screen: SCREEN FOR ALCOHOL (AUDIT-C) An alcohol screening test (AUDIT-C) was negative (score=0). 1. How often did you have a drink containing alcohol in the past year? Consider a drink to be a 12 ounce can or bottle of regular beer, 8 ounces of malt liquor, a 5 ounce glass of table wine, or a 1.5 ounce shot of liquor (like scotch, gin, or vodka). Never 2. How many drinks containing alcohol did you have on a typical day when you were drinking in the past year? Response not required due to responses to other questions. 3. How often did you have 4 or more drinks on one occasion in the past year? Response not required due to responses to other questions. 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
== END 2024-10-05 11:22 | disposition home or self-care (01) ==
LOC: HO.MAMMO 11:21
PROVIDERS: Absent Provider General Practice; PCP Internal Medicine; Visit Provider Internal Medicine
DX: Z12.31 Encounter for screening mammogram for malignant neoplasm of breast (principal)
CPT/HCPCS: 77063; 77067

== ENCOUNTER → 2024-10-05 11:30 | Outpatient (BNV) | payer OTHER, SELFPAY | PROVIDERS: Absent Provider General Practice; PCP Internal Medicine; Visit Provider Internal Medicine | DX: Z12.31 Encounter for screening mammogram for malignant neoplasm of breast (principal) | CPT/HCPCS: 77063; 77067 ==

== ENCOUNTER 2024-12-03 11:15 | Outpatient (AMB) | payer OTHER, SELFPAY ==
--- OUTSIDE RECORDS SUMMARY | 2024-11-29 11:15 | XMS_ITS ---
Author Organization [facility] Address [address] [place] [id number] Care Team Providers Care Exhibition Designer Name Role Phone Taraeverett Elizabeth Primary Care Provider Milton Anaya Jr Unavailable Allergies Allergen (clinical drug ingredient) Drug/Non Drug Allergy documented on EMR Reaction Allergy Type Onset Date Status Substance with 1-nziqfii-9-methylgluta ryl-coenzyme A reductase inhibitor mechanism of action (substance) Statins vomiting Drug Allergy Active REASON FOR VISIT Patient presents today for a screening colon Medications Medication SIG (Take, Route, Fr equency, Duration) Notes Start Date End Date Status Eliquis 2.5 MG as directed Orally Active Metoprolol Succinate Active Iron Active Omeprazole 40 MG 1 capsule 1/2 to 1 h our before morning meal Orally Once a day for 30 days 11/29/2024 Active Social History Tobacco Use: Social History Observation Description Date Details (start date - stop date) Never Smoker NA - NA Tobacco Control (Standard) Question Answer Notes Tobacco use: Nonsmoker AUDIT-C (Standard) Question Answer Notes Did you have a drink containing alcohol in the p ast year? No Points 0 Interpretation Negative Problems Problem Type SNOMED Code ICD Code Onset Dates Problem Status W/U Status Risk Notes Problem Anemia (372711851) Anemia (D64.9) Active confirmed Problem Gastrointestinal hemorrhage (89710012) GI bleed (K92.2) Active confirmed Problem Hiatal hernia (73856031) Hiatal hernia (K44.9) Active confirmed Vital Signs Temperature 94.8 degrees Fahrenheit 11/30/19 25 Blood pressure systolic 001 mm Hg 11/30/19 25 Blood pressure diastolic 01 mm Hg 025 Height 64 in 11/29/2024 Weight 228.4 lbs 11/29/2024 BMI 39.2 kg/m2 11/29/2024 Encounters Encounter Location Date Provider Diagnosis [facility] [address] [place] [address] 11/29/2024 Milton Issa Jr Anemia D64.9 ; GI bleed K92.2 and Hiatal hernia K44.9 Assessments Encounter Date Diagnosis (ICD Code) Assessment Notes Treatment Notes Treatment Clinical Notes Section Notes 11/29/2024 Anemia (ICD-10 - D64.9) Labs to be done in 1 month. Continue iron. Referral to thoracic surgery at [facility] for reflux symptoms and hiatal hernia, consider laparoscopic Phylicia fundoplication. Increase omeprazole to 40 mg daily. We discussed gastroesophageal reflux disease today. We discussed diet, lifestyle modifications, and weight management. We recommended she continue these measures and increase her omeprazole to 40 mg daily. We will see her in follow-up in 1 year. Previous colonoscopy reports will be reviewed and appropriate follow-up will be arranged. 11/29/2024 GI bleed (ICD-10 - K92.2) Labs to be done in 1 month. Continue iron. Referral to thoracic surgery at [facility] for reflux symptoms and hiatal hernia, consider laparoscopic Phylicia fundoplication. Increase omeprazole to 40 mg daily. We discussed gastroesophageal reflux disease today. We discussed diet, lifestyle modifications, and weight management. We recommended she continue these measures and increase her omeprazole to 40 mg daily. We will see her in follow-up in 1 year. Previous colonoscopy reports will be reviewed and appropriate follow-up will be arranged. 11/29/2024 Hiatal hernia (ICD-10 - K44.9) Labs to be done in 1 month. Continue iron. Referral to thoracic surgery at [facility] for reflux symptoms and hiatal hernia, consider laparoscopic Phylicia fundoplication. Increase omeprazole to 40 mg daily. We discussed gastroesophageal reflux disease today. We discussed diet, lifestyle modifications, and weight management. We recommended she continue these measures and increase her omeprazole to 40 mg daily. We will see her in follow-up in 1 year. Previous colonoscopy reports will be reviewed and appropriate follow-up will be arranged. Plan Of Treatment Medication Medication Name Sig Start Date Stop Date Notes Omeprazole 40 MG 1 capsule 2 to 1 h our before morning meal Orally Once a day for 30 days 11/29/2024 Pending Test Test Name Order Date LIVER PROFILE 11/29/2024 LIPASE 11/29/2024 IRON + IBC (FE) 11/29/2024 FERRITIN 11/29/2024 CBC w/o DIFF 11/29/2024 Next Appt Details Follow Up: 1 Year, Reason: Provider Name:Milton camara , 11/27/2025 11:10:00 AM, [address], [address], [place], [address], Progress Notes * JOSE WILDERDOB:1950 (74 yo F)Acc No.[id number]:11/29/2024 Progress Notes Patient: JOSE VIZCARRA Provider: Gil Issa MD :1950 A ge:74 Y S ex:Female Date:11/29/2024 Address:[address] [place], [place] [id number] Pcp:Elizabeth Nicholson Subjective: * Chief Complaints: * 1 . Patient presents today for a screening colon. * HPI: N ew symptom(s): Discussed with Jose is a pleasant 74-year-old woman seen today in consultation. She has a history of a hiatal hernia which has not been evaluated for a long time. She was evaluated by thoracic surgery in the past and refused this. This was at [facility]. Records are not available but will be obtained. She is not currently taking anything for reflux. She does take iron 325 mg once daily for history of low iron in the past. She is also on Eliquis because of a history of Pulmonary embolism and heterozygous factor V Leyden deficiency. Previous evaluation has included consultation for GI bleeding with black stools in October 2023. These results are reviewed in detail today. Upper endoscopy reports from October 2023 are reviewed in detail. Hiatal hernia her information is discussed with the patient. She complains of symptoms related to this.Omeprazole 20 mg daily is providing insufficient symptom relief. * ROS: G eneral/Constitutional: Change in appetite d enies. F atigue d enies. ? E NT: Patient denies d ifficulty swallowing. R espiratory: Patient denies s hortness of breath. C ardiovascular: Patient denies c hest pain. G astrointestinal: Comments S [facility] for details. G enitourinary: Difficulty urinating d enies. I ncontinence d enies. M usculoskeletal: Patient denies m uscle aches. S kin: Patient denies p ruritis. N eurologic: Patient denies l ow back pain. P sychiatric: Patient denies m ental or physical abuse. * Medical History: C KD stage III, COPD, Hypertension, Breast cancer, Hiatal hernia, Anxiety, Personal history of colon polyps last colonoscopy unknown, to be obtained, Osteoporosis, Pulmonary embolism, anticoagulated, Aortic stenosis status post TAVR, Hyperlipidemia. * Surgical History: R ight mastectomy . * Hospitalization/Major Diagno stic Procedure: t ranscatheter aortic valve replacement 02/2024. * Family History: F ather: . M other: . No family history of colon cancer or liver cancer. * Social History: T obacco Use: T obacco Control (Standard) T obacco use: N onsmoker. M iscellaneous: M arital status: . Occupation: retired. D rug/Alcohol: A SHAHZAD-C (Standard) D id you have a drink containing alcohol in the past year? N o,?Points 0 , I nterpretation N egative. * Medications: T aking Iron , Taking Metoprolol Succinate , Taking Eliquis 2.5 MG Tablet as directed Orally , Medication List reviewed and reconciled with the patient * Allergies: S tatins: vomiting. Objective: * Vitals: W t: 228.4 lbs, Ht: 64 in, BMI: 39.2 Index, BP: 001/01 mm Hg, Temp: 94.8, Ht-cm: 162.56, Wt-k.6. * Examination: G eneral Examination: GENERAL APPEARANCE: i n no acute distress. HEAD: n ormocephalic. EYES: s clera non-icteric. ORAL CAVITY: m ucosa moist. NECK/THYROID: n o lymphadenopathy. SKIN: a nicteric. HEART: S 1, S2 normal, no murmurs. LUNGS: c lear to auscultation bilaterally. CHEST: n ormal shape and expansion. ABDOMEN: s oft, nontender, nondistended, bowel sounds present, no organomegaly . EXTREMITIES: n o clubbing, cyanosis, or edema. PSYCH: c ognitive function intact. Assessment: * Assessment: 1. A nemia - D64.9 (Primary) 2 . G I bleed - K92.2 3 . H iatal hernia - K44.9 Labs to be done in 1 month. Continue iron. Referral to thoracic surgery at [facility] for reflux symptoms and hiatal hernia, consider laparoscopic Phylicia fundoplication. Increase omeprazole to 40 mg daily. We discussed gastroesophageal reflux disease today. We discussed diet, lifestyle modifications, and weight management. We recommended she continue these measures and increase her omeprazole to 40 mg daily. We will see her in follow-up in 1 year. Previous colonoscopy reports will be reviewed and appropriate follow-up will be arranged. Plan: * Treatment: 2. G I bleed L AB: LIVER PROFILE L AB: LIPASE L AB: IRON + IBC (FE) L AB: FERRITIN L AB: CBC w/o DIFF 3. H iatal hernia L AB: LIVER PROFILE L AB: LIPASE L AB: IRON + IBC (FE) L AB: FERRITIN L AB: CBC w/o DIFF * Procedure Codes: 3 017F COLORECTAL CA SCREEN DOC REV, 1036F TOBACCO NON-USER, G9744 PATIENT NOT ELIG D/T ACTIVE DX HTN * Preventive Medicine: Counseling: C are goal follow-up plan: A carri Normal BMI Follow-up G iving encouragement to exercise, B ND management provided Y es. Urinary Incontinence: U rinary Incontinence A ssessment: A bsent, P donato of care documented: N o, reason not specified. Screenings: F all Risk Screening F all Risk Assessment: N o falls in the past year, S creening: N o falls in the past year, P donato of Care: N ot documented, no reason specified. * Follow Up: 1 Year * * Sign off status: Completed true * Provider: Gil Issa MD Date: 11/29/2024 Generated for Kirsten camarillo/Baldom[place]/eTransmitting on: 0 12/03/2024 12:45 PM EDT History and Physical Notes * HPI (History of Present Illness) Category Sub-Category Detail Notes Category Not es New symptom(s) Discussed with Jose is a pleasant 74-year-old woman seen today in consultation. She has a history of a hiatal hernia which has not been evaluated for a long time. She was evaluated by thoracic surgery in the past and refused this. This was at [facility]. Records are not available but will be obtained. She is not currently taking anything for reflux. She does take iron 325 mg once daily for history of low iron in the past. She is also on Eliquis because of a history of Pulmonary embolism and heterozygous factor V Leyden deficiency. Previous evaluation has included consultation for GI bleeding with black stools in October 2023. These results are reviewed in detail today. Upper endoscopy reports from October 2023 are reviewed in detail. Hiatal hernia her information is discussed with the patient. She complains of symptoms related to this.Omeprazole 20 mg daily is providing insufficient symptom relief. Examination Category Sub-Category Detail Notes Category Not es General Examination GENERAL APPEARANCE: in no acute di stress HEAD: normocephalic EYES: sclera non-icteric NECK/THYROID: no lymphadenopathy HEART: S1, S2 normal, no mu rmurs CHEST: normal shape and exp ansion LUNGS: clear to auscultatio n bilaterally ABDOMEN: soft, nontender, non distended, bowel sounds present, no organomegaly SKIN: anicteric EXTREMITIES: no clubbing, cyanosi s, or edema PSYCH: cognitive function i ntact ORAL CAVITY: mucosa moist
--- NOTE | 2024-12-03 11:58 | MHC.OFFVIS ---
Vital Signs 12/03/24 11:59 Height 5 ft 4 in Weight 226 lb 10.163 oz BMI 38.9 BP 126/68 Blood Pressure Location Lt brachial Position Sitting Pulse 78 Pulse Source Pulse Oximeter Intake Visit Reasons: 6 month follow-up Patient Access Representative Required: No Accompanied by: Son Allergies acetaminophen (From PERCOCET) Allergy (Unknown, Verified 12/03/24 12:02) N/V atorvastatin (From LIPITOR) Allergy (Unknown, Verified 12/03/24 12:02) MUSCLE WEAKNESS lovastatin Allergy (Unknown, Verified 12/03/24 12:02) Unknown oxycodone (From PERCOCET) Allergy (Unknown, Verified 12/03/24 12:02) N/V CATARINA Inhibitors (CATARINA INHIBITORS) Adverse Reaction (Intermediate, Verified 12/03/24 12:02) COUGH Medication List - Last Reconciled 12/03/24 by Ta Ray MD acetaminophen 325 mg PO QID PRN albuterol sulfate 90 mcg/actuation 2 puffs inhalation Q6H PRN apixaban (Eliquis) 2.5 mg PO BID cholecalciferol (vitamin D3) 50 mcg PO DAILY ferrous sulfate 324 mg PO DAILY magnesium 200 mg PO BEDTIME melatonin 5 mg PO BEDTIME PRN metoprolol tartrate 12.5 mg PO BID omeprazole 40mg 1 cap orally once; rosuvastatin 10 mg PO DAILY tiotropium bromide 1.25 mcg/actuation (Spiriva Respimat) 2 puffs inhalation DAILY HPI Comments Details: Very pleasant 74-year-old female who is here for follow-up. She was seen in the hospital recently when she presented with chest discomfort and dynamic ECG changes. She was significantly anemic at that time and it was felt that the ECG changes are due to anemia but was also found to have murmur of aortic valve stenosis and echocardiography confirmed severe aortic valve stenosis. She underwent upper endoscopy which showed esophagitis but no obvious cause for bleeding was noted. Her Coumadin was stopped and she was started on Eliquis 5 mg twice a day. 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 She has done well since discharge. Denying any shortness of breath but has been fatigued. She also has a left-sided pressure-like feeling which she says is present all day and does not get worse with activity. I think this is likely related to esophagitis. She is here to discuss further about aortic valve replacement for severe aortic valve stenosis. She has not had any syncope. Her shortness of breath is stable and chronic. She is saying going upstairs she gets tired. 02/01/2024: She is here follow-up. 05/30/2024: She is here for follow-up. She is now status post transcatheter aortic valve replacement. She has done significantly well since then and has no exertional symptoms. She has been cardiac rehabilitation. Tolerating low-dose Eliquis for factor 5 Leiden. 12/03/2024: She is here for follow-up. She wants to undergo surgery for hiatal hernia. She has had symptoms of chest pressure after eating and at nighttime for long time. She is planning to see thoracic surgery at [facility]. She has been doing the cardiac rehabilitation and exercises for 50 minutes there. She has no chest discomfort. She has some dyspnea with activities but overall has been doing quite well. No bleeding. [facility] Medical History CKD (chronic kidney disease) History of breast cancer History of venous thromboembolism Lupus anticoagulant disorder Factor V Leiden Multinodular thyroid Surgical History S/P TAVR (transcatheter aortic valve replacement) History of cardiac cath Hx of right mastectomy Family History Father Heart failure Mother Pancreatic cancer Social History Household Members: Family Alcohol intake: former Patient Tobacco Use Status: Current everyday Tobacco user Tobacco use type: Cigarette service: No () Current occupational status: retired Review of Systems Const Denies daytime sleepiness, Denies difficulty sleeping, Denies snoring, Denies stops breathing during sleep and Denies weakness Card Denies chest pain, Denies rapid heart rate, Denies irregular heart rhythm, Denies claudication, Denies leg edema, Denies lightheadedness, Denies palpitations, Reports dyspnea, Reports dyspnea on exertion, Denies orthopnea, Denies paroxysmal nocturnal dyspnea and Denies slow heart rate Resp Denies cough, Reports dyspnea, Reports dyspnea on exertion and Denies snoring GI Reports no additional complaints, Denies hematochezia, Denies change in stool character and Denies dyspepsia Musc Denies abnormal gait, Denies muscle weakness and Denies numbness Neuro Denies abnormal gait, Denies numbness and Denies weakness Endo Denies palpitations Physical Exam Vital Signs: Last Vital Signs Pulse 78 12/03/24 11:59 BP 126/68 12/03/24 11:59 BMI result Body Mass Index 38.9 GENERAL APPEARANCE: in no acute distress, pleasant. NECK: no carotid bruit, no jugular venous distention. SKIN: no suspicious lesions, warm and dry. HEART: No murmur, S1 plus S2. LUNGS: Clear to auscultation. ABDOMEN: soft, nontender. EXTREMITIES: no edema. PERIPHERAL PULSES: equal. NEUROLOGIC: No gross deficits, AAO X 3 Assessment & Plan Assessment & Plan (1) S/P TAVR (transcatheter aortic valve replacement): Code(s): Z95.2 - Presence of prosthetic heart valve Category: Surgical (2) Factor V Leiden: Code(s): D68.51 - Activated protein C resistance Category: Medical (3) Preop cardiovascular exam: Code(s): Z01.810 - Encounter for preprocedural cardiovascular examination Category: Medical Plan Pleasant 74-year-old female who is here for follow-up. She has known history of severe aortic valve stenosis status post transcatheter aortic valve replacement. She has factor 5 Leiden and is currently on apixaban. She has done well after transcatheter aortic valve replacement. Clinically stable. She wishes to undergo hiatal hernia surgery. I think she is intermediate risk for perioperative complications. She may need interruption of Eliquis for 48-72 hours before surgery. She plans to see thoracic surgery at [facility]. Follow up with us in 6 months. Thank you for allowing me to participate in the care of your patient. Please feel free to contact me if you have any questions. Medications: Changed From omeprazole 20 mg PO BID 120 caps 0RF To omeprazole 40mg 1 cap orally once; Coding Level of Care Code Est Pt Level 4 (11572) Diagnoses S/P TAVR (transcatheter aortic valve replacement) Z95.2 Factor V Leiden D68.51 Preop cardiovascular exam Z01.810
[2024-12-03 11:59] VITALS: BP 126/68; PULSE 78; BMI 38.9
--- OUTSIDE RECORDS SUMMARY | 2024-12-03 12:45 | XMS_ITS | Patient Health Record ---
Author Organization [facility] Address [address] [place] [address] Care Team Providers Care Circuit Breaker Supervisor Name Role Phone Bharat Elizabeth Primary Care Provider Unavailken e Milton Issa Jr Unavailable Allergies Allergen (clinical drug ingredient) Drug/Non Drug Allergy documented on EMR Reaction Allergy Type Onset Date Status Substance with 3-rtgkcem-8-methylgluta ryl-coenzyme A reductase inhibitor mechanism of action (substance) Statins vomiting Drug Allergy Active Reason For Referral Referring Provider First Name Elizabeth Referring Provider Last Name Bharat Referring Provider Speciality Internal M edicine Referred Organization [facility] Referred Provider Milton Issa Jr Referred Address [address] [place] [address],[address],[place], [place],[address], Referred Provider Specialty Gastroentero logy Referral Priority Routine Medications Medication SIG (Take, Route, Fr equency, Duration) Notes Start Date End Date Status Eliquis 2.5 MG as directed Orally Active Metoprolol Succinate Active Iron Active Omeprazole 40 MG 1 capsule 1/2 to 1 h our before morning meal Orally Once a day for 30 days 11/29/2024 Active Immunizations Vaccine Route Administration Date Status Comme nts Influenza Unknown 11/30/2023 Administered Social History Tobacco Use: Social History Observation [...] Problem Status W/U Status Risk Notes Problem Hiatal hernia (95778574) Hiatal hernia (K44.9) Active confirmed Problem Anemia (078761726) Anemia (D64.9) Active confirmed Problem Gastrointestinal hemorrhage (26065378) GI bleed (K92.2) Active confirmed Vital Signs Temperature 94.8 degrees Fahrenheit 11/29/2024 Blood pressure diastolic 01 mm Hg 11/29/2024 Height 64 in 11/29/2024 Blood pressure systolic 001 mm Hg 11/29/2024 Weight 228.4 lbs 11/29/2024 BMI 39.2 kg/m2 11/29/2024 Encounters Encounter Location Date Provider Diagnosis [facility] [address] [place] [address] 11/29/2024 Milton Issa Jr Anemia D64.9 ; GI bleed K92.2 and Hiatal hernia K44.9 [facility] [address] [place] [address] 11/30/2024 Milton Issa Jr Assessments Encounter Date Diagnosis (ICD Code) Assessment Notes Treatment Notes Treatment Clinical Notes Section Notes 11/29/2024 Anemia (ICD-10 - D64.9) Labs to be done in 1 month. Continue iron. Referral to thoracic surgery at [facility] for reflux symptoms and hiatal hernia, consider [...] Continue iron. Referral to thoracic surgery at [facility] for reflux symptoms and hiatal hernia, consider [...] Continue iron. Referral to thoracic surgery at [facility] for reflux symptoms and hiatal hernia, consider [...] follow-up will be arranged. Plan Of Treatment Pending Test Test Name Order Date LIVER PROFILE 11/29/2024 LIPASE 11/29/2024 IRON + IBC (FE) 11/29/2024 FERRITIN 11/29/2024 CBC w/o DIFF 11/29/2024 Next Appt Details Provider Name:Milton camara , 11/27/2025 11:10:00 AM, [address] [place] [address], [address], [place], [address], Insurance Providers Payer Name Payer Address Payer Phone Subscriber Number Group Number Insured Name Patient Relationship to Insured Coverage Start Date Coverage End Date [facility] [employer] [address] [place] [address] [id number] JOSE WILDER Self - patient is the insured Medical (General) History Medical History History ICD Code CKD stage III COPD Hypertension breast cancer Hiatal hernia Anxiety Personal history of colon polyps last co lonoscopy unknown, to be obtained Osteoporosis Pulmonary embolism, anticoagulated Aortic stenosis status post TAVR Hyperlipidemia Surgical History Surgery Date(Month/Year) Right mastectomy Hospitalization History Reason Date(Month/Year) transcatheter aortic valve replacement 04/2023
== END 2024-12-03 12:24 | disposition home or self-care (01) ==
LOC: HO.HCS 11:15
PROVIDERS: PCP Internal Medicine; Referring Provider Internal Medicine Cardiovascular Disease; Visit Provider Internal Medicine Cardiovascular Disease
DX: Z95.2 Presence of prosthetic heart valve (principal); D68.51 Activated protein C resistance; Z01.810 Encounter for preprocedural cardiovascular examination
CPT/HCPCS: 99214

== ENCOUNTER → 2024-12-03 11:15 | Outpatient (BNVA) | payer OTHER, SELFPAY | PROVIDERS: PCP Internal Medicine; Visit Provider Internal Medicine Cardiovascular Disease | DX: Z01.810 Encounter for preprocedural cardiovascular examination (principal); D68.51 Activated protein C resistance; Z95.2 Presence of prosthetic heart valve | CPT/HCPCS: 99212 ==

== ENCOUNTER 2024-12-27 09:59 | Outpatient (REF) | payer OTHER, SELFPAY ==
[2024-12-27 10:37] LABS: Hematocrit 40.3 % (37.0-47.0); Hemoglobin 13.3 g/dl (12.0-16.0); Mean Corpuscular HGB Conc 33.0 g/dl (31.0-35.0); Mean Corpuscular Hemoglobin 32.8 pg (27.0-33.0); Mean Corpuscular Volume 99.5 fL (80.0-98.0); NRBC Abs Auto 0.000 X10*3/uL (0.0-0.012); NRBC Pct Auto 0.0 /100WBC (0.0-0.2); Platelet Count 263 X10*3/uL (160-400); Red Blood Count 4.05 X10*6/uL (4.20-5.50); White Blood Count 8.6 X10*3/uL (4.8-10.8)
[2024-12-27 11:20] LABS: Alanine Aminotransferase 17 U/L (0-31); Albumin Level 4.3 g/dL (3.5-5.0); Alkaline Phosphatase 66 U/L (39-117); Aspartate Amino Transferase 23 U/L (5-31); Iron 129 mcg/dL (30-160); Lipase 25 U/L (8-78); Percent Iron Saturation 46 % (15-50); Total Iron Binding Capacity 281 mcg/dL (228-428); Total Protein 7.2 g/dL (6.5-8.0); Unsaturated Iron Binding 152 ug/dL
[2024-12-27 11:27] LABS: Ferritin 184 ng/mL (10-250)
== END 2024-12-27 10:00 | disposition home or self-care (01) ==
LOC: HO.LAB 09:59
PROVIDERS: PCP Internal Medicine; Visit Provider Internal Medicine Gastroenterology
DX: K44.9 Diaphragmatic hernia without obstruction or gangrene (principal); K92.2 Gastrointestinal hemorrhage, unspecified; D64.9 Anemia, unspecified
CPT/HCPCS: 36415; 80076; 82728; 83540; 83690; 85027